=== PATIENT | male | born 1950 | race Caucasian/White ===

== ENCOUNTER → 2019-03-25 | Outpatient (CLI) | payer MEDICARE, BC ==
--- NOTE | 2019-03-25 16:30 | US ---
EXAMINATION TYPE: US venous doppler duplex LE LT DATE OF EXAM: 03/25/2019 4:17 PM COMPARISON: NONE CLINICAL HISTORY: M79.662,R22.41 PAIN AND SWELLING LOWER LIMB. SIDE PERFORMED: Left TECHNIQUE: The lower extremity deep venous system is examined utilizing real time linear array sonog kanchan with graded compression, doppler sonography and color-flow sonography. VESSELS IMAGED: External Iliac Vein (EIV) Common Femoral Vein Deep Femoral Vein Greater Saphenous Vein * Femoral Vein Popliteal Vein Small Saphenous Vein * Proximal Calf Veins (* superficial vessels) There is normal flow, compressibility, vascular waveforms. Left Leg: Negative for DVT IMPRESSION: No evident deep venous thrombosis at or above the left knee, follow-up as indicated
== END | disposition home or self-care (01) ==
LOC: RADUSWWP 15:52
PROVIDERS: ATTEND Family Medicine
DX: M79.662 Pain in left lower leg (principal); R22.41 Localized swelling, mass and lump, right lower limb

== ENCOUNTER → 2021-03-15 | Outpatient (CLI) | payer MEDICARE ==
--- NOTE | 2021-03-15 13:39 | US ---
EXAMINATION TYPE: US venous doppler duplex LE LT DATE OF EXAM: 03/15/2021 1:19 PM COMPARISON: US 2019 CLINICAL HISTORY: R22.42 SWELLING LT UPPER LIMB. Left ankle swelling SIDE PERFORMED: Left TECHNIQUE: The lower extremity deep venous system is examined utilizing real time linear array sonog kanchan with graded compression, doppler sonography and color-flow sonography. VESSELS IMAGED: Common Femoral Vein Deep Femoral Vein Greater Saphenous Vein * Femoral Vein Popliteal Vein Small Saphenous Vein * Proximal Calf Veins (* superficial vessels) Left Leg: Positive for DVT popliteal vein and proximal calf veins IMPRESSION: 1. Deep venous thrombosis left lower extremity popliteal and proximal trifurcation vessels.
== END | disposition home or self-care (01) ==
LOC: RADUSWWP 12:52
PROVIDERS: ATTEND Family Medicine
DX: I82.432 Acute embolism and thrombosis of left popliteal vein (principal); I82.4Y2 Acute embolism and thrombosis of unspecified deep veins of left proximal lower extremity

== ENCOUNTER 2023-02-04 09:12 | Emergency (ER) | payer MEDICARE ==
[2023-02-04] MEDS ORDERED: ORPHENADRINE 30 MG/ML 2 ML VIAL IVP STA (09:40)
[2023-02-04] MEDS ORDERED: KETOROLAC 15 MG/ML 1 ML VIAL IVP STA ×2 (09:40→14:03)
--- NOTE | 2023-02-04 09:49 | ED ---
Chest Pain HPI - General Chief Complaint: Chest Pain Stated Complaint: R Arm Pain Time Seen by Provider: 02/04/23 09:19 Source: patient, RN notes reviewed Mode of arrival: wheelchair Limitations: no limitations - History of Present Illness Initial Comments: This is a 72-year-old male who presents to the emergency department for chest pain and right-sided shoulder pain. States that 10 days ago he was having upper respiratory symptoms with coughing and congestion. He has been taking Sudafed and states that this has largely resolved. However, when this started 10 days ago, he had noticed some right-sided chest discomfort. This has since increased and is now going into the right shoulder. He saw his primary care provider 5 days ago who gave him a prescription for naproxen, which he is taking with no relief. He states "I feel like I was kicked by a large horse". Denies any shortness of breath. Also denies any history of similar symptoms in the past. Denies any fevers, chills, sore throat, cough, dyspnea, palpitations, abdominal pain, nausea, vomiting, diarrhea, back pain, or headaches. MD Complaint: chest pain, other (Right shoulder pain) - Related Data Home Medications Medication Instructions Recorded Confirmed Levothyroxine Sodium [Synthroid] 75 mcg PO QAM 04/21/15 04/26/15 Pseudoephedrine [Sudafed] 30 mg PO Q4H PRN 04/21/15 04/26/15 Ibuprofen [Motrin] 1 tab PO Q6HR PRN 04/26/15 04/26/15 Previous Rx's Medication Instructions Recorded Baclofen 5 mg PO Q8H PRN #20 tablet 02/04/23 Diclofenac Sodium [Voltaren] 75 mg PO BID PRN #20 tab 02/04/23 HYDROcodone/APAP 5-325MG [[place]alo 1 tab PO Q6HR PRN 3 Days #12 tab 02/04/23 5-325] Allergies Allergy/AdvReac Type Severity Reaction Status Date / Time Penicillins Allergy Rash/Hives Verified 02/04/23 09:29 Review of Systems ROS Statement: Those systems with pertinent positive or pertinent negative responses have been documented in the HPI. ROS Other: All systems not noted in ROS Statement are negative. Past Medical History Past Medical History: Sleep Apnea/CPAP/BIPAP, Thyroid Disorder Additional Past Medical History / Comment(s): MENIGITIS (BACTERIAL?). NO CPAP/BIPAP History of Any Multi-Drug Resistant Organisms: None Reported Past Surgical History: Back Surgery Past Anesthesia/Blood Transfusion Reactions: No Reported Reaction Past Psychological History: No Psychological Hx Reported Smoking Status: Current some day smoker Past Alcohol Use History: Rare Past Drug Use History: Marijuana - Past Family History Father Family Medical History: Myocardial Infarction ([place]) General Exam Limitations: no limitations General appearance: alert, in distress Head exam: Present: atraumatic, normocephalic, normal inspection Respiratory exam: Present: normal lung sounds bilaterally, chest wall tenderness. Absent: respiratory distress, wheezes, rales, rhonchi, stridor Cardiovascular Exam: Present: regular rate, normal rhythm, normal heart sounds. Absent: systolic murmur, diastolic murmur, rubs, gallop, clicks Extremities exam: Present: other (Tenderness to palpation over the right humeral head. 2+ radial pulses.) Neurological exam: Present: alert, oriented X3, CN II-XII intact Psychiatric exam: Present: normal affect, normal mood Skin exam: Present: warm, dry, intact, normal color. Absent: rash Course Vital Signs 02/04/23 02/04/23 02/04/23 09:24 12:12 13:20 Temperature 98.9 F Pulse Rate 82 80 84 Respiratory 18 18 19 Rate Blood Pressure 158/83 142/71 157/76 O2 Sat by Pulse 95 95 94 L Oximetry 02/04/23 02/04/23 14:41 16:43 Temperature 98.7 F Pulse Rate 82 93 Respiratory 19 191 H Rate Blood Pressure 120/82 151/77 O2 Sat by Pulse 96 98 Oximetry Chest Pain MDM - MDM This is a 72 year old male who presents to the emergency department for chest pain and right-sided shoulder pain. Was pt. sent in by a medical professional or institution? @ -No Did you speak to anyone other than the patient for history? @ -No Did you review nursing and triage notes? @ -Yes, and I agree, it is accurate with regards to the patient's symptoms. Were old charts reviewed? @ -No Differential Diagnosis? @ -Differential Chest Pain: Stable Angina, Unstable Angina, STEMI, NSTEMI Aortic Dissection, Pneumothorax, Musculoskeletal, Esophageal Spasm GERD, Cholecystitis, Pancreatitis, Zoster, this is not meant to be an all-inclusive list. EKG interpreted by me (3pts min.)? @ -Sinus rhythm. Right axis deviation. Right bundle branch block. Ventricular rate 82 bpm, KS interval 169 ms, QRS duration 149 ms, QTc 433ms. X-rays interpreted by me (1pt min.)? @ -Chest x-ray obtained, my interpretation identifies no localized consolidations or infiltrates. X-ray of the right shoulder obtained as well. My interpretation identifies no acute fractures or dislocations. CT interpreted by me (1pt min.)? @ -CT angiogram of the chest obtained. My interpretation identifies no evidence of a pulmonary embolus. What testing was considered but not performed? (CT, X-rays, U/S, labs)? Why? @ -None What meds were considered but not given? Why? @ -None Did you discuss the management of the patient with other professionals? @ -No Did you reconcile home meds? @ -No Was smoking cessation discussed for >3mins.? @ -No Was critical care preformed (if so, how long)? @ -No Were there social determinants of health that impacted care today? How? (Homelessness, low income, unemployed, alcoholism, drug addiction, transportation, low edu. Level, literacy, decrease access to med. care, [facility], rehab)? @ -No Was there de-escalation of care discussed even if they declined? (Discuss DNR or withdrawal of care, Hospice)? @ -No What co-morbidities impacted this encounter? (DM, HTN, Smoking, COPD, CAD, Cancer, CVA, Hep., AIDS, mental health diagnosis, sleep apnea, morbid obesity)? @ -None Was patient admitted / discharged? @ -Discharged. Lab work obtained revealing an elevated d-dimer and no other acute findings. Chest x-ray and x-ray of the right shoulder obtained revealing no acute process. The pain was significantly reproducible on examination. Given the elevated d-dimer, CTA of the chest was obtained. There was no evidence of a pulmonary embolus, however there was abnormal tissue starting in the lower anterior neck and extending into the mediastinum on the right side. Findings reviewed with the patient, in that this is likely what is causing his pain. He does still have adequate pulses and there is no evidence of vascular compromise in the right upper extremity. Pain was controlled in the emergency department. Prescription for Malo, baclofen, and diclofenac provided with dosing instructions reviewed. Advised that the Malo and baclofen are sedating and he should take them at night until he knows how they affect him, and avoid driving or operating machinery when taking them. He is also instructed to take the Diclofenac with Tylenol if needed and avoid any other qasf-wua-ekbllfd anti- inflammatories such as ibuprofen with the Diclofenac. Information for cardiothoracic surgery provided. He is instructed to contact them tomorrow morning for a follow-up appointment and further evaluation of these abnormal computed tomography scan findings. He does already have a follow-up appointment scheduled with his primary care provider for 3 days from now as well. Undiagnosed new problem with uncertain prognosis? @ -None Drug Therapy requiring intensive monitoring for toxicity (Heparin, Nitro, Insulin, Cardizem)? @ -None Were any procedures done? @ -None Diagnosis/symptom? @ -Abnormal CT scan of chest, mediastinal abnormality Acute, or Chronic, or Acute on Chronic? @ -Acute Uncomplicated (without systemic symptoms) or Complicated (systemic symptoms)? @ -Uncomplicated Side effects of treatment? @ -None Exacerbation, Progression, or Severe Exacerbation] @ -Not applicable Poses a threat to life or bodily function? @ -This will depend on the etiology of the abnormal mediastinal tissue. Return precautions reviewed in depth, the patient is instructed to return to the emergency department with any new, worsening, or concerning symptoms. Patient verbalized understanding. This case was discussed in detail with the attending ED physician, Dr. Santana. Presentation, findings, and treatment plan discussed in detail as well. Disposition Clinical Impression: Abnormal CT scan, chest, Mediastinal abnormality Disposition: HOME SELF-CARE Instructions (If sedation given, give patient instructions): Chest Pain (ED) Additional Instructions: Return to the emergency department with any new, worsening, or concerning symptoms. Take the diclofenac with Tylenol as needed for pain relief. If you take the diclofenac, do not take any other sapt-wgr-jrpowpw anti-inflammatories such as ibuprofen. Take the Malo sparingly when your pain is the most severe. Both the baclofen and Malo can be sedating and you should avoid driving or operating machinery when taking them. Contact cardiothoracic surgery as listed below for a follow-up appointment regarding your abnormal computed tomography scan findings demonstrating abnormal tissue in the mediastinum. Follow up with your primary care provider as scheduled. Prescriptions: Baclofen 5 mg PO Q8H PRN #20 tablet PRN Reason: Pain HYDROcodone/APAP 5-325MG [Malo 5-325] 1 tab PO Q6HR PRN 3 Days #12 tab PRN Reason: Pain Diclofenac Sodium [Voltaren] 75 mg PO BID PRN #20 tab PRN Reason: Pain Is patient prescribed a controlled substance at d/c from ED?: Yes When asked, does pt state using other controlled substances?: No If prescribed controlled substance>3 days was MAPS reviewed?: Prescribed <3 Days Referrals: Arabella Gruber MD [Primary Care Provider] - 1-2 days Nitin Brooks MD [STAFF PHYSICIAN] - 1-2 days
[2023-02-04 10:41] LABS: ALT 71 U/L (4-49); African American GFR (CKD) >90 (>60 ml/min/1.73 sqM); Albumin 3.6 g/dL (3.5-5.0); Anion Gap 11 mmol/L; Blood Urea Nitrogen 12 mg/dL (9-20); Calcium 9.3 mg/dL (8.4-10.2); Carbon Dioxide 23 mmol/L (22-30); Chloride 99 mmol/L (98-107); Glucose 129 mg/dL (74-99); Non-African American GFR(CKD) >90 (>60 ml/min/1.73 sqM); Sodium 133 mmol/L (137-145); Total Bilirubin 0.8 mg/dL (0.2-1.3); Total Protein 6.9 g/dL (6.3-8.2)
--- NOTE | 2023-02-04 10:42 | XR ---
EXAMINATION TYPE: XR chest 2V DATE OF EXAM: 02/04/2023 COMPARISON: 01/30/2023 HISTORY: Chest pain TECHNIQUE: Frontal and lateral views of the chest are obtained. FINDINGS: There is no focal air space opacity, pleural effusion, or pneumothorax seen. The cardiac silhouette size is within normal limits. The osseous structures are intact. IMPRESSION: No acute cardiopulmonary process. No interval change.
--- NOTE | 2023-02-04 10:43 | XR ---
Right shoulder. HISTORY: Pain. COMPARISON: None. TECHNIQUE: 3 views the right shoulder were obtained. FINDINGS: There is no fracture, dislocation, intraosseous or soft tissue abnormality. There is mild osteoarthri tic change of the glenohumeral joint. IMPRESSION: 1. No evidence of acute trauma. 2. 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
[2023-02-04 10:53] LABS: AST 36 U/L (17-59); Magnesium 2.1 mg/dL (1.6-2.3)
[2023-02-04 10:54] LABS: Alkaline Phosphatase 92 U/L (38-126)
[2023-02-04] MEDS ORDERED: MORPHINE SULFATE 2 MG/ML SYRINGE IVP STA ×2 (11:02→14:03)
[2023-02-04 11:42] LABS: Basophils % (A) 0 %; Eosinophils # (A) 0.2 k/uL (0-0.7); Eosinophils % (A) 1 %; HCT 44.3 % (39.0-53.0); HGB 14.8 gm/dL (13.0-17.5); Lymphocytes # (A) 0.8 k/uL (1.0-4.8); Lymphocytes % (A) 6 %; MCH 30.5 pg (25.0-35.0); MCHC 33.3 g/dL (31.0-37.0); MCV 91.4 fL (80.0-100.0); Mean Platelet Volume 6.9; Monocytes # (A) 0.8 k/uL (0-1.0); Monocytes % (A) 6 %; Neutrophils # (A) 11.7 k/uL (1.3-7.7); Neutrophils % (A) 87 %; Platelet Count 401 k/uL (150-450); RBC 4.85 m/uL (4.30-5.90); RDW 13.7 % (11.5-15.5); WBC 13.5 k/uL (3.8-10.6)
[2023-02-04 13:16] LABS: Prothrombin Time 10.4 sec (9.0-12.0)
--- NOTE | 2023-02-04 14:28 | CT ---
EXAMINATION TYPE: CT chest angio for PE CT DLP: 632.1 mGycm, Automated exposure control for dose reduction was used. DATE OF EXAM: 02/04/2023 1:48 PM COMPARISON: Chest radiograph from same day. CLINICAL INDICATION:Male, 72 years old with history of Chest pain, elevated d-dimer; Chest pains into right shoulder TECHNIQUE/CONTRAST: CTA scan of the thorax is performed with IV Contrast, patient injected with 100 mL of Isovue 300, pul monary embolism protocol. MIP images are created and reviewed these [facility] FINDINGS: Pulmonary Artery: Motion limited exam. There is no evidence for a central filling defect within the p ulmonary vasculature to suggest acute pulmonary embolism. Limited evaluation of the segmental and sub segmental branches secondary to bolus timing. The pulmonary artery is of normal size. Lungs/Pleura: No evidence of focal consolidation, pleural effusion or pneumothorax. Airway: Large airways are patent. Heart: Heart is within normal limits for size. Vasculature: No evidence of aortic aneurysm. Mediastinum: Abnormal soft tissue in the mediastinum superiorly just posterior to the right sternocla vicular and costochondral junction measuring 5.0 x 3.5 x 2.2 cm. Musculoskeletal: No acute osseous abnormalities Soft Tissues: Soft tissue mass in the lower neck extending into the mediastinum as described above. N o obvious osseous erosion changes. Lower neck: No significant findings. Upper Abdomen: No significant findings. IMPRESSION: 1. No evidence of central pulmonary embolism. Limited evaluation of the segmental and subsegmental br anches. 2. Abnormal soft tissue in low anterior neck extending into the anterior mediastinum posterior to the sternum on the right. Further evaluation recommended consider pet/CT.
[2023-02-04] MEDS ORDERED: HYDROcodone/APAP 5-325MG 1 EACH TAB PO STA (15:14)
[2023-02-04] MEDS ORDERED: ACET/COD 300 MG/30 MG STARTER PACK 6 TAB BTL PO STA (16:07)
[2023-02-04 16:45] VITALS: BP 151/77; PULSE 93; RESP 191; TEMP 98.7
== END 2023-02-04 16:45 | disposition home or self-care (01) ==
LOC: EC 09:12
DX: J98.51 Mediastinitis (principal); G47.30 Sleep apnea, unspecified; E07.9 Disorder of thyroid, unspecified; F17.200 Nicotine dependence, unspecified, uncomplicated; F12.90 Cannabis use, unspecified, uncomplicated; Z79.890 Hormone replacement therapy; Z88.0 Allergy status to penicillin; Z20.822 Contact with and (suspected) exposure to COVID-19
CPT/HCPCS: 99285; 96374; 96376; 96375 ×3; 36415; 93005; 85379; 80053; 83735; 84484; 85025; 85610; 85730; 87636; 73030; 71046; 71275; J2360; J2270; J1885; Q9967

== ENCOUNTER 2023-02-05 12:55 | Inpatient (IN) | payer MEDICARE ==
[2023-02-05] MEDS ORDERED: ACETAMINOPHEN TAB 500 MG TAB PO STA (13:29)
[2023-02-05] MEDS ORDERED: SODIUM CHLORIDE 0.9% 1,000 ML IV STA ×2 (13:29)
[2023-02-05] MEDS ORDERED: VANCOMYCIN IV PER PHARMACY 1 EACH MISC MISCELLANE PRN (13:30)
[2023-02-05] MEDS ORDERED: VANCOMYCIN 1,750 MG in SODIUM CHLORIDE 0.9% 500 ML 500 ML IVPB ONE (14:00)
--- NOTE | 2023-02-05 14:13 | ED ---
General Adult HPI - General Chief complaint: Skin/Abscess/Foreign Body Stated complaint: Abscess on Chest Time Seen by Provider: 02/05/23 13:23 Source: patient, RN notes reviewed, old records reviewed Mode of arrival: wheelchair Limitations: no limitations - History of Present Illness Initial comments: 72 yo male presenting for reevaluation of right upper chest pain. Patient was seen in the emergency department yesterday had a soft tissue mass in the mediastinum that was noted on imaging. He was afebrile at that time and had symptoms for approximately one week. He was discharged with referral to cardiothoracic surgery. He returns today with a rapid progression of swelling and erythema in the right anterior chest wall and neck region. Patient also reports fever. - Related Data Home Medications Medication Instructions Recorded Confirmed Pseudoephedrine [Sudafed] 30 mg PO Q4H PRN 04/21/15 02/05/23 Ibuprofen [Motrin] 800 mg PO Q6HR PRN 04/26/15 02/05/23 Acetaminophen Tab [Tylenol Tab] 1,000 mg PO Q6HR PRN 02/05/23 02/05/23 Baclofen 5 - 10 mg PO Q8H PRN 02/05/23 02/05/23 Levothyroxine Sodium [Synthroid] 88 mcg PO DAILY 02/05/23 02/05/23 Loratadine [Claritin] 10 mg PO DAILY 02/05/23 02/05/23 diphenhydrAMINE [Benadryl] 25 mg PO Q6H PRN 02/05/23 02/05/23 Previous Rx's Medication Instructions Recorded Diclofenac Sodium [Voltaren] 75 mg PO BID PRN #20 tab 02/04/23 HYDROcodone/APAP 5-325MG [[place] 1 tab PO Q6HR PRN 3 Days #12 tab 02/04/23 5-325] Allergies Allergy/AdvReac Type Severity Reaction Status Date / Time Penicillins Allergy Rash/Hives Verified 02/05/23 15:13 Review of Systems ROS Statement: Those systems with pertinent positive or pertinent negative responses have been documented in the HPI. ROS Other: All systems not noted in ROS Statement are negative. Past Medical History Past Medical History: Sleep Apnea/CPAP/BIPAP, Thyroid Disorder Additional Past Medical History / Comment(s): MENIGITIS (BACTERIAL?). NO CPAP/BIPAP History of Any Multi-Drug Resistant Organisms: None Reported Past Surgical History: Back Surgery Past Anesthesia/Blood Transfusion Reactions: No Reported Reaction Past Psychological History: No Psychological Hx Reported Smoking Status: Current some day smoker Past Alcohol Use History: Rare Past Drug Use History: Marijuana - Past Family History Father Family Medical History: Myocardial Infarction ([place]) General Exam General appearance: alert, in no apparent distress Head exam: Present: atraumatic, normocephalic Eye exam: Present: normal appearance, PERRL ENT exam: Present: normal exam Neck exam: Present: other (Right-sided neck and upper chest wall swelling with tenderness to palpation, erythema.) Respiratory exam: Present: normal lung sounds bilaterally Cardiovascular Exam: Present: regular rate, normal rhythm GI/Abdominal exam: Present: soft. Absent: distended, tenderness, guarding Extremities exam: Present: normal inspection, normal capillary refill. Absent: pedal edema Neurological exam: Present: alert, oriented X3, CN II-XII intact. Absent: motor sensory deficit Skin exam: Present: warm, dry Course Vital Signs 02/05/23 02/05/23 02/05/23 13:07 15:00 15:15 Temperature 102.2 F H 100.3 F H Pulse Rate 97 88 89 Respiratory 22 22 22 Rate Blood Pressure 147/75 130/70 118/70 O2 Sat by Pulse 92 L 92 L 95 Oximetry - Reevaluation(s) Reevaluation #1: 02/05/23 15:50 cardiothoracic has been paged, discussed the case with Reina lawson for cardiothoracic [facility], [facility], Jose R discussed the case with infectious disease. EKG Findings - EKG Comments: EKG Findings:: EKG: Sinus rhythm, right bundle-branch block, rate of 90, IN interval 144, QRS duration 142, QTC 4:[address] segment changes. Medical Decision Making - Medical Decision Making Was pt. sent in by a medical professional or institution (, PA, NURSE FIRST AID, urgent care, hospital, or fpc...) When possible be specific @ -No Did you speak to anyone other than the patient for history (EMS, parent, family, police, friend...)? What history was obtained from this source @ -Patient's Did you review nursing and triage notes (agree or disagree)? Why? @ -I reviewed and agree with nursing and triage notes Were old charts reviewed (outside hosp., previous admission, EMS record, old EKG, old radiological studies, urgent care reports/EKG's, fpc records)? Report findings @ -Previous CT performed yesterday Differential Diagnosis (chest pain, altered mental status, abdominal pain women, abdominal pain men, vaginal bleeding, weakness, fever, dyspnea, syncope, headache, dizziness, GI bleed, back pain, seizure, CVA, palpatations, mental health, musculoskeletal)? @ Cellulitis, mediastinal mass, mediastinal abscess, sepsis EKG interpreted by me (3pts min.). @ -As above X-rays interpreted by me (1pt min.). @ -None done CT interpreted by me (1pt min.). @ Repeat CT performed of the neck and chest with IV contrast. This shows that abnormal soft tissue findings with fat stranding. No definitive abscess found. U/S interpreted by me (1pt. min.). @ -None done What testing was considered but not performed or refused? (CT, X-rays, U/S, labs)? Why? @ -None What meds were considered but not given or refused? Why? @ -None Did you discuss the management of the patient with other professionals (professionals i.e. , PA, NURSE [employer] A[employer], lab, RT, psych nurse, social services aide, electric frying pan repairer, teacher, traffic division commanding officer, rn case manager hospice)? Give summary @ -[[facility], cardiothoracic has been paged Was smoking cessation discussed for >3mins.? @ -No Was critical care preformed (if so, how long)? @ -yes Were there social determinants of health that impacted care today? How? (Homelessness, low income, unemployed, alcoholism, drug addiction, transportation, low edu. Level, literacy, decrease access to med. care, detention, rehab)? @ -No Was there de-escalation of care discussed even if they declined (Discuss DNR or withdrawal of care, Hospice)? DNR status @ -No What co-morbidities impacted this encounter? (DM, HTN, Smoking, COPD, CAD, Cancer, CVA, ARF, Chemo, Hep., AIDS, mental health diagnosis, sleep apnea, morbid obesity)? @ -Diabetes Was patient admitted / discharged? Hospital course, mention meds given and route, prescriptions, significant lab abnormalities, going to OR and other pertinent info. @72-year-old male for reevaluation of upper chest pain. Patient found to be febrile. His white count has significantly elevated over the past 24 hours. He now has inferior neck and upper chest swelling and cellulitis which was not present yesterday. Patient has been started on broad-spectrum antibiotics including clindamycin, ceftriaxone, and vancomycin. His lactic acid is pending. He has hyponatremia at 124. Blood pressure remained stable while the emergency department. His fever responds to Tylenol. He will be admitted for continued IV antibiotics and consultation with both infectious disease and car diothoracic surgery. Undiagnosed new problem with uncertain prognosis? @ -No Drug Therapy requiring intensive monitoring for toxicity (Heparin, Nitro, Insulin, Cardizem)? @ -No Were any procedures done? @ -No Diagnosis/symptom? @Mediastinal and inferior neck soft tissue infection. Acute, or Chronic, or Acute on Chronic? @Acute Uncomplicated (without systemic symptoms) or Complicated (systemic symptoms)? @Complicated Side effects of treatment? @ -No Exacerbation, Progression, or Severe Exacerbation? @ -No Poses a threat to life or bodily function? How? (Chest pain, [place], [place], pneumonia, PE, COPD, DKA, ARF, appy, cholecystitis, CVA, Diverticulitis, Homicidal, Suicidal, threat to staff... and all critical care pts) @ -yes, worsening infection, sepsis - Lab Data Result diagrams: 02/05/23 13:51 02/05/23 13:51 Lab Results 02/05/23 02/05/23 02/05/23 Range/Units 13:51 13:51 13:51 WBC 21.0 H (3.8-10.6) k/uL RBC 4.32 (4.30-5.90) m/uL Hgb 13.0 (13.0-17.5) gm/dL Hct 38.6 L (39.0-53.0) % MCV 89.4 (80.0-100.0) fL MCH 30.1 (25.0-35.0) pg MCHC 33.7 (31.0-37.0) g/dL RDW 13.4 (11.5-15.5) % Plt Count 456 H (150-450) k/uL MPV 6.8 Neutrophils % 89 % Lymphocytes % 5 % Monocytes % 4 % Eosinophils % 1 % Basophils % 0 % Neutrophils # 18.5 H (1.3-7.7) k/uL Lymphocytes # 1.1 (1.0-4.8) k/uL Monocytes # 0.9 (0-1.0) k/uL Eosinophils # 0.2 (0-0.7) k/uL Basophils # 0.0 (0-0.2) k/uL PT 10.5 (9.0-12.0) sec INR 1.0 (<1.2) APTT 28.2 (22.0-30.0) sec Sodium 124 L (137-145) mmol/L Potassium 4.2 (3.5-5.1) mmol/L Chloride 89 L (98-107) mmol/L Carbon Dioxide 23 (22-30) mmol/L Anion Gap 12 mmol/L BUN 15 (9-20) mg/dL Creatinine 1.01 (0.66-1.25) mg/dL Est GFR (CKD-EPI)AfAm 87 (>60 ml/min/1.73 sqM) Est GFR (CKD-EPI)NonAf 75 (>60 ml/min/1.73 sqM) Glucose 124 H (74-99) mg/dL Calcium 8.5 (8.4-10.2) mg/dL Total Bilirubin 0.6 (0.2-1.3) mg/dL AST 41 (17-59) U/L ALT 49 (4-49) U/L Alkaline Phosphatase 110 (38-126) U/L Total Protein 6.4 (6.3-8.2) g/dL Albumin 3.4 L (3.5-5.0) g/dL Critical Care Time Critical Care Time: Yes Total Critical Care Time: 35 Disposition Clinical Impression: Mediastinal mass, Cellulitis, Sepsis Disposition: ADMITTED IP TO THIS HOSP Condition: Serious Is patient prescribed a controlled substance at d/c from ED?: No Referrals: Arabella Gruber MD [Primary Care Provider] - 1-2 days Time of Disposition: 16:05
[2023-02-05 14:14] LABS: Albumin 3.4 g/dL (3.5-5.0); Calcium 8.5 mg/dL (8.4-10.2); Potassium 4.2 mmol/L (3.5-5.1); Total Bilirubin 0.6 mg/dL (0.2-1.3); Total Protein 6.4 g/dL (6.3-8.2)
[2023-02-05 14:21] LABS: Partial Thromboplastin Time 28.2 sec (22.0-30.0); Prothrombin Time 10.5 sec (9.0-12.0)
--- NOTE | 2023-02-05 15:03 | CT ---
EXAMINATION TYPE: CT neck chest w con DATE OF EXAM: 02/05/2023 2:48 PM COMPARISON: CTA chest 01/08/2023 HISTORY: Right sided neck/upper chest swelling, redness and pain. CT DLP: 1113.9 mGycm Automated exposure control for dose reduction was used. CONTRAST: CT scan of the neck and chest is performed following with IV Contrast, patient injected with 100ml mL of Isovue 300. Axial images are obtained, coronal and sagittal reformatted images are reviewed. FINDINGS: Dental amalgam creates streak artifact which limits evaluation. Airway: No gross abnormality seen. Parotid/submandibular glands: No gross abnormality seen. Carotid/Vascular Structures: Unremarkable Osseous Structures: No acute osseous abnormality. Mild degenerative changes of the cervical spine. No osseous erosions. Lungs/Pleura: No evidence of focal consolidation, pleural effusion or pneumothorax. Minimal biapical pleural-parenchymal scarring. Airway: Large airways are patent. Heart: Heart is within normal limits for size. Vasculature: No evidence of aortic aneurysm. Mediastinum/soft tissues: Abnormal soft tissue in the mediastinum superiorly just posterior to the ri ght sternoclavicular and costochondral junction redemonstrated. This extends superiorly to the level of the hyoid on the right. There is adjacent subcutaneous fat stranding in the right anterior neck an d right superior chest. Single focus of gas identified just anterior to the right clavicular head (se gideon 201, image 72). No rim-enhancing fluid collection identified. There are a few prominent bilatera l cervical lymph nodes identified measuring 0.8 cm short axis. There is asymmetric enlargement of the right sternocleidomastoid mastoid muscle. Lower neck: No significant findings. Upper Abdomen: No significant findings. IMPRESSION: Redemonstration of abnormal soft tissue in the low anterior right neck extending from the hyoid bone to the superior mediastinum with surrounding fat stranding. No osseous erosions identified. A single focus of gas identified at the level of the right clavicle head. This could represent an infectious p rocess with phlegmonous change versus infiltrative mass with possible superimposed infection. Further workup is recommended with consideration for ultrasound.
[2023-02-05 15:09] LABS: Basophils % (A) 0 %; Eosinophils # (A) 0.2 k/uL (0-0.7); Eosinophils % (A) 1 %; HCT 38.6 % (39.0-53.0); Lymphocytes # (A) 1.1 k/uL (1.0-4.8); Lymphocytes % (A) 5 %; MCH 30.1 pg (25.0-35.0); MCHC 33.7 g/dL (31.0-37.0); MCV 89.4 fL (80.0-100.0); Mean Platelet Volume 6.8; Monocytes # (A) 0.9 k/uL (0-1.0); Monocytes % (A) 4 %; Neutrophils # (A) 18.5 k/uL (1.3-7.7); Neutrophils % (A) 89 %; Platelet Count 456 k/uL (150-450); RBC 4.32 m/uL (4.30-5.90); RDW 13.4 % (11.5-15.5)
[2023-02-05] MEDS ORDERED: CLINDAMYCIN 600 MG in DEXTROSE 5% IN WATER 50 ML IVPB STA ×2 (15:35)
[2023-02-05] MEDS ORDERED: NALOXONE 0.4 MG/ML 1 ML VIAL IV PRN (15:45)
--- NOTE | 2023-02-05 16:54 | P.HPIM ---
History of Present Illness H&P Date: 02/05/23 History of Presenting Illness: Patient is a very pleasant 72-year-old male with a past medical history of hypothyroidism and obstructive sleep apnea no longer using BiPAP. Patient presented to the emergency department secondary to right-sided chest pain, e rythema and swelling. Patient reports he initially began experiencing mild right-sided chest pain and discomfort approximately a week ago after he underwent a coughing fit. Patient states he had a recent upper respiratory infection with significant coughing and this is when he began having pain to his right side of his chest. Patient reports this respiratory infection has improved/resolved but states the chest pain has progressively worsened. Patient reports yesterday he was even seen and evaluated in the emergency department for the same complaint and upon review of ED documentation patient underwent full evaluation and was found to have a small soft tissue mass in the mediastinum on CT imaging. Patient was stable at that time and discharged with referral to cardiothoracic surgery for outpatient evaluation. Patient reports he returned to the emergency department today secondary to rapid progression of redness, swelling, and pain to his right anterior chest and neck accompanied by fevers. Patient denies having any headache, lightheadedness, dizziness, changes in vision or hearing, sore throat or dysphasia, difficulties with speech or clearing secretions, palpitations, shortness of breath, nausea, vomiting, abdominal pain, or experiencing any numbness/tingling/weakness/swelling in his extremities. Patient underwent full evaluation in the emergency department. Patient positive for severe sepsis with temp 102.2F, heart rate 97, WBC count 21.0, platelet count 456, and lactic acid was normal at 1.2. Patient received a 1 L bolus 0.9% normal saline in the ED and started on IV antibiotics. Labs completed and reviewed. CBC revealing leukocytosis with WBC count of 21.0 with left shift with neutrophils of 18.5. BMP revealing hyponatremia with sodium 124 and hypochloremia with chloride of 89. Lactic acid was 1.2. CT neck and chest with contrast was completed in radiology report reviewed showing redemonstration of abnormal soft tissue mass in the lower anterior right neck extending from the hyoid bone to the superior mediastinum with surrounding fat stranding, no osseous erosions identified, a single focus of gas identified in the level of the right clavicular head, possibly representing an infectious process with phlegmonous change versus infiltrative mass with possible superimposed infection. Discussed clinical findings, laboratory analysis, and imaging results with ED physician in detail. Patient being admitted under our services for severe sepsis and concerns of mediastinitis. Consults placed to cardiothoracic surgery and infectious disease. Review of systems: Pertinent positives and negatives as discussed in HPI, a complete review of systems was performed and all other systems are negative. Physical exam: Vital signs reviewed and stable. General: Nontoxic, no distress and appears stated age. Derm: Skin warm and dry, normal coloration for ethnicity. Moderate mediastinal soft tissue swelling extending into right supraclavicular region and right lateral side of neck accompanied by increased warmth. Head: Atraumatic, normocephalic and symmetric. Eyes: EOMs intact, no lid lag, and anicteric sclera Mouth: no lip lesions, mucus membranes moist Cardiovascular: regular rate and rhythm with normal S1S2, no murmur, positive posterior tibial pulses bilaterally, and cap refill < 2 seconds. Lungs: Respirations even, regular, and unlabored on room air. Lungs CTA bilaterally, no rhonchi, no rales, no wheezing, and no accessory muscle usage. Abdominal: soft, nontender to palpation, no guarding, no appreciable organomegaly Ext: ROM intact. No gross muscle atrophy, no edema, no contractures Neuro: Speech clear, face symmetrical and CN II-XII grossly intact with no noted focal neuro deficits Psych: Alert and oriented to person, place, time, and situation. Appropriate and pleasant affect. Assessment and Plan of Care: Mediastinal mass, infective versus infiltrative process with concerns of Mediastinitis Severe Sepsis secondary to above Leukocytosis Thrombocytosis Hypochloremic Hyponatremia -Patient positive for severe sepsis with temp 102.2F, heart rate 97, WBC count 21.0, platelet count 456, and lactic acid was normal at 1.2. -Patient received a 1 L bolus 0.9% normal saline in the ED and started on IV a ntibiotics. Labs completed and reviewed. CBC revealing leukocytosis with WBC count of 21.0 with left shift with neutrophils of 18.5. BMP revealing hyponatremia with sodium 124 and hypochloremia with chloride of 89. Lactic acid was 1.2. -CT neck and chest with contrast was completed in radiology report reviewed showing redemonstration of abnormal soft tissue mass in the lower anterior right neck extending from the hyoid bone to the superior mediastinum with surrounding fat stranding, no osseous erosions identified, a single focus of gas identified in the level of the right clavicular head, possibly representing an infectious process with phlegmonous change versus infiltrative mass with possible superimposed infection. -Discussed clinical findings, laboratory analysis, and imaging results with ED physician in detail. -Patient being admitted under our services for severe sepsis and concerns of mediastinitis. -Consults placed to cardiothoracic surgery and infectious disease. -Orders placed for ESR and CRP. -Follow up on blood cultures. -Patient started on IV antibiotics vancomycin 1750 mg every 12 hours, clindamycin 600 mg IVPB every 6 hours, and cefepime 2 g IVPB every 8 hours. -Symptomatic care and pain management. -Tylenol 650 mg every 6 hours as needed for mild pain/fever. Hypothyroidism -Home medications reviewed, patient to continue levothyroxine 88 g daily. The patient is admitted with an anticipated greater than 2 midnight stay for evaluation of severe sepsis CODE STATUS: Full code DVT prophylaxis: Lovenox Discussed with: Patient, patient significant other, patient's son, ED physician, and infectious disease physician Anticipated discharge date: Clinical course to determine Anticipated discharge place: Home Patient was seen independently by Nurse Practitioner. This document was prepared using [employer] dictation software. Please allow for errors in rrt while rare they do occur. Jose R Lloyd NP rendered care for this patient independently, reviewed the findings and plan as documented in the note above. I did not physically speak with or examine the patient on this date. Past Medical History Past Medical History: Sleep Apnea/CPAP/BIPAP, Thyroid Disorder Additional Past Medical History / Comment(s): MENIGITIS (BACTERIAL?). NO CPAP/BIPAP History of Any Multi-Drug Resistant Organisms: None Reported Past Surgical History: Back Surgery Past Anesthesia/Blood Transfusion Reactions: No Reported Reaction Past Psychological History: No Psychological Hx Reported Smoking Status: Current some day smoker Past Alcohol Use History: Rare Past Drug Use History: Marijuana - Past Family History Father Family Medical History: Myocardial Infarction ([place]) Medications and Allergies Home Medications Medication Instructions Recorded Confirmed Type Pseudoephedrine [Sudafed] 30 mg PO Q4H PRN 04/21/15 02/05/23 History Ibuprofen [Motrin] 800 mg PO Q6HR PRN 04/26/15 02/05/23 History Diclofenac Sodium [Voltaren] 75 mg PO BID PRN #20 tab 02/04/23 02/05/23 Rx HYDROcodone/APAP 5-325MG [[place] 1 tab PO Q6HR PRN 3 Days #12 tab 02/04/23 02/05/23 Rx 5-325] Acetaminophen Tab [Tylenol Tab] 1,000 mg PO Q6HR PRN 02/05/23 02/05/23 History Baclofen 5 - 10 mg PO Q8H PRN 02/05/23 02/05/23 History Levothyroxine Sodium [Synthroid] 88 mcg PO DAILY 02/05/23 02/05/23 History Loratadine [Claritin] 10 mg PO DAILY 02/05/23 02/05/23 History diphenhydrAMINE [Benadryl] 25 mg PO Q6H PRN 02/05/23 02/05/23 History Allergies Allergy/AdvReac Type Severity Reaction Status Date / Time Penicillins Allergy Rash/Hives Verified 02/05/23 15:13 Physical Exam Osteopathic Statement: *. No significant issues noted on an osteopathic structural exam other than those noted in the History and Physical/Consult. Vitals: Vital Signs Temp Pulse Resp BP Pulse Ox 02/05/23 15:15 89 22 118/70 95 02/05/23 15:00 100.3 F H 88 22 130/70 92 L 02/05/23 13:07 102.2 F H 97 22 147/75 92 L Intake and Output 02/05/23 02/05/23 02/05/23 06:59 14:59 22:59 Other: Weight 104.32 kg Results CBC & Chem 7: 02/05/23 13:51 02/05/23 13:51 Labs: Abnormal Lab Results - Last 24 Hours (Table) 02/05/23 02/05/23 Range/Units 13:51 13:51 WBC 21.0 H (3.8-10.6) k/uL Hct 38.6 L (39.0-53.0) % Plt Count 456 H (150-450) k/uL Neutrophils # 18.5 H (1.3-7.7) k/uL Sodium 124 L (137-145) mmol/L Chloride 89 L (98-107) mmol/L Glucose 124 H (74-99) mg/dL Albumin 3.4 L (3.5-5.0) g/dL
[2023-02-05] MEDS: HYDROmorphone 0.5 MG/0.5 ML SYRINGE IVP PRN ×2 (17:59→21:48)
[2023-02-05] MEDS: CEFEPIME 2 GM in SODIUM CHLORIDE 0.9% 100 ML IVPB SCH (18:01)
[2023-02-05] MEDS: ACETAMINOPHEN TAB 325 MG TAB PO PRN (21:17)
[2023-02-05] MEDS: PANTOPRAZOLE 40 MG/10 ML VIAL IVP SCH (21:17)
[2023-02-05] MEDS: CLINDAMYCIN 600 MG in DEXTROSE 5% IN WATER 50 ML IVPB SCH ×2 (22:49)
[2023-02-06] MEDS: CEFEPIME 2 GM in SODIUM CHLORIDE 0.9% 100 ML IVPB SCH ×3 (01:48→16:48)
[2023-02-06] MEDS: HYDROmorphone 0.5 MG/0.5 ML SYRINGE IVP PRN (02:37)
[2023-02-06] MEDS: ACETAMINOPHEN TAB 325 MG TAB PO PRN ×3 (03:43→22:06)
[2023-02-06] MEDS ORDERED: VANCOMYCIN 1,750 MG in SODIUM CHLORIDE 0.9% 500 ML 500 ML IVPB SCH (04:00)
[2023-02-06] MEDS: HYDROmorphone 1 MG/ML 1 ML SYRINGE IVP PRN ×5 (04:02→23:34)
[2023-02-06] MEDS: CLINDAMYCIN 600 MG in DEXTROSE 5% IN WATER 50 ML IVPB SCH ×4 (04:13→11:52)
[2023-02-06] MEDS: LEVOTHYROXINE 88 MCG TAB PO SCH (08:57)
[2023-02-06] MEDS: PANTOPRAZOLE 40 MG/10 ML VIAL IVP SCH ×2 (08:57→22:04)
[2023-02-06] MEDS: ENOXAPARIN 40 MG/0.4 ML SYRINGE SQ SCH (08:57)
[2023-02-06 10:14] LABS: African American GFR (CKD) >90 (>60 ml/min/1.73 sqM); Non-African American GFR(CKD) 90 (>60 ml/min/1.73 sqM)
--- NOTE | 2023-02-06 10:19 | US ---
EXAMINATION TYPE: US mass soft tissue chest/back DATE OF EXAM: 02/06/2023 COMPARISON: CT scan 02/05/2023 CLINICAL INDICATION: Male, 72 years old with history of neck mass, r/o abscess; Right upper chest red ness with lump and pain at clavicle region. TECHNIQUE: FINDINGS: Patients area of concern scanned. Edema seen. Focal prominent area seen posterior to mus carla = 4.2 x 3.4 x 1.5 cm. IMPRESSION: There is a 4.2 x 3.4 x 1.5 cm area of echogenicity. Differential diagnosis would include soft tissue mass, hematoma, phlegmon or developing abscess.
--- NOTE | 2023-02-06 10:26 | US ---
EXAMINATION TYPE: US venous doppler duplex UE DATE OF EXAM: 02/06/2023 COMPARISON: CLINICAL INDICATION: Male, 72 years old with history of r/o DVT in the neck, subclavian; Right chest redness SIDE PERFORMED: Bilateral Right Arm: Negative for DVT Left Arm: Negative for DVT IMPRESSION: Grayscale, color doppler, spectral doppler imaging performed of the deep veins of the upper extremiti es. There is normal flow, compressibility and vascular waveforms.
--- NOTE | 2023-02-06 12:24 | P.GSCN ---
History of Present Illness Consult date: 02/06/23 Reason for Consult: Mediastinal soft tissue mass and swelling with supraclavicular cellulitis Requesting physician: Alejandro Santana History of present illness: This is a 72-year-old gentleman with a past medical history significant for hypothyroid, chronic sinusitis, asthma, remote history of spinal meningitis, o bstructive sleep apnea with no home BiPAP use, occasional diarrhea, history of DVT to his left leg 2 years ago, remote history of nicotine dependence quit smoking 31 years ago and occasional marijuana use, smokes 3-4 joints per week. The patient presented to the emergency department here at [facility] yesterday evening with complaints of right-sided chest pain, erythema and swelling. The patient reports about a week ago he had an upper respiratory infection and frequent episodes of coughing. He also reports that around Sunday or Sunday evening while getting up to the bathroom during the evening he bumped into the door jam hitting his right upper chest. Subsequently, after this incident while coughing he felt a pop in the chest, with complaints of chest wall pain. He presented to the emergency department on 02/04/2023 with similar complaints mentioned above. At that time a computed tomography scan of his chest was completed which showed an abnormal soft tissue in the low anterior neck extending into the anterior mediastinum posterior to the sternum o n the right. He was recommended to follow-up with a cardiothoracic surgeon on an outpatient basis and was discharged home. The patient denies any nausea, vomiting, headache, changes in vision or hearing, constipation, dysphasia, shortness of breath, stridor, palpitations, lightheadedness, presyncope or syncope. Patient does report having a fever as high as 102F. Initial laboratory results showed a WBC count of 21.0, and globe at 13.0, hematocrit 38.6, platelets 456, PT 10.5, INR 1.0, PTT 28.2, sodium 124, potassium 4.2, chloride 89, BUN 15, creatinine 1.01, glucose 124, C-reactive protein 24.7, TSH 2.710 and free T3 2.2. Due to the patient's history of right-sided neck, upper chest wall swelling a computed tomography scan of his chest and neck were completed with contrast which redemonstrated an abnormal soft tissue in the low anterior right neck extending from the hyoid bone to the superior mediastinum with surrounding fat stranding. It also showed no osseous erosions, and a si ngle focus of gas identified at the level of the right clavicle head. This morning and ultrasound venous Doppler duplex of his bilateral upper extremities was completed which was negative for DVT to his bilateral upper extremities. For further evaluation and ultrasound of the mass soft tissue chest/neck was completed which demonstrated a 4.2 x 3.4 x 1.5 cm area of echogenicity. Due to the patient's presenting symptoms, findings on the computed tomography scan of the chest/neck and ultrasound report a consult was placed to cardiothoracic surgery for further evaluation and treatment recommendations. Review of Systems A 14 point review of systems was completed except as mentioned in the HPI. Past Medical History Past Medical History: Asthma, Deep Vein Thrombosis (DVT) (Remote history of DVT to his left leg), Sleep Apnea/CPAP/BIPAP, Thyroid Disorder Additional Past Medical History / Comment(s): Remote history of spinal MENIGITIS (BACTERIAL?). NO CPAP/BIPAP History of Any Multi-Drug Resistant Organisms: None Reported Past Surgical History: Back Surgery Additional Past Surgical History / Comment(s): Lipoma removal Past Anesthesia/Blood Transfusion Reactions: No Reported Reaction Past Psychological History: No Psychological Hx Reported Smoking Status: Former smoker (Quit smoking 31 years ago) Past Alcohol Use History: Rare Past Drug Use History: Marijuana (Smokes 3-4 joints per week) - Past Family History Father Family Medical History: Myocardial Infarction ([place]) ([place] at age 76) Mother Family Medical History: AICD/Pacemaker, Osteoarthritis ([place]) Medications and Allergies Home Medications Medication Instructions Recorded Confirmed Type Pseudoephedrine [Sudafed] 30 mg PO Q4H PRN 04/21/15 02/05/23 History Ibuprofen [Motrin] 800 mg PO Q6HR PRN 04/26/15 02/05/23 History Diclofenac Sodium [Voltaren] 75 mg PO BID PRN #20 tab 02/04/23 02/05/23 Rx HYDROcodone/APAP 5-325MG [[place] 1 tab PO Q6HR PRN 3 Days #12 tab 02/04/23 02/05/23 Rx 5-325] Acetaminophen Tab [Tylenol Tab] 1,000 mg PO Q6HR PRN 02/05/23 02/05/23 History Baclofen 5 - 10 mg PO Q8H PRN 02/05/23 02/05/23 History Levothyroxine Sodium [Synthroid] 88 mcg PO DAILY 02/05/23 02/05/23 History Loratadine [Claritin] 10 mg PO DAILY 02/05/23 02/05/23 History diphenhydrAMINE [Benadryl] 25 mg PO Q6H PRN 02/05/23 02/05/23 History Allergies Allergy/AdvReac Type Severity Reaction Status Date / Time Penicillins Allergy Rash/Hives Verified 02/05/23 15:13 Surgical - Exam Vital Signs Temp Pulse Resp BP Pulse Ox 102.2 F H 97 22 147/75 92 L 02/05/23 13:07 02/05/23 13:07 02/05/23 13:07 02/05/23 13:07 02/05/23 13:07 - General Right upper chest wall pain with palpation well developed, well nourished, no distress, obese - Eyes PERRL, normal ocular movement, no pale, no icteric - ENT normal pinna, normal nares, normal mucosa, no hearing loss, no congestion - Neck Neck is supple. no masses, no bruits, trachea midline, no venous distension - Respiratory Lungs sounds essentially clear throughout. Respirations are symmetrical and nonlabored. No wheezes, rhonchi or crackles. - Cardiovascular Regular rhythm and rate. S1 and S2 present, negative for S3, gallop or murmur. Peripheral pulses palpable. Bedside telemetry showing normal sinus rhythm heart rate 93 BPM. - Abdomen Abdomen is soft, nontender and nondistended. Active bowel sounds present in all 4 quadrants. No guarding or rigidity. No organomegaly appreciated. - Genitourinary Deferred - Rectum Deferred - Integumentary Skin is warm and dry. No clubbing or cyanosis is present. Right upper chest, supraclavicular region with erythema and swelling, tender and warm to touch. no rash, no growths - Neurologic No focal deficits. Cranial nerves II through XII intact. - Musculoskeletal Equal strength bilateral. Limited range of motion to his right arm due to pain with movement. - Psychiatric oriented to time, oriented to person, oriented to place, speech is normal, memory intact Results - Labs 02/05/23 13:51 02/06/23 09:30 Abnormal Lab Results - Last 24 Hours (Table) 02/05/23 02/05/23 02/05/23 Range/Units 13:51 13:51 13:51 WBC 21.0 H (3.8-10.6) k/uL Hct 38.6 L (39.0-53.0) % Plt Count 456 H (150-450) k/uL Neutrophils # 18.5 H (1.3-7.7) k/uL ESR 87 H (0-15) mm/hr Sodium 124 L (137-145) mmol/L Chloride 89 L (98-107) mmol/L Glucose 124 H (74-99) mg/dL C-Reactive Protein (<1.0) mg/dL Albumin 3.4 L (3.5-5.0) g/dL Free T3 pg/mL (2.8-5.3) pg/ml 02/05/23 02/06/23 Range/Units 16:52 09:30 WBC (3.8-10.6) k/uL Hct (39.0-53.0) % Plt Count (150-450) k/uL Neutrophils # (1.3-7.7) k/uL ESR (0-15) mm/hr Sodium (137-145) mmol/L Chloride (98-107) mmol/L Glucose (74-99) mg/dL C-Reactive Protein 24.7 H (<1.0) mg/dL Albumin (3.5-5.0) g/dL Free T3 pg/mL 2.2 L (2.8-5.3) pg/ml Microbiology - Last 24 Hours (Table) 02/05/23 13:35 Blood Culture Gram Stain - Preliminary Blood Blood Culture - Preliminary Staphylococcus aureus 02/05/23 13:50 Blood Culture Gram Stain - Preliminary Blood Diabetes panel 02/05/23 02/06/23 Range/Units 13:51 09:30 Sodium 124 L (137-145) mmol/L Potassium 4.2 (3.5-5.1) mmol/L Chloride 89 L (98-107) mmol/L Carbon Dioxide 23 (22-30) mmol/L BUN 15 (9-20) mg/dL Creatinine 1.01 0.82 (0.66-1.25) mg/dL Glucose 124 H (74-99) mg/dL Calcium 8.5 (8.4-10.2) mg/dL AST 41 (17-59) U/L ALT 49 (4-49) U/L Alkaline Phosphatase 110 (38-126) U/L Total Protein 6.4 (6.3-8.2) g/dL Albumin 3.4 L (3.5-5.0) g/dL Thyroid panel 02/06/23 Range/Units 09:30 TSH 2.710 (0.465-4.680) mIU/L Calcium panel 02/05/23 Range/Units 13:51 Calcium 8.5 (8.4-10.2) mg/dL Albumin 3.4 L (3.5-5.0) g/dL Pituitary panel 02/05/23 02/06/23 02/06/23 Range/Units 13:51 09:30 09:30 Sodium 124 L (137-145) mmol/L Potassium 4.2 (3.5-5.1) mmol/L Chloride 89 L (98-107) mmol/L Carbon Dioxide 23 (22-30) mmol/L BUN 15 (9-20) mg/dL Creatinine 1.01 0.82 (0.66-1.25) mg/dL Glucose 124 H (74-99) mg/dL Calcium 8.5 (8.4-10.2) mg/dL TSH 2.710 (0.465-4.680) mIU/L Adrenal panel 02/05/23 02/06/23 Range/Units 13:51 09:30 Sodium 124 L (137-145) mmol/L Potassium 4.2 (3.5-5.1) mmol/L Chloride 89 L (98-107) mmol/L Carbon Dioxide 23 (22-30) mmol/L BUN 15 (9-20) mg/dL Creatinine 1.01 0.82 (0.66-1.25) mg/dL Glucose 124 H (74-99) mg/dL Calcium 8.5 (8.4-10.2) mg/dL Total Bilirubin 0.6 (0.2-1.3) mg/dL AST 41 (17-59) U/L ALT 49 (4-49) U/L Alkaline Phosphatase 110 (38-126) U/L Total Protein 6.4 (6.3-8.2) g/dL Albumin 3.4 L (3.5-5.0) g/dL - Imaging CT scan - chest: report reviewed, image reviewed Assessment and Plan Assessment: Mediastinal/right supraclavicular soft tissue swelling and abnormal soft tissue in the mediastinum superiorly just posterior to the right sternoclavicular and costochondral junction on computed tomography scan Sepsis with leukocytosis WBC count 21.0, likely secondary to above Hyponatremia Chronic sinusitis Thyroid disorder Remote history of spinal meningitis Occasional marijuana use, smokes 3-4 joint per week History of DVT to his left leg 2 years ago Sleep apnea without all BiPAP use Plan: The patient was seen and examined in the emergency department, with family present at bedside. His chart and diagnostics were reviewed. His case was discussed in detail with Dr. John Busch from cardiothoracic surgery. No surgical intervention is warned that this time. Infectious disease has been consulted. Continue antibiotics per infectious disease recommendations. Medic al management and other comorbidities per primary care service. More recommendations to follow based on patient's clinical course. Thank you for this consult and we look forward to working with you in the care of this patient. I have personally seen and examined the patient, performed the documentation and the assessment and plan as written. 30 minutes spent on the visit . Raj DUTTA Time with Patient: Greater than 30
--- NOTE | 2023-02-06 14:13 | P.PN ---
Subjective Progress Note Date: 02/06/23 Patient reports that his neck/chest pain has worsened, redness has spread down. Pain is decently controlled with Dilaudid. Blood cultures do show staph aureus. Gen: awake, alert HEENT: normocephalic, atraumatic, good hearing acuity, moist mucous membranes Resp: good air exchange, breathing comfortably with no accessory muscle use CVS: good distal perfusion x 4, GI: soft, NTTP, ND : no SPT, no CVAT, kilgore catheter not present MSK: no pitting edema, no clubbing, chest wall erythema with fluctuant mass above right supraclavicular area Neuro: non-focal, moving all extremities Psych: cooperative, euthymic mood Hospital course: Patient is a very pleasant 72-year-old male with a past medical history of hypothyroidism and obstructive sleep apnea no longer using BiPAP. Patient presented to the emergency department secondary to right-sided chest pain, erythema and swelling. Patient underwent full evaluation in the emergency department. Patient positive for severe sepsis with temp 102.2F, heart rate 97, WBC count 21.0, platelet count 456, and lactic acid was normal at 1.2. Patient received a 1 L bolus 0.9% normal saline in the ED and started on IV antibiotics. Labs completed and reviewed. CBC revealing leukocytosis with WBC count of 21.0 with left shift with neutrophils of 18.5. BMP revealing hyponatremia with sodium 124 and hypochloremia with chloride of 89. Lactic acid was 1.2. CT neck and chest with contrast was completed in radiology report reviewed showing redemonstration of abnormal soft tissue mass in the lower anterior right neck extending from the hyoid bone to the superior mediastinum with surrounding fat stranding, no osseous erosions identified, a single focus of gas identified in the level of the right clavicular head, possibly representing an infectious process with phlegmonous change versus infiltrative mass with possible supe rimposed infection. Discussed clinical findings, laboratory analysis, and imaging results with ED physician in detail. Patient was admitted under our services for severe sepsis and concerns of mediastinitis. Consults placed to cardiothoracic surgery, general surgery, and infectious disease. Assessment: Mediastinal mass, infective Gram-positive bacteremia with staph aureus Severe Sepsis secondary to above Leukocytosis Thrombocytosis Hypochloremic Hyponatremia Hypothyroidism Plan: Today, patient was afebrile, 123/65, heart rate 92, 94% on 2 L nasal cannula. TSH was 2.7, free T3 was 2.2 Cardiothoracic surgery consult note reviewed, patient is not a surgical candidate at this time Upper extremity duplex was negative for DVT CT of the neck/chest showed abnormal soft tissue with low anterior right neck extension from the higher bone to the superior mediastinum with surrounding fat stranding, single foci of gas identified the level of the right clavicle Soft tissue ultrasound demonstrated 4.1 cm echogenic mass Discussed case with general surgery regarding debridement of infected tissue, they will see the patient today and decide on operative course Discontinue clindamycin Continue vancomycin, dosed per vancomycin trough Continue cefepime 2 g every 8 hours Follow-up infectious disease consultation Pain control: Dilaudid 1 mg every 3 hours when necessary Patient is full code Objective - Vital Signs Vital signs: Vital Signs Temp 98.7 F 02/06/23 11:43 Pulse 93 02/06/23 11:43 Resp 20 02/06/23 11:43 BP 118/77 02/06/23 11:43 Pulse Ox 94 L 02/06/23 11:43 FiO2 Intake & Output 02/05/23 02/06/23 02/06/23 18:59 06:59 18:59 Intake Total 236 Output Total 400 425 Balance -400 -189 Weight 104.32 kg Intake: Oral 236 Output: Urine 400 425 Other: Voiding Method Urinal # Voids 2 - Labs CBC & Chem 7: 02/05/23 13:51 02/06/23 09:30 Labs: Abnormal Lab Results - Last 24 Hours (Table) 02/05/23 02/05/23 02/05/23 Range/Units 13:51 13:51 13:51 WBC 21.0 H (3.8-10.6) k/uL Hct 38.6 L (39.0-53.0) % Plt Count 456 H (150-450) k/uL Neutrophils # 18.5 H (1.3-7.7) k/uL ESR 87 H (0-15) mm/hr Sodium 124 L (137-145) mmol/L Chloride 89 L (98-107) mmol/L Glucose 124 H (74-99) mg/dL C-Reactive Protein (<1.0) mg/dL Albumin 3.4 L (3.5-5.0) g/dL Free T3 pg/mL (2.8-5.3) pg/ml 02/05/23 02/06/23 Range/Units 16:52 09:30 WBC (3.8-10.6) k/uL Hct (39.0-53.0) % Plt Count (150-450) k/uL Neutrophils # (1.3-7.7) k/uL ESR (0-15) mm/hr Sodium (137-145) mmol/L Chloride (98-107) mmol/L Glucose (74-99) mg/dL C-Reactive Protein 24.7 H (<1.0) mg/dL Albumin (3.5-5.0) g/dL Free T3 pg/mL 2.2 L (2.8-5.3) pg/ml Microbiology - Last 24 Hours (Table) 02/05/23 13:35 Blood Culture Gram Stain - Preliminary Blood Blood Culture - Preliminary Staphylococcus aureus 02/05/23 13:50 Blood Culture Gram Stain - Preliminary Blood
--- NOTE | 2023-02-06 15:21 | P.GSCN ---
History of Present Illness Consult date: 02/06/23 History of present illness: CHIEF COMPLAINT: Right-sided chest swelling with pain and redness HISTORY OF PRESENT ILLNESS: This is a 72-year-old male who presented to the hospital with complaints swelling in the right pectoral area up into the neck. Area is very painful and tender. Significant erythema and evidence of cellulitis. Patient reports symptoms started 3 days ago. He reports the week prior he has been coughing heavily with upper respiratory symptoms. Also he walked into the door jam hitting the right side of his chest wall. Patient denies any history of diabetes. Denies any prior history of skin infections. He had a computed tomography scan of the chest and neck that shows redemonstration of abnormal soft tissue in the lower anterior right neck extending from the hyoid bone to the superior mediastinum with surrounding fat stranding. No osseous erosions identified. A single focus of gas identified at the level of the right clavicle head. This could represent an infectious process with phlegmonous change versus infiltrative mass with possible superimposed infection. Ultrasound of the neck had shown a 4.2 x 3.4 x 1.5 cm area of echogenicity. Differential diagnosis would include soft tissue mass, hematoma, phlegmon or developing abscess. Patient denies being on any blood thinners. Patient has been febrile. He had fevers as high as 102 on admission with evidence of leukocytosis. PAST MEDICAL HISTORY: Sleep apnea. Hypothyroidism. History of DVT left leg PAST SURGICAL HISTORY: Back surgery MEDICATIONS: See below ALLERGIES: See below SOCIAL HISTORY: No illicit drug use. Marijuana smoker REVIEW OF SYSTEMS: CONSTITUTIONAL: Denies fever or chills. HEENT: Denies blurred vision, vision changes, or eye pain. Denies hemoptysis CARDIOVASCULAR: Denies chest pain or pressure. RESPIRATORY: No shortness of breath. GASTROINTESTINAL: See HPI for pertinent findings HEMATOLOGIC: Denies bleeding disorders. GENITOURINARY: Denies any blood in urine or increased urinary frequency. SKIN: Denies pruitis. Denies rash. PHYSICAL EXAM: VITAL SIGNS: Reviewed GENERAL: Well-developed in no acute distress. CHEST: Area of induration in the right pectoral region. Tender with palpation. Patient with significant cellulitis changes along the right right pectoral and chest area. Patient has swelling up into the right side of his neck with tenderness to palpation. No evidence of any cut or laceration. No drainage. ABDOMEN: Soft. Nondistended. Nontender NEUROLOGIC: Alert and oriented. Cranial nerves II through XII grossly intact. LABORATORY DATA: WBC is 21 hgb 13 platelets 456 Sodium 124 potassium is 4.2 creatinine 1.01 CRP 24 points IMAGING: Computed tomography scan and ultrasound as stated above ASSESSMENT: 1. Cellulitis of the right pectoral and chest wall. CT with abnormal soft tissue in the low anterior neck extending from the hyoid bone to the superior mediastinum with surrounding fat stranding. Could represent infectious process with phlegmonous change versus infiltrative mass with possible superimposed infection PLAN: -Continue IV antibiotics -Have nursing staff anthony the area of cellulitis -Continue to observe -Continue regular diet Thank you for this consultation Physician Psychiatric Nursing Aide note has been reviewed by physician. Signing provider agrees with the documented findings, assessment, and plan of care. Past Medical History Past Medical History: Asthma, Deep Vein Thrombosis (DVT), Sleep Apnea/CPAP/BIPAP, Thyroid Disorder Additional Past Medical History / Comment(s): Remote history of spinal MENIGITIS (BACTERIAL?). NO CPAP/BIPAP History of Any Multi-Drug Resistant Organisms: None Reported Past Surgical History: Back Surgery Additional Past Surgical History / Comment(s): Lipoma removal Past Anesthesia/Blood Transfusion Reactions: No Reported Reaction Past Psychological History: No Psychological Hx Reported Smoking Status: Former smoker Past Alcohol Use History: Rare Past Drug Use History: Marijuana - Past Family History Mother Family Medical History: AICD/Pacemaker, Osteoarthritis (OA) Father Family Medical History: Myocardial Infarction ([place]) Medications and Allergies Home Medications Medication Instructions Recorded Confirmed Type Pseudoephedrine [Sudafed] 30 mg PO Q4H PRN 04/21/15 02/05/23 History Ibuprofen [Motrin] 800 mg PO Q6HR PRN 04/26/15 02/05/23 History Diclofenac Sodium [Voltaren] 75 mg PO BID PRN #20 tab 02/04/23 02/05/23 Rx HYDROcodone/APAP 5-325MG [[place] 1 tab PO Q6HR PRN 3 Days #12 tab 02/04/23 02/05/23 Rx 5-325] Acetaminophen Tab [Tylenol Tab] 1,000 mg PO Q6HR PRN 02/05/23 02/05/23 History Baclofen 5 - 10 mg PO Q8H PRN 02/05/23 02/05/23 History Levothyroxine Sodium [Synthroid] 88 mcg PO DAILY 02/05/23 02/05/23 History Loratadine [Claritin] 10 mg PO DAILY 02/05/23 02/05/23 History diphenhydrAMINE [Benadryl] 25 mg PO Q6H PRN 02/05/23 02/05/23 History Allergies Allergy/AdvReac Type Severity Reaction Status Date / Time Penicillins Allergy Rash/Hives Verified 02/05/23 15:13 Surgical - Exam Vital Signs Temp Pulse Resp BP Pulse Ox 102.2 F H 97 22 147/75 92 L 02/05/23 13:07 02/05/23 13:07 02/05/23 13:07 02/05/23 13:07 02/05/23 13:07 Results - Labs 02/05/23 13:51 02/06/23 09:30 Abnormal Lab Results - Last 24 Hours (Table) 02/05/23 02/05/23 02/05/23 Range/Units 13:51 13:51 16:52 WBC 21.0 H (3.8-10.6) k/uL Hct 38.6 L (39.0-53.0) % Plt Count 456 H (150-450) k/uL Neutrophils # 18.5 H (1.3-7.7) k/uL ESR 87 H (0-15) mm/hr C-Reactive Protein 24.7 H (<1.0) mg/dL Free T3 pg/mL (2.8-5.3) pg/ml 02/06/23 Range/Units 09:30 WBC (3.8-10.6) k/uL Hct (39.0-53.0) % Plt Count (150-450) k/uL Neutrophils # (1.3-7.7) k/uL ESR (0-15) mm/hr C-Reactive Protein (<1.0) mg/dL Free T3 pg/mL 2.2 L (2.8-5.3) pg/ml Microbiology - Last 24 Hours (Table) 02/05/23 13:35 Blood Culture Gram Stain - Preliminary Blood Blood Culture - Preliminary Staphylococcus aureus 02/05/23 13:50 Blood Culture Gram Stain - Preliminary Blood Diabetes panel 02/06/23 Range/Units 09:30 Creatinine 0.82 (0.66-1.25) mg/dL Thyroid panel 02/06/23 Range/Units 09:30 TSH 2.710 (0.465-4.680) mIU/L Pituitary panel 02/06/23 02/06/23 Range/Units 09:30 09:30 Creatinine 0.82 (0.66-1.25) mg/dL TSH 2.710 (0.465-4.680) mIU/L Adrenal panel 02/06/23 Range/Units 09:30 Creatinine 0.82 (0.66-1.25) mg/dL
[2023-02-06] MEDS: VANCOMYCIN 1,750 MG in SODIUM CHLORIDE 0.9% 500 ML 500 ML IVPB SCH (18:25)
--- NOTE | 2023-02-06 19:42 | P.CONS ---
History of Present Illness - Reason for Consult Consult date: 02/06/23 Cellulitis rule out necrotizing infection Requesting physician: Jose R Lloyd - Chief Complaint Right chest wall pain and swelling x 2 days - History of Present Illness Patient is a 72-year-old male with a past medical history significant for hypothyroidism and obstructive sleep apnea patient initially presented to the hospital with right-sided chest pain that started after coughing fit and did have a recent URI infection patient was evaluated in the ER and noted to have small soft tissue mass in the mediastinum on CT imaging and the patient was subsequent discharged home. Presented back to the hospital with worsening symptoms specially with fever of 102 degrees Fahrenheit also complaining of increasing swelling and redness to the right side of the chest along with the pain which has been described as sharp in nature intense was almost out of 10 without any radiation and the patient has developed significant erythema to the right side of the chest patient did have a cough but no significant sputum production some nausea and vomiting no abdominal pain or any diarrhea on presentation to the hospital he did have a fever of 102.2 degrees for night mil dly tachycardic patient did have a white count of 21,000 with a left shift kidney function was normal within the normal blood culture drawn coming positive with Staph aureus patient did have a CT of the neck and the chest abdominal soft tissue lower anterior right neck extending from the hyoid bone to the spinal spine with surrounding fat stranding single focus of gas in 5 to the level of the right clavicle had "represent infectious process with phlegmon changes patient also have a soft tissue ultrasound which did shows a an area of possible developing abscess 4.2 X3.4X 1.5 cm patient has been evaluated by CT surgery not recommending any surgical intervention General surgery also has been consulted pending recommendation patient is currently on combination of cefepime and vancomycin clindamycin has been discontinued Review of Systems Positive point and negatives has been mentioned in the HPI, complete review of systems was performed and all other systems are negative Past Medical History Past Medical History: Asthma, Deep Vein Thrombosis (DVT) (Remote history of DVT to his left leg), Sleep Apnea/CPAP/BIPAP, Thyroid Disorder Additional Past Medical History / Comment(s): Remote history of spinal MENIGITIS (BACTERIAL?). NO CPAP/BIPAP History of Any Multi-Drug Resistant Organisms: None Reported Past Surgical History: Back Surgery Additional Past Surgical History / Comment(s): Lipoma removal Past Anesthesia/Blood Transfusion Reactions: No Reported Reaction Past Psychological History: No Psychological Hx Reported Smoking Status: Former smoker (Quit smoking 31 years ago) Past Alcohol Use History: Rare Past Drug Use History: Marijuana (Smokes 3-4 joints per week) - Past Family History Mother Family Medical History: AICD/Pacemaker, Osteoarthritis (OA) Father Family Medical History: Myocardial Infarction ([place]) (AR at age 76) Medications and Allergies Home Medications Medication Instructions Recorded Confirmed Type Pseudoephedrine [Sudafed] 30 mg PO Q4H PRN 04/21/15 02/05/23 History Ibuprofen [Motrin] 800 mg PO Q6HR PRN 04/26/15 02/05/23 History Diclofenac Sodium [Voltaren] 75 mg PO BID PRN #20 tab 02/04/23 02/05/23 Rx HYDROcodone/APAP 5-325MG [[place] 1 tab PO Q6HR PRN 3 Days #12 tab 02/04/23 02/05/23 Rx 5-325] Acetaminophen Tab [Tylenol Tab] 1,000 mg PO Q6HR PRN 02/05/23 02/05/23 History Baclofen 5 - 10 mg PO Q8H PRN 02/05/23 02/05/23 History Levothyroxine Sodium [Synthroid] 88 mcg PO DAILY 02/05/23 02/05/23 History Loratadine [Claritin] 10 mg PO DAILY 02/05/23 02/05/23 History diphenhydrAMINE [Benadryl] 25 mg PO Q6H PRN 02/05/23 02/05/23 History Allergies Allergy/AdvReac Type Severity Reaction Status Date / Time Penicillins Allergy Rash/Hives Verified 02/05/23 15:13 Physical Exam Vitals: Vital Signs Temp Pulse Pulse Resp BP BP Pulse Ox 02/06/23 11:43 98.7 F 93 20 118/77 94 L 02/06/23 08:44 98.5 F 96 20 135/69 93 L 02/06/23 04:00 98.8 F 89 20 129/66 96 02/06/23 02:30 98.8 F 02/06/23 02:00 20 02/05/23 23:00 99.0 F 80 22 128/66 97 02/05/23 21:00 101.3 F H 05/01/23 20:00 80 22 138/66 97 02/05/23 18:30 84 118/62 96 02/05/23 18:02 80 22 118/62 97 02/05/23 18:00 81 97 02/05/23 17:30 81 96 02/05/23 17:00 74 126/54 96 02/05/23 16:30 78 126/54 97 02/05/23 16:00 78 123/63 96 02/05/23 15:30 80 118/70 95 02/05/23 15:15 89 22 118/70 95 02/05/23 15:00 100.3 F H 88 22 130/70 92 L 02/05/23 13:07 102.2 F H 97 22 147/75 92 L Intake and Output 02/05/23 02/06/23 02/06/23 22:59 06:59 14:59 Intake Total 118 Output Total 400 425 Balance -400 -307 Intake: Oral 118 Output: Urine 400 425 Other: Voiding Method Urinal Urinal # Voids 1 2 GENERAL DESCRIPTION: Elderly male lying in bed, no distress. No tachypnea or accessory muscle of respiration use. HEENT: Shows Pallor , no scleral icterus. Oral mucous membrane is dry. NECK: Trachea central, no thyromegaly. LUNGS: Unlabored breathing. Clear to auscultation anteriorly. No wheeze or crackle. HEART: S1, S2, regular rate and rhythm. No loud murmur ABDOMEN: Soft, no tenderness , guarding or rigidity, no organomegaly EXTREMITIES: No edema of feet. SKIN: Right chest wall with erythema induration and tenderness no open wound or drainage NEUROLOGICAL: The patient is awake, alert, oriented x3, mood and affect normal. Results CBC & Chem 7: 02/12/23 05:47 02/12/23 05:47 Labs: Abnormal Lab Results - Last 24 Hours (Table) 02/05/23 02/05/23 02/05/23 Range/Units 13:51 13:51 13:51 WBC 21.0 H (3.8-10.6) k/uL Hct 38.6 L (39.0-53.0) % Plt Count 456 H (150-450) k/uL Neutrophils # 18.5 H (1.3-7.7) k/uL ESR 87 H (0-15) mm/hr Sodium 124 L (137-145) mmol/L Chloride 89 L (98-107) mmol/L Glucose 124 H (74-99) mg/dL C-Reactive Protein (<1.0) mg/dL Albumin 3.4 L (3.5-5.0) g/dL Free T3 pg/mL (2.8-5.3) pg/ml 02/05/23 02/06/23 Range/Units 16:52 09:30 WBC (3.8-10.6) k/uL Hct (39.0-53.0) % Plt Count (150-450) k/uL Neutrophils # (1.3-7.7) k/uL ESR (0-15) mm/hr Sodium (137-145) mmol/L Chloride (98-107) mmol/L Glucose (74-99) mg/dL C-Reactive Protein 24.7 H (<1.0) mg/dL Albumin (3.5-5.0) g/dL Free T3 pg/mL 2.2 L (2.8-5.3) pg/ml Microbiology - Last 24 Hours (Table) 02/05/23 13:35 Blood Culture Gram Stain - Preliminary Blood Blood Culture - Preliminary Staphylococcus aureus 02/05/23 13:50 Blood Culture Gram Stain - Preliminary Blood Assessment and Plan (1) Cellulitis of chest wall Current Visit: Yes Status: Acute Code(s): L03.313 - CELLULITIS OF CHEST WALL SNOMED Code(s): 96986679 (2) MRSA bacteremia Current Visit: Yes Status: Acute Code(s): R78.81 - BACTEREMIA; B95.62 - METHICILLIN RESIS STAPH INFCT [facility]ING [facility]ES [facility] Code(s): 12092268370977683 (3) Sepsis Current Visit: Yes Status: Acute Code(s): A41.9 - SEPSIS, UNSPECIFIED ORGANISM SNOMED Code(s): 20035406 Plan: 1patient to the hospital with sepsis in this patient with fever tachycardia elevated white count did have a right upper chest wall swelling and redness concerning for cellulitis and possible abscess with a blood culture positive for mrsa likely the source of this bacteremia 2-patient would benefit from surgical I&D and deep cultures 3-blood cultures will be documented MRSA bacteremia 4-continue vancomycin however discontinue cefepime as no gram-negative has been grown We will follow on clinical condition and cultures to further adjust medication if needed Thank you for this consultation we will follow the patient along with you Time with Patient: Greater than 30
[2023-02-06] MEDS: SODIUM CHLORIDE 0.9% 1,000 ML IV SCH (20:45)
[2023-02-07] MEDS: HYDROmorphone 1 MG/ML 1 ML SYRINGE IVP PRN ×6 (04:26→22:27)
[2023-02-07] MEDS: LEVOTHYROXINE 88 MCG TAB PO SCH (04:27)
[2023-02-07] MEDS: VANCOMYCIN 1,750 MG in SODIUM CHLORIDE 0.9% 500 ML 500 ML IVPB SCH ×2 (07:31→15:55)
[2023-02-07] MEDS: ENOXAPARIN 40 MG/0.4 ML SYRINGE SQ SCH (08:40)
[2023-02-07] MEDS: PANTOPRAZOLE 40 MG/10 ML VIAL IVP SCH ×2 (08:40→21:39)
[2023-02-07] MEDS: SODIUM CHLORIDE 0.9% 1,000 ML IV SCH ×2 (08:42→21:39)
--- NOTE | 2023-02-07 10:25 | P.PN ---
Subjective Progress Note Date: 02/07/23 Patient reports that his neck/chest pain has improved. Redness has improved and appears to have mildly receded from surgical demarcation. Gen: awake, alert HEENT: normocephalic, atraumatic, good hearing acuity, moist mucous membranes Resp: good air exchange, breathing comfortably with no accessory muscle use CVS: good distal perfusion x 4, GI: soft, NTTP, ND : no SPT, no CVAT, kilgore catheter not present MSK: no pitting edema, no clubbing, chest wall erythema with fluctuant mass above right supraclavicular area Neuro: non-focal, moving all extremities Psych: cooperative, euthymic mood Hospital course: Patient is a very pleasant 72-year-old male with a past medical history of hypothyroidism and obstructive sleep apnea no longer using BiPAP. Patient presented to the emergency department secondary to right-sided chest pain, erythema and swelling. Patient underwent full evaluation in the emergency department. Patient positive for severe sepsis with temp 102.2F, heart rate 97, WBC count 21.0, platelet count 456, and lactic acid was normal at 1.2. Patient received a 1 L bolus 0.9% normal saline in the ED and started on IV antibiotics. Labs completed and reviewed. CBC revealing leukocytosis with WBC count of 21.0 with left shift with neutrophils of 18.5. BMP revealing hyponatremia with sodium 124 and hypochloremia with chloride of 89. Lactic acid was 1.2. CT neck and chest with contrast was completed in radiology report reviewed showing redemonstration of abnormal soft tissue mass in the lower anterior right neck extending from the hyoid bone to the superior mediastinum with surrounding fat stranding, no osseous erosions identified, a single focus of gas identified in the level of the right clavicular head, possibly representing an infectious process with phlegmonous change versus infiltrative mass with possible superimposed infection. Discussed clinical findings, laboratory analysis, and imaging results with ED physician in detail. Patient was admitted under our services for severe sepsis and concerns of mediastinitis. Consults placed to cardiothoracic surgery, general surgery, and infectious disease. Assessment: Mediastinal mass, infective Gram-positive bacteremia with staph aureus Severe Sepsis secondary to above Leukocytosis Thrombocytosis Hypochloremic Hyponatremia Hypothyroidism Plan: Today, patient was afebrile, 145/83, heart rate 88, 94% on 2 L of nasal cannula Labs this morning are pending Infectious disease note is reviewed, cefepime was discontinued, continue vancomycin Gen. surgery note reviewed, continue antibiotics, no debridement at this time, but will continue to follow and evaluate Blood cultures reviewed, growing presumptive MRSA Ordered CBC, basic metabolic panel, magnesium, blood cultures for tomorrow Continue vancomycin, dosed per vancomycin trough Pain control: Dilaudid 1 mg every 3 hours when necessary Patient is full code Objective - Vital Signs Vital signs: Vital Signs Temp 98.6 F 02/07/23 08:19 Pulse 88 02/07/23 08:19 Resp 22 02/07/23 08:19 BP 145/83 02/07/23 08:19 Pulse Ox 94 L 02/07/23 08:19 FiO2 Intake & Output 02/06/23 02/07/23 02/07/23 18:59 06:59 18:59 Intake Total 1026 1240 Output Total 975 600 Balance 51 -600 1240 Weight 104.32 kg Intake: Intake, IV Titration 100 Amount Cefepime 2 gm In Sodium 100 Chloride 0.9% 100 ml @ 25 mls/hr IVPB Q8H [facility] Rx#: [id number] Oral 926 1240 Output: Urine 975 600 Other: Voiding Method Urinal Urinal - Labs CBC & Chem 7: 02/05/23 13:51 02/06/23 09:30 Labs: Abnormal Lab Results - Last 24 Hours (Table) 02/06/23 Range/Units 09:30 Free T3 pg/mL 2.2 L (2.8-5.3) pg/ml Microbiology - Last 24 Hours (Table) 02/05/23 13:50 Blood Culture Gram Stain - Preliminary Blood Blood Culture - Preliminary Presumptive MRSA 02/05/23 13:35 Blood Culture Gram Stain - Preliminary Blood Blood Culture - Preliminary Staphylococcus aureus
--- NOTE | 2023-02-07 10:42 | P.PN ---
Subjective Progress Note Date: 02/07/23 Principal diagnosis: Mediastinal/right supraclavicular soft tissue swelling/infection, sepsis present on admission, gram positive bacteremia, hyponatremia. History of chronic sinu sitis, hypothyroid, remote history of spinal meningitis, occasional marijuana use, DVT to the left leg 2 years ago not currently on anticoagulation, obstructive sleep apnea without BiPAP use The patient was seen and examined this morning sitting up in bed in no acute distress. He does complain of chest wall pain, denies shortness of breath. Tmax in last 24 hours 99.8F, remains on IV vancomycin. Was seen by Dr. Brooks yesterday as well as Dr. Seay, no surgical intervention recommended. C ontinue antibiotics. Chest redness outlined yesterday, has not gotten any worse. Objective - Vital Signs Vital signs: Vital Signs Temp 98.6 F 02/07/23 08:19 Pulse 88 02/07/23 08:19 Resp 22 02/07/23 08:19 BP 145/83 02/07/23 08:19 Pulse Ox 94 L 02/07/23 08:19 FiO2 Intake & Output 02/06/23 02/07/23 02/07/23 18:59 06:59 18:59 Intake Total 1026 1240 Output Total 975 600 Balance 51 -600 1240 Weight 104.32 kg Intake: Intake, IV Titration 100 Amount Cefepime 2 gm In Sodium 100 Chloride 0.9% 100 ml @ 25 mls/hr IVPB Q8H [facility] Rx#: [id number] Oral 926 1240 Output: Urine 975 600 Other: Voiding Method Urinal Urinal - Exam CONSTITUTIONAL: Appears somewhat comfortable, cooperative, no acute distress although does complain of chest wall pain especially with palpation RESPIRATORY: Lungs sounds diminished bilaterally. Respirations even, nonlabored. Currently on room air with oxygen saturation 94% CARDIOVASCULAR: S1, S2 present. Regular rate and rhythm, sinus rhythm on telemetry. Palpable peripheral pulses bilaterally. No edema present. No calf pain or tenderness noted. Heart hugger in place with patient demonstrating appropriate use. Antiembolism stockings, SCDs present. GASTROINTESTINAL: Abdomen soft, nontender, nondistended. Active bowel sounds present 4 quadrants. Tolerating diet GENITOURINARY: Continues to void. Output 1575 mL in the last 24 hours INTEGUMENTARY: Skin is warm and dry. Right upper chest/suprclavicular area with redness and swelling, outlined, no extention beyond the outline NEUROLOGIC: Cranial nerves II through XII intact MUSKULOSKELETAL: Able to move all extremities, strength equal bilaterally, gait normal PSYCHIATRIC: Alert and oriented to person place and time, appropriate affect, intact judgment and insight - Allied health notes Allied health notes reviewed: nursing - Labs CBC & Chem 7: 02/07/23 10:07 02/07/23 10:07 Labs: Microbiology - Last 24 Hours (Table) 02/05/23 13:50 Blood Culture Gram Stain - Preliminary Blood Blood Culture - Preliminary Presumptive MRSA 02/05/23 13:35 Blood Culture Gram Stain - Preliminary Blood Blood Culture - Preliminary Staphylococcus aureus - Imaging and Cardiology CT scan - chest: report reviewed, image reviewed Assessment and Plan Assessment: Mediastinal/right supraclavicular soft tissue swelling/infection Sepsis present on admission Gram positive bacteremia Hyponatremia History of chronic sinusitis Hypothyroid Remote history of spinal meningitis Occasional marijuana use DVT to the left leg 2 years ago not currently on anticoagulation Obstructive sleep apnea without BiPAP use Plan: No surgical intervention at this time Continue antibiotics per infectious disease recommendations Increase activity as tolerated Medical management of other comorbidities per internal medicine, infectious disease Will continue to follow and make further recommendations
[2023-02-07 10:50] LABS: Basophils % (A) 0 %; Eosinophils # (A) 0.1 k/uL (0-0.7); Eosinophils % (A) 1 %; HCT 35.7 % (39.0-53.0); HGB 11.6 gm/dL (13.0-17.5); Lymphocytes # (A) 0.9 k/uL (1.0-4.8); Lymphocytes % (A) 6 %; MCHC 32.5 g/dL (31.0-37.0); MCV 92.3 fL (80.0-100.0); Mean Platelet Volume 7.2; Monocytes # (A) 0.5 k/uL (0-1.0); Monocytes % (A) 3 %; Neutrophils % (A) 89 %; Platelet Count 414 k/uL (150-450); RBC 3.87 m/uL (4.30-5.90); RDW 14.3 % (11.5-15.5); WBC 15.8 k/uL (3.8-10.6)
[2023-02-07 11:03] LABS: ALT 40 U/L (4-49); AST 39 U/L (17-59); African American GFR (CKD) >90 (>60 ml/min/1.73 sqM); Albumin 2.8 g/dL (3.5-5.0); Alkaline Phosphatase 124 U/L (38-126); Anion Gap 10 mmol/L; Blood Urea Nitrogen 12 mg/dL (9-20); Calcium 7.7 mg/dL (8.4-10.2); Carbon Dioxide 23 mmol/L (22-30); Chloride 93 mmol/L (98-107); Glucose 173 mg/dL (74-99); Non-African American GFR(CKD) >90 (>60 ml/min/1.73 sqM); Potassium 3.6 mmol/L (3.5-5.1); Sodium 126 mmol/L (137-145); Total Bilirubin 0.4 mg/dL (0.2-1.3); Total Protein 5.6 g/dL (6.3-8.2)
[2023-02-07] MEDS: ACETAMINOPHEN TAB 325 MG TAB PO PRN ×2 (12:16→21:18)
[2023-02-07 13:18] LABS: C Reactive Protein 18.8 mg/dL (<1.0)
--- NOTE | 2023-02-07 14:08 | P.PN ---
Subjective Progress Note Date: 02/07/23 CHIEF COMPLAINT: Cellulitis chest wall HISTORY OF PRESENT ILLNESS: Patient reports improvement in the pain of his chest wall cellulitis. The marked area of erythema has not worsened. Afebrile. Followed by infectious disease. Maintain on antibiotics. Also evaluating by cardiothoracic. No plans for surgical intervention. Afebrile. WBC 21 down to 15.1 hgb 11.6 platelets 414 sodium is 126 potassium 3.6 creatinine 0.79 PHYSICAL EXAM: VITAL SIGNS: Reviewed. GENERAL: Well-developed in no acute distress. Chest: Right-sided chest wall cellulitis with erythema. The area that is marked has not worsened. Less tender with palpation. area of induration is below the right clavicle and near the mediastinum. ABDOMEN: Soft. Nondistended. Nontender. NEUROLOGIC: Alert and oriented. Cranial nerves II through XII grossly intact. ASSESSMENT: 1. Right-sided chest wall cellulitis PLAN: -Continue antibiotics -Add warm compresses as needed -Patient can shower -No surgical intervention planned Physician Associate Financial Representative note has been reviewed by physician. Signing provider agrees with the documented findings, assessment, and plan of care. Objective - Vital Signs Vital signs: Vital Signs Temp 99.0 F 02/07/23 11:50 Pulse 90 02/07/23 11:50 Resp 20 02/07/23 11:50 BP 139/69 02/07/23 11:50 Pulse Ox 90 L 02/07/23 11:50 FiO2 Intake & Output 02/06/23 02/07/23 02/07/23 18:59 06:59 18:59 Intake Total 1026 1465 Output Total 975 600 300 Balance 51 -600 1165 Weight 104.32 kg Intake: Intake, IV Titration 100 225 Amount Cefepime 2 gm In Sodium 100 Chloride 0.9% 100 ml @ 25 mls/hr IVPB Q8H [facility] Rx#: [id number] Sodium Chloride 0.9% 1, 225 000 ml @ 75 mls/hr IV . [id number] [facility] Rx#:[id number] Oral 926 1240 Output: Urine 975 600 300 Other: Voiding Method Urinal Urinal Urinal - Labs CBC & Chem 7: 02/07/23 10:07 02/07/23 10:07 Labs: Abnormal Lab Results - Last 24 Hours (Table) 02/07/23 02/07/23 Range/Units 10:07 10:07 WBC 15.8 H (3.8-10.6) k/uL RBC 3.87 L (4.30-5.90) m/uL Hgb 11.6 L (13.0-17.5) gm/dL Hct 35.7 L (39.0-53.0) % Neutrophils # 14.0 H (1.3-7.7) k/uL Lymphocytes # 0.9 L (1.0-4.8) k/uL Sodium 126 L (137-145) mmol/L Chloride 93 L (98-107) mmol/L Glucose 173 H (74-99) mg/dL Calcium 7.7 L (8.4-10.2) mg/dL Total Protein 5.6 L (6.3-8.2) g/dL Albumin 2.8 L (3.5-5.0) g/dL Microbiology - Last 24 Hours (Table) 02/05/23 13:50 Blood Culture Gram Stain - Preliminary Blood Blood Culture - Preliminary Presumptive MRSA 02/05/23 13:35 Blood Culture Gram Stain - Preliminary Blood Blood Culture - Preliminary Staphylococcus aureus
--- NOTE | 2023-02-07 14:48 | P.PN ---
Subjective Progress Note Date: 02/07/23 Principal diagnosis: MRSA bacteremia and right chest wall cellulitis Patient is a 72-year-old male presenting to the hospital with fever and chills and right-sided chest pain and erythema and the patient did have evidence of MRSA bacteremia concerning for cellulitis has been evaluated by CT surgery and Gen. surgery did not recommend any surgical drainage On today's evaluation that is 02/07/2023, patient denies having any fever or chills, the patient is currently breathing comfortably on room air, the patient right-sided chest pain has decreased in intensity overall swelling redness has decreased as well no nausea no vomiting no abdominal pain or diarrhea Objective - Vital Signs Vital signs: Vital Signs Temp 99.0 F 02/07/23 11:50 Pulse 90 02/07/23 11:50 Resp 20 02/07/23 11:50 BP 139/69 02/07/23 11:50 Pulse Ox 90 L 02/07/23 11:50 FiO2 Intake & Output 02/06/23 02/07/23 02/07/23 18:59 06:59 18:59 Intake Total 1026 1583 Output Total 975 600 300 Balance 51 -600 1283 Weight 104.32 kg Intake: Intake, IV Titration 100 225 Amount Cefepime 2 gm In Sodium 100 Chloride 0.9% 100 ml @ 25 mls/hr IVPB Q8H [facility] Rx#: [id number] Sodium Chloride 0.9% 1, 225 000 ml @ 75 mls/hr IV . [id number] [facility] Rx#:[id number] Oral 926 1358 Output: Urine 975 600 300 Other: Voiding Method Urinal Urinal Urinal - Exam GENERAL DESCRIPTION: An elderly male lying in bed in no distress RESPIRATORY SYSTEM: Unlabored breathing , decreased breath sounds at bases HEART: S1 S2 regular rate and rhythm , Right-sided chest wall redness has decreased ABDOMEN: Soft , no tenderness EXTREMITIES: No edema feet - Labs CBC & Chem 7: 02/07/23 10:07 02/07/23 10:07 Labs: Abnormal Lab Results - Last 24 Hours (Table) 02/07/23 02/07/23 Range/Units 10:07 10:07 WBC 15.8 H (3.8-10.6) k/uL RBC 3.87 L (4.30-5.90) m/uL Hgb 11.6 L (13.0-17.5) gm/dL Hct 35.7 L (39.0-53.0) % Neutrophils # 14.0 H (1.3-7.7) k/uL Lymphocytes # 0.9 L (1.0-4.8) k/uL Sodium 126 L (137-145) mmol/L Chloride 93 L (98-107) mmol/L Glucose 173 H (74-99) mg/dL Calcium 7.7 L (8.4-10.2) mg/dL C-Reactive Protein 18.8 H (<1.0) mg/dL Total Protein 5.6 L (6.3-8.2) g/dL Albumin 2.8 L (3.5-5.0) g/dL Microbiology - Last 24 Hours (Table) 02/05/23 13:50 Blood Culture Gram Stain - Preliminary Blood Blood Culture - Preliminary Presumptive MRSA 02/05/23 13:35 Blood Culture Gram Stain - Preliminary Blood Blood Culture - Preliminary Staphylococcus aureus Assessment and Plan (1) Cellulitis of chest wall Current Visit: Yes Status: Acute Code(s): L03.313 - CELLULITIS OF CHEST WALL SNOMED Code(s): 69619326 (2) MRSA bacteremia Current Visit: Yes Status: Acute Code(s): R78.81 - BACTEREMIA; B95.62 - METHICILLIN RESIS STAPH INFCT CAUSING DISEASES [facility] SN[facility] Code(s): 86103412338205021 Plan: 1patient to the hospital with sepsis in this patient with fever tachycardia elevated white count did have a right upper chest wall swelling and redness concerning for cellulitis and possible abscess with a blood culture positive for mrsa likely the source of this bacteremia 2-patient blood cultures has been repeated to documented clearance of his bacteremia 3patient to vancomycin while watching his kidney function closely Time with Patient: Less than 30
[2023-02-08] MEDS: HYDROmorphone 1 MG/ML 1 ML SYRINGE IVP PRN ×6 (02:17→20:54)
[2023-02-08] MEDS ORDERED: VANCOMYCIN TROUGH DUE 1 EACH MISC MISCELLANE ONE (05:00)
[2023-02-08] MEDS: LEVOTHYROXINE 88 MCG TAB PO SCH (05:51)
[2023-02-08] MEDS: VANCOMYCIN 1,750 MG in SODIUM CHLORIDE 0.9% 500 ML 500 ML IVPB SCH ×3 (06:27→22:41)
[2023-02-08 06:43] LABS: African American GFR (CKD) >90 (>60 ml/min/1.73 sqM); Anion Gap 8 mmol/L; Blood Urea Nitrogen 11 mg/dL (9-20); Calcium 7.6 mg/dL (8.4-10.2); Carbon Dioxide 24 mmol/L (22-30); Chloride 96 mmol/L (98-107); Glucose 110 mg/dL (74-99); Magnesium 2.2 mg/dL (1.6-2.3); Non-African American GFR(CKD) >90 (>60 ml/min/1.73 sqM); Potassium 3.9 mmol/L (3.5-5.1); Sodium 128 mmol/L (137-145)
[2023-02-08 07:16] LABS: Basophils % (A) 0 %; Eosinophils # (A) 0.2 k/uL (0-0.7); Eosinophils % (A) 2 %; HCT 35.7 % (39.0-53.0); HGB 11.5 gm/dL (13.0-17.5); Lymphocytes # (A) 1.2 k/uL (1.0-4.8); Lymphocytes % (A) 9 %; MCH 29.6 pg (25.0-35.0); MCHC 32.3 g/dL (31.0-37.0); MCV 91.7 fL (80.0-100.0); Mean Platelet Volume 7.2; Monocytes % (A) 7 %; Neutrophils % (A) 80 %; Platelet Count 481 k/uL (150-450); RDW 14.5 % (11.5-15.5); WBC 13.7 k/uL (3.8-10.6)
[2023-02-08] MEDS: PANTOPRAZOLE 40 MG/10 ML VIAL IVP SCH ×2 (08:29→19:53)
[2023-02-08] MEDS: ENOXAPARIN 40 MG/0.4 ML SYRINGE SQ SCH (08:29)
--- NOTE | 2023-02-08 09:53 | P.PN ---
Subjective Progress Note Date: 02/08/23 Principal diagnosis: Mediastinal/right supraclavicular soft tissue swelling/infection, sepsis present on admission, presumptive MRSA bacteremia with positive blood cultures, hypona tremia. History of chronic sinusitis, hypothyroid, remote history of spinal meningitis, occasional marijuana use, DVT to the left leg 2 years ago not currently on anticoagulation, obstructive sleep apnea without BiPAP use. The patient was seen and examined in follow-up today 02/08/2023 at his bedside on the fourth floor medical surgical unit. Currently the patient is sitting up in bed, is awake, alert, oriented 3 and is in no acute distress. Denies any complaints of shortness of breath and reports his pain is much better controlled and is currently rating his pain 2 out of 10 on the pain scale. His T-max temperature in the last 24 hours is 99.2F. He remains on vancomycin for antibiotic coverage. His blood cultures is showing presumptive MRSA. His right chest swelling and redness has decreased as well as his right chest discomfort with palpation. Remote telemetry showing normal sinus rhythm heart rate 79 BPM. He reports he has been up ambulating within his room. Objective - Vital Signs Vital signs: Vital Signs Temp 98.8 F 02/08/23 07:22 Pulse 80 02/08/23 07:22 Resp 20 02/08/23 07:22 BP 152/72 02/08/23 07:22 Pulse Ox 93 L 02/08/23 07:22 FiO2 Intake & Output 02/07/23 02/08/23 02/08/23 18:59 06:59 18:59 Intake Total 2458 Output Total 2049 500 600 Balance 408 -500 -600 Intake: Intake, IV Titration 600 Amount Sodium Chloride 0.9% 1, 600 000 ml @ 75 mls/hr IV . [id number] [facility] Rx#:[id number] Oral 1858 Output: Urine 2049 500 600 Other: Voiding Method Urinal Urinal - Exam CONSTITUTIONAL: Appears somewhat comfortable, cooperative, no acute distress. RESPIRATORY: Lungs sounds essentially clear throughout, diminished to his bilateral bases. Respirations are symmetrical, nonlabored. Currently on room air with oxygen saturation 94%. CARDIOVASCULAR: S1, S2 present. Regular rate and rhythm, sinus rhythm on telemetry. Palpable peripheral pulses bilaterally. No edema present. No calf pain or tenderness noted. GASTROINTESTINAL: Abdomen soft, nontender, nondistended. Active bowel sounds present 4 quadrants. Tolerating diet. Passing flatus. GENITOURINARY: Continues to void. Urine output 500 mL in the last 8 hours. INTEGUMENTARY: Skin is warm and dry. Right upper chest/suprclavicular area with redness and swelling, outlined, improving. NEUROLOGIC: Cranial nerves II through XII intact. No focal deficits. MUSKULOSKELETAL: Able to move all extremities, strength equal bilaterally, gait normal. PSYCHIATRIC: Alert and oriented to person place and time, appropriate affect, intact judgment and insight. - Allied health notes Allied health notes reviewed: nursing - Labs CBC & Chem 7: 02/08/23 06:12 02/08/23 06:12 Labs: Abnormal Lab Results - Last 24 Hours (Table) 02/07/23 02/07/23 02/08/23 Range/Units 10:07 10:07 06:12 WBC 15.8 H (3.8-10.6) k/uL RBC 3.87 L (4.30-5.90) m/uL Hgb 11.6 L (13.0-17.5) gm/dL Hct 35.7 L (39.0-53.0) % Plt Count (150-450) k/uL Neutrophils # 14.0 H (1.3-7.7) k/uL Lymphocytes # 0.9 L (1.0-4.8) k/uL Sodium 126 L 128 L (137-145) mmol/L Chloride 93 L 96 L (98-107) mmol/L Creatinine 0.63 L (0.66-1.25) mg/dL Glucose 173 H 110 H (74-99) mg/dL Calcium 7.7 L 7.6 L (8.4-10.2) mg/dL C-Reactive Protein 18.8 H (<1.0) mg/dL Total Protein 5.6 L (6.3-8.2) g/dL Albumin 2.8 L (3.5-5.0) g/dL 02/08/23 Range/Units 06:12 WBC 13.7 H (3.8-10.6) k/uL RBC 3.90 L (4.30-5.90) m/uL Hgb 11.5 L (13.0-17.5) gm/dL Hct 35.7 L (39.0-53.0) % Plt Count 481 H (150-450) k/uL Neutrophils # 11.0 H (1.3-7.7) k/uL Lymphocytes # (1.0-4.8) k/uL Sodium (137-145) mmol/L Chloride (98-107) mmol/L Creatinine (0.66-1.25) mg/dL Glucose (74-99) mg/dL Calcium (8.4-10.2) mg/dL C-Reactive Protein (<1.0) mg/dL Total Protein (6.3-8.2) g/dL Albumin (3.5-5.0) g/dL Microbiology - Last 24 Hours (Table) 02/07/23 10:07 Blood Culture Gram Stain - Preliminary Blood 02/05/23 13:50 Blood Culture Gram Stain - Preliminary Blood Blood Culture - Preliminary Presumptive MRSA Assessment and Plan Assessment: Mediastinal/right supraclavicular soft tissue swelling Sepsis with leukocytosis WBC count improving and is 13.7 today, positive bacteremia with blood cultures showing presumptive MRSA Hyponatremia, improving sodium 128 today Chronic sinusitis Thyroid disorder Remote history of spinal meningitis Occasional marijuana use, smokes 3-4 joint per week History of DVT to his left leg 2 years ago Sleep apnea without all BiPAP use Plan: No surgical intervention at this time. Continue antibiotics per infectious disease recommendations, follow blood culture results. Increase activity as tolerated. Medical management of other comorbidities per internal medicine, infectious disease. More recommendations to follow based on patient's clinical course. Time with Patient: Greater than 30
--- NOTE | 2023-02-08 11:13 | P.PN ---
Subjective Progress Note Date: 02/08/23 Patient reports that his pain continues to improve. Gen: awake, alert HEENT: normocephalic, atraumatic, good hearing acuity, moist mucous membranes Resp: good air exchange, breathing comfortably with no accessory muscle use CVS: good distal perfusion x 4, GI: soft, NTTP, ND : no SPT, no CVAT, kilgore catheter not present MSK: no pitting edema, no clubbing, chest wall erythema with fluctuant mass above right supraclavicular area Neuro: non-focal, moving all extremities Psych: cooperative, euthymic mood Hospital course: Patient is a very pleasant 72-year-old male with a past medical history of hypothyroidism and obstructive sleep apnea no longer using BiPAP. Patient pre sented to the emergency department secondary to right-sided chest pain, erythema and swelling. Patient underwent full evaluation in the emergency department. Patient positive for severe sepsis with temp 102.2F, heart rate 97, WBC count 21.0, platelet count 456, and lactic acid was normal at 1.2. Patient received a 1 L bolus 0.9% normal saline in the ED and started on IV antibiotics. Labs com pleted and reviewed. CBC revealing leukocytosis with WBC count of 21.0 with left shift with neutrophils of 18.5. BMP revealing hyponatremia with sodium 124 and hypochloremia with chloride of 89. Lactic acid was 1.2. CT neck and chest with contrast was completed in radiology report reviewed showing redemonstration of abnormal soft tissue mass in the lower anterior right neck extending from the hyoid bone to the superior mediastinum with surrounding fat stranding, no osseous erosions identified, a single focus of gas identified in the level of the right clavicular head, possibly representing an infectious process with phlegmonous change versus infiltrative mass with possible superimposed i nfection. Discussed clinical findings, laboratory analysis, and imaging results with ED physician in detail. Patient was admitted under our services for severe sepsis and concerns of mediastinitis. Consults placed to cardiothoracic surgery, general surgery, and infectious disease. Assessment: Mediastinal mass, infective Gram-positive bacteremia with staph aureus Severe Sepsis secondary to above Leukocytosis Thrombocytosis Hypochloremic Hyponatremia Hypothyroidism Plan: Today, patient was afebrile, 152/72, heart rate 80, 93% on 2 L nasal cannula CBC shows leukocytosis to 13.7, improving Basic metabolic panel shows hyponatremia to 128, improving ESR was 87, CRP was 24 Cardiac surgery note reviewed, continue antibiotics, no surgical indication at this time Blood cultures reviewed, growing presumptive MRSA Ordered CBC, basic metabolic panel, magnesium, blood cultures for tomorrow Continue vancomycin, dosed per vancomycin trough Pain control: Dilaudid 1 mg every 3 hours when necessary Patient is full code Objective - Vital Signs Vital signs: Vital Signs Temp 98.8 F 02/08/23 07:22 Pulse 80 02/08/23 07:22 Resp 20 02/08/23 07:22 BP 152/72 02/08/23 07:22 Pulse Ox 93 L 02/08/23 07:22 FiO2 Intake & Output 02/07/23 02/08/23 02/08/23 18:59 06:59 18:59 Intake Total 2458 Output Total 2050 500 600 Balance 408 -500 -600 Intake: Intake, IV Titration 600 Amount Sodium Chloride 0.9% 1, 600 000 ml @ 75 mls/hr IV . [id number] [facility] Rx#:[id number] Oral 1858 Output: Urine 2049 500 600 Other: Voiding Method Urinal Urinal - Labs CBC & Chem 7: 02/08/23 06:12 02/08/23 06:12 Labs: Abnormal Lab Results - Last 24 Hours (Table) 02/07/23 02/08/23 02/08/23 Range/Units 10:07 06:12 06:12 WBC 13.7 H (3.8-10.6) k/uL RBC 3.90 L (4.30-5.90) m/uL Hgb 11.5 L (13.0-17.5) gm/dL Hct 35.7 L (39.0-53.0) % Plt Count 481 H (150-450) k/uL Neutrophils # 11.0 H (1.3-7.7) k/uL Sodium 128 L (137-145) mmol/L Chloride 96 L (98-107) mmol/L Creatinine 0.63 L (0.66-1.25) mg/dL Glucose 110 H (74-99) mg/dL Calcium 7.6 L (8.4-10.2) mg/dL C-Reactive Protein 18.8 H (<1.0) mg/dL Microbiology - Last 24 Hours (Table) 02/07/23 10:07 Blood Culture Gram Stain - Preliminary Blood 02/05/23 13:50 Blood Culture Gram Stain - Preliminary Blood Blood Culture - Preliminary Presumptive MRSA
[2023-02-08] MEDS: SODIUM CHLORIDE 0.9% 1,000 ML IV SCH ×2 (11:28→22:41)
--- NOTE | 2023-02-08 13:31 | P.PN ---
Subjective Progress Note Date: 02/08/23 CHIEF COMPLAINT: Cellulitis chest wall HISTORY OF PRESENT ILLNESS: Patient's chest wall cellulitis is improving. Decreased erythema. Decrease pain. White count trending down from 15-13.7. Afebrile. Also evidence of bacteremia with MRSA. Patient followed by infectious disease. Patient seen and examined with Dr. Seay PHYSICAL EXAM: VITAL SIGNS: Reviewed. GENERAL: Well-developed in no acute distress. Chest: Right-sided chest wall cellulitis with erythema. Area of erythema and induration decreasing less tender with palpation ABDOMEN: Soft. Nondistended. Nontender. NEUROLOGIC: Alert and oriented. Cranial nerves II through XII grossly intact. ASSESSMENT: 1. Right-sided chest wall cellulitis 2. Bacteremia with MRSA PLAN: -Continue antibiotics per ID service -Add warm compresses as needed -Patient can shower -No surgical intervention planned Physician Ion Exchange Operator note has been reviewed by physician. Signing provider agrees with the documented findings, assessment, and plan of care. Objective - Vital Signs Vital signs: Vital Signs Temp 98.8 F 02/08/23 07:22 Pulse 80 02/08/23 07:22 Resp 20 02/08/23 07:22 BP 152/72 02/08/23 07:22 Pulse Ox 93 L 02/08/23 07:22 FiO2 Intake & Output 02/07/23 02/08/23 02/08/23 18:59 06:59 18:59 Intake Total 2458 Output Total 2050 500 600 Balance 408 -500 -600 Intake: Intake, IV Titration 600 Amount Sodium Chloride 0.9% 1, 600 000 ml @ 75 mls/hr IV . [id number] [facility] Rx#:[id number] Oral 1858 Output: Urine 0 500 600 Other: Voiding Method Urinal Urinal - Labs CBC & Chem 7: 02/08/23 06:12 02/08/23 06:12 Labs: Abnormal Lab Results - Last 24 Hours (Table) 02/08/23 02/08/23 Range/Units 06:12 06:12 WBC 13.7 H (3.8-10.6) k/uL RBC 3.90 L (4.30-5.90) m/uL Hgb 11.5 L (13.0-17.5) gm/dL Hct 35.7 L (39.0-53.0) % Plt Count 481 H (150-450) k/uL Neutrophils # 11.0 H (1.3-7.7) k/uL Sodium 128 L (137-145) mmol/L Chloride 96 L (98-107) mmol/L Creatinine 0.63 L (0.66-1.25) mg/dL Glucose 110 H (74-99) mg/dL Calcium 7.6 L (8.4-10.2) mg/dL Microbiology - Last 24 Hours (Table) 02/05/23 13:50 Blood Culture Gram Stain - Final Blood Blood Culture - Final Methicillin resist S. aureus 02/05/23 13:35 Blood Culture Gram Stain - Preliminary Blood Blood Culture - Final Methicillin resist S. aureus 02/07/23 10:07 Blood Culture Gram Stain - Preliminary Blood
[2023-02-09] MEDS: HYDROmorphone 1 MG/ML 1 ML SYRINGE IVP PRN ×7 (00:41→23:34)
[2023-02-09] MEDS ORDERED: VANCOMYCIN TROUGH DUE 1 EACH MISC MISCELLANE ONE (06:00)
[2023-02-09] MEDS: LEVOTHYROXINE 88 MCG TAB PO SCH (06:03)
[2023-02-09] MEDS: VANCOMYCIN 1,750 MG in SODIUM CHLORIDE 0.9% 500 ML 500 ML IVPB SCH ×3 (06:33→21:49)
[2023-02-09] MEDS ORDERED: MAGNESIUM HYDROXIDE 2,400 MG/10 ML CUP PO PRN (07:10)
[2023-02-09] MEDS ORDERED: bisacodyL 10 MG SUPP RECTAL PRN (07:10)
[2023-02-09 07:12] LABS: African American GFR (CKD) >90 (>60 ml/min/1.73 sqM); Anion Gap 9 mmol/L; Blood Urea Nitrogen 9 mg/dL (9-20); Calcium 7.9 mg/dL (8.4-10.2); Carbon Dioxide 23 mmol/L (22-30); Chloride 98 mmol/L (98-107); Glucose 100 mg/dL (74-99); Magnesium 2.2 mg/dL (1.6-2.3); Non-African American GFR(CKD) >90 (>60 ml/min/1.73 sqM); Sodium 130 mmol/L (137-145)
[2023-02-09] MEDS: PANTOPRAZOLE 40 MG/10 ML VIAL IVP SCH ×2 (07:39→19:34)
[2023-02-09] MEDS: ENOXAPARIN 40 MG/0.4 ML SYRINGE SQ SCH (07:39)
--- NOTE | 2023-02-09 08:08 | P.PN ---
Subjective Progress Note Date: 02/08/23 Principal diagnosis: MRSA bacteremia and right chest wall cellulitis Patient is a 72-year-old male presenting to the hospital with fever and chills and right-sided chest pain and erythema and the patient did have evidence of MRSA bacteremia concerning for cellulitis has been evaluated by CT surgery and Gen. surgery did not recommend any surgical drainage On today's evaluation that is 02/08/2023, patient is afebrile , the patient is breathing comfortably on room air, the patient right-sided chest pain has decreased in intensity and swelling redness has decreased as well , pt denies nausea no vomiting no abdominal pain or diarrhea Objective - Vital Signs Vital signs: Vital Signs Temp 98.8 F 02/08/23 07:22 Pulse 80 02/08/23 07:22 Resp 20 02/08/23 07:22 BP 152/72 02/08/23 07:22 Pulse Ox 93 L 02/08/23 07:22 FiO2 Intake & Output 02/07/23 02/08/23 02/08/23 18:59 06:59 18:59 Intake Total 2458 Output Total 2049 500 600 Balance 408 -500 -600 Intake: Intake, IV Titration 600 Amount Sodium Chloride 0.9% 1, 600 000 ml @ 75 mls/hr IV . [id number] [facility] Rx#:[id number] Oral 1858 Output: Urine 2049 500 600 Other: Voiding Method Urinal Urinal - Exam GENERAL DESCRIPTION: An elderly male lying in bed in no distress RESPIRATORY SYSTEM: Unlabored breathing , decreased breath sounds at bases HEART: S1 S2 regular rate and rhythm , Right-sided chest wall redness has decreased ABDOMEN: Soft , no tenderness EXTREMITIES: No edema feet - Labs CBC & Chem 7: 02/08/23 06:12 02/09/23 06:25 Labs: Abnormal Lab Results - Last 24 Hours (Table) 02/07/23 02/08/23 02/08/23 Range/Units 10:07 06:12 06:12 WBC 13.7 H (3.8-10.6) k/uL RBC 3.90 L (4.30-5.90) m/uL Hgb 11.5 L (13.0-17.5) gm/dL Hct 35.7 L (39.0-53.0) % Plt Count 481 H (150-450) k/uL Neutrophils # 11.0 H (1.3-7.7) k/uL Sodium 128 L (137-145) mmol/L Chloride 96 L (98-107) mmol/L Creatinine 0.63 L (0.66-1.25) mg/dL Glucose 110 H (74-99) mg/dL Calcium 7.6 L (8.4-10.2) mg/dL C-Reactive Protein 18.8 H (<1.0) mg/dL Microbiology - Last 24 Hours (Table) 02/07/23 10:07 Blood Culture Gram Stain - Preliminary Blood 02/05/23 13:50 Blood Culture Gram Stain - Preliminary Blood Blood Culture - Preliminary Presumptive MRSA Assessment and Plan (1) Cellulitis of chest wall Current Visit: Yes Status: Acute Code(s): L03.313 - CELLULITIS OF CHEST WALL SNOMED Code(s): 24596145 (2) MRSA bacteremia Current Visit: Yes Status: Acute Code(s): R78.81 - BACTEREMIA; B95.62 - METHICILLIN RESIS STAPH INFCT CAUSING DISEASES CLASSD [facility] SNOMED Code(s): 77600018244434811 Plan: 1patient to the hospital with sepsis in this patient with fever tachycardia elevated white count did have a right upper chest wall swelling and redness concerning for cellulitis and possible abscess with a blood culture positive for mrsa likely the source of this bacteremia 2-patient blood cultures has been repeated 02/07/2023 to documented clearance of his bacteremia 3patient has shown clinical improvement and will continue with vancomycin while watching his kidney function closely Time with Patient: Less than 30
[2023-02-09] MEDS ORDERED: SENNOSIDES-DOCUSATE SODIUM 1 EACH TAB PO PRN (08:17)
--- NOTE | 2023-02-09 08:49 | P.PN ---
Subjective Progress Note Date: 02/09/23 Principal diagnosis: Mediastinal/right supraclavicular soft tissue swelling/infection, sepsis present on admission, gram positive bacteremia, hyponatremia. History of chronic sinu sitis, hypothyroid, remote history of spinal meningitis, occasional marijuana use, DVT to the left leg 2 years ago not currently on anticoagulation, obstructive sleep apnea without BiPAP use The patient was seen and examined this morning sitting up in bed in no acute distress on the medical surgical unit. He does complain of chest wall pain but states that it is much better with current pain meds, denies shortness of breath. Tmax in last 24 hours 99.7F, remains on IV vancomycin. Chest redness appears to have retreated from outline and patient doesn't appear to be in as much pain with palpation. Blood cultures positive for MRSA, WBC trending downward. Remains on room air. States he has been ambulatory in the room without difficulty. Objective - Vital Signs Vital signs: Vital Signs Temp 98.0 F 02/09/23 06:51 Pulse 78 02/09/23 06:51 Resp 18 02/09/23 06:51 BP 153/73 02/09/23 06:51 Pulse Ox 90 L 02/09/23 06:51 FiO2 Intake & Output 02/08/23 02/09/23 02/09/23 18:59 06:59 18:59 Intake Total 236 Output Total 1200 1730 Balance -964 -1730 Weight 110 kg Intake: Oral 236 Output: Urine 1200 1730 Other: # Voids 2 - Exam CONSTITUTIONAL: Appears comfortable, cooperative, no acute distress RESPIRATORY: Lungs sounds diminished bilaterally. Respirations even, nonlabored. Currently on room air with oxygen saturation 90% CARDIOVASCULAR: S1, S2 present. Regular rate and rhythm. Palpable peripheral pulses bilaterally. No edema present. No calf pain or tenderness noted. GASTROINTESTINAL: Abdomen soft, nontender, nondistended. Active bowel sounds present 4 quadrants. Tolerating diet. Positive bowel movement 02/08/23 per patient GENITOURINARY: Continues to void. Output 2930 mL in the last 24 hours INTEGUMENTARY: Skin is warm and dry. Right upper chest/suprclavicular area with redness and swelling, outlined, redness appears to be retreating from outline NEUROLOGIC: Cranial nerves II through XII intact MUSKULOSKELETAL: Able to move all extremities, strength equal bilaterally, gait normal PSYCHIATRIC: Alert and oriented to person place and time, appropriate affect, intact judgment and insight - Allied health notes Allied health notes reviewed: nursing - Labs CBC & Chem 7: 02/08/23 06:12 02/09/23 06:25 Labs: Abnormal Lab Results - Last 24 Hours (Table) 02/09/23 Range/Units 06:25 Sodium 130 L (137-145) mmol/L Creatinine 0.65 L (0.66-1.25) mg/dL Glucose 100 H (74-99) mg/dL Calcium 7.9 L (8.4-10.2) mg/dL Microbiology - Last 24 Hours (Table) 02/05/23 13:50 Blood Culture Gram Stain - Final Blood Blood Culture - Final Methicillin resist S. aureus 02/05/23 13:35 Blood Culture Gram Stain - Preliminary Blood Blood Culture - Final Methicillin resist S. aureus 02/07/23 10:07 Blood Culture Gram Stain - Preliminary Blood Assessment and Plan Assessment: Mediastinal/right supraclavicular soft tissue swelling/infection Sepsis present on admission, improving MRSA bacteremia Hyponatremia, improving History of chronic sinusitis Hypothyroid Remote history of spinal meningitis Occasional marijuana use DVT to the left leg 2 years ago not currently on anticoagulation Obstructive sleep apnea without BiPAP use Plan: No surgical intervention at this time Continue antibiotics per infectious disease recommendations Increase activity as tolerated Medical management of other comorbidities per internal medicine, infectious disease Will continue to follow daily although will not write daily notes Further recommendations as needed per patient's progress
[2023-02-09 11:02] LABS: HCT 35.2 % (39.6-50.0); HGB 11.4 g/dL (13.0-17.0); MCH 30.4 pg (27.0-32.0); MCHC 32.4 g/dL (32.0-37.0); MCV 93.9 fL (80.0-97.0); Mean Platelet Volume 9.1 fL (9.5-12.2); NRBC Per 100 WBC 0 /100 WBCS (0.0-0.0); Platelet Count 509 X 10*3/uL (140-440); RBC 3.75 X 10*6/uL (4.40-5.60); RDW 14.7 % (11.5-14.5); WBC 13.36 X 10*3/uL (4.50-10.00)
[2023-02-09 11:38] LABS: Basophils # (A) 0.15 X 10*3/uL (0.00-0.10); Basophils % (A) 1.1 %; Eosinophils # (A) 0.41 X 10*3/uL (0.04-0.35); Eosinophils % (A) 3.1 %; Immature Grans, Automated 3.2 %; Lymphocytes # (A) 1.79 X 10*3/uL (0.90-5.00); Lymphocytes % (A) 13.4 %; Monocytes # (A) 1.69 X 10*3/uL (0.20-1.00); Monocytes % (A) 12.6 %; Neutrophils # (A) 8.89 X 10*3/uL (1.80-7.70); Neutrophils % (A) 66.6 %
[2023-02-09 11:39] LABS: RBC Morphology NORMAL
--- NOTE | 2023-02-09 12:00 | P.PN ---
Subjective Progress Note Date: 02/09/23 Principal diagnosis: MRSA bacteremia and right chest wall cellulitis Patient is a 72-year-old male presenting to the hospital with fever and chills and right-sided chest pain and erythema and the patient did have evidence of MRSA bacteremia concerning for cellulitis has been evaluated by CT surgery and Gen. surgery did not recommend any surgical drainage On today's evaluation that is 02/09/2023, patient did have low-grade fever of 99F , the patient is breathing comfortably on room air, the patient right-sided chest pain has decreased in intensity still have any of her localized swelling which is getting more prominence, the patient denies nausea no vomiting no abdominal pain or diarrhea Objective - Vital Signs Vital signs: Vital Signs Temp 98.0 F 02/09/23 06:51 Pulse 78 02/09/23 06:51 Resp 18 02/09/23 09:42 BP 153/73 02/09/23 06:51 Pulse Ox 90 L 02/09/23 06:51 FiO2 Intake & Output 02/08/23 02/09/23 02/09/23 18:59 06:59 18:59 Intake Total 236 Output Total 1200 1730 Balance -964 -1730 Weight 110 kg Intake: Oral 236 Output: Urine 1200 1730 Other: Voiding Method Urinal # Voids 2 - Exam GENERAL DESCRIPTION: An elderly male lying in bed in no distress RESPIRATORY SYSTEM: Unlabored breathing , decreased breath sounds at bases HEART: S1 S2 regular rate and rhythm , Right-sided chest wall redness has decreased, did have an area of induration and some fluctuance ABDOMEN: Soft , no tenderness EXTREMITIES: No edema feet - Labs CBC & Chem 7: 02/09/23 06:25 02/09/23 06:25 Labs: Abnormal Lab Results - Last 24 Hours (Table) 02/09/23 Range/Units 06:25 Sodium 130 L (137-145) mmol/L Creatinine 0.65 L (0.66-1.25) mg/dL Glucose 100 H (74-99) mg/dL Calcium 7.9 L (8.4-10.2) mg/dL Microbiology - Last 24 Hours (Table) 02/07/23 10:07 Blood Culture Gram Stain - Preliminary Blood Blood Culture - Preliminary Presumptive MRSA 02/05/23 13:50 Blood Culture Gram Stain - Final Blood Blood Culture - Final Methicillin resist S. aureus 02/05/23 13:35 Blood Culture Gram Stain - Preliminary Blood Blood Culture - Final Methicillin resist S. aureus Assessment and Plan (1) Cellulitis of chest wall Current Visit: Yes Status: Acute Code(s): L03.313 - CELLULITIS OF CHEST WALL SNOMED Code(s): 91987414 (2) MRSA bacteremia Current Visit: Yes Status: Acute Code(s): R78.81 - BACTEREMIA; B95.62 - METHICILLIN RESIS STAPH INFCT CAUSING DISEASES CLASSD [facility] SNOMED Code(s): 51591470781951188 Plan: 1patient to the hospital with sepsis in this patient with fever tachycardia elevated white count did have a right upper chest wall swelling and redness concerning for cellulitis and possible abscess with a blood culture positive for mrsa likely the source of this bacteremia 2-patient blood cultures repeated 02/07/2023 positive blood culture had been repeated yesterday and will repeat today to documented clearance of his bacteremia 3patient has shown clinical improvement and will continue with vancomycin however there is an area of concern which may be developing an abscess and monitor closely Time with Patient: Less than 30
--- NOTE | 2023-02-09 12:52 | P.PN ---
Subjective Progress Note Date: 02/09/23 CHIEF COMPLAINT: Cellulitis chest wall HISTORY OF PRESENT ILLNESS: Patient's chest wall cellulitis is improving. Decreased erythema. Decrease pain. Low-grade temp 99.7 last night. WBC is about the same at 13.36 Patient seen and examined with Dr. Seay PHYSICAL EXAM: VITAL SIGNS: Reviewed. GENERAL: Well-developed in no acute distress. Chest: Right-sided chest wall cellulitis with erythema. Area of erythema and induration decreasing, less tender with palpation ABDOMEN: Soft. Nondistended. Nontender. NEUROLOGIC: Alert and oriented. Cranial nerves II through XII grossly intact. ASSESSMENT: 1. Right-sided chest wall cellulitis 2. Bacteremia with MRSA PLAN: -Continue antibiotics per ID service -Add warm compresses as needed -Patient can shower -No surgical intervention planned Physician Lockstitch Topstitcher note has been reviewed by physician. Signing provider agrees with the documented findings, assessment, and plan of care. Objective - Vital Signs Vital signs: Vital Signs Temp 98.0 F 02/09/23 06:51 Pulse 78 02/09/23 06:51 Resp 18 02/09/23 09:42 BP 153/73 02/09/23 06:51 Pulse Ox 90 L 02/09/23 06:51 FiO2 Intake & Output 02/08/23 02/09/23 02/09/23 18:59 06:59 18:59 Intake Total 236 Output Total 1200 1730 Balance -964 -1730 Weight 110 kg Intake: Oral 236 Output: Urine 1200 1730 Other: Voiding Method Urinal # Voids 2 - Labs CBC & Chem 7: 02/09/23 06:25 02/09/23 06:25 Labs: Abnormal Lab Results - Last 24 Hours (Table) 02/09/23 02/09/23 Range/Units 06:25 06:25 WBC 13.36 H (4.50-10.00) X 10*3/uL RBC 3.75 L (4.40-5.60) X 10*6/uL Hgb 11.4 L (13.0-17.0) g/dL Hct 35.2 L (39.6-50.0) % RDW 14.7 H (11.5-14.5) % Plt Count 509 H (140-440) X 10*3/uL Plt Count Comment INCREASED A MPV 9.1 L (9.5-12.2) fL Immature Gran # 0.43 H (0.00-0.04) X 10*3/uL Neutrophils # 8.89 H (1.80-7.70) X 10*3/uL Monocytes # 1.69 H (0.20-1.00) X 10*3/uL Eosinophils # 0.41 H (0.04-0.35) X 10*3/uL Basophils # 0.15 H (0.00-0.10) X 10*3/uL Sodium 130 L (137-145) mmol/L Creatinine 0.65 L (0.66-1.25) mg/dL Glucose 100 H (74-99) mg/dL Calcium 7.9 L (8.4-10.2) mg/dL Microbiology - Last 24 Hours (Table) 02/07/23 10:07 Blood Culture Gram Stain - Preliminary Blood Blood Culture - Preliminary Presumptive MRSA 02/05/23 13:50 Blood Culture Gram Stain - Final Blood Blood Culture - Final Methicillin resist S. aureus 02/05/23 13:35 Blood Culture Gram Stain - Preliminary Blood Blood Culture - Final Methicillin resist S. aureus
--- NOTE | 2023-02-09 14:00 | P.PN ---
Subjective Progress Note Date: 02/09/23 Patient reports that his pain continues to improve, however, he remains persistenly bacteremic. Gen: awake, alert HEENT: normocephalic, atraumatic, good hearing acuity, moist mucous membranes Resp: good air exchange, breathing comfortably with no accessory muscle use CVS: good distal perfusion x 4, GI: soft, NTTP, ND : no SPT, no CVAT, kilgore catheter not present MSK: no pitting edema, no clubbing, chest wall erythema with fluctuant mass above right supraclavicular area Neuro: non-focal, moving all extremities Psych: cooperative, euthymic mood Hospital course: Patient is a very pleasant 72-year-old male with a past medical history of hypothyroidism and obstructive sleep apnea no longer using BiPAP. Patient presented to the emergency department secondary to right-sided chest pain, erythema and swelling. Patient underwent full evaluation in the emergency department. Patient positive for severe sepsis with temp 102.2F, heart rate 97, WBC count 21.0, platelet count 456, and lactic acid was normal at 1.2. Patient received a 1 L bolus 0.9% normal saline in the ED and started on IV antibiotics. Labs completed and reviewed. CBC revealing leukocytosis with WBC count of 21.0 with left shift with neutrophils of 18.5. BMP revealing hyponatremia with sodium 124 and hypochloremia with chloride of 89. Lactic acid was 1.2. CT neck and chest with contrast was completed in radiology report reviewed showing redemonstration of abnormal soft tissue mass in the lower anterior right neck extending from the hyoid bone to the superior mediastinum with surrounding fat stranding, no osseous erosions identified, a single focus of gas identified in the level of the right clavicular head, possibly representing an infectious process with phlegmonous change versus infiltrative mass with possible superimposed infection. Discussed clinical findings, laboratory analysis, and imaging results with ED physician in detail. Patient was admitted under our services for severe sepsis and concerns of mediastinitis. Consults placed to cardiothoracic surgery, general surgery, and infectious disease. Assessment: Mediastinal mass, infective Gram-positive bacteremia with MRSA Severe Sepsis secondary to above Thrombocytosis Hypochloremic Hyponatremia Hypothyroidism Plan: Today, patient was afebrile, 153/73, heart rate 78, 90% on room air CBC shows leukocytosis to 13.4 Basic metabolic panel shows hyponatremia to 130, improving Cardiac surgery note reviewed, continue antibiotics, no surgical indication at this time Gen. surgery note reviewed, continue aromatics, no surgical intervention planned Blood cultures reviewed, growing presumptive MRSA from cultures on 02/05, 02/07, 02/08 Ordered CBC, basic metabolic panel, magnesium, blood cultures for tomorrow Continue vancomycin, dosed per vancomycin trough Ordered echocardiogram to rule out endocarditis Pain control: Dilaudid 1 mg every 3 hours when necessary, [place] 5/325 every 4 hours when necessary, Tylenol 650 mg by mouth every 6 when necessary Patient is full code Objective - Vital Signs Vital signs: Vital Signs Temp 98.0 F 02/09/23 06:51 Pulse 78 02/09/23 06:51 Resp 18 02/09/23 09:42 BP 153/73 02/09/23 06:51 Pulse Ox 90 L 02/09/23 06:51 FiO2 Intake & Output 02/08/23 02/09/23 02/09/23 18:59 06:59 18:59 Intake Total 236 200 Output Total 1200 1730 Balance -964 -1730 200 Weight 110 kg Intake: Oral 236 200 Output: Urine 1200 1730 Other: Voiding Method Urinal # Voids 2 - Labs CBC & Chem 7: 02/09/23 06:25 02/09/23 06:25 Labs: Abnormal Lab Results - Last 24 Hours (Table) 02/09/23 02/09/23 Range/Units 06:25 06:25 WBC 13.36 H (4.50-10.00) X 10*3/uL RBC 3.75 L (4.40-5.60) X 10*6/uL Hgb 11.4 L (13.0-17.0) g/dL Hct 35.2 L (39.6-50.0) % RDW 14.7 H (11.5-14.5) % Plt Count 509 H (140-440) X 10*3/uL Plt Count Comment INCREASED A MPV 9.1 L (9.5-12.2) fL Immature Gran # 0.43 H (0.00-0.04) X 10*3/uL Neutrophils # 8.89 H (1.80-7.70) X 10*3/uL Monocytes # 1.69 H (0.20-1.00) X 10*3/uL Eosinophils # 0.41 H (0.04-0.35) X 10*3/uL Basophils # 0.15 H (0.00-0.10) X 10*3/uL Sodium 130 L (137-145) mmol/L Creatinine 0.65 L (0.66-1.25) mg/dL Glucose 100 H (74-99) mg/dL Calcium 7.9 L (8.4-10.2) mg/dL Microbiology - Last 24 Hours (Table) 02/08/23 06:12 Blood Culture Gram Stain - Preliminary Blood 02/07/23 10:07 Blood Culture Gram Stain - Preliminary Blood Blood Culture - Preliminary Presumptive MRSA 02/05/23 13:50 Blood Culture Gram Stain - Final Blood Blood Culture - Final Methicillin resist S. aureus 02/05/23 13:35 Blood Culture Gram Stain - Preliminary Blood Blood Culture - Final Methicillin resist S. aureus
[2023-02-09] MEDS ORDERED: PSEUDOEPHEDRINE 30 MG TAB PO PRN (14:04)
[2023-02-09] MEDS ORDERED: ACETAMINOPHEN TAB 500 MG TAB PO PRN (14:04)
[2023-02-09] MEDS: HYDROcodone/APAP 5-325MG 1 EACH TAB PO PRN ×2 (14:18→21:52)
[2023-02-09] MEDS: LORATADINE 10 MG TAB PO SCH (14:27)
[2023-02-09] MEDS: SODIUM CHLORIDE 0.9% 1,000 ML IV SCH (14:29)
[2023-02-09] MEDS ORDERED: SENNOSIDES-DOCUSATE SODIUM 1 EACH TAB PO SCH (21:00)
[2023-02-09] MEDS: diphenhydrAMINE 25 MG CAP PO PRN (21:49)
[2023-02-10] MEDS: SODIUM CHLORIDE 0.9% 1,000 ML IV SCH ×2 (04:43→15:27)
[2023-02-10] MEDS: LEVOTHYROXINE 88 MCG TAB PO SCH (06:11)
[2023-02-10] MEDS: VANCOMYCIN 1,750 MG in SODIUM CHLORIDE 0.9% 500 ML 500 ML IVPB SCH ×3 (06:11→22:36)
[2023-02-10] MEDS: HYDROmorphone 1 MG/ML 1 ML SYRINGE IVP PRN ×2 (06:13→11:52)
[2023-02-10] MEDS ORDERED: FUROSEMIDE 10 MG/ML 4 ML VIAL IV STA (08:50)
--- NOTE | 2023-02-10 08:51 | P.PN ---
Subjective Progress Note Date: 02/10/23 Patient reports that his pain continues to improve, however, he remains persistenly bacteremic. Gen: awake, alert HEENT: normocephalic, atraumatic, good hearing acuity, moist mucous membranes Resp: good air exchange, breathing comfortably with no accessory muscle use CVS: good distal perfusion x 4, GI: soft, NTTP, ND : no SPT, no CVAT, kilgore catheter not present MSK: no pitting edema, no clubbing, chest wall erythema with fluctuant mass above right supraclavicular area Neuro: non-focal, moving all extremities Psych: cooperative, euthymic mood Hospital course: Patient is a very pleasant 72-year-old male with a past medical history of hypothyroidism and obstructive sleep apnea no longer using BiPAP. Patient presented to the emergency department secondary to right-sided chest pain, erythema and swelling. Patient underwent full evaluation in the emergency department. Patient positive for severe sepsis with temp 102.2F, heart rate 97, WBC count 21.0, platelet count 456, and lactic acid was normal at 1.2. Patient received a 1 L bolus 0.9% normal saline in the ED and started on IV antibiotics. Labs completed and reviewed. CBC revealing leukocytosis with WBC count of 21.0 with left shift with neutrophils of 18.5. BMP revealing hyponatremia with sodium 124 and hypochloremia with chloride of 89. Lactic acid was 1.2. CT neck and chest with contrast was completed in radiology report reviewed showing redemonstration of abnormal soft tissue mass in the lower anterior right neck extending from the hyoid bone to the superior mediastinum with surrounding fat stranding, no osseous erosions identified, a single focus of gas identified in the level of the right clavicular head, possibly representing an infectious process with phlegmonous change versus infiltrative mass with possible superimposed infection. Discussed clinical findings, laboratory analysis, and imaging results with ED physician in detail. Patient was admitted under our services for severe sepsis and concerns of mediastinitis. Consults placed to cardiothoracic surgery, general surgery, and infectious disease. Assessment: Mediastinal mass, infective Gram-positive bacteremia with MRSA Severe Sepsis secondary to above Thrombocytosis Hypochloremic Hyponatremia Hypothyroidism Plan: Today, patient was afebrile, 144/59, 85, 90% on room air Blood cultures reviewed, growing presumptive MRSA from cultures on 02/05, 02/07, 02/08 Ordered CBC, basic metabolic panel, magnesium, blood cultures for tomorrow Continue vancomycin, dosed per vancomycin trough Ordered lasix 40mg today Ordered echocardiogram to rule out endocarditis Pain control: Dilaudid 1 mg every 3 hours when necessary, [place] 5/325 every 4 hours when necessary, Tylenol 650 mg by mouth every 6 when necessary Patient is full code Objective - Vital Signs Vital signs: Vital Signs Temp 98.6 F 02/10/23 07:25 Pulse 85 02/10/23 07:25 Resp 21 02/10/23 07:25 BP 144/59 02/10/23 07:25 Pulse Ox 90 L 02/10/23 07:25 FiO2 Intake & Output 02/09/23 02/10/23 02/10/23 18:59 06:59 18:59 Intake Total 200 236 Output Total 900 Balance -700 236 Weight 110.3 kg Intake: Oral 200 236 Output: Urine 900 Other: Voiding Method Urinal # Voids 2 # Bowel Movements 2 - Labs CBC & Chem 7: 02/09/23 06:25 02/09/23 06:25 Labs: Abnormal Lab Results - Last 24 Hours (Table) 02/09/23 Range/Units 06:25 WBC 13.36 H (4.50-10.00) X 10*3/uL RBC 3.75 L (4.40-5.60) X 10*6/uL Hgb 11.4 L (13.0-17.0) g/dL Hct 35.2 L (39.6-50.0) % RDW 14.7 H (11.5-14.5) % Plt Count 509 H (140-440) X 10*3/uL Plt Count Comment INCREASED A MPV 9.1 L (9.5-12.2) fL Immature Gran # 0.43 H (0.00-0.04) X 10*3/uL Neutrophils # 8.89 H (1.80-7.70) X 10*3/uL Monocytes # 1.69 H (0.20-1.00) X 10*3/uL Eosinophils # 0.41 H (0.04-0.35) X 10*3/uL Basophils # 0.15 H (0.00-0.10) X 10*3/uL Microbiology - Last 24 Hours (Table) 02/08/23 06:12 Blood Culture Gram Stain - Preliminary Blood 02/07/23 10:07 Blood Culture Gram Stain - Preliminary Blood Blood Culture - Preliminary Presumptive MRSA
[2023-02-10] MEDS ORDERED: LORATADINE 10 MG TAB PO SCH (09:00)
[2023-02-10 09:15] LABS: HCT 33.9 % (39.6-50.0); MCH 30.1 pg (27.0-32.0); MCHC 32.4 g/dL (32.0-37.0); MCV 92.9 fL (80.0-97.0); Mean Platelet Volume 9.2 fL (9.5-12.2); NRBC Per 100 WBC 0 /100 WBCS (0.0-0.0); Platelet Count 575 X 10*3/uL (140-440); RBC 3.65 X 10*6/uL (4.40-5.60); RDW 14.8 % (11.5-14.5); WBC 14.19 X 10*3/uL (4.50-10.00)
[2023-02-10 09:48] LABS: African American GFR (CKD) 109.1 (60.0-200.0); Anion Gap 8.8 mmol/L (10.00-18.00); BUN/Creat Ratio 11.35 Ratio (12.00-20.00); Blood Urea Nitrogen 8.3 mg/dL (9.0-27.0); Carbon Dioxide 25.5 mmol/L (20.0-27.5); Non-African American GFR(CKD) 94.1 (60.0-200.0); Potassium 4.4 mmol/L (3.5-5.5)
[2023-02-10] MEDS: LORATADINE 10 MG TAB PO SCH (09:49)
[2023-02-10] MEDS: ENOXAPARIN 40 MG/0.4 ML SYRINGE SQ SCH (09:50)
[2023-02-10] MEDS: PANTOPRAZOLE 40 MG/10 ML VIAL IVP SCH ×2 (09:50→21:04)
[2023-02-10 09:54] LABS: Basophils # (M) 0 X 10*3/uL (0.00-0.10); Eosinophils # (M) 1.28 X 10*3/uL (0.04-0.35); Lymphocytes # (M) 1.14 X 10*3/uL (0.90-5.00); Myelocytes % 1 % (0-0); Neutrophils # (M) 9.93 X 10*3/uL (2.00-8.90); Neutrophils % (M) 70 %
--- NOTE | 2023-02-10 10:51 | P.PN ---
Subjective Progress Note Date: 02/10/23 Principal diagnosis: MRSA bacteremia and right chest wall cellulitis Patient is a 72-year-old male presenting to the hospital with fever and chills and right-sided chest pain and erythema and the patient did have evidence of MRSA bacteremia concerning for cellulitis has been evaluated by CT surgery and Gen. surgery did not recommend any surgical drainage On today's evaluation that is 02/10/2023, patient is afebrile this morning , the patient is breathing comfortably on room air, the patient right-sided chest pain has decreased in intensity , the patient denies nausea no vomiting no abdominal pain or diarrhea Objective - Vital Signs Vital signs: Vital Signs Temp 98.6 F 02/10/23 07:25 Pulse 85 02/10/23 07:25 Resp 16 02/10/23 10:45 BP 144/59 02/10/23 07:25 Pulse Ox 90 L 02/10/23 07:25 FiO2 Intake & Output 02/09/23 02/10/23 02/10/23 18:59 06:59 18:59 Intake Total 200 236 Output Total 900 Balance -700 236 Weight 110.3 kg Intake: Oral 200 236 Output: Urine 900 Other: Voiding Method Urinal Urinal # Voids 2 # Bowel Movements 2 - Exam GENERAL DESCRIPTION: An elderly male lying in bed in no distress RESPIRATORY SYSTEM: Unlabored breathing , decreased breath sounds at bases HEART: S1 S2 regular rate and rhythm , Right-sided chest wall redness has decreased, did have an area of induration and some fluctuance ABDOMEN: Soft , no tenderness EXTREMITIES: No edema feet - Labs CBC & Chem 7: 02/10/23 04:16 02/10/23 04:16 Labs: Abnormal Lab Results - Last 24 Hours (Table) 02/09/23 02/10/23 02/10/23 Range/Units 06:25 04:16 04:16 WBC 13.36 H 14.19 H (4.50-10.00) X 10*3/uL RBC 3.75 L 3.65 L (4.40-5.60) X 10*6/uL Hgb 11.4 L 11.0 L (13.0-17.0) g/dL Hct 35.2 L 33.9 L (39.6-50.0) % RDW 14.7 H 14.8 H (11.5-14.5) % Plt Count 509 H 575 H (140-440) X 10*3/uL Plt Count Comment INCREASED A INCREASED A MPV 9.1 L 9.2 L (9.5-12.2) fL Myelocytes % 1 H (0-0) % Immature Gran # 0.43 H (0.00-0.04) X 10*3/uL Neutrophils # 8.89 H (1.80-7.70) X 10*3/uL Neutrophils # (Manual) 9.93 H (2.00-8.90) X 10*3/uL Monocytes # 1.69 H (0.20-1.00) X 10*3/uL Monocytes # (Manual) 1.70 H (0.20-1.00) X 10*3/uL Eosinophils # 0.41 H (0.04-0.35) X 10*3/uL Eosinophils # (Manual) 1.28 H (0.04-0.35) X 10*3/uL Basophils # 0.15 H (0.00-0.10) X 10*3/uL Sodium 130 L (135-145) mmol/L Anion Gap 8.80 L (10.00-18.00) mmol/L BUN 8.3 L (9.0-27.0) mg/dL BUN/Creatinine Ratio 11.35 L (12.00-20.00) Ratio Calcium 8.0 L (8.7-10.3) mg/dL Microbiology - Last 24 Hours (Table) 02/08/23 06:12 Blood Culture Gram Stain - Preliminary Blood Blood Culture - Preliminary Presumptive MRSA 02/07/23 10:07 Blood Culture Gram Stain - Preliminary Blood Blood Culture - Preliminary Presumptive MRSA Assessment and Plan (1) Cellulitis of chest wall Current Visit: Yes Status: Acute Code(s): L03.313 - CELLULITIS OF CHEST WALL SNOMED Code(s): 16781051 (2) MRSA bacteremia Current Visit: Yes Status: Acute Code(s): R78.81 - BACTEREMIA; B95.62 - METHICILLIN RESIS STAPH INFCT CAUSING DISEASES CL[facility]SD [facility] SNOMED Code(s): 86970448456197122 Plan: 1patient to the hospital with sepsis in this patient with fever tachycardia elevated white count did have a right upper chest wall swelling and redness concerning for cellulitis and possible abscess with a blood culture positive for mrsa likely the source of this bacteremia 2-patient blood cultures repeated 02/07/2023 as well as 02/08/2023 are positive blood culture had been repeated 02/10/2020 as well as 02/10/2023 to document clearance of his bacteremia 3patient has shown clinical improvement , however with persistent elevated white count and persistent bacteremia, there is concern for possible small area of abscess that may benefit from surgical drainage continue with the vancomycin at the bedside questions were answered Time with Patient: Less than 30
[2023-02-10 12:36] VITALS: BMI 33.9
--- NOTE | 2023-02-10 13:14 | CA ---
Transthoracic Echo Report Name: Eduard Corbin Age: 72 Gender: M : 1950 Exam Date: 02/10/2023 07:29 Exam Location: [place] [facility] Ht (in): 71 Wt (lb): 243 Ordering Physician: Matt Wood MD Attending/Referring Phys: Insurance Sales Manager Gricelda Schmid RDCS Procedure CPT: Indications: persisent bacteremia, r/o vegetation Cardiac Hx: Technical Quality: Good Contrast 1: Total Dose (mL): Contrast 2: Total Dose (mL): MEASUREMENTS (Male / Female) Normal Values 2D ECHO LV Diastolic Diameter PLAX 4.4 cm 4.2 - 5.9 / 3.9 - 5.3 cm LV Systolic Diameter PLAX 3.0 cm IVS Diastolic Thickness 1.3 cm 0.6 - 1.0 / 0.6 - 0.9 cm LVPW Diastolic Thickness 1.3 cm 0.6 - 1.0 / 0.6 - 0.9 cm LV Relative Wall Thickness 0.6 RV Internal Dim ED PLAX 3.6 cm LA Systolic Diameter LX 3.6 cm 3.0 - 4.0 / 2.7 - 3.8 cm LA Volume 60.0 cm??? 18 - 58 / 22 - 52 cm??? M-MODE Aortic Root Diameter MM 3.4 cm MV E Point Septal Separation 0.5 cm AV Cusp Separation MM 2.4 cm DOPPLER AV Peak Velocity 237.1 cm/s AV Peak Gradient 22.5 mmHg AV Mean Velocity 138.6 cm/s AV Mean Gradient 9.6 mmHg AV Velocity Time Integral 36.4 cm MV Area PHT 2.8 cm??? Mitral E Point Velocity 94.3 cm/s Mitral A Point Velocity 113.7 cm/s Mitral E to A Ratio 0.8 MV Deceleration Time 274.4 ms MV E' Velocity 12.2 cm/s Mitral E to MV E' Ratio 7.8 TR Peak Velocity 418.2 cm/s TR Peak Gradient 69.9 mmHg Right Ventricular Systolic Press 71.1 mmHg FINDINGS Left Ventricle Left ventricular ejection fraction is estimated at 55-60 %. Left ventricular cavity size normal. Mild concentric left ventricular hypertrophy. Normal left ventricular wall motion. Right Ventricle Mild right ventricular dilatation. Severe pulmonary hypertension. Right ventricular systolic pressure estimated at 71 mm hg. Right Atrium Normal right atrial size. Left Atrium Mildly increased left atrial volume. Mitral Valve Structurally normal mitral valve. Mild mitral regurgitation. Aortic Valve Trileaflet aortic valve. Thickened aortic valve without stenosis. Tricuspid Valve Mild tricuspid regurgitation.structurally normal tricuspid valve. Pulmonic Valve Structurally normal pulmonic valve. No pulmonic regurgitation. Pericardium Normal pericardium. No pericardial effusion. Aorta Normal size aortic root and proximal ascending aorta. CONCLUSIONS 1. Normal left ventricle size and systolic function 2. Mild mitral and tricuspid regurgitation 3. No evidence of vegetations 4. Severe pulmonary hypertension Previewed by: Dr. Ced Chappell MD (Electronically Signed) Final Date: 10 Feb 2023 13:14
[2023-02-10] MEDS: HYDROcodone/APAP 5-325MG 1 EACH TAB PO PRN ×2 (14:21→22:41)
--- NOTE | 2023-02-10 22:17 | P.PN ---
Subjective Progress Note Date: 02/10/23 CHIEF COMPLAINT: Cellulitis of the chest HISTORY OF PRESENT ILLNESS: The patient is a 72-year-old male who presents with redness along the chest. Reports decreased redness. He reports decreased pain on the chest wall. No fevers or chills. ROS: No reports of nausea and vomiting. No bowel movements. No fevers or chills. No new chest pain. PHYSICAL EXAM: VITAL SIGNS: Reviewed CONSTITUTIONAL: Well developed and in no acute distress. EYES: Conjuctivae without sclera icterus. Extraocular movements grossly intact. HEAD, EARS, NOSE, THROAT: Moist buccal mucosa. Head is atraumatic, normoceph alic. Hears conversational speech. No nasal drainage. RESPIRATORY: Non-labored respirations and equal bilateral excursions. CARDIOVASCULAR: Palpable 2+ radial pulses. ABDOMEN: Nontender MUSCULOSKELETAL: No gross deformity of the lower extremities noted. No clubbing. No cyanosis. SKIN: Chest wall with receding erythema along skin marking. Focal edema 5 cm along the right chest wall without drainage. NEUROLOGIC: Cranial nerves II through XII grossly intact. No focal or lateralizing signs. PSYCH: Appropriate affect. Alert and oriented to person, place and time. CLINICAL LABS: Reviewed. WBC elevated over 13-14,000 ASSESSMENT: 1. Chest wall cellulitis 2. Leukocytosis PLAN: 1. Continue IV antibiotics 2. Warm compresses along chest wall 3. Continue conservative management Objective - Vital Signs Vital signs: Vital Signs Temp 98.2 F 02/10/23 20:52 Pulse 81 02/10/23 20:52 Resp 18 02/10/23 20:52 BP 153/69 02/10/23 20:52 Pulse Ox 94 L 02/10/23 20:52 FiO2 Intake & Output 02/10/23 02/10/23 02/11/23 06:59 18:59 06:59 Intake Total 536 Output Total 900 Balance -364 Weight 110.3 kg 110.3 kg Intake: Oral 536 Output: Urine 900 Other: Voiding Method Urinal Toilet Urinal # Voids 2 - Labs CBC & Chem 7: 02/10/23 04:16 02/10/23 04:16 Labs: Abnormal Lab Results - Last 24 Hours (Table) 02/10/23 02/10/23 Range/Units 04:16 04:16 WBC 14.19 H (4.50-10.00) X 10*3/uL RBC 3.65 L (4.40-5.60) X 10*6/uL Hgb 11.0 L (13.0-17.0) g/dL Hct 33.9 L (39.6-50.0) % RDW 14.8 H (11.5-14.5) % Plt Count 575 H (140-440) X 10*3/uL Plt Count Comment INCREASED A MPV 9.2 L (9.5-12.2) fL Myelocytes % 1 H (0-0) % Neutrophils # (Manual) 9.93 H (2.00-8.90) X 10*3/uL Monocytes # (Manual) 1.70 H (0.20-1.00) X 10*3/uL Eosinophils # (Manual) 1.28 H (0.04-0.35) X 10*3/uL Sodium 130 L (135-145) mmol/L Anion Gap 8.80 L (10.00-18.00) mmol/L BUN 8.3 L (9.0-27.0) mg/dL BUN/Creatinine Ratio 11.35 L (12.00-20.00) Ratio Calcium 8.0 L (8.7-10.3) mg/dL Microbiology - Last 24 Hours (Table) 02/07/23 10:07 Blood Culture Gram Stain - Final Blood Blood Culture - Final Methicillin resist S. aureus 02/08/23 06:12 Blood Culture Gram Stain - Preliminary Blood Blood Culture - Preliminary Presumptive MRSA
[2023-02-11] MEDS: SODIUM CHLORIDE 0.9% 1,000 ML IV SCH ×2 (05:28→18:04)
[2023-02-11] MEDS ORDERED: VANCOMYCIN TROUGH DUE 1 EACH MISC MISCELLANE ONE (06:00)
[2023-02-11] MEDS: VANCOMYCIN 1,750 MG in SODIUM CHLORIDE 0.9% 500 ML 500 ML IVPB SCH ×3 (06:41→23:09)
[2023-02-11] MEDS: LEVOTHYROXINE 88 MCG TAB PO SCH (06:42)
[2023-02-11] MEDS: HYDROcodone/APAP 5-325MG 1 EACH TAB PO PRN ×3 (06:53→21:09)
[2023-02-11] MEDS: LORATADINE 10 MG TAB PO SCH (09:00)
[2023-02-11] MEDS: PANTOPRAZOLE 40 MG/10 ML VIAL IVP SCH ×2 (09:00→21:09)
[2023-02-11] MEDS: ENOXAPARIN 40 MG/0.4 ML SYRINGE SQ SCH (09:00)
[2023-02-11 10:44] LABS: Basophils # (A) 0.14 X 10*3/uL (0.00-0.10); Eosinophils # (A) 0.99 X 10*3/uL (0.04-0.35); Eosinophils % (A) 7.3 %; HCT 35.3 % (39.6-50.0); HGB 11.6 g/dL (13.0-17.0); Immature Grans, Automated 4.3 %; Lymphocytes # (A) 1.87 X 10*3/uL (0.90-5.00); Lymphocytes % (A) 13.8 %; MCH 30.5 pg (27.0-32.0); MCHC 32.9 g/dL (32.0-37.0); MCV 92.9 fL (80.0-97.0); Mean Platelet Volume 8.8 fL (9.5-12.2); Monocytes # (A) 1.61 X 10*3/uL (0.20-1.00); Monocytes % (A) 11.9 %; NRBC Per 100 WBC 0 /100 WBCS (0.0-0.0); Neutrophils # (A) 8.35 X 10*3/uL (1.80-7.70); Neutrophils % (A) 61.7 %; Platelet Count 636 X 10*3/uL (140-440); RDW 14.6 % (11.5-14.5); WBC 13.54 X 10*3/uL (4.50-10.00)
[2023-02-11 10:50] LABS: African American GFR (CKD) 110.8 (60.0-200.0); Anion Gap 10.9 mmol/L (10.00-18.00); BUN/Creat Ratio 9.86 Ratio (12.00-20.00); Blood Urea Nitrogen 6.9 mg/dL (9.0-27.0); Calcium 8.4 mg/dL (8.7-10.3); Carbon Dioxide 24.1 mmol/L (20.0-27.5); Magnesium 2.2 mg/dL (1.5-2.4); Non-African American GFR(CKD) 95.6 (60.0-200.0); Potassium 4.2 mmol/L (3.5-5.5)
--- NOTE | 2023-02-11 11:41 | P.PN ---
Subjective Progress Note Date: 02/11/23 Principal diagnosis: Mediastinal/right supraclavicular soft tissue swelling/infection, sepsis present on admission, MRSA bacteremia, hyponatremia. History of chronic sinusitis, hy pothyroid, remote history of spinal meningitis, occasional marijuana use, DVT to the left leg 2 years ago not currently on anticoagulation, obstructive sleep apnea without BiPAP use The patient was seen and examined this morning with Dr. Busch sitting up in a recliner no acute distress on the medical surgical unit. He does complain of chest wall pain but states that it is much better with current pain meds, denies shortness of breath. Tmax in last 24 hours 98.6F, remains on IV vancomycin. Ch est redness appears to have retreated from outline however a small ball of redness and firmness remains. Blood cultures positive for MRSA, WBC trending downward. Remains on room air. States he has been ambulatory in the room without difficulty. Really wants to go home as he doesn't like our food. Dr. Busch discussed incising and draining chest wall on Sunday with the patient, patient does consent at this time but is not happy about having to stay in the hospital. TTE completed yesterday reveals no evidence of endocarditis. Blood cultures from 02/09/23 preliminarily negative. Objective - Vital Signs Vital signs: Vital Signs Temp 98.5 F 02/11/23 07:22 Pulse 78 02/11/23 07:22 Resp 18 02/11/23 07:22 BP 159/78 02/11/23 07:22 Pulse Ox 94 L 02/11/23 07:22 FiO2 Intake & Output 02/10/23 02/11/23 02/11/23 18:59 06:59 18:59 Intake Total 536 Output Total 900 Balance -364 Weight 110.3 kg 106 kg Intake: Oral 536 Output: Urine 900 Other: Voiding Method Urinal Toilet Urinal # Voids 2 - Exam CONSTITUTIONAL: Appears comfortable, cooperative, no acute distress RESPIRATORY: Lungs sounds diminished bilaterally. Respirations even, nonlabored. Currently on room air with oxygen saturation 94% CARDIOVASCULAR: S1, S2 present. Regular rate and rhythm. Palpable peripheral pulses bilaterally. No edema present. No calf pain or tenderness noted. GASTROINTESTINAL: Abdomen soft, nontender, nondistended. Active bowel sounds present 4 quadrants. Tolerating diet. Positive bowel movement 02/09/23 GENITOURINARY: Continues to void INTEGUMENTARY: Skin is warm and dry. Right upper chest/suprclavicular area with redness and swelling, outlined, redness appears to be retreating from outline although still has mass that is reddened and firm NEUROLOGIC: Cranial nerves II through XII intact MUSKULOSKELETAL: Able to move all extremities, strength equal bilaterally, gait normal PSYCHIATRIC: Alert and oriented to person place and time, appropriate affect, intact judgment and insight - Allied health notes Allied health notes reviewed: nursing - Labs CBC & Chem 7: 02/11/23 05:52 02/11/23 05:52 Labs: Abnormal Lab Results - Last 24 Hours (Table) 02/11/23 02/11/23 Range/Units 05:52 05:52 WBC 13.54 H (4.50-10.00) X 10*3/uL RBC 3.80 L (4.40-5.60) X 10*6/uL Hgb 11.6 L (13.0-17.0) g/dL Hct 35.3 L (39.6-50.0) % RDW 14.6 H (11.5-14.5) % Plt Count 636 H (140-440) X 10*3/uL MPV 8.8 L (9.5-12.2) fL Immature Gran # 0.58 H (0.00-0.04) X 10*3/uL Neutrophils # 8.35 H (1.80-7.70) X 10*3/uL Monocytes # 1.61 H (0.20-1.00) X 10*3/uL Eosinophils # 0.99 H (0.04-0.35) X 10*3/uL Basophils # 0.14 H (0.00-0.10) X 10*3/uL Sodium 133 L (135-145) mmol/L BUN 6.9 L (9.0-27.0) mg/dL BUN/Creatinine Ratio 9.86 L (12.00-20.00) Ratio Calcium 8.4 L (8.7-10.3) mg/dL Microbiology - Last 24 Hours (Table) 02/08/23 06:12 Blood Culture Gram Stain - Final Blood Blood Culture - Final Methicillin resist S. aureus 02/09/23 06:00 Blood Culture - Preliminary Blood 02/07/23 10:07 Blood Culture Gram Stain - Final Blood Blood Culture - Final Methicillin resist S. aureus Assessment and Plan Assessment: Mediastinal/right supraclavicular soft tissue swelling/infection Sepsis present on admission, improving MRSA bacteremia Hyponatremia, improving History of chronic sinusitis Hypothyroid Remote history of spinal meningitis Occasional marijuana use DVT to the left leg 2 years ago not currently on anticoagulation Obstructive sleep apnea without BiPAP use Plan: Will plan for surgical incision and drainage of right chest wall on Sunday by Dr. Busch Continue antibiotics per infectious disease recommendations Increase activity as tolerated Medical management of other comorbidities per internal medicine, infectious disease Will continue to follow daily Further recommendations as needed per patient's progress
[2023-02-11] MEDS ORDERED: FUROSEMIDE 10 MG/ML 4 ML VIAL IV STA (13:20)
--- NOTE | 2023-02-11 13:21 | P.PN ---
Subjective Progress Note Date: 02/11/23 Patient reports that his pain continues to improve, however, he remains persistenly bacteremic. Gen: awake, alert HEENT: normocephalic, atraumatic, good hearing acuity, moist mucous membranes Resp: good air exchange, breathing comfortably with no accessory muscle use CVS: good distal perfusion x 4, GI: soft, NTTP, ND : no SPT, no CVAT, kilgore catheter not present MSK: no pitting edema, no clubbing, chest wall erythema with fluctuant mass above right supraclavicular area Neuro: non-focal, moving all extremities Psych: cooperative, euthymic mood Hospital course: Patient is a very pleasant 72-year-old male with a past medical history of hypothyroidism and obstructive sleep apnea no longer using BiPAP. Patient presented to the emergency department secondary to right-sided chest pain, erythema and swelling. Patient underwent full evaluation in the emergency department. Patient positive for severe sepsis with temp 102.2F, heart rate 97, WBC count 21.0, platelet count 456, and lactic acid was normal at 1.2. Patient received a 1 L bolus 0.9% normal saline in the ED and started on IV antibiotics. Labs completed and reviewed. CBC revealing leukocytosis with WBC count of 21.0 with left shift with neutrophils of 18.5. BMP revealing hyponatremia with sodium 124 and hypochloremia with chloride of 89. Lactic acid was 1.2. CT neck and chest with contrast was completed in radiology report reviewed showing redemonstration of abnormal soft tissue mass in the lower anterior right neck extending from the hyoid bone to the superior mediastinum with surrounding fat stranding, no osseous erosions identified, a single focus of gas identified in the level of the right clavicular head, possibly representing an infectious process with phlegmonous change versus infiltrative mass with possible superimposed infection. Discussed clinical findings, laboratory analysis, and imaging results with ED physician in detail. Patient was admitted under our services for severe sepsis and concerns of mediastinitis. Consults placed to cardiothoracic surgery, general surgery, and infectious disease. Assessment: Mediastinal mass, infective Gram-positive bacteremia with MRSA Severe Sepsis secondary to above Thrombocytosis Hypochloremic Hyponatremia Hypothyroidism Plan: Today, patient was afebrile, 159/78, heart rate 78, 94% on room air Blood cultures reviewed, growing presumptive MRSA from cultures on 02/05, 02/07, 02/08 Blood cultures from 02/09 showed no growth to date at 24 hours Ordered CBC, basic metabolic panel, magnesium for tomorrow Continue vancomycin, dosed per vancomycin trough Repeat Lasix 40mg IV today Ordered echocardiogram to rule out endocarditis Pain control: Dilaudid 1 mg every 3 hours when necessary, Parthenon 5/325 every 4 hours when necessary, Tylenol 650 mg by mouth every 6 when necessary Patient is full code Objective - Vital Signs Vital signs: Vital Signs Temp 98.5 F 02/11/23 07:22 Pulse 78 02/11/23 07:22 Resp 18 02/11/23 07:22 BP 159/78 02/11/23 07:22 Pulse Ox 94 L 02/11/23 07:22 FiO2 Intake & Output 02/10/23 02/11/23 02/11/23 18:59 06:59 18:59 Intake Total 536 Output Total 900 Balance -364 Weight 110.3 kg 106 kg Intake: Oral 536 Output: Urine 900 Other: Voiding Method Urinal Toilet Urinal # Voids 2 - Labs CBC & Chem 7: 02/11/23 05:52 02/11/23 05:52 Labs: Abnormal Lab Results - Last 24 Hours (Table) 02/11/23 02/11/23 Range/Units 05:52 05:52 WBC 13.54 H (4.50-10.00) X 10*3/uL RBC 3.80 L (4.40-5.60) X 10*6/uL Hgb 11.6 L (13.0-17.0) g/dL Hct 35.3 L (39.6-50.0) % RDW 14.6 H (11.5-14.5) % Plt Count 636 H (140-440) X 10*3/uL MPV 8.8 L (9.5-12.2) fL Immature Gran # 0.58 H (0.00-0.04) X 10*3/uL Neutrophils # 8.35 H (1.80-7.70) X 10*3/uL Monocytes # 1.61 H (0.20-1.00) X 10*3/uL Eosinophils # 0.99 H (0.04-0.35) X 10*3/uL Basophils # 0.14 H (0.00-0.10) X 10*3/uL Sodium 133 L (135-145) mmol/L BUN 6.9 L (9.0-27.0) mg/dL BUN/Creatinine Ratio 9.86 L (12.00-20.00) Ratio Calcium 8.4 L (8.7-10.3) mg/dL Microbiology - Last 24 Hours (Table) 02/08/23 06:12 Blood Culture Gram Stain - Final Blood Blood Culture - Final Methicillin resist S. aureus 02/09/23 06:00 Blood Culture - Preliminary Blood 02/07/23 10:07 Blood Culture Gram Stain - Final Blood Blood Culture - Final Methicillin resist S. aureus
--- NOTE | 2023-02-11 16:15 | P.PN ---
Subjective Progress Note Date: 02/11/23 Principal diagnosis: MRSA bacteremia and right chest wall cellulitis Patient is a 72-year-old male presenting to the hospital with fever and chills and right-sided chest pain and erythema and the patient did have evidence of MRSA bacteremia concerning for cellulitis has been evaluated by CT surgery and Gen. surgery did not recommend any surgical drainage On today's evaluation that is 02/11/2023, patient remains to be afebrile, the patient is breathing comfortably on room air, the patient right-sided chest pain has decreased in intensity , the patient denies nausea no vomiting no abdominal pain or diarrhea, feeling better Objective - Vital Signs Vital signs: Vital Signs Temp 98.1 F 02/11/23 14:00 Pulse 79 02/11/23 14:00 Resp 18 02/11/23 14:00 BP 145/75 02/11/23 14:00 Pulse Ox 95 02/11/23 14:00 FiO2 Intake & Output 02/10/23 02/11/23 02/11/23 18:59 06:59 18:59 Intake Total 536 Output Total 900 Balance -364 Weight 110.3 kg 106 kg Intake: Oral 536 Output: Urine 900 Other: Voiding Method Urinal Toilet Urinal # Voids 2 - Exam GENERAL DESCRIPTION: An elderly male lying in bed in no distress RESPIRATORY SYSTEM: Unlabored breathing , decreased breath sounds at bases HEART: S1 S2 regular rate and rhythm , Right-sided chest wall redness has decreased, did have an area of induration and some fluctuance ABDOMEN: Soft , no tenderness EXTREMITIES: No edema feet - Labs CBC & Chem 7: 02/11/23 05:52 02/11/23 05:52 Labs: Abnormal Lab Results - Last 24 Hours (Table) 02/11/23 02/11/23 Range/Units 05:52 05:52 WBC 13.54 H (4.50-10.00) X 10*3/uL RBC 3.80 L (4.40-5.60) X 10*6/uL Hgb 11.6 L (13.0-17.0) g/dL Hct 35.3 L (39.6-50.0) % RDW 14.6 H (11.5-14.5) % Plt Count 636 H (140-440) X 10*3/uL MPV 8.8 L (9.5-12.2) fL Immature Gran # 0.58 H (0.00-0.04) X 10*3/uL Neutrophils # 8.35 H (1.80-7.70) X 10*3/uL Monocytes # 1.61 H (0.20-1.00) X 10*3/uL Eosinophils # 0.99 H (0.04-0.35) X 10*3/uL Basophils # 0.14 H (0.00-0.10) X 10*3/uL Sodium 133 L (135-145) mmol/L BUN 6.9 L (9.0-27.0) mg/dL BUN/Creatinine Ratio 9.86 L (12.00-20.00) Ratio Calcium 8.4 L (8.7-10.3) mg/dL Microbiology - Last 24 Hours (Table) 02/08/23 06:12 Blood Culture Gram Stain - Final Blood Blood Culture - Final Methicillin resist S. aureus 02/09/23 06:00 Blood Culture - Preliminary Blood 02/07/23 10:07 Blood Culture Gram Stain - Final Blood Blood Culture - Final Methicillin resist S. aureus Assessment and Plan (1) Cellulitis of chest wall Current Visit: Yes Status: Acute Code(s): L03.313 - CELLULITIS OF CHEST WALL SNOMED Code(s): 57093982 (2) MRSA bacteremia Current Visit: Yes Status: Acute Code(s): R78.81 - BACTEREMIA; B95.62 - METHICILLIN RESIS STAPH INFCT CAUSING DISEASES CLASSD [facility] SNOMED Code(s): 87587621657661376 Plan: 1patient to the hospital with sepsis in this patient with fever tachycardia elevated white count did have a right upper chest wall swelling and redness concerning for cellulitis and possible abscess with a blood culture positive for mrsa likely the source of this bacteremia 2-patient blood cultures repeated 02/07/2023 as well as 02/08/2023 are positive blood culture had been repeated 02/09/2023 so far negative and blood culture had been obtained 02/11/2023 3patient has shown clinical improvement , however with persistent elevated white count and persistent bacteremia, there is concern for possible small area of abscess that may benefit from surgical drainage , patient has been eval of by CT surgery and planning for possible drainage on [place], patient to continue with the vancomycin Time with Patient: Less than 30
--- NOTE | 2023-02-12 00:49 | P.PN ---
Subjective Progress Note Date: 02/11/23 CHIEF COMPLAINT: Cellulitis of the chest HISTORY OF PRESENT ILLNESS: The patient is a 72-year-old male who presents with redness along the chest from cellulitis. He reports continued improvement. No further moderate chest discomfort of the chest wall. He reported troubles with his IV line. ROS: No reports of nausea and vomiting. No bowel movements. No fevers or chills. No new chest pain. PHYSICAL EXAM: VITAL SIGNS: Reviewed CONSTITUTIONAL: Well developed and in no acute distress. EYES: Conjuctivae without sclera icterus. Extraocular movements grossly intact. HEAD, EARS, NOSE, THROAT: Moist buccal mucosa. Head is atraumatic, normocephalic. Hears conversational speech. No nasal drainage. RESPIRATORY: Non-labored respirations and equal bilateral excursions. CARDIOVASCULAR: Palpable 2+ radial pulses. ABDOMEN: Nontender MUSCULOSKELETAL: No gross deformity of the lower extremities noted. No clubbing. No cyanosis. SKIN: Chest wall with rapid receding erythema. Focal edema 5 cm along the right chest wall without drainage. NEUROLOGIC: Cranial nerves II through XII grossly intact. No focal or lateralizing signs. PSYCH: Appropriate affect. Alert and oriented to person, place and time. CLINICAL LABS: Reviewed. WBC with leukocytosis trending down over 13,000 ASSESSMENT: 1. Chest wall cellulitis 2. Leukocytosis PLAN: 1. Continue IV antibiotics 2. Warm compresses along chest wall 3. Continue conservative management 4. Clear from surgical standpoint for discharge when medically stable Objective - Vital Signs Vital signs: Vital Signs Temp 99.6 F 02/11/23 19:25 Pulse 79 02/11/23 19:25 Resp 17 02/11/23 19:25 BP 161/78 02/11/23 19:25 Pulse Ox 93 L 02/11/23 19:25 FiO2 Intake & Output 02/11/23 02/11/23 02/12/23 06:59 18:59 06:59 Weight 106 kg Other: Voiding Method Toilet Toilet Urinal Urinal # Voids 2 3 - Labs CBC & Chem 7: 02/11/23 05:52 02/11/23 05:52 Labs: Abnormal Lab Results - Last 24 Hours (Table) 02/11/23 02/11/23 Range/Units 05:52 05:52 WBC 13.54 H (4.50-10.00) X 10*3/uL RBC 3.80 L (4.40-5.60) X 10*6/uL Hgb 11.6 L (13.0-17.0) g/dL Hct 35.3 L (39.6-50.0) % RDW 14.6 H (11.5-14.5) % Plt Count 636 H (140-440) X 10*3/uL MPV 8.8 L (9.5-12.2) fL Immature Gran # 0.58 H (0.00-0.04) X 10*3/uL Neutrophils # 8.35 H (1.80-7.70) X 10*3/uL Monocytes # 1.61 H (0.20-1.00) X 10*3/uL Eosinophils # 0.99 H (0.04-0.35) X 10*3/uL Basophils # 0.14 H (0.00-0.10) X 10*3/uL Sodium 133 L (135-145) mmol/L BUN 6.9 L (9.0-27.0) mg/dL BUN/Creatinine Ratio 9.86 L (12.00-20.00) Ratio Calcium 8.4 L (8.7-10.3) mg/dL Microbiology - Last 24 Hours (Table) 02/08/23 06:12 Blood Culture Gram Stain - Final Blood Blood Culture - Final Methicillin resist S. aureus 02/09/23 06:00 Blood Culture - Preliminary Blood
[2023-02-12] MEDS: HYDROcodone/APAP 5-325MG 1 EACH TAB PO PRN ×4 (04:38→23:40)
[2023-02-12] MEDS: VANCOMYCIN 1,750 MG in SODIUM CHLORIDE 0.9% 500 ML 500 ML IVPB SCH ×3 (06:18→23:31)
[2023-02-12] MEDS: LEVOTHYROXINE 88 MCG TAB PO SCH (06:18)
--- NOTE | 2023-02-12 07:59 | P.PN ---
Subjective Progress Note Date: 02/12/23 Principal diagnosis: Mediastinal/right supraclavicular soft tissue swelling/infection, sepsis present on admission, MRSA bacteremia, hyponatremia. History of chronic sinusitis, hy pothyroid, remote history of spinal meningitis, occasional marijuana use, DVT to the left leg 2 years ago not currently on anticoagulation, obstructive sleep apnea without BiPAP use The patient was seen and examined this morning sitting up in a recliner no acute distress on the medical surgical unit. Denies pain currently, denies shortness of breath. Tmax in last 24 hours 99.6F, remains on IV vancomycin. Chest redness appears to have retreated from outline however a small ball of redness and firmness remains. Blood cultures positive for MRSA, WBC trending downward, blood cultures from 02/09/23 preliminarily negative. Remains on room air. States he has been ambulatory in the room without difficulty. Anticipate surgical I&D tomorrow. Objective - Vital Signs Vital signs: Vital Signs Temp 98.1 F 02/12/23 01:08 Pulse 78 02/12/23 01:08 Resp 17 02/12/23 01:08 BP 145/71 02/12/23 01:08 Pulse Ox 92 L 02/12/23 01:08 FiO2 Intake & Output 02/11/23 02/12/23 02/12/23 18:59 06:59 18:59 Weight 103.6 kg Other: Voiding Method Toilet Urinal # Voids 3 7 - Exam CONSTITUTIONAL: Appears comfortable, cooperative, no acute distress RESPIRATORY: Lungs sounds diminished bilaterally. Respirations even, nonlabored. Currently on room air with oxygen saturation 92% CARDIOVASCULAR: S1, S2 present. Regular rate and rhythm. Palpable peripheral pulses bilaterally. No edema present. No calf pain or tenderness noted. GASTROINTESTINAL: Abdomen soft, nontender, nondistended. Active bowel sounds present 4 quadrants. Tolerating diet GENITOURINARY: Continues to void INTEGUMENTARY: Skin is warm and dry. Right upper chest/suprclavicular area with redness and swelling, outlined, redness appears to be retreating from outline although still has mass that is reddened and firm NEUROLOGIC: Cranial nerves II through XII intact MUSKULOSKELETAL: Able to move all extremities, strength equal bilaterally, gait normal PSYCHIATRIC: Alert and oriented to person place and time, appropriate affect, intact judgment and insight - Allied health notes Allied health notes reviewed: nursing - Labs CBC & Chem 7: 02/11/23 05:52 02/11/23 05:52 Labs: Abnormal Lab Results - Last 24 Hours (Table) 02/11/23 02/11/23 Range/Units 05:52 05:52 WBC 13.54 H (4.50-10.00) X 10*3/uL RBC 3.80 L (4.40-5.60) X 10*6/uL Hgb 11.6 L (13.0-17.0) g/dL Hct 35.3 L (39.6-50.0) % RDW 14.6 H (11.5-14.5) % Plt Count 636 H (140-440) X 10*3/uL MPV 8.8 L (9.5-12.2) fL Immature Gran # 0.58 H (0.00-0.04) X 10*3/uL Neutrophils # 8.35 H (1.80-7.70) X 10*3/uL Monocytes # 1.61 H (0.20-1.00) X 10*3/uL Eosinophils # 0.99 H (0.04-0.35) X 10*3/uL Basophils # 0.14 H (0.00-0.10) X 10*3/uL Sodium 133 L (135-145) mmol/L BUN 6.9 L (9.0-27.0) mg/dL BUN/Creatinine Ratio 9.86 L (12.00-20.00) Ratio Calcium 8.4 L (8.7-10.3) mg/dL Microbiology - Last 24 Hours (Table) 02/08/23 06:12 Blood Culture Gram Stain - Final Blood Blood Culture - Final Methicillin resist S. aureus 02/09/23 06:00 Blood Culture - Preliminary Blood - Imaging and Cardiology Chest x-ray: pending Assessment and Plan Assessment: Mediastinal/right supraclavicular soft tissue swelling/infection Sepsis present on admission, improving MRSA bacteremia Hyponatremia, improving History of chronic sinusitis Hypothyroid Remote history of spinal meningitis Occasional marijuana use DVT to the left leg 2 years ago not currently on anticoagulation Obstructive sleep apnea without BiPAP use Plan: Will plan for surgical incision and drainage of right chest wall on Sunday by Dr. Busch Continue antibiotics per infectious disease recommendations Increase activity as tolerated Medical management of other comorbidities per internal medicine, infectious disease Further recommendations as needed per patient's progress
[2023-02-12] MEDS: LORATADINE 10 MG TAB PO SCH (08:44)
[2023-02-12] MEDS: PANTOPRAZOLE 40 MG/10 ML VIAL IVP SCH ×2 (08:44→20:01)
[2023-02-12] MEDS: ENOXAPARIN 40 MG/0.4 ML SYRINGE SQ SCH (08:44)
--- NOTE | 2023-02-12 09:25 | XR ---
EXAMINATION TYPE: XR chest 1V portable DATE OF EXAM: 02/12/2023 COMPARISON: 02/04/2023 HISTORY: Presurgical TECHNIQUE: Single frontal view of the chest is obtained. FINDINGS: There is no focal air space opacity, pleural effusion, or pneumothorax seen. The cardiac silhouette size is within normal limits. The osseous structures are intact. Linear changes at both lung bases most typical of atelectasis. Hypertrophic degenerative changes of the spine IMPRESSION: Basilar atelectasis favored over infiltrate.
[2023-02-12] MEDS: SODIUM CHLORIDE 0.9% 1,000 ML IV SCH ×2 (10:00→21:25)
[2023-02-12] MEDS ORDERED: bisacodyL 5 MG TABLET.DR PO PRN (10:55)
[2023-02-12 11:00] LABS: Basophils # (A) 0.11 X 10*3/uL (0.00-0.10); Basophils % (A) 0.9 %; Eosinophils # (A) 0.96 X 10*3/uL (0.04-0.35); Eosinophils % (A) 7.5 %; HCT 36.8 % (39.6-50.0); HGB 11.8 g/dL (13.0-17.0); Immature Grans, Automated 3.7 %; Lymphocytes # (A) 1.76 X 10*3/uL (0.90-5.00); Lymphocytes % (A) 13.8 %; MCH 30.1 pg (27.0-32.0); MCHC 32.1 g/dL (32.0-37.0); MCV 93.9 fL (80.0-97.0); Mean Platelet Volume 8.5 fL (9.5-12.2); Monocytes # (A) 1.29 X 10*3/uL (0.20-1.00); Monocytes % (A) 10.1 %; NRBC Per 100 WBC 0 /100 WBCS (0.0-0.0); Platelet Count 721 X 10*3/uL (140-440); RBC 3.92 X 10*6/uL (4.40-5.60); RDW 14.8 % (11.5-14.5); WBC 12.79 X 10*3/uL (4.50-10.00)
--- NOTE | 2023-02-12 11:04 | P.PN ---
Subjective Progress Note Date: 02/12/23 CHIEF COMPLAINT: Cellulitis chest wall HISTORY OF PRESENT ILLNESS: Patient's chest wall cellulitis is improving. Decreased erythema. Decrease pain. Afebrile. WBC is down from 13-12.79 Hgb 11.8 platelets 721 Patient seen and examined with Dr. Seay PHYSICAL EXAM: VITAL SIGNS: Reviewed. GENERAL: Well-developed in no acute distress. Chest: Right-sided chest wall cellulitis with erythema. Area of erythema and induration decreasing, less tender with palpation ABDOMEN: Soft. Nondistended. Nontender. NEUROLOGIC: Alert and oriented. Cranial nerves II through XII grossly intact. ASSESSMENT: 1. Right-sided chest wall cellulitis 2. Bacteremia with MRSA PLAN: -Continue antibiotics per ID service -Continue warm compresses as needed -Patient scheduled for I&D tomorrow with cardiothoracic service -No surgical intervention planned from general surgery standpoint Physician Mri Special Procedures Technologist note has been reviewed by physician. Signing provider agrees with the documented findings, assessment, and plan of care. Objective - Vital Signs Vital signs: Vital Signs Temp 98.6 F 02/12/23 07:32 Pulse 87 02/12/23 07:32 Resp 17 02/12/23 07:32 BP 128/72 02/12/23 07:32 Pulse Ox 94 L 02/12/23 07:32 FiO2 Intake & Output 02/11/23 02/12/23 02/12/23 18:59 06:59 18:59 Weight 103.6 kg Other: Voiding Method Toilet Urinal # Voids 3 7 - Labs CBC & Chem 7: 02/12/23 05:47 02/11/23 05:52 Labs: Abnormal Lab Results - Last 24 Hours (Table) 02/12/23 Range/Units 05:47 WBC 12.79 H (4.50-10.00) X 10*3/uL RBC 3.92 L (4.40-5.60) X 10*6/uL Hgb 11.8 L (13.0-17.0) g/dL Hct 36.8 L (39.6-50.0) % RDW 14.8 H (11.5-14.5) % Plt Count 721 H (140-440) X 10*3/uL MPV 8.5 L (9.5-12.2) fL Immature Gran # 0.47 H (0.00-0.04) X 10*3/uL Neutrophils # 8.20 H (1.80-7.70) X 10*3/uL Monocytes # 1.29 H (0.20-1.00) X 10*3/uL Eosinophils # 0.96 H (0.04-0.35) X 10*3/uL Basophils # 0.11 H (0.00-0.10) X 10*3/uL Microbiology - Last 24 Hours (Table) 02/10/23 04:30 Blood Culture - Preliminary Blood 02/09/23 06:00 Blood Culture - Preliminary Blood 02/08/23 06:12 Blood Culture Gram Stain - Final Blood Blood Culture - Final Methicillin resist S. aureus
[2023-02-12 11:10] LABS: African American GFR (CKD) 99.9 (60.0-200.0); Anion Gap 10.7 mmol/L (10.00-18.00); BUN/Creat Ratio 8.89 Ratio (12.00-20.00); Calcium 8.6 mg/dL (8.7-10.3); Carbon Dioxide 26.3 mmol/L (20.0-27.5); Magnesium 2.2 mg/dL (1.5-2.4); Non-African American GFR(CKD) 86.2 (60.0-200.0); Potassium 4.5 mmol/L (3.5-5.5)
--- NOTE | 2023-02-12 11:28 | P.PN ---
Subjective Progress Note Date: 02/12/23 Principal diagnosis: MRSA bacteremia and right chest wall cellulitis Patient is a 72-year-old male presenting to the hospital with fever and chills and right-sided chest pain and erythema and the patient did have evidence of MRSA bacteremia concerning for cellulitis has been evaluated by CT surgery and Gen. surgery did not recommend any surgical drainage On today's evaluation that is 02/12/2023, patient continues to be afebrile, the patient is breathing comfortably on room air, the patient right-sided chest pain has decreased in intensity , the patient denies nausea no vomiting no abdominal pain or diarrhea, no new symptoms Objective - Vital Signs Vital signs: Vital Signs Temp 98.6 F 02/12/23 07:32 Pulse 87 02/12/23 07:32 Resp 17 02/12/23 07:32 BP 128/72 02/12/23 07:32 Pulse Ox 94 L 02/12/23 07:32 FiO2 Intake & Output 02/11/23 02/12/23 02/12/23 18:59 06:59 18:59 Weight 103.6 kg Other: Voiding Method Toilet Urinal # Voids 3 7 - Exam GENERAL DESCRIPTION: An elderly male lying in bed in no distress RESPIRATORY SYSTEM: Unlabored breathing , decreased breath sounds at bases HEART: S1 S2 regular rate and rhythm , Right-sided chest wall redness has decreased, did have an area of induration and some fluctuance, which is slightly decreased ABDOMEN: Soft , no tenderness EXTREMITIES: No edema feet - Labs CBC & Chem 7: 02/12/23 05:47 02/12/23 05:47 Labs: Abnormal Lab Results - Last 24 Hours (Table) 02/12/23 02/12/23 Range/Units 05:47 05:47 WBC 12.79 H (4.50-10.00) X 10*3/uL RBC 3.92 L (4.40-5.60) X 10*6/uL Hgb 11.8 L (13.0-17.0) g/dL Hct 36.8 L (39.6-50.0) % RDW 14.8 H (11.5-14.5) % Plt Count 721 H (140-440) X 10*3/uL MPV 8.5 L (9.5-12.2) fL Immature Gran # 0.47 H (0.00-0.04) X 10*3/uL Neutrophils # 8.20 H (1.80-7.70) X 10*3/uL Monocytes # 1.29 H (0.20-1.00) X 10*3/uL Eosinophils # 0.96 H (0.04-0.35) X 10*3/uL Basophils # 0.11 H (0.00-0.10) X 10*3/uL Sodium 133 L (135-145) mmol/L BUN 8.0 L (9.0-27.0) mg/dL BUN/Creatinine Ratio 8.89 L (12.00-20.00) Ratio Calcium 8.6 L (8.7-10.3) mg/dL Microbiology - Last 24 Hours (Table) 02/10/23 04:30 Blood Culture - Preliminary Blood 02/09/23 06:00 Blood Culture - Preliminary Blood 02/08/23 06:12 Blood Culture Gram Stain - Final Blood Blood Culture - Final Methicillin resist S. aureus Assessment and Plan (1) Cellulitis of chest wall Current Visit: Yes Status: Acute Code(s): L03.313 - CELLULITIS OF CHEST WALL SNOMED Code(s): 98921075 (2) MRSA bacteremia Current Visit: Yes Status: Acute Code(s): R78.81 - BACTEREMIA; B95.62 - METHICILLIN RESIS STAPH INFCT CAUSING [facility] Code(s): 11626481324960192 Plan: 1patient to the hospital with sepsis in this patient with fever tachycardia elevated white count did have a right upper chest wall swelling and redness concerning for cellulitis and possible abscess with a blood culture positive for mrsa likely the source of this bacteremia 2-patient blood cultures repeated 02/07/2023 as well as 02/08/2023 are positive blood culture had been repeated 02/09/2023 as well as 02/10/2023 and so far negative 3patient has shown clinical improvement , however with persistent elevated white count and persistent bacteremia, there is concern for possible small area of abscess that may benefit from surgical drainage , CT surgery is planning for possible drainage on Sunday, patient to continue with the vancomycin, while watching his kidney function closely Time with Patient: Less than 30
--- NOTE | 2023-02-12 16:17 | P.PN ---
Subjective Progress Note Date: 02/12/23 Hospital course: Patient is a very pleasant 72-year-old male with a past medical history of hypothyroidism and obstructive sleep apnea no longer using BiPAP. Patient presented to the emergency department on 02/05/23 secondary to right-sided chest pain, erythema and swelling. Patient underwent full evaluation in the emergency department. Patient positive for severe sepsis with temp 102.2F, heart rate 97, WBC count 21.0, platelet count 456, and lactic acid was normal at 1.2. Patient received a 1 L bolus 0.9% normal saline in the ED and started on IV antibiotics. Labs completed and reviewed. CBC revealing leukocytosis with WBC count of 21.0 with left shift with neutrophils of 18.5. BMP revealing hyponatremia with sodium 124 and hypochloremia with chloride of 89. Lactic acid was 1.2. CT neck and chest with contrast was completed in radiology report reviewed showing redemonstration of abnormal soft tissue mass in the lower anterior right neck extending from the hyoid bone to the superior mediastinum with surrounding fat stranding, no osseous erosions identified, a single focus of gas identified in the level of the right clavicular head, possibly representing an infectious process with phlegmonous change versus infiltrative mass with possible superimposed infection. Patient was started on IV antibiotics with clindamycin, vancomycin, and cefepime. He was then admitted under our services for severe sepsis and concerns of mediastinitis. Consults were placed to cardiothoracic surgery and infectious disease. Blood cultures positive for gram positive cocci showing MRSA. Echocardiogram was completed showing preserved EF of 55-60% with severe pulmonary hypertension, mild mitral and tricuspid regurgitation and no evidence of vegetation. Physical exam: Patient seen and fully evaluated at the bedside. Patient reports overall feeling much better since admission. Patient remains on IV antibiotics with vancomycin. Patient is scheduled to undergo incision and drainage of mediastinal mass tomorrow with cardiothoracic surgery. Patient currently reports pain is controlled and denies having any other complaints at this time. Patient has remained afebrile with last recorded elevated temp being on 02/05/23. Vital signs reviewed and stable. General: Nontoxic, no distress and appears stated age. Derm: Skin warm and dry, normal coloration for ethnicity. Moderate mediastinal soft tissue swelling with mass extending into right chest wall extending into supraclavicular region. Improvement of previous noted erythema to right lateral side of neck. Head: Atraumatic, normocephalic and symmetric. Eyes: EOMs intact, no lid lag, and anicteric sclera Mouth: no lip lesions, mucus membranes moist Cardiovascular: regular rate and rhythm with normal S1S2, no murmur, positive posterior tibial pulses bilaterally, and cap refill < 2 seconds. Lungs: Respirations even, regular, and unlabored on room air. Lungs CTA bilaterally, no rhonchi, no rales, no wheezing, and no accessory muscle usage. Abdominal: soft, nontender to palpation, no guarding, no appreciable organomegaly Ext: ROM intact. No gross muscle atrophy, no edema, no contractures Neuro: Speech clear, face symmetrical and CN II-XII grossly intact with no noted focal neuro deficits Psych: Alert and oriented to person, place, time, and situation. Appropriate and pleasant affect. Assessment and Plan of Care: Mediastinal mass with cellulitis of chest wall MRSA bacteremia Severe sepsis secondary to above Thrombocytosis Leukocytosis Normocytic anemia, stable Hypochloremic hyponatremia, improved -Morning labs reviewed. CBC showing leukocytosis with WBC count of 12.79 with left shift showing immature granulocytes of 0.47, neutrophils 8.20, monocytes 1.29, eosinophils 0.96, and basophils 0.11; Normocytic anemia with hemoglobin of 11.8; and worsening Thrombocytosis with platelet count of 721. -Vital signs reviewed and stable with blood pressure 128/72, heart rate 87, respiratory rate 17, SpO2 94% on room air, and temp of 98.6F. -Blood cultures obtained 02/05/23, 02/07/23, and 02/08/23 all positive for MRSA. Repeat blood cultures drawn 02/09/23 and 02/10/23 reviewed and currently showing no growth to date at this time. -Patient to continue IV antibiotics with vancomycin 1750 mg every 8 hours. -Vancomycin trough therapeutic at 19.4 and renal function stable with BUN of 8.0, creatinine 0.9, and GFR of 86.2 showing no signs of vancomycin-induced renal toxicity. -Thrombocytosis is worsening with platelet count of 721. Likely secondary to bacteremia infection, however we will continue with IV fluid hydration with 0.9% normal saline at 75 mL's per hour and DVT prophylaxis with Lovenox 40 mg daily. -Symptomatic care and pain management. -Tylenol 650 mg every 6 hours as needed for mild pain/fever and Stanton 5/325 mg tablets every 4 hours as needed for moderate to severe pain. -Cardiothoracic surgery following, taking patient for I&D tomorrow. -Orders place for repeat morning BMP, will continue to follow vancomycin trough and renal function closely for any signs of vancomycin-induced renal toxicity. -Order placed for repeat CBC to follow up with leukocytosis and thrombocytosis and monitor for improvement. Hypothyroidism -Patient to continue levothyroxine 88 g daily. CODE STATUS: Full code DVT prophylaxis: Lovenox Discussed with: Patient, RN, and infectious disease Anticipated discharge date: Clinical course to determine Anticipated discharge place: Home with home care Patient was seen independently by Nurse Pracitioner. This document was prepared using [employer] dictation software. Please allow for errors in student financial aid manager, while rare they do occur. Objective - Vital Signs Vital signs: Vital Signs Temp 98.1 F 02/12/23 01:08 Pulse 78 02/12/23 01:08 Resp 17 02/12/23 01:08 BP 145/71 02/12/23 01:08 Pulse Ox 92 L 02/12/23 01:08 FiO2 Intake & Output 02/11/23 02/12/23 02/12/23 18:59 06:59 18:59 Weight 103.6 kg Other: Voiding Method Toilet Urinal # Voids 3 7 - Labs CBC & Chem 7: 02/12/23 05:47 02/12/23 05:47 Labs: Abnormal Lab Results - Last 24 Hours (Table) 02/11/23 02/11/23 Range/Units 05:52 05:52 WBC 13.54 H (4.50-10.00) X 10*3/uL RBC 3.80 L (4.40-5.60) X 10*6/uL Hgb 11.6 L (13.0-17.0) g/dL Hct 35.3 L (39.6-50.0) % RDW 14.6 H (11.5-14.5) % Plt Count 636 H (140-440) X 10*3/uL MPV 8.8 L (9.5-12.2) fL Immature Gran # 0.58 H (0.00-0.04) X 10*3/uL Neutrophils # 8.35 H (1.80-7.70) X 10*3/uL Monocytes # 1.61 H (0.20-1.00) X 10*3/uL Eosinophils # 0.99 H (0.04-0.35) X 10*3/uL Basophils # 0.14 H (0.00-0.10) X 10*3/uL Sodium 133 L (135-145) mmol/L BUN 6.9 L (9.0-27.0) mg/dL BUN/Creatinine Ratio 9.86 L (12.00-20.00) Ratio Calcium 8.4 L (8.7-10.3) mg/dL Microbiology - Last 24 Hours (Table) 02/08/23 06:12 Blood Culture Gram Stain - Final Blood Blood Culture - Final Methicillin resist S. aureus 02/09/23 06:00 Blood Culture - Preliminary Blood Assessment and Plan Assessment: Jose R Lloyd NP rendered care for this patient independently, reviewed the findings and plan as documented in the note above. I did not physically speak with our examined the patient on this date.
[2023-02-12] MEDS: LIDOCAINE 5% PATCH TOPICAL SCH (17:44)
[2023-02-13] MEDS: HYDROcodone/APAP 5-325MG 1 EACH TAB PO PRN ×4 (04:45→20:28)
[2023-02-13] MEDS ORDERED: VANCOMYCIN TROUGH DUE 1 EACH MISC MISCELLANE ONE (06:00)
[2023-02-13] MEDS: LEVOTHYROXINE 88 MCG TAB PO SCH (06:55)
[2023-02-13] MEDS: VANCOMYCIN 1,750 MG in SODIUM CHLORIDE 0.9% 500 ML 500 ML IVPB SCH (07:23)
[2023-02-13] MEDS: ENOXAPARIN 40 MG/0.4 ML SYRINGE SQ SCH (07:26)
[2023-02-13 07:30] LABS: African American GFR (CKD) >90 (>60 ml/min/1.73 sqM); Anion Gap 7 mmol/L; Blood Urea Nitrogen 8 mg/dL (9-20); Calcium 8.5 mg/dL (8.4-10.2); Carbon Dioxide 27 mmol/L (22-30); Chloride 99 mmol/L (98-107); Glucose 101 mg/dL (74-99); Non-African American GFR(CKD) >90 (>60 ml/min/1.73 sqM); Potassium 4.7 mmol/L (3.5-5.1); Sodium 133 mmol/L (137-145)
[2023-02-13] MEDS: LORATADINE 10 MG TAB PO SCH (07:34)
[2023-02-13] MEDS: LIDOCAINE 5% PATCH TOPICAL SCH (07:34)
--- NOTE | 2023-02-13 08:44 | P.PN ---
Subjective Progress Note Date: 02/13/23 Principal diagnosis: Mediastinal/right supraclavicular soft tissue swelling/infection, sepsis present on admission, MRSA bacteremia, hyponatremia. History of chronic sinusitis, hy pothyroid, remote history of spinal meningitis, occasional marijuana use, DVT to the left leg 2 years ago not currently on anticoagulation, obstructive sleep apnea without BiPAP use The patient was seen and examined this morning sitting up in a recliner no acute distress on the medical surgical unit. Denies pain currently, denies shortness of breath. Tmax in last 24 hours 99.1F, remains on IV vancomycin. Chest redness appears to have retreated from outline however a small ball of redness and firmness remains. Blood cultures positive for MRSA, WBC trending downward, blood cultures from 02/09/23 and 02/10/23 remain preliminarily negative. Remains on room air. States he has been ambulatory in the room without difficulty. Anticipate surgical I&D this afternoon. Objective - Vital Signs Vital signs: Vital Signs Temp 98.0 F 02/13/23 07:10 Pulse 76 02/13/23 07:10 Resp 18 02/13/23 07:10 BP 146/77 02/13/23 07:10 Pulse Ox 92 L 02/13/23 07:10 FiO2 Intake & Output 02/12/23 02/13/23 02/13/23 18:59 06:59 18:59 Weight 101.9 kg Other: Voiding Method Toilet Urinal # Voids 12 3 # Bowel Movements 1 - Exam CONSTITUTIONAL: Appears comfortable, cooperative, no acute distress RESPIRATORY: Lungs sounds diminished bilaterally. Respirations even, nonlabored. Currently on room air with oxygen saturation 94%. Able to achieve 2500 mL on incentive spirometry CARDIOVASCULAR: S1, S2 present. Regular rate and rhythm. Palpable peripheral pulses bilaterally. No edema present. No calf pain or tenderness noted. GASTROINTESTINAL: Abdomen soft, nontender, nondistended. Active bowel sounds present 4 quadrants. Tolerating diet GENITOURINARY: Continues to void INTEGUMENTARY: Skin is warm and dry. Right upper chest/suprclavicular area with redness and swelling, outlined, redness appears to be retreating from outline although still has mass that is reddened and firm NEUROLOGIC: Cranial nerves II through XII intact MUSKULOSKELETAL: Able to move all extremities, strength equal bilaterally, gait normal PSYCHIATRIC: Alert and oriented to person place and time, appropriate affect, intact judgment and insight - Allied health notes Allied health notes reviewed: nursing - Labs CBC & Chem 7: 02/12/23 05:47 02/13/23 06:46 Labs: Abnormal Lab Results - Last 24 Hours (Table) 02/12/23 02/12/23 02/13/23 Range/Units 05:47 05:47 06:46 WBC 12.79 H (4.50-10.00) X 10*3/uL RBC 3.92 L (4.40-5.60) X 10*6/uL Hgb 11.8 L (13.0-17.0) g/dL Hct 36.8 L (39.6-50.0) % RDW 14.8 H (11.5-14.5) % Plt Count 721 H (140-440) X 10*3/uL MPV 8.5 L (9.5-12.2) fL Immature Gran # 0.47 H (0.00-0.04) X 10*3/uL Neutrophils # 8.20 H (1.80-7.70) X 10*3/uL Monocytes # 1.29 H (0.20-1.00) X 10*3/uL Eosinophils # 0.96 H (0.04-0.35) X 10*3/uL Basophils # 0.11 H (0.00-0.10) X 10*3/uL Sodium 133 L 133 L (135-145) mmol/L BUN 8.0 L 8 L (9.0-27.0) mg/dL BUN/Creatinine Ratio 8.89 L (12.00-20.00) Ratio Glucose 101 H (74-99) mg/dL Calcium 8.6 L (8.7-10.3) mg/dL Microbiology - Last 24 Hours (Table) 02/10/23 04:30 Blood Culture - Preliminary Blood 02/09/23 06:00 Blood Culture - Preliminary Blood Assessment and Plan Assessment: Mediastinal/right supraclavicular soft tissue swelling/infection Sepsis present on admission, improving MRSA bacteremia Hyponatremia, improving History of chronic sinusitis Hypothyroid Remote history of spinal meningitis Occasional marijuana use DVT to the left leg 2 years ago not currently on anticoagulation Obstructive sleep apnea without BiPAP use Plan: Will plan for surgical incision and drainage of right chest wall this afternoon by Dr. Busch Continue antibiotics per infectious disease recommendations Increase activity as tolerated Medical management of other comorbidities per internal medicine, infectious disease Further recommendations as needed per patient's progress
--- NOTE | 2023-02-13 12:20 | P.PN ---
Subjective Progress Note Date: 02/13/23 Principal diagnosis: MRSA bacteremia and right chest wall cellulitis Patient is a 72-year-old male presenting to the hospital with fever and chills and right-sided chest pain and erythema and the patient did have evidence of MRSA bacteremia concerning for cellulitis has been evaluated by CT surgery and Gen. surgery did not recommend any surgical drainage On today's evaluation that is 02/13/2023, patient remains to be afebrile, the patient is breathing comfortably on room air, the patient right-sided chest pain has decreased in intensity and area of swelling and induration has decreased as well per patient, the patient denies nausea no vomiting no abdominal pain or diarrhea, Objective - Vital Signs Vital signs: Vital Signs Temp 98.0 F 02/13/23 07:10 Pulse 76 02/13/23 07:10 Resp 18 02/13/23 07:10 BP 146/77 02/13/23 07:10 Pulse Ox 92 L 02/13/23 07:10 FiO2 Intake & Output 02/12/23 02/13/23 02/13/23 18:59 06:59 18:59 Weight 101.9 kg Other: Voiding Method Toilet Urinal # Voids 12 3 1 # Bowel Movements 1 - Exam GENERAL DESCRIPTION: An elderly male lying in bed in no distress RESPIRATORY SYSTEM: Unlabored breathing , decreased breath sounds at bases HEART: S1 S2 regular rate and rhythm , Right-sided chest wall redness has decreased, did have an area of induration and some fluctuance, which is slightly decreased ABDOMEN: Soft , no tenderness EXTREMITIES: No edema feet - Labs CBC & Chem 7: 02/12/23 05:47 02/13/23 06:46 Labs: Abnormal Lab Results - Last 24 Hours (Table) 02/13/23 Range/Units 06:46 Sodium 133 L (137-145) mmol/L BUN 8 L (9-20) mg/dL Glucose 101 H (74-99) mg/dL Microbiology - Last 24 Hours (Table) 02/11/23 06:00 Blood Culture - Preliminary Blood 02/10/23 04:30 Blood Culture - Preliminary Blood 02/09/23 06:00 Blood Culture - Preliminary Blood Assessment and Plan (1) Cellulitis of chest wall Current Visit: Yes Status: Acute Code(s): L03.313 - CELLULITIS OF CHEST WALL SNOMED Code(s): 67645811 (2) MRSA bacteremia Current Visit: Yes Status: Acute Code(s): R78.81 - BACTEREMIA; B95.62 - METH ICILLIN RESIS STAPH INFCT CAUSING DISEASES CLASSD [id number] SNOMED Code(s): 51672897745375477 (3) Sepsis Current Visit: Yes Status: Acute Code(s): A41.9 - SEPSIS, UNSPECIFIED [facility] SNOMED Code(s): 78590865 Plan: 1patient to the hospital with sepsis in this patient with fever tachycardia elevated white count did have a right upper chest wall swelling and redness concerning for cellulitis and possible abscess with a blood culture positive for mrsa likely the source of this bacteremia 2-patient blood cultures repeated 02/07/2023 as well as 02/08/2023 are positive blood culture had been repeated 02/09/2023 as well as 02/10/2023 and so far negative, patient is okay to get a PICC line and he has lost his IV 3-patient awaiting for surgical drainage this morning 4-patient to continue vancomycin pharmacy to dose while watching his kidney function closely Time with Patient: Less than 30
[2023-02-13] MEDS: PANTOPRAZOLE 40 MG/10 ML VIAL IVP SCH ×2 (13:26→20:28)
--- NOTE | 2023-02-13 13:42 | P.PN ---
Subjective Progress Note Date: 02/13/23 CHIEF COMPLAINT: Cellulitis chest wall HISTORY OF PRESENT ILLNESS: Patient's chest wall cellulitis is improving. Decreased erythema. Decrease pain. Afebrile. no new CBC Patient seen and examined with Dr. Seay PHYSICAL EXAM: VITAL SIGNS: Reviewed. GENERAL: Well-developed in no acute distress. Chest: Right-sided chest wall cellulitis with erythema. Area of erythema and induration decreasing, less tender with palpation ABDOMEN: Soft. Nondistended. Nontender. NEUROLOGIC: Alert and oriented. Cranial nerves II through XII grossly intact. ASSESSMENT: 1. Right-sided chest wall cellulitis 2. Bacteremia with MRSA PLAN: -Continue antibiotics per ID service -Continue warm compresses as needed -Patient scheduled for I&D today with cardiothoracic service -No surgical intervention planned from general surgery standpoint Physician Financial Services Officer note has been reviewed by physician. Signing provider agrees with the documented findings, assessment, and plan of care. Objective - Vital Signs Vital signs: Vital Signs Temp 98.0 F 02/13/23 07:10 Pulse 76 02/13/23 07:10 Resp 18 02/13/23 07:10 BP 146/77 02/13/23 07:10 Pulse Ox 92 L 02/13/23 07:10 FiO2 Intake & Output 02/12/23 02/13/23 02/13/23 18:59 06:59 18:59 Weight 101.9 kg Other: Voiding Method Toilet Urinal # Voids 12 3 1 # Bowel Movements 1 - Labs CBC & Chem 7: 02/12/23 05:47 02/13/23 06:46 Labs: Abnormal Lab Results - Last 24 Hours (Table) 02/13/23 Range/Units 06:46 Sodium 133 L (137-145) mmol/L BUN 8 L (9-20) mg/dL Glucose 101 H (74-99) mg/dL Microbiology - Last 24 Hours (Table) 02/11/23 06:00 Blood Culture - Preliminary Blood 02/10/23 04:30 Blood Culture - Preliminary Blood 02/09/23 06:00 Blood Culture - Preliminary Blood
[2023-02-13] MEDS ORDERED: IV FLUID CONTINUATION 500 ML IV ONE (14:27)
[2023-02-13] MEDS ORDERED: SUCCINYLCHOLINE CHLORIDE 200 MG/10 ML VIAL IV ONE (14:44)
[2023-02-13] MEDS ORDERED: HYDROmorphone (PF) 1 MG/ML ONE (14:44)
[2023-02-13] MEDS ORDERED: fentaNYL (PF) 50 MCG/ML 2 ML AMP ONE (14:44)
[2023-02-13] MEDS ORDERED: KETOROLAC 15 MG/ML 1 ML VIAL ONE (14:44)
[2023-02-13] MEDS ORDERED: MIDAZOLAM 2 MG/2 ML VIAL ONE (14:44)
[2023-02-13] MEDS ORDERED: PROPOFOL 10 MG/ML 20 ML VIAL IV ONE (14:44)
[2023-02-13] MEDS ORDERED: VANCOMYCIN 1,000 MG in SODIUM CHLORIDE 0.9% IRRIGATIO 1,000 ML IRRIGATION ONE (15:23)
--- NOTE | 2023-02-13 15:47 | P.PN ---
Subjective Progress Note Date: 02/13/23 Hospital course: Patient is a very pleasant 72-year-old male with a past medical history of hypothyroidism and obstructive sleep apnea no longer using BiPAP. Patient presented to the emergency department on 02/05/23 secondary to right-sided chest pain, erythema and swelling. Patient underwent full evaluation in the emergency department. Patient positive for severe sepsis with temp 102.2F, heart rate 97, WBC count 21.0, platelet count 456, and lactic acid was normal at 1.2. Patient received a 1 L bolus 0.9% normal saline in the ED and started on IV antibiotics. Labs completed and reviewed. CBC revealing leukocytosis with WBC count of 21.0 with left shift with neutrophils of 18.5. BMP revealing hyponatremia with sodium 124 and hypochloremia with chloride of 89. Lactic acid was 1.2. CT neck and chest with contrast was completed in radiology report reviewed showing redemonstration of abnormal soft tissue mass in the lower anterior right neck extending from the hyoid bone to the superior mediastinum with surrounding fat stranding, no osseous erosions identified, a single focus of gas identified in the level of the right clavicular head, possibly representing an infectious process with phlegmonous change versus infiltrative mass with possible superimposed infection. Patient was started on IV antibiotics with clindamycin, vancomycin, and cefepime. He was then admitted under our services for severe sepsis and concerns of mediastinitis. Consults were placed to cardiothoracic surgery and infectious disease. Blood cultures positive for gram positive cocci showing MRSA. Echocardiogram was completed showing preserved EF of 55-60% with severe pulmonary hypertension, mild mitral and tricuspid regurgitation and no evidence of vegetation. Physical exam: Patient seen and fully evaluated at the bedside. Patient does report chest discomfort to area surrounding mass this morning. Patient encouraged to take pain medications available but declining at this time. Patient scheduled to undergo incision and drainage of mediastinal mass later today with cardiothoracic surgery. Vital signs reviewed and stable. General: Nontoxic, no distress and appears stated age. Derm: Skin warm and dry, normal coloration for ethnicity. Moderate mediastinal soft tissue swelling with mass extending into right chest wall extending into supraclavicular region. Improvement of previous noted erythema to right lateral side of neck and supraclavicular region . Head: Atraumatic, normocephalic and symmetric. Eyes: EOMs intact, no lid lag, and anicteric sclera Mouth: no lip lesions, mucus membranes moist Cardiovascular: regular rate and rhythm with normal S1S2, no murmur, positive posterior tibial pulses bilaterally, and cap refill < 2 seconds. Lungs: Respirations even, regular, and unlabored on room air. Lungs CTA bilaterally, no rhonchi, no rales, no wheezing, and no accessory muscle usage. Abdominal: soft, nontender to palpation, no guarding, no appreciable organomegaly Ext: ROM intact. No gross muscle atrophy, no edema, no contractures Neuro: Speech clear, face symmetrical and CN II-XII grossly intact with no noted focal neuro deficits Psych: Alert and oriented to person, place, time, and situation. Appropriate and pleasant affect. Assessment and Plan of Care: Mediastinal mass with cellulitis of chest wall MRSA bacteremia Severe sepsis secondary to above Thrombocytosis Leukocytosis Normocytic anemia, stable Hypochloremic hyponatremia, improved -Vital signs reviewed and stable with blood pressure 146/77 heart rate 76, respiratory rate 18, SpO2 92% on room air, and temp of 98.0F. -Blood cultures obtained 02/05/23, 02/07/23, and 02/08/23 all positive for MRSA. Repeat blood cultures drawn 02/09/23, 02/10/23, and 02/11/23 reviewed and currently showing no growth to date at this time. -Patient to continue IV antibiotics with vancomycin and dose reduced to 1500 mg every 8 hours secondary to slightly supratherapeutic vancomycin trough. -Morning labs reviewed. Vancomycin trough slightly supratherapeutic at 20.6 and renal function stable with BUN of 8.0, creatinine 0.79, and GFR >90 showing no signs of vancomycin-induced renal toxicity. -Thrombocytosis is worsening with platelet count of 721. Likely reactive secondary to bacteremia infection, however we will continue with IV fluid hydration with 0.9% normal saline at 75 mL's per hour and DVT prophylaxis with Lovenox 40 mg daily. -Symptomatic care and pain management with Tylenol 650 mg every 6 hours as needed for mild pain/fever and Hayes 5/325 mg tablets every 4 hours as needed for moderate to severe pain and Dilaudid 1 mg every 3 hours for severe pain. -Cardiothoracic surgery following, taking patient for I&D later today. -Infectious disease following and discussed plan of care with infectious disease physician. -Orders place for repeat morning BMP, will continue to follow vancomycin trough and renal function closely for any signs of vancomycin-induced renal toxicity. -Order placed for repeat CBC to follow up with leukocytosis and thrombocytosis and monitor for improvement. Hypothyroidism -Patient to continue levothyroxine 88 g daily. CODE STATUS: Full code DVT prophylaxis: Lovenox Discussed with: Patient, RN, and infectious disease Anticipated discharge date: Clinical course to determine Anticipated discharge place: Home with home care Patient was seen independently by Nurse Pracitioner. This document was prepared using [employer] dictation software. Please allow for errors in grand scribe, while rare they do occur. Jos eR Lloyd NP rendered care for this patient independently, reviewed the findi ngs and plan as documented in the note above. I did not physically speak with or examine the patient on this date. Objective - Vital Signs Vital signs: Vital Signs Temp 98.0 F 02/13/23 07:10 Pulse 76 02/13/23 07:10 Resp 18 02/13/23 07:10 BP 146/77 02/13/23 07:10 Pulse Ox 92 L 02/13/23 07:10 FiO2 Intake & Output 02/12/23 02/13/23 02/13/23 18:59 06:59 18:59 Weight 101.9 kg Other: Voiding Method Toilet Urinal # Voids 12 3 # Bowel Movements 1 - Labs CBC & Chem 7: 02/15/23 04:05 02/15/23 04:05 Labs: Abnormal Lab Results - Last 24 Hours (Table) 02/12/23 02/12/23 02/13/23 Range/Units 05:47 05:47 06:46 WBC 12.79 H (4.50-10.00) X 10*3/uL RBC 3.92 L (4.40-5.60) X 10*6/uL Hgb 11.8 L (13.0-17.0) g/dL Hct 36.8 L (39.6-50.0) % RDW 14.8 H (11.5-14.5) % Plt Count 721 H (140-440) X 10*3/uL MPV 8.5 L (9.5-12.2) fL Immature Gran # 0.47 H (0.00-0.04) X 10*3/uL Neutrophils # 8.20 H (1.80-7.70) X 10*3/uL Monocytes # 1.29 H (0.20-1.00) X 10*3/uL Eosinophils # 0.96 H (0.04-0.35) X 10*3/uL Basophils # 0.11 H (0.00-0.10) X 10*3/uL Sodium 133 L 133 L (135-145) mmol/L BUN 8.0 L 8 L (9.0-27.0) mg/dL BUN/Creatinine Ratio 8.89 L (12.00-20.00) Ratio Glucose 101 H (74-99) mg/dL Calcium 8.6 L (8.7-10.3) mg/dL Microbiology - Last 24 Hours (Table) 02/10/23 04:30 Blood Culture - Preliminary Blood 02/09/23 06:00 Blood Culture - Preliminary Blood
--- NOTE | 2023-02-13 15:50 | P.OP ---
Date of Procedure: 02/13/23 Preoperative Diagnosis: Right chest wall abscess MRSA bacteremia Postoperative Diagnosis: Same Procedure(s) Performed: Incision and drainage of right chest wall abscess Implants: None Anesthesia: JOEA Surgeon: John Busch Estimated Blood Loss (ml): 25 Pathology: other (Culture swab x 2, Wound tissue for culture) Condition: stable Disposition: PACU Indications for Procedure: This patient is a 72 year-old male who presented to the hospital with right s ided chest wall and neck swelling. CT scan revealed phlegmonous changes without discrete abscess. The patient states that he is not an uncontrolled diabetic and denied IV drug use. As a matter of fact, the patient endorsed some trauma to the area recently. Despite conservative therapy with antibiotics the patient was bacteremic with MRSA and his plegmon progressed to a chest wall abscess. He now requires surgical drainage and washout. Operative Findings: Large cavity with purulent drainage. Description of Procedure: The patient was brought to the operating room and placed in the supine position. General anesthesia was induced and the patient was intubated. His right neck and chest were prepped and draped in the usual sterile fashion. He was already therapeutic on vancomycin. I made a 3cm transverse incision over the indurated area and carried it through the inflammatory tissue until I entered the pus cavity. Cultures were taken x 2. Some material was derided which was also sent for culture. Finger sweep revealed a large subcutaneous cavity above the pectoralis major muscle. This was copiously pulse lavaged with 1L of vancomycin containing saline. A wet to dry dressing was applied after hemostasis was achieved. Surgicel powder was placed in the wound bed prior to packing.
[2023-02-13] MEDS: VANCOMYCIN 1,500 MG in SODIUM CHLORIDE 0.9% 500 ML 500 ML IVPB SCH (17:12)
[2023-02-13] MEDS: diphenhydrAMINE 25 MG CAP PO PRN (20:28)
[2023-02-13] MEDS: SODIUM CHLORIDE 0.9% 1,000 ML IV SCH (22:54)
[2023-02-14] MEDS: VANCOMYCIN 1,500 MG in SODIUM CHLORIDE 0.9% 500 ML 500 ML IVPB SCH ×4 (00:21→20:28)
[2023-02-14] MEDS: HYDROcodone/APAP 5-325MG 1 EACH TAB PO PRN ×3 (00:21→11:07)
[2023-02-14] MEDS: SODIUM CHLORIDE 0.9% 1,000 ML IV SCH (01:38)
[2023-02-14] MEDS: LEVOTHYROXINE 88 MCG TAB PO SCH (05:56)
[2023-02-14] MEDS: LORATADINE 10 MG TAB PO SCH (07:39)
[2023-02-14] MEDS: ENOXAPARIN 40 MG/0.4 ML SYRINGE SQ SCH (07:39)
[2023-02-14] MEDS: LIDOCAINE 5% PATCH TOPICAL SCH (07:42)
--- NOTE | 2023-02-14 08:23 | XR ---
EXAMINATION TYPE: XR chest 1V portable DATE OF EXAM: 02/14/2023 COMPARISON: 02/12/2023 HISTORY: Cough TECHNIQUE: Single frontal view of the chest is obtained. FINDINGS: Bibasilar subsegmental consolidation and no sizable pneumothorax pleural effusion. Heart s ize normal. No overt failure. Hyperinflation suggests the IMPRESSION: Favor basilar atelectasis over pneumonia correlate clinically
[2023-02-14] MEDS: PANTOPRAZOLE 40 MG/10 ML VIAL IVP SCH ×2 (08:28→20:28)
[2023-02-14 09:26] LABS: African American GFR (CKD) 98.9 (60.0-200.0); Albumin 3.1 g/dL (3.8-4.9); Albumin/Globulin Ratio 1.02 (1.60-3.17); Anion Gap 11.2 mmol/L (10.00-18.00); BUN/Creat Ratio 11.12 Ratio (12.00-20.00); Blood Urea Nitrogen 10.1 mg/dL (9.0-27.0); Calcium 8.5 mg/dL (8.7-10.3); Carbon Dioxide 23.1 mmol/L (20.0-27.5); Magnesium 2.2 mg/dL (1.5-2.4); Non-African American GFR(CKD) 85.3 (60.0-200.0); Potassium 4.3 mmol/L (3.5-5.5); Total Bilirubin 0.4 mg/dL (0.30-1.20); Total Protein 6.1 g/dL (6.2-8.2)
[2023-02-14] MEDS ORDERED: LIDOCAINE 1% INJ 10MG/ML (5 ML VIAL-PF) SQ ONE (09:26)
--- NOTE | 2023-02-14 09:38 | P.PN ---
Subjective Progress Note Date: 02/14/23 Principal diagnosis: Mediastinal/right supraclavicular soft tissue swelling/infection, sepsis present on admission, MRSA bacteremia, hyponatremia. History of chronic sinusitis, hy pothyroid, remote history of spinal meningitis, occasional marijuana use, DVT to the left leg 2 years ago not currently on anticoagulation, obstructive sleep apnea without BiPAP use POD #1 incision and drainage of right chest wall abscess The patient was seen and examined this morning sitting up in a recliner no acute distress on the medical surgical unit. States pain is mostly controlled on cu rrent medication regimen although feels tape from dressing is pulling on his skin to much, denies shortness of breath. Tmax in last 24 hours 98.3F, remains on IV vancomycin. Post surgical dressing present to right chest wall, to remain in place until tomorrow. Blood cultures positive for MRSA, WBC trending downward, blood cultures from 02/09/23, 02/10/23, and 02/11/23 remain preliminarily negative. Remains on room air. States he has been ambulatory in the room without difficulty. Objective - Vital Signs Vital signs: Vital Signs Temp 98.3 F 02/14/23 07:10 Pulse 83 02/14/23 07:10 Resp 16 02/14/23 07:10 BP 137/77 02/14/23 07:10 Pulse Ox 93 L 02/14/23 07:10 FiO2 Intake & Output 02/13/23 02/14/23 02/14/23 18:59 06:59 18:59 Intake Total 601 Output Total 50 900 Balance 551 -900 Weight 101.3 kg Intake: IV 601 Output: Urine 900 Estimated Blood Loss 50 Other: Voiding Method Toilet # Voids 3 - Exam CONSTITUTIONAL: Appears comfortable, cooperative, no acute distress RESPIRATORY: Lungs sounds diminished bilaterally. Respirations even, nonlabored. Currently on room air with oxygen saturation 93%. Able to achieve 3000 mL on incentive spirometry CARDIOVASCULAR: S1, S2 present. Regular rate and rhythm. Palpable peripheral pulses bilaterally. No edema present. No calf pain or tenderness noted. GASTROINTESTINAL: Abdomen soft, nontender, nondistended. Active bowel sounds present 4 quadrants. Tolerating diet GENITOURINARY: Continues to void INTEGUMENTARY: Skin is warm and dry. Right upper chest/suprclavicular area decreased redness, dressing present to incision site NEUROLOGIC: Cranial nerves II through XII intact MUSKULOSKELETAL: Able to move all extremities, strength equal bilaterally, gait normal PSYCHIATRIC: Alert and oriented to person place and time, appropriate affect, intact judgment and insight - Allied health notes Allied health notes reviewed: nursing - Labs CBC & Chem 7: 02/12/23 05:47 02/14/23 05:30 Labs: Abnormal Lab Results - Last 24 Hours (Table) 02/14/23 Range/Units 05:30 Sodium 133 L (135-145) mmol/L BUN/Creatinine Ratio 11.12 L (12.00-20.00) Ratio Calcium 8.5 L (8.7-10.3) mg/dL AST 41 H (14-35) U/L ALT 94 H (10-49) U/L Total Protein 6.1 L (6.2-8.2) g/dL Albumin 3.1 L (3.8-4.9) g/dL Albumin/Globulin Ratio 1.02 L (1.60-3.17) g/dL Microbiology - Last 24 Hours (Table) 02/13/23 15:25 Gram Stain - Preliminary Chest Wound Culture - Preliminary 02/13/23 15:26 Gram Stain - Preliminary Chest Tissue Culture - Preliminary 02/13/23 15:24 Gram Stain - Preliminary Chest Wound Culture - Preliminary 02/13/23 15:26 Acid Fast Bacilli Culture - Preliminary Chest 02/13/23 15:26 Fungal Culture - Preliminary Chest 02/13/23 15:25 Fungal Culture - Preliminary Chest 02/13/23 15:24 Anaerobic Culture - Preliminary Chest 02/13/23 15:26 Anaerobic Culture - Preliminary Chest 02/13/23 15:24 Fungal Culture - Preliminary Chest 02/13/23 15:25 Anaerobic Culture - Preliminary Chest 02/11/23 06:00 Blood Culture - Preliminary Blood 02/10/23 04:30 Blood Culture - Preliminary Blood 02/09/23 06:00 Blood Culture - Preliminary Blood - Imaging and Cardiology Chest x-ray: report reviewed, image reviewed Assessment and Plan Assessment: Mediastinal/right supraclavicular soft tissue swelling/infection, status post I&D of chest wall abscess Sepsis present on admission, improving MRSA bacteremia Hyponatremia, improving History of chronic sinusitis Hypothyroid Remote history of spinal meningitis Occasional marijuana use DVT to the left leg 2 years ago not currently on anticoagulation Obstructive sleep apnea without BiPAP use Plan: Dressing to remain in place until tomorrow, to be changed by cardiothoracic surgery only Continue antibiotics per infectious disease recommendations Increase activity as tolerated Medical management of other comorbidities per internal medicine, infectious disease Further recommendations as needed per patient's progress
--- NOTE | 2023-02-14 10:32 | IR ---
PICC LINE PLACEMENT: HISTORY: Infection requiring long-term antibiotic therapy PROCEDURE: Ultrasound and fluoroscopic guidance of PICC line placement. COMPLICATIONS: None ANESTHESIA: 1. 1% Lidocaine locally. FINDINGS/TECHNIQUE: The procedure was explained to the patient. The risks, complications, benefits and alternatives were discussed and any questions were answered. Informed consent was obtained. The patient was placed supine on the fluoroscopic table and prepped and draped in the usual sterile fash ion. Utilizing a 21 gauge needle and sonographic and fluoroscopic guidance, access in the left basi lic vein was achieved and there is placement of a 0.018 guidewire. The vein is patent. A 4-F sheath was placed over the guidewire. The guidewire and dilator were removed and a 4-F. PICC line was plac ed through the sheath with the tip at the level of the SVC. The sheath was removed, the catheter was flushed and sutured into position. The patient was stable throughout the procedure and remained sta ble upon discharge from the Department of Radiology. The vein puncture was patent under ultrasound. A travis scale image was obtained to document patency of the vein punctured. All elements of the maximal barrier technique were utilized. FLUOROSCOPY TIME: DAP 0.022Gy cm2 IMPRESSION: Successful PICC line placement under ultrasound and fluoroscopic guidance.
[2023-02-14 12:05] LABS: HGB 11.4 g/dL (13.0-17.0); MCHC 31.7 g/dL (32.0-37.0); MCV 94.7 fL (80.0-97.0); Mean Platelet Volume 8.4 fL (9.5-12.2); NRBC Per 100 WBC 0 /100 WBCS (0.0-0.0); Platelet Count 706 X 10*3/uL (140-440); RDW 14.7 % (11.5-14.5); WBC 13.64 X 10*3/uL (4.50-10.00)
--- NOTE | 2023-02-14 13:50 | P.PN ---
Subjective Progress Note Date: 02/14/23 CHIEF COMPLAINT: Cellulitis chest wall HISTORY OF PRESENT ILLNESS: Patient is status post I&D of right chest wall abscess by cardiothoracic surgery. He is scheduled for PICC line placement for IV antibiotics. Afebrile. WBC is 13.64 Patient seen and examined with Dr. Seay PHYSICAL EXAM: VITAL SIGNS: Reviewed. GENERAL: Well-developed in no acute distress. Chest: Right-sided chest wall cellulitis with erythema. Area of erythema and induration decreasing, less tender with palpation ABDOMEN: Soft. Nondistended. Nontender. NEUROLOGIC: Alert and oriented. Cranial nerves II through XII grossly intact. ASSESSMENT: 1. Right-sided chest wall cellulitis with abscess status post I&D by cardi othoracic surgery 2. Bacteremia with MRSA PLAN: -Continue antibiotics per ID service -Continue supportive care -No surgical intervention planned from general surgery standpoint Physician Database Technician note has been reviewed by physician. Signing provider agrees with the documented findings, assessment, and plan of care. Objective - Vital Signs Vital signs: Vital Signs Temp 98.3 F 02/14/23 07:10 Pulse 83 02/14/23 07:10 Resp 16 02/14/23 07:10 BP 137/77 02/14/23 07:10 Pulse Ox 93 L 02/14/23 07:10 FiO2 Intake & Output 02/13/23 02/14/23 02/14/23 18:59 06:59 18:59 Intake Total 601 Output Total 50 900 Balance 551 -900 Weight 101.3 kg Intake: IV 601 Output: Urine 900 Estimated Blood Loss 50 Other: Voiding Method Toilet # Voids 3 - Labs CBC & Chem 7: 02/14/23 05:30 02/14/23 05:30 Labs: Abnormal Lab Results - Last 24 Hours (Table) 02/14/23 02/14/23 Range/Units 05:30 05:30 WBC 13.64 H (4.50-10.00) X 10*3/uL RBC 3.80 L (4.40-5.60) X 10*6/uL Hgb 11.4 L (13.0-17.0) g/dL Hct 36.0 L (39.6-50.0) % MCHC 31.7 L (32.0-37.0) g/dL RDW 14.7 H (11.5-14.5) % Plt Count 706 H (140-440) X 10*3/uL MPV 8.4 L (9.5-12.2) fL Sodium 133 L (135-145) mmol/L BUN/Creatinine Ratio 11.12 L (12.00-20.00) Ratio Calcium 8.5 L (8.7-10.3) mg/dL AST 41 H (14-35) U/L ALT 94 H (10-49) U/L Total Protein 6.1 L (6.2-8.2) g/dL Albumin 3.1 L (3.8-4.9) g/dL Albumin/Globulin Ratio 1.02 L (1.60-3.17) g/dL Microbiology - Last 24 Hours (Table) 02/11/23 06:00 Blood Culture - Preliminary Blood 02/10/23 04:30 Blood Culture - Preliminary Blood 02/09/23 06:00 Blood Culture - Preliminary Blood 02/13/23 15:25 Gram Stain - Preliminary Chest Wound Culture - Preliminary 02/13/23 15:26 Gram Stain - Preliminary Chest Tissue Culture - Preliminary 02/13/23 15:24 Gram Stain - Preliminary Chest Wound Culture - Preliminary 02/13/23 15:26 Acid Fast Bacilli Culture - Preliminary Chest 02/13/23 15:26 Fungal Culture - Preliminary Chest 02/13/23 15:25 Fungal Culture - Preliminary Chest 02/13/23 15:24 Anaerobic Culture - Preliminary Chest 02/13/23 15:26 Anaerobic Culture - Preliminary Chest 02/13/23 15:24 Fungal Culture - Preliminary Chest 02/13/23 15:25 Anaerobic Culture - Preliminary Chest
--- NOTE | 2023-02-14 15:06 | P.PN ---
Subjective Progress Note Date: 02/14/23 Principal diagnosis: MRSA bacteremia and right chest wall cellulitis Patient is a 72-year-old male presenting to the hospital with fever and chills and right-sided chest pain and erythema and the patient did have evidence of MRSA bacteremia concerning for cellulitis has been evaluated by CT surgery and Gen. surgery initially recommend no surgical drainage, the patient however is status post surgical drainage of the abscess to the right chest wall by CT surgery on 02/13/2023 On today's evaluation that is 02/14/2023, patient continues to be afebrile, the patient is breathing comfortably on room air, the patient right-sided chest pain has decreased in intensity , the patient denies nausea no vomiting no abdominal pain or diarrhea, Objective - Vital Signs Vital signs: Vital Signs Temp 98.3 F 02/14/23 13:15 Pulse 83 02/14/23 07:10 Resp 16 02/14/23 13:15 BP 128/69 02/14/23 13:15 Pulse Ox 95 02/14/23 13:15 FiO2 Intake & Output 02/13/23 02/14/23 02/14/23 18:59 06:59 18:59 Intake Total 601 Output Total 50 900 Balance 551 -900 Weight 101.3 kg Intake: IV 601 Output: Urine 900 Estimated Blood Loss 50 Other: Voiding Method Toilet # Voids 3 - Exam GENERAL DESCRIPTION: An elderly male lying in bed in no distress RESPIRATORY SYSTEM: Unlabored breathing , decreased breath sounds at bases HEART: S1 S2 regular rate and rhythm , Right-sided chest currently dressed in OR dressing no drainage on the dressing ABDOMEN: Soft , no tenderness EXTREMITIES: No edema feet - Labs CBC & Chem 7: 02/14/23 05:30 02/14/23 05:30 Labs: Abnormal Lab Results - Last 24 Hours (Table) 02/14/23 02/14/23 Range/Units 05:30 05:30 WBC 13.64 H (4.50-10.00) X 10*3/uL RBC 3.80 L (4.40-5.60) X 10*6/uL Hgb 11.4 L (13.0-17.0) g/dL Hct 36.0 L (39.6-50.0) % MCHC 31.7 L (32.0-37.0) g/dL RDW 14.7 H (11.5-14.5) % Plt Count 706 H (140-440) X 10*3/uL MPV 8.4 L (9.5-12.2) fL Sodium 133 L (135-145) mmol/L BUN/Creatinine Ratio 11.12 L (12.00-20.00) Ratio Calcium 8.5 L (8.7-10.3) mg/dL AST 41 H (14-35) U/L ALT 94 H (10-49) U/L Total Protein 6.1 L (6.2-8.2) g/dL Albumin 3.1 L (3.8-4.9) g/dL Albumin/Globulin Ratio 1.02 L (1.60-3.17) g/dL Microbiology - Last 24 Hours (Table) 02/11/23 06:00 Blood Culture - Preliminary Blood 02/10/23 04:30 Blood Culture - Preliminary Blood 02/09/23 06:00 Blood Culture - Preliminary Blood 02/13/23 15:25 Gram Stain - Preliminary Chest Wound Culture - Preliminary 02/13/23 15:26 Gram Stain - Preliminary Chest Tissue Culture - Preliminary 02/13/23 15:24 Gram Stain - Preliminary Chest Wound Culture - Preliminary 02/13/23 15:26 Acid Fast Bacilli Culture - Preliminary Chest 02/13/23 15:26 Fungal Culture - Preliminary Chest 02/13/23 15:25 Fungal Culture - Preliminary Chest 02/13/23 15:24 Anaerobic Culture - Preliminary Chest 02/13/23 15:26 Anaerobic Culture - Preliminary Chest 02/13/23 15:24 Fungal Culture - Preliminary Chest 02/13/23 15:25 Anaerobic Culture - Preliminary Chest Assessment and Plan (1) Cellulitis of chest wall Current Visit: Yes Status: Acute Code(s): L03.313 - CELLULITIS OF CHEST WALL SNOMED Code(s): 91485250 (2) MRSA bacteremia Current Visit: Yes Status: Acute Code(s): R78.81 - BACTEREMIA; B95.62 - METHICILLIN RESIS STAPH INFCT CAUSING DISEASES [facility] SNOMED Code(s): 83811939926025560 (3) Sepsis Current Visit: Yes Status: Acute Code(s): A41.9 - SEPSIS, UNSPECIFIED ORGANISM SNOMED Code(s): 46654397 Plan: 1patient to the hospital with sepsis in this patient with fever tachycardia elevated white count did have a right upper chest wall swelling and redness concerning for cellulitis and possible abscess with a blood culture positive for mrsa likely the source of this bacteremia 2-patient blood cultures repeated 02/07/2023 as well as 02/08/2023 are positive blood culture had been repeated 02/09/2023 as well as 02/10/2023 and so far negative, patient did get a PICC line on 02/14/2023 3-patient is status post surgical drainage of the right chest wall abscess on 02/14/2023 with a deep cultures currently pending 4-patient to continue vancomycin pharmacy to dose and monitor clinical course closely Time with Patient: Less than 30
--- NOTE | 2023-02-14 17:14 | P.PN ---
Subjective Progress Note Date: 02/14/23 Hospital course: Patient is a very pleasant 72-year-old male with a past medical history of hypothyroidism and obstructive sleep apnea no longer using BiPAP. Patient presented to the emergency department on 02/05/23 secondary to right-sided chest pain, erythema and swelling. Patient underwent full evaluation in the emergency department. Patient positive for severe sepsis with temp 102.2F, heart rate 97, WBC count 21.0, platelet count 456, and lactic acid was normal at 1.2. Patient received a 1 L bolus 0.9% normal saline in the ED and started on IV antibiotics. Labs completed and reviewed. CBC revealing leukocytosis with WBC count of 21.0 with left shift with neutrophils of 18.5. BMP revealing hyponatremia with sodium 124 and hypochloremia with chloride of 89. Lactic acid was 1.2. CT neck and chest with contrast was completed in radiology report reviewed showing redemonstration of abnormal soft tissue mass in the lower anterior right neck extending from the hyoid bone to the superior mediastinum with surrounding fat stranding, no osseous erosions identified, a single focus of gas identified in the level of the right clavicular head, possibly representing an infectious process with phlegmonous change versus infiltrative mass with possible superimposed infection. Patient was started on IV antibiotics with clindamycin, vancomycin, and cefepime. He was then admitted under our services for severe sepsis and concerns of mediastinitis. Consults were placed to cardiothoracic surgery and infectious disease. Blood cultures positive for gram positive cocci showing MRSA. Echocardiogram was completed showing preserved EF of 55-60% with severe pulmonary hypertension, mild mitral and tricuspid regurgitation and no evidence of vegetation. Physical exam: Patient seen and fully evaluated at the bedside. Patient was sitting up in chair at bedside. Currently reports controlled postoperative pain. Vital signs reviewed and stable. General: Nontoxic, no distress and appears stated age. Derm: Skin warm and dry, normal coloration for ethnicity. Postsurgical dressing right anterior chest is clean, dry, and intact. Head: Atraumatic, normocephalic and symmetric. Eyes: EOMs intact, no lid lag, and anicteric sclera Mouth: no lip lesions, mucus membranes moist Cardiovascular: regular rate and rhythm with normal S1S2, no murmur, positive posterior tibial pulses bilaterally, and cap refill < 2 seconds. Lungs: Respirations even, regular, and unlabored on room air. Lungs CTA bilaterally, no rhonchi, no rales, no wheezing, and no accessory muscle usage. Abdominal: soft, nontender to palpation, no guarding, no appreciable organomegaly Ext: ROM intact. No gross muscle atrophy, no edema, no contractures Neuro: Speech clear, face symmetrical and CN II-XII grossly intact with no noted focal neuro deficits Psych: Alert and oriented to person, place, time, and situation. Appropriate and pleasant affect. Assessment and Plan of Care: Mediastinal mass with cellulitis of chest wall MRSA bacteremia Severe sepsis secondary to above Thrombocytosis Leukocytosis Normocytic anemia, stable Hypochloremic hyponatremia, improved -Vital signs reviewed and stable with blood pressure 146/77 heart rate 76, res piratory rate 18, SpO2 92% on room air, and temp of 98.0F. -Blood cultures obtained 02/05/23, 02/07/23, and 02/08/23 all positive for MRSA. Repeat blood cultures drawn 02/09/23, 02/10/23, and 02/11/23 reviewed and currently showing no growth to date at this time. -Wound cultures obtained during I&D and currently pending results. -Patient to continue IV antibiotics with vancomycin 1500 mg every 8 hours seco ndary to slightly supratherapeutic vancomycin trough. Repeat vancomycin trough to be completed tomorrow morning. -Morning labs reviewed. Vancomycin trough slightly supratherapeutic at 20.6 and renal function stable with BUN of 10.1, creatinine 0.9, and GFR 85.3 showing no signs of vancomycin-induced renal toxicity. -Morning labs reviewed. CBC showing leukocytosis with WBC count of 13.64, stable hemoglobin of 11.4, and continued thrombocytosis but slightly improving down to 706 from previous 721. BMP revealing hyponatremia with sodium 133. Liver enzyme showing elevated AST of 41 and elevated ALT of 94. -Symptomatic care and pain management with Tylenol 650 mg every 6 hours as needed for mild pain/fever and Glasgow 5/325 mg tablets every 4 hours as needed for moderate to severe pain and Dilaudid 1 mg every 3 hours for severe pain. -Cardiothoracic surgery following, and took patient for incision and drainage of mediastinal mass on 02/13/23. Reviewed documentation in chart. -Infectious disease following, reviewed documentation in chart. -Orders place for repeat morning BMP, will continue to follow vancomycin trough and renal function closely for any signs of vancomycin-induced renal toxicity. -Order placed for repeat CBC to follow up with leukocytosis and thrombocytosis and monitor for improvement. -Patient going down for PICC line placement this morning. Hypothyroidism -Patient to continue levothyroxine 88 g daily. CODE STATUS: Full code DVT prophylaxis: Lovenox Discussed with: Patient and RN Anticipated discharge date: Clinical course to determine Anticipated discharge place: Home with home care Patient was seen independently by Nurse Pracitioner. This document was prepared using [employer] dictation software. Please allow for errors in binder chainstitch, while rare they do occur. Objective - Vital Signs Vital signs: Vital Signs Temp 98.3 F 02/14/23 07:10 Pulse 83 02/14/23 07:10 Resp 16 02/14/23 07:10 BP 137/77 02/14/23 07:10 Pulse Ox 93 L 02/14/23 07:10 FiO2 Intake & Output 02/13/23 02/14/23 02/14/23 18:59 06:59 18:59 Intake Total 601 Output Total 50 900 Balance 551 -900 Weight 101.3 kg Intake: IV 601 Output: Urine 900 Estimated Blood Loss 50 Other: Voiding Method Toilet # Voids 3 - Labs CBC & Chem 7: 02/14/23 05:30 02/14/23 05:30 Labs: Microbiology - Last 24 Hours (Table) 02/13/23 15:25 Gram Stain - Preliminary Chest Wound Culture - Preliminary 02/13/23 15:26 Gram Stain - Preliminary Chest Tissue Culture - Preliminary 02/13/23 15:24 Gram Stain - Preliminary Chest Wound Culture - Preliminary 02/13/23 15:26 Acid Fast Bacilli Culture - Preliminary Chest 02/13/23 15:26 Fungal Culture - Preliminary Chest 02/13/23 15:25 Fungal Culture - Preliminary Chest 02/13/23 15:24 Anaerobic Culture - Preliminary Chest 02/13/23 15:26 Anaerobic Culture - Preliminary Chest 02/13/23 15:24 Fungal Culture - Preliminary Chest 02/13/23 15:25 Anaerobic Culture - Preliminary Chest 02/11/23 06:00 Blood Culture - Preliminary Blood 02/10/23 04:30 Blood Culture - Preliminary Blood 02/09/23 06:00 Blood Culture - Preliminary Blood
[2023-02-15] MEDS: SODIUM CHLORIDE 0.9% 1,000 ML IV SCH (05:12)
[2023-02-15] MEDS: VANCOMYCIN 1,500 MG in SODIUM CHLORIDE 0.9% 500 ML 500 ML IVPB SCH ×2 (05:27→11:52)
[2023-02-15] MEDS: LEVOTHYROXINE 88 MCG TAB PO SCH (06:55)
[2023-02-15 07:43] VITALS: BP 142/76; PULSE 77; RESP 16; TEMP 98.2
[2023-02-15] MEDS: LORATADINE 10 MG TAB PO SCH (08:31)
[2023-02-15] MEDS: PANTOPRAZOLE 40 MG/10 ML VIAL IVP SCH (08:31)
[2023-02-15] MEDS: LIDOCAINE 5% PATCH TOPICAL SCH (08:32)
[2023-02-15] MEDS: ENOXAPARIN 40 MG/0.4 ML SYRINGE SQ SCH (08:33)
--- NOTE | 2023-02-15 08:52 | XR ---
EXAMINATION TYPE: XR chest 2V DATE OF EXAM: 02/15/2023 COMPARISON: 02/14/2023 TECHNIQUE: PA and lateral views submitted. HISTORY: POST I&D FINDINGS: The lungs are clear and there is no pneumothorax, pleural effusion, or focal pneumonia. Heart size normal and no overt failure. Osseous structures demonstrate hypertrophic and degenerative changes of the spine. Right-sided PICC line noted. Hyperinflation suggests COPD. Biapical pleural thickening IMPRESSION: 1. No acute process. 2. COPD.
[2023-02-15 10:34] LABS: African American GFR (CKD) 99.9 (60.0-200.0); Anion Gap 11.2 mmol/L (10.00-18.00); BUN/Creat Ratio 10.78 Ratio (12.00-20.00); Blood Urea Nitrogen 9.7 mg/dL (9.0-27.0); Calcium 8.8 mg/dL (8.7-10.3); Carbon Dioxide 23.8 mmol/L (20.0-27.5); HCT 36.6 % (39.6-50.0); HGB 11.7 g/dL (13.0-17.0); MCH 30.5 pg (27.0-32.0); MCV 95.3 fL (80.0-97.0); Mean Platelet Volume 8.9 fL (9.5-12.2); NRBC Per 100 WBC 0 /100 WBCS (0.0-0.0); Non-African American GFR(CKD) 86.2 (60.0-200.0); Platelet Count 615 X 10*3/uL (140-440); Potassium 4.8 mmol/L (3.5-5.5); RBC 3.84 X 10*6/uL (4.40-5.60); RDW 14.6 % (11.5-14.5)
[2023-02-15] MEDS ORDERED: VANCOMYCIN TROUGH DUE 1 EACH MISC MISCELLANE ONE (11:00)
--- NOTE | 2023-02-15 14:05 | P.PN ---
Subjective Progress Note Date: 02/15/23 Principal diagnosis: Mediastinal/right supraclavicular soft tissue swelling/infection, sepsis present on admission, presumptive MRSA bacteremia with positive blood cultures, hypona tremia. History of chronic sinusitis, hypothyroid, remote history of spinal meningitis, occasional marijuana use, DVT to the left leg 2 years ago not currently on anticoagulation, obstructive sleep apnea without BiPAP use. POD #1 incision and drainage of right chest wall abscess. The patient was seen and examined today 02/15/2023 at bedside on the fourth floor medical surgical unit. The patient is currently up ambulating in his room, denies any complaints of pain or shortness of breath at this time. T max temperature in the last 24 hrours 98.3F. Blood cultures from 02/05/23, 02/07/23 and 02/08/23 were positive for MRSA, his wound cultures preliminary show presumptive MRSA from 02/13/23. He remains on Vacomycin for antibiotic coverage, managed by infectious disease. The patient also has had a PICC line placed for home antibiotics. He remains on room air with oxygen saturations 96%. Chest X-Ray report reviewed. He is anxious to be discharged home. Objective - Vital Signs Vital signs: Vital Signs Temp 98.2 F 02/15/23 07:20 Pulse 77 02/15/23 07:20 Resp 16 02/15/23 07:20 BP 142/76 02/15/23 07:20 Pulse Ox 94 L 02/15/23 07:20 FiO2 Intake & Output 02/14/23 02/15/23 02/15/23 18:59 06:59 18:59 Weight 101.1 kg Other: Voiding Method Toilet # Voids 2 # Bowel Movements 1 - Exam CONSTITUTIONAL: Appears somewhat comfortable, cooperative, no acute distress. RESPIRATORY: Lungs sounds essentially clear throughout, diminished to his bilateral bases. Respirations are symmetrical, nonlabored. Currently on room air with oxygen saturation 96%. CARDIOVASCULAR: S1, S2 present. Regular rate and rhythm, sinus rhythm on t elemetry. Palpable peripheral pulses bilaterally. No edema present. No calf pain or tenderness noted. GASTROINTESTINAL: Abdomen soft, nontender, nondistended. Active bowel sounds present 4 quadrants. Tolerating diet. Passing flatus. GENITOURINARY: Continues to void. INTEGUMENTARY: Skin is warm and dry. Dressing to his right upper chest/suprclavicular clean and dry and intact. NEUROLOGIC: Cranial nerves II through XII intact. No focal deficits. MUSKULOSKELETAL: Able to move all extremities, strength equal bilaterally, gait normal. PSYCHIATRIC: Alert and oriented to person place and time, appropriate affect, intact judgment and insight. - Allied health notes Allied health notes reviewed: nursing - Labs CBC & Chem 7: 02/15/23 04:05 02/15/23 04:05 Labs: Abnormal Lab Results - Last 24 Hours (Table) 02/15/23 02/15/23 Range/Units 04:05 04:05 WBC 11.00 H (4.50-10.00) X 10*3/uL RBC 3.84 L (4.40-5.60) X 10*6/uL Hgb 11.7 L (13.0-17.0) g/dL Hct 36.6 L (39.6-50.0) % RDW 14.6 H (11.5-14.5) % Plt Count 615 H (140-440) X 10*3/uL MPV 8.9 L (9.5-12.2) fL BUN/Creatinine Ratio 10.78 L (12.00-20.00) Ratio Microbiology - Last 24 Hours (Table) 02/09/23 06:00 Blood Culture - Final Blood 02/10/23 04:30 Blood Culture - Preliminary Blood 02/11/23 06:00 Blood Culture - Preliminary Blood 02/13/23 15:26 Acid Fast Bacilli Smear - Final Chest Acid Fast Bacilli Culture - Preliminary 02/13/23 15:24 Gram Stain - Preliminary Chest Wound Culture - Preliminary Presumptive MRSA 02/13/23 15:26 Gram Stain - Preliminary Chest Tissue Culture - Preliminary Presumptive MRSA 02/13/23 15:25 Gram Stain - Preliminary Chest Wound Culture - Preliminary Presumptive MRSA Assessment and Plan Assessment: Mediastinal/right supraclavicular soft tissue swelling, status post I&D of chest wall abscess Sepsis on admission, positive bacteremia with blood cultures showing MRSA Hyponatremia, resolved Chronic sinusitis Thyroid disorder Remote history of spinal meningitis Occasional marijuana use, smokes 3-4 joint per week History of DVT to his left leg 2 years ago Sleep apnea without BiPAP use Plan: Dressing change today by Dr. Nitin Brooks. The cardiothoracic surgery standp oint he can be discharged home with home health care and follow-up in the wound healing center for his wound care. Current recommendations for wound care is to change dressing daily, irrigate wound with 0.9% normal saline, packed wound with wet-to-dry Kerlix, covere with 4 x 4 gauze and secure with tape. Continue antibiotics per infectious disease recommendations, status post PICC line insertion. Increase activity as tolerated. Medical management of other comorbidities per internal medicine, infectious disease . Further recommendations to follow based on patient's clinical course. Time with Patient: Greater than 30
[2023-02-15] MEDS: HYDROcodone/APAP 5-325MG 1 EACH TAB PO PRN (14:19)
--- NOTE | 2023-02-15 14:40 | P.PN ---
Subjective Progress Note Date: 02/15/23 CHIEF COMPLAINT: Cellulitis chest wall HISTORY OF PRESENT ILLNESS: Patient is status post I&D of right chest wall abscess by cardiothoracic surgery. Patient is status post PICC line placement. Afebrile. WBC is down to 11. They're planning discharge later today Patient seen and examined with Dr. Seay PHYSICAL EXAM: VITAL SIGNS: Reviewed. GENERAL: Well-developed in no acute distress. Chest: Right chest wall dressing clean dry and intact ABDOMEN: Soft. Nondistended. Nontender. NEUROLOGIC: Alert and oriented. Cranial nerves II through XII grossly intact. ASSESSMENT: 1. Right-sided chest wall cellulitis with abscess status post I&D by cardiothoracic surgery 2. Bacteremia with MRSA PLAN: -Continue antibiotics per ID service -Continue supportive care -No surgical intervention planned from general surgery standpoint -Patient is stable for discharge when medically cleared Physician Tool Grinding Technician note has been reviewed by physician. Signing provider agrees with the documented findings, assessment, and plan of care. Objective - Vital Signs Vital signs: Vital Signs Temp 98.2 F 02/15/23 07:20 Pulse 77 02/15/23 07:20 Resp 16 02/15/23 07:20 BP 142/76 02/15/23 07:20 Pulse Ox 94 L 02/15/23 07:20 FiO2 Intake & Output 02/14/23 02/15/23 02/15/23 18:59 06:59 18:59 Weight 101.1 kg Other: Voiding Method Toilet # Voids 2 # Bowel Movements 1 - Labs CBC & Chem 7: 02/15/23 04:05 02/15/23 04:05 Labs: Abnormal Lab Results - Last 24 Hours (Table) 02/15/23 02/15/23 Range/Units 04:05 04:05 WBC 11.00 H (4.50-10.00) X 10*3/uL RBC 3.84 L (4.40-5.60) X 10*6/uL Hgb 11.7 L (13.0-17.0) g/dL Hct 36.6 L (39.6-50.0) % RDW 14.6 H (11.5-14.5) % Plt Count 615 H (140-440) X 10*3/uL MPV 8.9 L (9.5-12.2) fL BUN/Creatinine Ratio 10.78 L (12.00-20.00) Ratio Microbiology - Last 24 Hours (Table) 02/09/23 06:00 Blood Culture - Final Blood 02/10/23 04:30 Blood Culture - Preliminary Blood 02/11/23 06:00 Blood Culture - Preliminary Blood 02/13/23 15:26 Acid Fast Bacilli Smear - Final Chest Acid Fast Bacilli Culture - Preliminary 02/13/23 15:24 Gram Stain - Preliminary Chest Wound Culture - Preliminary Presumptive MRSA 02/13/23 15:26 Gram Stain - Preliminary Chest Tissue Culture - Preliminary Presumptive MRSA 02/13/23 15:25 Gram Stain - Preliminary Chest Wound Culture - Preliminary Presumptive MRSA
--- NOTE | 2023-02-15 15:26 | P.PN ---
Subjective Progress Note Date: 02/15/23 Principal diagnosis: MRSA bacteremia and right chest wall cellulitis Patient is a 72-year-old male presenting to the hospital with fever and chills and right-sided chest pain and erythema and the patient did have evidence of MRSA bacteremia concerning for cellulitis has been evaluated by CT surgery and Gen. surgery initially recommend no surgical drainage, the patient however is status post surgical drainage of the abscess to the right chest wall by CT surgery on 02/13/2023 On today's evaluation that is 02/15/2023, patient remains to be afebrile, the patient is breathing comfortably on room air, the patient right-sided chest pain has decreased in intensity , the patient denies shortness of breath or cough, the patient denies nausea no vomiting no abdominal pain or diarrhea, Objective - Vital Signs Vital signs: Vital Signs Temp 98.2 F 02/15/23 07:20 Pulse 77 02/15/23 07:20 Resp 16 02/15/23 07:20 BP 142/76 02/15/23 07:20 Pulse Ox 94 L 02/15/23 07:20 FiO2 Intake & Output 02/14/23 02/15/23 02/15/23 18:59 06:59 18:59 Weight 101.1 kg Other: Voiding Method Toilet # Voids 2 # Bowel Movements 1 - Exam GENERAL DESCRIPTION: An elderly male lying in bed in no distress RESPIRATORY SYSTEM: Unlabored breathing , decreased breath sounds at bases HEART: S1 S2 regular rate and rhythm , Right-sided chest currently dressed in OR dressing no drainage on the dressing ABDOMEN: Soft , no tenderness EXTREMITIES: No edema feet - Labs CBC & Chem 7: 02/15/23 04:05 02/15/23 04:05 Labs: Abnormal Lab Results - Last 24 Hours (Table) 02/14/23 02/15/23 02/15/23 Range/Units 05:30 04:05 04:05 WBC 13.64 H 11.00 H (4.50-10.00) X 10*3/uL RBC 3.80 L 3.84 L (4.40-5.60) X 10*6/uL Hgb 11.4 L 11.7 L (13.0-17.0) g/dL Hct 36.0 L 36.6 L (39.6-50.0) % MCHC 31.7 L (32.0-37.0) g/dL RDW 14.7 H 14.6 H (11.5-14.5) % Plt Count 706 H 615 H (140-440) X 10*3/uL MPV 8.4 L 8.9 L (9.5-12.2) fL BUN/Creatinine Ratio 10.78 L (12.00-20.00) Ratio Microbiology - Last 24 Hours (Table) 02/09/23 06:00 Blood Culture - Final Blood 02/10/23 04:30 Blood Culture - Preliminary Blood 02/11/23 06:00 Blood Culture - Preliminary Blood 02/13/23 15:26 Acid Fast Bacilli Smear - Final Chest Acid Fast Bacilli Culture - Preliminary 02/13/23 15:24 Gram Stain - Preliminary Chest Wound Culture - Preliminary Presumptive MRSA 02/13/23 15:26 Gram Stain - Preliminary Chest Tissue Culture - Preliminary Presumptive MRSA 02/13/23 15:25 Gram Stain - Preliminary Chest Wound Culture - Preliminary Presumptive MRSA Assessment and Plan (1) Cellulitis of chest wall Current Visit: Yes Status: Acute Code(s): L03.313 - CELLULITIS OF CHEST WALL SNOMED Code(s): 53358597 (2) MRSA bacteremia Current Visit: Yes Status: Acute Code(s): R78.81 - BACTEREMIA; B95.62 - METHICILLIN RESIS STAPH INFCT CAUSING DISEASES CLASSD [id number] SNOMED Code(s): 23255873815477085 (3) Sepsis Current Visit: Yes Status: Acute Code(s): A41.9 - SEPSIS, UNSPECIFIED ORGANISM SNOMED Code(s): 75000566 Plan: 1patient to the hospital with sepsis in this patient with fever tachycardia elevated white count did have a right upper chest wall swelling and redness concerning for cellulitis and possible abscess with a blood culture positive for mrsa likely the source of this bacteremia 2-patient blood cultures repeated 02/07/2023 as well as 02/08/2023 are positive blood culture had been repeated 02/09/2023 as well as 02/10/2023 and so far negative, patient did get a PICC line on 02/14/2023 3-patient is status post surgical drainage of the right chest wall abscess on 02/14/2023 with a deep cultures currently growing presumptive MRSA 4-patient to continue vancomycin pharmacy to dose 2 weeks or discharge and close outpatient follow-up patient and family has multiple questions were answered Time with Patient: Less than 30
--- NOTE | 2023-02-15 19:10 | P.DS ---
Providers Date of admission: 02/05/23 15:45 Expected date of discharge: 02/15/23 Attending physician: Roseline Cheung DO Consults: 02/05/23 15:39 Consult Physician Urgent Consulting Provider: Queta Crockett Consult Reason/Comments: cellulitis r/o necrotizing Do you want consulting provider notified?: Yes 02/05/23 15:45 Consult Physician Routine Consulting Provider: Wolfgang Reis Consult Reason/Comments: Mediastinal soft tissue swelling with supraclavicular cellulitis and chest Do you want consulting provider notified?: Yes 02/06/23 13:08 Consult Physician Routine Consulting Provider: Driss Seay Consult Reason/Comments: neck/chest wall abscess Do you want consulting provider notified?: Yes Primary care physician: [place] [facility] Course: Discharge Diagnosis: Mediastinal mass with cellulitis of chest wall. Patient underwent incision and drainage with cardiothoracic team on 02/13/23. Cultures obtained at this time and wound culture results positive for MRSA. Patient to follow up outpatient with his PCP, [facility], cardiothoracic surgery, and infectious disease. Patient being discharged home on IV antibiotics vancomycin being managed outpatient by infectious disease physician. MRSA bacteremia, secondary to above. Severe sepsis secondary to above Thrombocytosis, secondary to severe sepsis improving Leukocytosis, secondary to severe sepsis improving Normocytic anemia, stable Hypochloremic hyponatremia, improved Hypothyroidism Patient to continue levothyroxine 88 g daily. Hospital Course: Patient is a very pleasant 72-year-old male with a past medical history of hypothyroidism and obstructive sleep apnea no longer using BiPAP. Patient presented to the emergency department on 02/05/23 secondary to right-sided chest pain, erythema and swelling. Patient underwent full evaluation in the emergency department. Patient positive for severe sepsis with temp 102.2F, heart rate 97, WBC count 21.0, platelet count 456, and lactic acid was normal at 1.2. Patient received a 1 L bolus 0.9% normal saline in the ED and started on IV antibiotics. Labs completed and reviewed. CBC revealing leukocytosis with WBC count of 21.0 with left shift with neutrophils of 18.5. BMP revealing hyponatremia with sodium 124 and hypochloremia with chloride of 89. Lactic acid was 1.2. CT neck and chest with contrast was completed in radiology report reviewed showing redemonstration of abnormal soft tissue mass in the lower anterior right neck extending from the hyoid bone to the superior mediastinum with surrounding fat stranding, no osseous erosions identified, a single focus of gas identified in the level of the right clavicular head, possibly representing an infectious process with phlegmonous change versus infiltrative mass with possible superimposed infection. Patient was started on IV antibiotics with clindamycin, vancomycin, and cefepime. He was then admitted under our services for severe sepsis and concerns of mediastinitis. Consults were placed to cardiothoracic surgery and infectious disease. Blood cultures positive for gram positive cocci showing MRSA. Echocardiogram was completed showing preserved EF of 55-60% with severe pulmonary hypertension, mild mitral and tricuspid regurgitation and no evidence of vegetation. Blood cultures obtained 02/05/23, 02/07/23, and 02/08/23 all positive for MRSA. Repeat blood cultures drawn 02/09/23, 02/10/23, and 02/11/23 reviewed and currently showing no growth to date at this time. Patient underwent incision and drainage with cardiothoracic team on 02/13/23. Cultures obtained at this time and wound culture results positive for MRSA. PICC line was placed 02/14/23. Infectious disease managing MRSA bacteremia and mediastinal mass with cellulitis positive for MRSA. Patient has been cleared by general surgery, cardiothoracic surgery, and infectious disease for discharge at this time. Medically, patient is stable for discharge at this time. Patient to follow up outpatient with his PCP, [facility] Center, cardiothoracic surgery, and infectious disease. Patient being discharged home on IV antibiotics vancomycin being managed outpatient by infectious disease physician. . Physical exam: Patient seen and fully evaluated at the bedside. Patient was sitting up in chair at bedside. Currently reports controlled postoperative pain. States he is very eager to go home. Patient's at bedside ready to drive patient home at this time Vital signs reviewed and stable. General: Nontoxic, no distress and appears stated age. Derm: Skin warm and dry, normal coloration for ethnicity. Postsurgical dressing right anterior chest is clean, dry, and intact. Head: Atraumatic, normocephalic and symmetric. Eyes: EOMs intact, no lid lag, and anicteric sclera Mouth: no lip lesions, mucus membranes moist Cardiovascular: regular rate and rhythm with normal S1S2, no murmur, positive posterior tibial pulses bilaterally, and cap refill < 2 seconds. Lungs: Respirations even, regular, and unlabored on room air. Lungs CTA bilaterally, no rhonchi, no rales, no wheezing, and no accessory muscle usage. Abdominal: soft, nontender to palpation, no guarding, no appreciable organomegaly Ext: ROM intact. No gross muscle atrophy, no edema, no contractures Neuro: Speech clear, face symmetrical and CN II-XII grossly intact with no noted focal neuro deficits Psych: Alert and oriented to person, place, time, and situation. Appropriate and pleasant affect. A total of 34 minutes of time were spent preparing this complex discharge summary. Pt was discharged on 02/15/23 at 1:38 PM Patient was seen independently by Nurse Practitioner. This document was prepared using [employer] dictation software. Please allow for errors in answerer while rare they do occur. Patient Condition at Discharge: Stable Plan - Discharge Summary Discharge Rx Participant: Yes New Discharge Prescriptions: Continue Pseudoephedrine [Sudafed] 30 mg PO Q4H PRN PRN Reason: Congestion Ibuprofen [Motrin] 800 mg PO Q6HR PRN PRN Reason: Pain Acetaminophen Tab [Tylenol] 1,000 mg PO Q6HR PRN PRN Reason: Pain Or Fever > 100.5 Levothyroxine Sodium [Synthroid] 88 mcg PO DAILY HYDROcodone/APAP 5-325MG [[place] 5-325] 1 tab PO Q6HR PRN 3 Days #12 tab PRN Reason: Pain Diclofenac Sodium [Voltaren] 75 mg PO BID PRN #20 tab PRN Reason: Pain diphenhydrAMINE [Benadryl] 25 mg PO Q6H PRN PRN Reason: Allergy Symptoms Loratadine [Claritin] 10 mg PO DAILY Baclofen 5 - 10 mg PO Q8H PRN PRN Reason: Pain Discharge Medication List Pseudoephedrine [Sudafed] 30 mg PO Q4H PRN 04/21/15 [History] Ibuprofen [Motrin] 800 mg PO Q6HR PRN 04/26/15 [History] Diclofenac Sodium [Voltaren] 75 mg PO BID PRN #20 tab 02/04/23 [Rx] HYDROcodone/APAP 5-325MG [[place] 5-325] 1 tab PO Q6HR PRN 3 Days #12 tab 02/04/23 [Rx] Acetaminophen Tab [Tylenol] 1,000 mg PO Q6HR PRN 02/05/23 [History] Baclofen 5 - 10 mg PO Q8H PRN 02/05/23 [History] Levothyroxine Sodium [Synthroid] 88 mcg PO DAILY 02/05/23 [History] Loratadine [Claritin] 10 mg PO DAILY 02/05/23 [History] diphenhydrAMINE [Benadryl] 25 mg PO Q6H PRN 02/05/23 [History] Follow up Appointment(s)/Referral(s): Home Health,[facility] [NON-STAFF] - As Needed ([facility] will call you to schedule your in home nursing visits for wound care and outpatient IV antibiotic teaching. Your first visit will be tomorrow morning. ) Arabella Gruber MD [Primary Care Provider] - 02/21/23 11:45 am [facility], [REFERRING] - As Needed ([facility] will deliver IV antibiotics and supplies on the evening of 02/15/23. They will call you first. ) [facility] [NON-STAFF] - 1 Week (Office stated they will call for appointment time and date.) John Busch MD [STAFF PHYSICIAN] - 02/22/23 2:00 pm Queta Crockett MD [STAFF PHYSICIAN] - 02/27/23 2:45 pm Patient Instructions/Handouts: Incision and Drainage (DC) Activity/Diet/Wound Care/Special Instructions: Activity: As tolerated. Take breaks as needed. Diet: Heart healthy and carb consistent diet. Avoid salts, or foods with hidden salts such as canned or boxed foods and frozen dinners. Extra salt makes your heart work harder and traps the fluid in your body for longer. Special Instructions: Take all of your medications as directed and remember to keep all of your doctor's appointments and follow-up as needed. You are being discharged home on IV antibiotics with vancomycin. The prescription has been provided by infectious disease specialist, Dr. Crockett, and he will be following with you and monitoring your levels closely. Thank you for allowing us to participate in your care, it was truly a pleasure having you for our patient!!! Wound Care orders: Change dressing to his right upper anterior chest daily. Remove packing, irrigate with 0.9% normal saline, pack wound with wet-to-dry Kerlix gauze, cover with 4 x 4 gauze and secure with tape. The patient should be scheduled to be followed in the wound healing center once a week as well. Home care to do daily dressing changes. Discharge Disposition: HOME WITH HOME HEALTH SERVICES
[2023-02-16] MEDS ORDERED: VANCOMYCIN TROUGH DUE 1 EACH MISC MISCELLANE ONE (11:00)
== END 2023-02-15 15:29 | disposition home health service (06) | DRG 871 ==
LOC: EC 12:55 → 3SCARD 15:45 → 4SSUR 02-07 22:55
PROVIDERS: ADMIT Internal Medicine; ATTEND Internal Medicine
PROC: 0W980ZZ Drainage of Chest Wall, Open Approach (ICD-10-PCS; 2023-02-13)
PROC: 02HV33Z Insertion of Infusion Device into Superior Vena Cava, Percutaneous Approach (ICD-10-PCS; principal; 2023-02-14 07:30)
DX: A41.02 Sepsis due to Methicillin resistant Staphylococcus aureus (principal); J85.3 Abscess of mediastinum; J98.51 Mediastinitis; E87.1 Hypo-osmolality and hyponatremia; L03.313 Cellulitis of chest wall; L02.213 Cutaneous abscess of chest wall; I27.20 Pulmonary hypertension, unspecified; E87.8 Other disorders of electrolyte and fluid balance, not elsewhere classified; J45.909 Unspecified asthma, uncomplicated; D64.9 Anemia, unspecified; E03.9 Hypothyroidism, unspecified; I45.10 Unspecified right bundle-branch block; R22.2 Localized swelling, mass and lump, trunk; G47.33 Obstructive sleep apnea (adult) (pediatric); J32.9 Chronic sinusitis, unspecified; R65.20 Severe sepsis without septic shock; D75.839 Thrombocytosis, unspecified; R22.1 Localized swelling, mass and lump, neck; B96.89 Other specified bacterial agents as the cause of diseases classified elsewhere; I08.1 Rheumatic disorders of both mitral and tricuspid valves; Z88.0 Allergy status to penicillin; Z79.890 Hormone replacement therapy; Z86.61 Personal history of infections of the central nervous system; Z86.718 Personal history of other venous thrombosis and embolism; Z87.891 Personal history of nicotine dependence
CPT/HCPCS: 36415; 36573; 70491; 71045; 71046; 71260; 80048; 80053; 80202; 82565; 83605; 83735; 84443; 84481; 85025; 85027; 85610; 85652; 85730; 86140; 86850; 86900; 86901; 87070; 87075; 87077; 87102; 87116; 87186; 87205; 87206; 93005; 93306; 93970; 96365; 96366; 96367; 96368; 96375; 96376; 99291

== ENCOUNTER → 2023-02-27 | Outpatient (CLI) | payer MEDICARE ==
[2023-02-27 15:04] LABS: Basophils # (A) 0.12 X 10*3/uL (0.00-0.10); Basophils % (A) 1.5 %; Eosinophils # (A) 1.34 X 10*3/uL (0.04-0.35); Eosinophils % (A) 16.9 %; HCT 40.7 % (39.6-50.0); HGB 12.6 g/dL (13.0-17.0); Immature Grans, Automated 0.4 %; Lymphocytes # (A) 1.62 X 10*3/uL (0.90-5.00); Lymphocytes % (A) 20.5 %; MCV 93.8 fL (80.0-97.0); Mean Platelet Volume 9.1 fL (9.5-12.2); Monocytes % (A) 13.9 %; NRBC Per 100 WBC 0 /100 WBCS (0.0-0.0); Neutrophils % (A) 46.8 %; Platelet Count 263 X 10*3/uL (140-440); RBC 4.34 X 10*6/uL (4.40-5.60); RDW 13.2 % (11.5-14.5); WBC 7.91 X 10*3/uL (4.50-10.00)
[2023-02-27 15:31] LABS: African American GFR (CKD) 61.8 (60.0-200.0); Blood Urea Nitrogen 14.1 mg/dL (9.0-27.0); C Reactive Protein 5.3 mg/dL (0.00-0.80); Non-African American GFR(CKD) 53.3 (60.0-200.0)
[2023-02-27 15:55] LABS: Erythrocyte Sedimentation Rate >130 mm/Hr (0-20)
== END | disposition home or self-care (01) ==
LOC: LABWHC1 09:06
PROVIDERS: ATTEND Internal Medicine Infectious Disease
DX: A41.9 Sepsis, unspecified organism (principal); L03.313 Cellulitis of chest wall; B95.62 Methicillin resistant Staphylococcus aureus infection as the cause of diseases classified elsewhere
CPT/HCPCS: 36415; 80202; 82565; 84520; 85025; 85652; 86140

== ENCOUNTER → 2023-03-23 | Outpatient (CLI) | payer MEDICARE ==
--- NOTE | 2023-03-23 20:01 | MR ---
EXAMINATION TYPE: MR lumbar spine wo/w con DATE OF EXAM: 03/23/2023 6:52 PM COMPARISON: None. CLINICAL INDICATION: Male, 72 years old with history of R78.81, M54.9; Low back pain into buttocks, H x. MRSA TECHNIQUE: Multi planar, multi sequence imaging was performed utilizing: T1-weighted, T2-weighted, a nd turbo inversion recovery imaging of the lumbar spine. IV Contrast: 9 cc Gadavist. None. FINDINGS: Alignment: The lumbar vertebral bodies have preserved heights and alignment. Cord: The conus medullaris and the distal spinal cord appear unremarkable with regards to their signa l intensity and morphology. Bones/Discs: High inversion recovery signal within the L4 and L5 vertebrae with thickening of epidura l space measuring 0.8 x 0.6 x 3.5 cm there is diffuse enhancement at this level. There is diffuse enh ancement of this thickened epidural space with possible small area of nonenhancement suggesting early abscess formation. The prevertebral space also demonstrates fibrous change at this level. T12-L1: No evidence of significant spinal canal stenosis or neural foraminal stenosis. L1-L2: No evidence of significant spinal canal stenosis or neural foraminal stenosis. L2-L3: Disc bulge and facet joint arthropathy without significant spinal canal stenosis and mild bila teral neural foraminal stenosis. L3-L4: Disc bulge and facet joint arthropathy result in mild spinal canal and mild to moderate bilate ral neural foraminal stenosis. L4-L5: Epidural space thickening at this level which extends towards the neural foramen with at least moderate to severe left and moderate right neural foraminal stenosis. The spinal canal is narrowed c ompared to phlegmonous change L5-S1: Epidural thickening with and moderate to severe bilateral neural foraminal stenosis. The spinal canal is patent. Other findings: None. IMPRESSION: 1. Findings compatible with osteomyelitis discitis involving L4-L5 disc space and L4 and L5 vertebra l bodies with epidural phlegmon possibly early epidural abscess formation given small focus of nonenh ancement within the subdural space. 2. The thickening of the epidural space results in mild spinal canal stenosis at L4-L5 and moderate to severe neural foraminal stenosis at the left L4-L5 as well as moderate right L4-L5 and bilateral L 5-S1 neural foraminal stenosis. Phlegmonous change wraps around the L4-L5 and L5-S1 exiting nerves. A Yellow level critical message alert has been initiated for Queta Crockett MD via the [employer] Critical Results System on 03/23/2023 7:52 PM. This message alert has been sent to Marianela Black via the preferences provided by the clinician for the receipt of Radiology Critical Findings. Latest Medical ID [id number]. Findings communicated to Dr. Queta Crockett MD on 03/23/2023 7:[address] Alejandro Arce.
== END | disposition home or self-care (01) ==
LOC: RADMRIMAIN 17:22
PROVIDERS: ATTEND Internal Medicine Infectious Disease
DX: M48.061 Spinal stenosis, lumbar region without neurogenic claudication (principal); M46.26 Osteomyelitis of vertebra, lumbar region; M46.46 Discitis, unspecified, lumbar region; R78.81 Bacteremia; Z86.14 Personal history of Methicillin resistant Staphylococcus aureus infection
CPT/HCPCS: 72158; A9585

== ENCOUNTER 2023-03-24 09:32 | Inpatient (IN) | payer MEDICARE ==
[2023-03-24] MEDS ORDERED: SODIUM CHLORIDE 0.9% 500 ML 500 ML IV STA (10:01)
[2023-03-24] MEDS ORDERED: HYDROmorphone 0.5 MG/0.5 ML SYRINGE IVP STA (10:02)
--- NOTE | 2023-03-24 10:23 | ED ---
General Adult HPI - General Chief complaint: Recheck/Abnormal Lab/Rx Stated complaint: Pic line placement Time Seen by Provider: 03/24/23 09:49 Source: patient, family, RN notes reviewed, old records reviewed Mode of arrival: ambulatory Limitations: no limitations - History of Present Illness Initial comments: Nontoxic appearing 72-year-old male presents to the emergency room with complaints of low back pain since February 17. States his infectious disease Dr. Crockett called him last night after having an MRI of his back yesterday showing epidural abscess. Patient states that he was originally treated in the hospital February 13 for MRSA wound to his chest, on vancomycin for 2 weeks which he states made him feel ill loosing over 30 pounds. States has been on multiple antibiotics for this chest wound infection. Patient has medical history of asthma, DVT, MRSA. -: days(s) (18) Location: back (low back) Consistency: constant Treatments Prior to Arrival: other (MRI yesterday) - Related Data Home Medications Medication Instructions Recorded Confirmed Pseudoephedrine [Sudafed] 30 mg PO Q4H PRN 04/21/15 03/24/23 Acetaminophen Tab [Tylenol] 1,000 mg PO Q6HR PRN 02/05/23 03/24/23 Baclofen 5 - 10 mg PO Q8H PRN 02/05/23 03/24/23 Levothyroxine Sodium [Synthroid] 88 mcg PO AC-BRKFST 02/05/23 03/24/23 Loratadine [Claritin] 10 mg PO DAILY 02/05/23 03/24/23 diphenhydrAMINE [Benadryl] 25 mg PO Q6H PRN 02/05/23 03/24/23 Ibuprofen/Acetaminophen [Advil 2 tab PO Q8H PRN 03/24/23 03/24/23 Dual Action 250Mg-125Mg] Previous Rx's Medication Instructions Recorded Diclofenac Sodium [Voltaren] 75 mg PO BID PRN #20 tab 02/04/23 HYDROcodone/APAP 5-325MG [[place] 1 tab PO Q6HR PRN 3 Days #12 tab 02/04/23 5-325] Allergies Allergy/AdvReac Type Severity Reaction Status Date / Time Penicillins Allergy Rash/Hives Verified 03/24/23 12:13 vancomycin Allergy Unknown Verified 03/24/23 12:15 Review of Systems ROS Statement: Those systems with pertinent positive or pertinent negative responses have been documented in the HPI. ROS Other: All systems not noted in ROS Statement are negative. Past Medical History Past Medical History: Asthma, Deep Vein Thrombosis (DVT), Sleep Apnea/CPAP/BIPAP, Thyroid Disorder Additional Past Medical History / Comment(s): Remote history of spinal MENIGITIS (BACTERIAL?). NO CPAP/BIPAP History of Any Multi-Drug Resistant Organisms: MRSA Date of last positivie culture/infection: 02/13/23 MDRO Source:: Chest Past Surgical History: Back Surgery Additional Past Surgical History / Comment(s): Lipoma removal Past Anesthesia/Blood Transfusion Reactions: No Reported Reaction Past Psychological History: No Psychological Hx Reported Smoking Status: Former smoker Past Alcohol Use History: Rare Past Drug Use History: Marijuana - Past Family History Mother Family Medical History: AICD/Pacemaker, Osteoarthritis (OA) Father Family Medical History: Myocardial Infarction (DE) (DE at age 76) General Exam Limitations: no limitations General appearance: alert, in no apparent distress Head exam: Present: atraumatic Eye exam: Present: normal appearance. Absent: scleral icterus, conjunctival injection, periorbital swelling Neck exam: Present: full ROM. Absent: tenderness, meningismus Respiratory exam: Absent: respiratory distress, accessory muscle use Cardiovascular Exam: Present: regular rate GI/Abdominal exam: Present: soft Extremities exam: Present: normal capillary refill Back exam: Present: normal inspection. Absent: tenderness, CVA tenderness (R), CVA tenderness (L), paraspinal tenderness, vertebral tenderness, rash noted Expanded Back exam: Absent: saddle anesthesia Neurological exam: Present: alert, oriented X3, abnormal gait (shuffling) Psychiatric exam: Present: normal affect, normal mood Skin exam: Present: warm, dry, normal color. Absent: cyanosis, diaphoretic, petechiae, pallor Course Vital Signs 03/24/23 09:36 Temperature 98.2 F Pulse Rate 83 Respiratory 16 Rate Blood Pressure 147/84 O2 Sat by Pulse 96 Oximetry Medical Decision Making - Medical Decision Making Was pt. sent in by a medical professional or institution (, PA, HEEL COVER SOFTENER, urgent care, hospital, or shelter...) When possible be specific @ -Dr. Crockett infectious disease Did you speak to anyone other than the patient for history (EMS, parent, family, police, friend...)? What history was obtained from this source @ -[No] Did you review nursing and triage notes (agree or disagree)? Why? @ -I disagree with the triage note, patient is not here for PICC line placement he was sent for epidural abscess Were old charts reviewed (outside hosp., previous admission, EMS record, old EKG, old radiological studies, urgent care reports/EKG's, shelter records)? Report findings @ -Yes, MRI results from yesterday Differential Diagnosis (chest pain, altered mental status, abdominal pain women, abdominal pain men, vaginal bleeding, weakness, fever, dyspnea, syncope, headache, dizziness, GI bleed, back pain, seizure, CVA, palpatations, mental health, musculoskeletal)? @ -Epidural abscess, sepsis, discitis, vertebral osteomyelitis EKG interpreted by me (3pts min.). @ -n/a X-rays interpreted by me (1pt min.). @ -[None done] CT interpreted by me (1pt min.). @ -[None done] U/S interpreted by me (1pt. min.). @ -[None done] What testing was considered but not performed or refused? (CT, X-rays, U/S, labs)? Why? @ -[None] What meds were considered but not given or refused? Why? @ -[None] Did you discuss the management of the patient with other professionals (professionals i.e. , PA, HEEL COVER SOFTENER, lab, RT, psych nurse, social professionals, frame straightener, teacher, community service officer coordinator, machine adjuster leader case trim)? Give summary @ -Dr. Crockett with infectious disease, Dr. Cheung for plan of care Was smoking cessation discussed for >3mins.? @ -[No] Was critical care preformed (if so, how long)? @ -yes 32 minutes Were there social determinants of health that impacted care today? How? (Homelessness, low income, unemployed, alcoholism, drug addiction, transportation, low edu. Level, literacy, decrease access to med. care, senior living, rehab)? @ -[No] Was there de-escalation of care discussed even if they declined (Discuss DNR or withdrawal of care, Hospice)? DNR status @ -[No] What co-morbidities impacted this encounter? (DM, HTN, Smoking, COPD, CAD, Cancer, CVA, ARF, Chemo, Hep., AIDS, mental health diagnosis, sleep apnea, morbid obesity)? @ -Asthma, DVT, MRSA Was patient admitted / discharged? Hospital course, mention meds given and route, prescriptions, significant lab abnormalities, going to OR and other pertinent info. @ -Admitted Nontoxic appearing 72-year-old male presents to the emergency room ambulatory with complaints of low back pain since February 17. States his infectious disease Dr. Crockett called him last night after having an MRI of his back yesterday showing epidural abscess. Patient states that he was originally treated in the hospital February 13 for MRSA wound to his chest, on vancomycin for 2 weeks which he states made him feel ill loosing over 30 pounds. States has been on multiple antibiotics for this chest wound infection. Patient states Dr. Crockett called him last night advising him to come to the emergency room immediately. He was unable to come and last night therefore came this morning. He continues to have low back pain. Denies any other symptoms. States chest wound has improved nearly resolved. Patient ambulatory. Denies any fevers. No bowel or bladder incontinence. Vital signs are stable. Lumbar MRI performed on March 23 reviewed showing findings compatible with osteomyelitis discitis involving L4-L5 and L4-L5 vertebral bodies with epidural machinist supervisor outside possibly early epidural abscess formation given small focus of the non- enhancement within the subdural space. Thickening of the epidural space results in mild spinal canal stenosis at L4-L5 and moderate to severe neural foraminal stenosis at L5 left L4-L5 as well as moderate right L4-L5. Bilateral L5-S1 neural foraminal stenosis. Phlegmonous change wraps around L4-L5 and L5-S1 existing nerves. Labs show no evidence of leukocytosis. CRP 15.1. Otherwise electrolytes are unremarkable. I did contact Dr. Crockett with infectious disease who recommended daptomycin and blood cultures which were drawn and started. Patient will be admitted to the hospital and he is agreeable to this plan of care. I discussed the case with Dr. Cheung who contacted Dr. Santana regarding epidural abscess. Case discussed with Dr. Brown. Patient has medical history of asthma, DVT, MRSA. Undiagnosed new problem with uncertain prognosis? @ -[No] Drug Therapy requiring intensive monitoring for toxicity (Heparin, Nitro, Insulin, Cardizem)? @ -[No] Were any procedures done? @ -[No] Diagnosis/symptom? @ -Epidural abscess Acute, or Chronic, or Acute on Chronic? @ -Acute Uncomplicated (without systemic symptoms) or Complicated (systemic symptoms)? @ -Complicated Side effects of treatment? @ -[No] Exacerbation, Progression, or Severe Exacerbation? @ -[No] Poses a threat to life or bodily function? How? (Chest pain, [place], [place], pneumonia, PE, COPD, DKA, ARF, appy, cholecystitis, CVA, Diverticulitis, Homicidal, Suicidal, threat to staff... and all critical care pts) @ -Yes epidural abscess could progress to sepsis resulting in - Lab Data Result diagrams: 03/24/23 10:16 03/24/23 10:16 Lab Results 03/24/23 03/24/23 03/24/23 Range/Units 10:16 10:16 10:16 WBC 9.7 (3.8-10.6) k/uL RBC 3.76 L (4.30-5.90) m/uL Hgb 11.2 L (13.0-17.5) gm/dL Hct 35.1 L (39.0-53.0) % MCV 93.2 (80.0-100.0) fL MCH 29.7 (25.0-35.0) pg MCHC 31.9 (31.0-37.0) g/dL RDW 14.4 (11.5-15.5) % Plt Count 402 (150-450) k/uL MPV 6.8 Neutrophils % 64 % Lymphocytes % 21 % Monocytes % 9 % Eosinophils % 4 % Basophils % 0 % Neutrophils # 6.2 (1.3-7.7) k/uL Lymphocytes # 2.1 (1.0-4.8) k/uL Monocytes # 0.9 (0-1.0) k/uL Eosinophils # 0.4 (0-0.7) k/uL Basophils # 0.0 (0-0.2) k/uL ESR (0-15) mm/hr PT (9.0-12.0) sec INR (<1.2) APTT (22.0-30.0) sec Sodium 136 L (137-145) mmol/L Potassium 4.1 (3.5-5.1) mmol/L Chloride 102 (98-107) mmol/L Carbon Dioxide 22 (22-30) mmol/L Anion Gap 12 mmol/L BUN 18 (9-20) mg/dL Creatinine 1.10 (0.66-1.25) mg/dL Est GFR (CKD-EPI)AfAm 78 (>60 ml/min/1.73 sqM) Est GFR (CKD-EPI)NonAf 68 (>60 ml/min/1.73 sqM) Glucose 93 (74-99) mg/dL Plasma Lactic Acid Michel 1.0 (0.7-2.0) mmol/L Calcium 9.3 (8.4-10.2) mg/dL Total Bilirubin 0.5 (0.2-1.3) mg/dL AST 33 (17-59) U/L ALT 33 (4-49) U/L Alkaline Phosphatase 111 (38-126) U/L C-Reactive Protein 15.1 H (<1.0) mg/dL Total Protein 7.8 (6.3-8.2) g/dL Albumin 3.9 (3.5-5.0) g/dL 03/24/23 03/24/23 Range/Units 10:16 10:16 WBC (3.8-10.6) k/uL RBC (4.30-5.90) m/uL Hgb (13.0-17.5) gm/dL Hct (39.0-53.0) % MCV (80.0-100.0) fL MCH (25.0-35.0) pg MCHC (31.0-37.0) g/dL RDW (11.5-15.5) % Plt Count (150-450) k/uL MPV Neutrophils % % Lymphocytes % % Monocytes % % Eosinophils % % Basophils % % Neutrophils # (1.3-7.7) k/uL Lymphocytes # (1.0-4.8) k/uL Monocytes # (0-1.0) k/uL Eosinophils # (0-0.7) k/uL Basophils # (0-0.2) k/uL ESR 113 H (0-15) mm/hr PT 9.6 (9.0-12.0) sec INR 0.9 (<1.2) APTT 25.6 (22.0-30.0) sec Sodium (137-145) mmol/L Potassium (3.5-5.1) mmol/L Chloride (98-107) mmol/L Carbon Dioxide (22-30) mmol/L Anion Gap mmol/L BUN (9-20) mg/dL Creatinine (0.66-1.25) mg/dL Est GFR (CKD-EPI)AfAm (>60 ml/min/1.73 sqM) Est GFR (CKD-EPI)NonAf (>60 ml/min/1.73 sqM) Glucose (74-99) mg/dL Plasma Lactic Acid Michel (0.7-2.0) mmol/L Calcium (8.4-10.2) mg/dL Total Bilirubin (0.2-1.3) mg/dL AST (17-59) U/L ALT (4-49) U/L Alkaline Phosphatase (38-126) U/L C-Reactive Protein (<1.0) mg/dL Total Protein (6.3-8.2) g/dL Albumin (3.5-5.0) g/dL Critical Care Time Critical Care Time: Yes Total Critical Care Time: 32 (Epidural abscess) Disposition Clinical Impression: Epidural abscess Narrative: Epidural abscess with history of MRSA Disposition: ADMITTED IP TO THIS [facility] Condition: Good Decision Date: 03/24/23 Decision Time: 11:12
[2023-03-24 10:58] LABS: Basophils % (A) 0 %; Eosinophils # (A) 0.4 k/uL (0-0.7); Eosinophils % (A) 4 %; HCT 35.1 % (39.0-53.0); HGB 11.2 gm/dL (13.0-17.5); Lymphocytes # (A) 2.1 k/uL (1.0-4.8); Lymphocytes % (A) 21 %; MCH 29.7 pg (25.0-35.0); MCHC 31.9 g/dL (31.0-37.0); MCV 93.2 fL (80.0-100.0); Mean Platelet Volume 6.8; Monocytes # (A) 0.9 k/uL (0-1.0); Monocytes % (A) 9 %; Neutrophils # (A) 6.2 k/uL (1.3-7.7); Neutrophils % (A) 64 %; Platelet Count 402 k/uL (150-450); RBC 3.76 m/uL (4.30-5.90); RDW 14.4 % (11.5-15.5); WBC 9.7 k/uL (3.8-10.6)
[2023-03-24 11:07] LABS: INR 0.9 (<1.2); Partial Thromboplastin Time 25.6 sec (22.0-30.0); Prothrombin Time 9.6 sec (9.0-12.0)
[2023-03-24] MEDS ORDERED: NALOXONE 0.4 MG/ML 1 ML VIAL IV PRN (11:12)
[2023-03-24] MEDS ORDERED: HYDROmorphone 0.5 MG/0.5 ML SYRINGE IVP PRN (11:12)
[2023-03-24 11:26] LABS: ALT 33 U/L (4-49); AST 33 U/L (17-59); African American GFR (CKD) 78 (>60 ml/min/1.73 sqM); Albumin 3.9 g/dL (3.5-5.0); Alkaline Phosphatase 111 U/L (38-126); Anion Gap 12 mmol/L; Blood Urea Nitrogen 18 mg/dL (9-20); Calcium 9.3 mg/dL (8.4-10.2); Carbon Dioxide 22 mmol/L (22-30); Chloride 102 mmol/L (98-107); Glucose 93 mg/dL (74-99); Non-African American GFR(CKD) 68 (>60 ml/min/1.73 sqM); Potassium 4.1 mmol/L (3.5-5.1); Sodium 136 mmol/L (137-145); Total Bilirubin 0.5 mg/dL (0.2-1.3); Total Protein 7.8 g/dL (6.3-8.2)
[2023-03-24 11:37] LABS: C Reactive Protein 15.1 mg/dL (<1.0)
[2023-03-24] MEDS: SODIUM CHLORIDE 0.9% 1,000 ML IV SCH ×2 (11:40→22:37)
[2023-03-24] MEDS: PANTOPRAZOLE 40 MG/10 ML VIAL IV SCH (11:40)
--- NOTE | 2023-03-24 12:14 | P.PN ---
Progress Note - Text Progress Note Date: 03/24/23 Spoke with Medicine and reviewed MRI w/wo constrast. L4-5 osteomyelitis discitis with epidural absecess evident. Pt has failed INPT and OUTPT Abx IV and oral as well as bracing. Continues to have severe pain. Inflammatory markers are trending upwards and his is unable to perform ADLs due to significant pain. No cauda as of now, but per report has decreased sensation in LE as well as radicular like sx that continue to get worse on top of 10/10 back pain. We will plan for I&D with L4-5 stabilization, fusion and abx spacer placement tomorrow 9 am.
[2023-03-24] MEDS ORDERED: CYCLOBENZAPRINE 5 MG TAB PO STA (12:27)
--- NOTE | 2023-03-24 13:03 | P.HPIM ---
History of Present Illness H&P Date: 03/24/23 Chief Complaint: back pain Patient is a 72-year-old male with prior DVT, obstructive sleep apnea no longer requiring CPAP, and hypothyroidism who presented to the hospital direction of Dr. Crockett due to concerns for epidural abscess, discitis, and osteomyelitis. In the emergency department he underwent extensive evaluation. Initial vital signs within normal limits. Initial laboratory analysis was remarkable for hemoglobin 11.2, sodium 136, and CRP 15.1. Emergency sales department supervisor discussed with Dr. Crockett who recommended daptomycin. Arrangements were made for admission. Patient seen and examined at bedside in the emergency department with daughter. He reports that he started having back pain for days and his last hospital stay. He initially thought it was due to the beds. It had gotten so bad that he was up in a chair during his hospital stay. However after the initiation of IV vancomycin he did have some improvement in back pain was able to do his ADLs again. He finished a total of 2 weeks of outpatient IV vancomycin and then sw itched to oral antibiotics which completed on 03/15/23. Since completion of the IV vancomycin his back pain has been increasing. He saw Dr. Crockett was complaining of increasing back pain. It was noted on 523 that his ESR was greater than 130 (previously was 87). Dr. Crockett elected to get an outpatient MRI which was completed yesterday and therefore the patient presented to the ER today. Over the last 2 days he has developed some difficulty standing, pain going down his right leg that he describes as a throbbing. He states this pain is similar to sciatic pain that he had before his prior back surgery. He states initially the back pain was worse when he was lying flat and then would get better with movement however now it is occurring all the time. He has also been using a back brace at home to help with the pain with no improvement. Hx of back surgery, completed 25 years ago IDET in low back L1-L2. No fevers No night sweats No change in bowl or bladder habbits. Vital signs reviewed General: nontoxic, mild distress secondary to pain, appears at stated age Derm: warm, dry Eyes: EOMI, no lid lag, anicteric sclera, pupils equal round reactive to light ENT: Nose and ears atraumatic, no thrush, no pharyngeal erythema Cardiovascular: S1S2 reg, no murmur, positive posterior tibial pulse bilateral, no edema, capillary refill less than 2 seconds Lungs: clear to auscultation bilateral, no rhonchi, no rales, no wheeze, no accessory muscle use Abdominal: soft, nontender to palpation, no guarding, no appreciable organomegaly, normal bowel sounds Ext: no gross muscle atrophy, muscle strength 5 out of 5 in all 4 extremities, no contractures Neuro: CN II-XII grossly intact, diminished light touch on the right leg between the knee and thigh, light touch intact bilateral upper extremities and left lower extremity, intact sensation to the groin, finger to nose within nor mal limits, Psych: Alert, oriented, appropriate affect Assessment/Plan: L/5 discitis, osteomyelitis, with early epidural abscess -Case discussed with Dr. Santana. After much discussion plan is for L4 5 decompression with fusion and possible antibiotic pacer tomorrow at 9 AM. Patient is aware. Check CT lumbar spine wihtout contrast - ID consult - Daptomycin - IV fluids - NPO after midnight - Surgical risk stratification: George activity index: 5.62 mets NSQIP score: Serious complication 16.1%, average 20.9% Cardiac complication risk 1.1%, average 1.9% Risk of DVT risk 2.4%, average 2.8% 0.2%, Average risk 0.6% Patient is medically optimized for the proposed non cardiac surgery. No further testing indicated at this time Hypothyroidism -Resume Synthroid Chronic: Asthma Obstructive sleep apnea-no longer requires CPAP Imaging: as per HPI Data Review: As per HPI The patient is admitted with an anticipated greater than 2 midnight stay for evaluation of epidural abscess Surrogate decision-maker: Adalberto correa CODE STATUS:Full DVT prophylaxis: SCDs Anticipated discharge date: Pending Clinical Corurse Anticipated discharge place: Pending Clinical Corurse This dictation was prepared using [employer] voice recognition software. Though every attempt is made to correct errors during dictation some may still exist. Past Medical History Past Medical History: Asthma, Deep Vein Thrombosis (DVT), Sleep Apnea/CPAP/BIPAP, Thyroid Disorder Additional Past Medical History / Comment(s): Remote history of spinal MENIGITIS (BACTERIAL?). NO CPAP/BIPAP History of Any Multi-Drug Resistant Organisms: MRSA Date of last positivie culture/infection: 02/13/23 MDRO Source:: Chest Past Surgical History: Back Surgery Additional Past Surgical History / Comment(s): Lipoma removal Past Anesthesia/Blood Transfusion Reactions: No Reported Reaction Past Psychological History: No Psychological Hx Reported Smoking Status: Former smoker Past Alcohol Use History: Occasional, Rare Past Drug Use History: Marijuana - Past Family History Mother Family Medical History: AICD/Pacemaker, Osteoarthritis (OA) Father Family Medical History: Myocardial Infarction ([place]) (AK at age 76) Medications and Allergies Home Medications Medication Instructions Recorded Confirmed Type Pseudoephedrine [Sudafed] 30 mg PO Q4H PRN 04/21/15 03/24/23 History Diclofenac Sodium [Voltaren] 75 mg PO BID PRN #20 tab 02/04/23 03/24/23 Rx HYDROcodone/APAP 5-325MG [[place] 1 tab PO Q6HR PRN 3 Days #12 tab 02/04/23 03/24/23 Rx 5-325] Acetaminophen Tab [Tylenol] 1,000 mg PO Q6HR PRN 02/05/23 03/24/23 History Baclofen 5 - 10 mg PO Q8H PRN 02/05/23 03/24/23 History Levothyroxine Sodium [Synthroid] 88 mcg PO AC-BRKFST 02/05/23 03/24/23 History Loratadine [Claritin] 10 mg PO DAILY 02/05/23 03/24/23 History diphenhydrAMINE [Benadryl] 25 mg PO Q6H PRN 02/05/23 03/24/23 History Ibuprofen/Acetaminophen [Advil 2 tab PO Q8H PRN 03/24/23 03/24/23 History Dual Action 250Mg-125Mg] Allergies Allergy/AdvReac Type Severity Reaction Status Date / Time Penicillins Allergy Rash/Hives Verified 03/24/23 12:13 vancomycin Allergy Unknown Verified 03/24/23 12:15 Physical Exam Osteopathic Statement: *. No significant issues noted on an osteopathic structural exam other than those noted in the History and Physical/Consult. Vitals: Vital Signs Temp Pulse Resp BP Pulse Ox 03/24/23 09:36 98.2 F 83 16 147/84 96 Intake and Output 03/23/23 03/24/23 03/24/23 22:59 06:59 14:59 Other: Weight 95.254 kg Results CBC & Chem 7: 03/24/23 10:16 03/24/23 10:16 Labs: Abnormal Lab Results - Last 24 Hours (Table) 03/24/23 03/24/23 Range/Units 10:16 10:16 RBC 3.76 L (4.30-5.90) m/uL Hgb 11.2 L (13.0-17.5) gm/dL Hct 35.1 L (39.0-53.0) % Sodium 136 L (137-145) mmol/L C-Reactive Protein 15.1 H (<1.0) mg/dL
--- NOTE | 2023-03-24 14:28 | CT ---
EXAMINATION TYPE: CT lumbar spine wo con CT DLP: 1545.6 mGycm, Automated exposure control for dose reduction was used. DATE OF EXAM: 03/24/2023 1:51 PM COMPARISON: MRI spine 03/23/2023r. CLINICAL INDICATION:Male, 72 years old with history of epidural abscess, discitis; , epidural abscess , discitis TECHNIQUE: Multiple axial images were obtained from the midportion of T11 through the sacroiliac charles nts. Soft tissue and bone windows in coronal and sagittal planes were obtained and reviewed. Contrast used: none. Oral contrast used: none. FINDINGS: Vertebral body heights are maintained. There is multilevel mild osteophyte formation and disc space n arrowing. Facet joint arthropathy is present. There is erosion of the adjoining endplates of L4 and L 5 with lucent areas within these vertebral bodies. There is epidural soft tissue fullness which corre lates with prior MRI with early abscess formation No definitive fracture visualized. There is at least mild narrowing at this level similar prior MRI. Increased density changes around the L4-L5 disc space are present in the retroperitoneum. Scattered colonic diverticula present. Nonobstructing left renal calculi measuring up to 6 mm. IMPRESSION: No significant change given differences in technique from one day prior with MRI lumbar spine. Findin gs compatible with osteomyelitis discitis with early abscess formation in the epidural space posterio r to L4-L5. Better characterized on MRI.
[2023-03-24] MEDS ORDERED: ACETAMINOPHEN TAB 325 MG TAB PO PRN (15:18)
[2023-03-24] MEDS ORDERED: HYDROcodone/APAP 5-325MG 1 EACH TAB PO PRN (15:18)
[2023-03-24] MEDS ORDERED: ONDANSETRON 4 MG/2 ML VIAL IVP PRN (15:18)
[2023-03-24] MEDS ORDERED: CYCLOBENZAPRINE 5 MG TAB PO PRN (15:22)
[2023-03-24] MEDS: HYDROmorphone 1 MG/ML 1 ML SYRINGE IVP PRN ×2 (16:52→22:37)
[2023-03-24] MEDS ORDERED: MELATONIN 3 MG TABLET PO PRN (21:00)
[2023-03-25] MEDS: HYDROmorphone 1 MG/ML 1 ML SYRINGE IVP PRN ×6 (00:41→23:11)
[2023-03-25] MEDS: SODIUM CHLORIDE 0.9% 1,000 ML IV SCH ×3 (01:49→19:42)
[2023-03-25 05:26] LABS: African American GFR (CKD) 88 (>60 ml/min/1.73 sqM); Anion Gap 9 mmol/L; Blood Urea Nitrogen 13 mg/dL (9-20); Calcium 8.9 mg/dL (8.4-10.2); Carbon Dioxide 23 mmol/L (22-30); Chloride 103 mmol/L (98-107); Glucose 100 mg/dL (74-99); Non-African American GFR(CKD) 76 (>60 ml/min/1.73 sqM); Potassium 4.3 mmol/L (3.5-5.1); Sodium 135 mmol/L (137-145)
[2023-03-25 05:33] LABS: HCT 33.7 % (39.0-53.0); HGB 10.6 gm/dL (13.0-17.5); MCH 29.4 pg (25.0-35.0); MCHC 31.6 g/dL (31.0-37.0); MCV 93.2 fL (80.0-100.0); Mean Platelet Volume 7.2; Platelet Count 390 k/uL (150-450); RBC 3.61 m/uL (4.30-5.90); RDW 14.4 % (11.5-15.5); WBC 8.5 k/uL (3.8-10.6)
[2023-03-25 05:35] LABS: Prothrombin Time 10.5 sec (9.0-12.0)
[2023-03-25] MEDS: LEVOTHYROXINE 88 MCG TAB PO SCH (06:37)
--- NOTE | 2023-03-25 07:24 | P.PN ---
Subjective Progress Note Date: 03/25/23 Patient is a [] Patient seen and examined at bedside. [] Vital signs reviewed General: [nontoxic], [no distress], [appears at stated age] Cardiovascular: [S1S2 reg], [no murmur], [positive posterior tibial pulse bilateral], Lungs: [CTA bilateral], [no rhonchi, no rales] , [no accessory muscle use] Abdominal: [soft], [ nontender to palpation], [no guarding], [no appreciable organomegaly] Ext: [no gross muscle atrophy], [no edema b/l lower extremities], [no contractures] Neuro: [ CN II-XI grossly intact], [no focal neuro deficits] Psych: [Alert], [oriented], [appropriate affect] Assessment: [] Imaging: [] Data Review: Vital signs reviewed T-max last 24 hours was 100.1. From midnight pulse was 93, respirations 18, blood pressure 142/63 Laboratory analysis remarkable for hemoglobin 10.6, sodium 135, glucose 100 Plan: [] DVT prophylaxis: [] Discussed with: [] Anticipated discharge date: [] Anticipated discharge place: [] This dictation was prepared using [employer] voice recognition software. Though every attempt is made to correct errors during dictation some may still exist. Objective - Vital Signs Vital signs: Vital Signs Temp 98.6 F 03/25/23 00:15 Pulse 93 03/25/23 00:15 Resp 18 03/25/23 00:15 BP 142/63 03/25/23 00:15 Pulse Ox 96 03/25/23 00:15 FiO2 Intake & Output 03/24/23 03/25/23 03/25/23 18:59 06:59 18:59 Weight 95.254 kg Other: Voiding Method Toilet # Voids 1 # Bowel Movements 0 - Labs CBC & Chem 7: 03/25/23 04:39 03/25/23 04:39 Labs: Abnormal Lab Results - Last 24 Hours (Table) 03/24/23 03/24/23 03/24/23 Range/Units 10:16 10:16 10:16 RBC 3.76 L (4.30-5.90) m/uL Hgb 11.2 L (13.0-17.5) gm/dL Hct 35.1 L (39.0-53.0) % ESR 113 H (0-15) mm/hr Sodium 136 L (137-145) mmol/L Glucose (74-99) mg/dL C-Reactive Protein 15.1 H (<1.0) mg/dL 03/25/23 03/25/23 Range/Units 04:39 04:39 RBC 3.61 L (4.30-5.90) m/uL Hgb 10.6 L (13.0-17.5) gm/dL Hct 33.7 L (39.0-53.0) % ESR (0-15) mm/hr Sodium 135 L (137-145) mmol/L Glucose 100 H (74-99) mg/dL C-Reactive Protein (<1.0) mg/dL
[2023-03-25] MEDS ORDERED: LACTATED RINGERS 1,000 ML IV ONE ×2 (08:55→12:17)
[2023-03-25] MEDS ORDERED: LIDOCAINE 4% LTA KIT (4 ML) TOPICAL ONE (09:15)
[2023-03-25] MEDS ORDERED: HYDROmorphone (PF) 1 MG/ML ONE (09:15)
[2023-03-25] MEDS ORDERED: fentaNYL (PF) 50 MCG/ML 2 ML AMP ONE (09:15)
[2023-03-25] MEDS ORDERED: ONDANSETRON 4 MG/2 ML VIAL ONE (09:15)
[2023-03-25] MEDS ORDERED: ROCURONIUM 10 MG/ML (5 ML VIAL) IV ONE (09:15)
[2023-03-25] MEDS ORDERED: PROPOFOL 10 MG/ML 20 ML VIAL IV ONE (09:15)
[2023-03-25] MEDS ORDERED: SUCCINYLCHOLINE CHLORIDE 200 MG/10 ML VIAL IV ONE (09:15)
[2023-03-25] MEDS ORDERED: LIDOCAINE 2% INJ 20 MG/ML (2 ML VIAL) ONE (09:15)
[2023-03-25] MEDS ORDERED: NEOSTIGMINE 1 MG/ML 10 ML VIAL ONE (09:15)
[2023-03-25] MEDS ORDERED: DEXAMETHASONE SOD PHOSPHATE 4 MG/ML 1 ML VIAL ONE (09:15)
[2023-03-25] MEDS ORDERED: MIDAZOLAM 2 MG/2 ML VIAL ONE (09:15)
[2023-03-25] MEDS ORDERED: PHENYLEPHRINE-0.9% NACL SYG 1,000 MCG/10 ML SYRINGE ONE (09:15)
--- NOTE | 2023-03-25 09:27 | P.PN ---
Progress Note - Text Progress Note Date: 03/25/23 Spine Surgery H&P and Clinical and Risk Review Eduard Corbin is a 72 yo male presenting for evaluation of low back pain, LE pain and weakness. It was my pleasure to have seen and examined Eduard Corbin. In our visit today we have had a chance to go over subjective complaints, physical examination findings and treatments including the natural course history without intervention and various interventional options. The patients imaging demonstrates L4-L5 osteomyelitis discitis with endplate erosion epidural phlegmon causing moderate to severe central and bilateral foraminal stenosis. Likely instability due to the erosion of bone noted. Computed tomography scan also confirms this with erosion in this area at L4-L5.. On physical exam, Eduard Corbin demonstrates Pain in the low back with any motion. Unable to ambulate secondary to the pain. Weakness in the right lower extremity dorsiflexion plantar flexion as well as hip flexion. This causes pain. Tenderness to palpation of the low back. Negative tensioning signs. Negative clonus. Negative Edwin's bilaterally. Cranial nerves are grossly intact. In general he is awake and alert and appears well-nourished. I have explained to the patient that as their condition progresses it will cause further neurological deficits and eventual paralysis. Based on the patients imaging, physical exam, and the rapid progression and disabling nature of their symptoms, at this time I recommend surgery in the form or a: L4-L5 decompression with epidural phlegmon evacuation osteomyelitis discitis treatment stabilization and fusion. I discussed the risk and benefits of this procedure at length with Eduard Corbin. The patient and family at bedside agreed to considered pursuing the procedure abovementioned. Prior to surgery, she should follow up with her PCP (Cardio, ID, IM etc) for clearance. Questions were invited and answered, and the patient wishes to proceed as outlined below. Currently, I am recommendin. L4-L5 decompression with osteomyelitis discitis treatment stabilization a nd fusion epidural phlegmon evacuation 2. Follow up with PCP for surgical clearance 3. Review of surgical risks and benefits as well as an educational packet on the proposed surgical procedure. Risks: All surgical procedures come with inherent risks, including those related to positioning, anesthesia, intraoperative findings, and postoperative complications. It is important to understand that surgery does not come with any guarantee of a successful outcome as complications and adverse events are always possible. The patient was given a handout in office today discussing the surgical procedure and risks associated with the intervention, both of which were discussed with the patient. These risks include but are not limited to the following: * Experiencing same, different or even worse symptoms in back, neck, arms, or legs compared to before surgery. * Requiring further surgery or other forms of treatment presently or at some time in the future at same or other levels of the intended spine surgery. * On an extreme but fortunately relatively rare basis severe complication such as blindness, stroke, heart attack, temporary and/or permanent nerve injury, paralysis, coma, or may occur, sometimes without known explanation. * Surgical complications may include but are not limited to risk of infection, fluid accumulation in the surgical dissection site, including a seroma or hematoma, that requires additional surgery, wound drainage, bleeding, new numbness or weakness, vision changes/loss, spinal fluid leakage, non-healing and/or infected incision, headaches, difficulty or inability to swallow, hoarseness, hemopneumothorax, pneumothorax, impotence, retrograde ejaculation, vaginal dryness; injury to nerves, spinal cord, blood vessels, lymphatics or other vital organs (i.e., bowel injury, injury to the great vessels); heterotopic bone formation; complications related to the hardware such as screws, rods, cages including misplaced hardware, device failure, instrumentation at the wrong spine level, hardware fracture/breakage, or hardware loosening; vertebral failure of the spinal column above or below the newly placed hardware; retained surgical instrumentations or devices and the need for further surgery. * Medical risks of the planned spine surgery include but are not limited to generalized Infections to the whole body or local areas outside of the surgical site (sepsis), heart attack, bleeding, anaphylaxis, meningitis, seizure, epilepsy, hearing loss, burn noble, laceration of the head or other areas of the body, bruising, hypersensitivity of the skin, bladder over distension; allergic reaction; shoulder injury related to positioning; fat, blood and air clots to other areas of the body like heart, lungs, brain; failure of internal organs such as lungs, kidneys, liver and excessive bleeding. If blood transfusions are necessary, note that transfusions may cause intolerance reactions such as anaphylaxis or other complex reactions. * Despite best efforts, the results of spine surgery might not heal in terms of bone, soft tissues such as skin, fascia, ligaments, and joints. Additionally, in order to achieve best possible results, spine surgery may be carried out beyond the initially planned levels and involve decompression, fusion including insertion of hardware at levels other than the original intended area of surgical interest change some portions of the procedure in order to ensure the best possible outcomes. * With spine surgery and spinal fusion, there are different off label uses of instrumentation (devices, implants and hardware) as well as biological substances (bone morphogenic proteins, demineralized bone matrix) as well as using extra bone from allograft sources (i.e. cadaver bone) or autograft (iliac crest bone, ribs, or the spine itself). The patient has been given information about these practices and their inherent risks and benefits. The patient has had a chance to review all the listed information, has been given print outs detailing this information, and has had all his/her questions answered to their satisfaction. It was my pleasure to have seen and examined Eduard Corbin. In our visit today we have had a chance to go over my understanding of our patient's current condition, the natural course history without intervention and various interventional options. Questions were invited and answered, and the patient wishes to proceed as outlined above. I have seen and examined the patient for 25 minutes and we have spent more than 50% of the time in repeat and detailed counseling about the patient's condition, its natural course history with out and as much as can be predicted with surgery and re-review of various surgical treatment options. In conclusion, Eduard Corbin and his family at bedside requested we proceed with the above suggested surgery and are willing to accept risks and limitations of the suggested surgery as nature of the disease process and our best attempts at treatment for the condition. Thank you again for allowing us to be part of your patient's care. Please don't hesitate to contact me if you have any further questions. Signed and authenticated by: [facility] [address] [facility], [address] [address]
[2023-03-25] MEDS: PANTOPRAZOLE 40 MG/10 ML VIAL IV SCH (09:41)
[2023-03-25] MEDS: LORATADINE 10 MG TAB PO SCH (09:41)
[2023-03-25] MEDS ORDERED: GENTAMICIN 80 MG in SODIUM CHLORIDE 0.9% IRRIGATIO 3,000 ML IRRIGATION ONE (09:46)
[2023-03-25] MEDS ORDERED: ceFAZolin 3,000 MG in SODIUM CHLORIDE 0.9% IRRIGATIO 3,000 ML IRRIGATION ONE (09:46)
[2023-03-25] MEDS ORDERED: THROMBIN (BOVINE) 5,000 UNIT VIAL TOPICAL ONE (10:05)
[2023-03-25] MEDS ORDERED: GELATIN SPONGE,ABSORB (LARGE) 1 EACH SPONGE TOPICAL ONE (10:05)
--- NOTE | 2023-03-25 11:01 | P.CONS ---
History of Present Illness - Reason for Consult Consult date: 03/24/23 - History of Present Illness Patient is a 72-year-old male who was recently admitted to the hospital and did have a right chest wall abscess with MRSA bacteremia patient did clear his bacteremia as of 02/09/2023 patient did get the PICC line and was advised a 2-week course of IV vancomycin on discharge the patient did received about 11 days of IV antibiotic in the hospital and the patient was very apprehensive or reluctant to continue further IV antibiotic therapy after completion of IV patient was given a 2-week course of oral Bactrim DS on a follow-up visit patient was noticed to have elevated inflammation markers of ESR and CRP patient was complaining of slight worsening of his chronic back pain in this patient with a previous history of surgery to the lumbar spinal area many years ago we did order an MRI of the lumbar spine which was reported positive for discitis and concern for possible spinal epidural abscess patient was called and to go to the hospital last night however the patient showed up to the hospital this morning after evaluation by the ER physician and infectious disease was consulted for further management of antibody therapy patient on presentation to the hospital was afebrile he did have a normal white count sed rate of 113 CRP of 15.1 kidney function has been normal patient refused vancomycin as he was started on daptomycin infectious disease was consulted for further management of antibiotic therapy MRI from yesterday tissues osteomized discitis of L4-L5 disc thickening of the epidural space phlegmon changes patient has been complaining of pain to the lumbosacral spine area more of a dull aching 5-6 out of 10 usually worse by the evening no weakness to the lower extremity or bowel or bladder problems Past Medical History Past Medical History: Asthma, Deep Vein Thrombosis (DVT), Sleep Apnea/CPAP/BIPAP, Thyroid Disorder Additional Past Medical History / Comment(s): Remote history of spinal MENIGITIS (BACTERIAL?). NO CPAP/BIPAP History of Any Multi-Drug Resistant Organisms: MRSA Year Discovered:: 02/13/23 MDRO Source:: Chest Past Surgical History: Back Surgery Additional Past Surgical History / Comment(s): Lipoma removal Past Anesthesia/Blood Transfusion Reactions: No Reported Reaction Past Psychological History: No Psychological Hx Reported Smoking Status: Former smoker Past Alcohol Use History: Rare Past Drug Use History: Marijuana - Past Family History Mother Family Medical History: AICD/Pacemaker, Osteoarthritis (OA) Father Family Medical History: Myocardial Infarction (GA) (GA at age 76) Medications and Allergies Home Medications Medication Instructions Recorded Confirmed Type Pseudoephedrine [Sudafed] 30 mg PO Q4H PRN 04/21/15 03/24/23 History Diclofenac Sodium [Voltaren] 75 mg PO BID PRN #20 tab 02/04/23 03/24/23 Rx HYDROcodone/APAP 5-325MG [[place] 1 tab PO Q6HR PRN 3 Days #12 tab 02/04/23 03/24/23 Rx 5-325] Acetaminophen Tab [Tylenol] 1,000 mg PO Q6HR PRN 02/05/23 03/24/23 History Baclofen 5 - 10 mg PO Q8H PRN 02/05/23 03/24/23 History Levothyroxine Sodium [Synthroid] 88 mcg PO AC-BRKFST 02/05/23 03/24/23 History Loratadine [Claritin] 10 mg PO DAILY 02/05/23 03/24/23 History diphenhydrAMINE [Benadryl] 25 mg PO Q6H PRN 02/05/23 03/24/23 History Ibuprofen/Acetaminophen [Advil 2 tab PO Q8H PRN 03/24/23 03/24/23 History Dual Action 250Mg-125Mg] Allergies Allergy/AdvReac Type Severity Reaction Status Date / Time Penicillins Allergy Rash/Hives Verified 03/24/23 12:13 vancomycin Allergy Rash/Hives Verified 03/24/23 15:56 Physical Exam Vitals: Vital Signs Temp Pulse Resp BP Pulse Ox 03/24/23 09:36 98.2 F 83 16 147/84 96 Intake and Output 03/23/23 03/24/23 03/24/23 22:59 06:59 14:59 Other: Weight 95.254 kg Results CBC & Chem 7: 03/25/23 04:39 03/25/23 04:39 Labs: Abnormal Lab Results - Last 24 Hours (Table) 03/24/23 03/24/23 Range/Units 10:16 10:16 RBC 3.76 L (4.30-5.90) m/uL Hgb 11.2 L (13.0-17.5) gm/dL Hct 35.1 L (39.0-53.0) % Sodium 136 L (137-145) mmol/L C-Reactive Protein 15.1 H (<1.0) mg/dL Assessment and Plan Plan: 1patient present to hospital with lower back pain with elevated inflammatory markers and abnormal MRI suggestive of L3-L4 discitis and concern for possible phlegmon changes patient MRI has been reviewed by spine surgery and they are recommending I&D in the morning and deep cultures, hopefully not to place any hardware in the infected environment discussed with the admitting team 2-blood culture has been obtained and will be followed 3-daptomycin 6 mg/kg daily, he will likely need a PICC line and outpatient IV antibiotic therapy this was discussed in detail with the patient We will follow on clinical condition and cultures to further adjust medication if needed Thank you for this consultation we will follow the patient along with you Time with Patient: Greater than 30
[2023-03-25] MEDS ORDERED: VANCOMYCIN 1,000 MG VIAL MISCELLANE ONE (11:47)
--- NOTE | 2023-03-25 12:40 | FL ---
Intraoperative/procedural fluoroscopic services were provided. Total fluoroscopy time is 1 minute 51 seconds with a total of 5 submitted images to PACS. Please see the operative/procedural note for furt her details. DAP: 23.028 mGym2
--- NOTE | 2023-03-25 14:48 | CT ---
EXAMINATION TYPE: CT lumbar spine wo con CT DLP: 1302 mGycm, Automated exposure control for dose reduction was used. DATE OF EXAM: 03/25/2023 2:23 PM COMPARISON: 03/24/2023. CLINICAL INDICATION:Male, 72 years old with history of post op L4-5; TECHNIQUE: Multiple axial images were obtained from the midportion of T11 through the sacroiliac charles nts. Soft tissue and bone windows in coronal and sagittal planes were obtained and reviewed. 3-D ref ormats of the bones were created on a separate workstation and submitted for review. Contrast used: mL of , none. Oral contrast used: none. FINDINGS: Postsurgical changes to the lumbar spine with fixation hardware at L4, and L5. Discectomy a t L4-L5. Hardware limits evaluation at these levels. Hardware appears intact. There is a fracture thr ough the left side of the L5 vertebral body series 204 image 28. No significant disc placement. Postsurgical changes in the soft tissues with foci of gas present. Drainage catheter with tubing in t he surgical bed. Posterior back skin josh are present. IMPRESSION: Postsurgical changes with vertical fracture through the L5 vertebral body without displacement.
--- NOTE | 2023-03-25 16:33 | P.PN ---
Subjective Progress Note Date: 03/25/23 Patient is a 72-year-old male with prior DVT, obstructive sleep apnea no longer requiring CPAP, and hypothyroidism who presented to the hospital direction of Dr. Crockett due to concerns for epidural abscess, discitis, and osteomyelitis. In the emergency department he underwent extensive evaluation. Initial vital signs within normal limits. Initial laboratory analysis was remarkable for hemoglobin 11.2, sodium 136, and CRP 15.1. Emergency roving department supervisor discussed with Dr. Crockett who recommended daptomycin. Arrangements were made for admission. Dr. Santana was consulted and patient underwent L4-5 Decompression with evaluation of epidural phlegmon, osteomyelitis/discitis treatment, stabilization and fusion. Wash out was done with tobra, gent, and vanco. Patient seen and examined at bedside in [place]. He is currently very sleepy but awakes and denies any pain, shortness of breath, nausea, vomiting. Vital signs reviewed General: nontoxic, no distress, appears at stated age Cardiovascular: S1S2 reg, no murmur, positive posterior tibial pulse bilateral, Lungs: CTA bilateral, no rhonchi, no rales , no accessory muscle use Abdominal: soft, nontender to palpation, no guarding, no appreciable organomegaly Ext: no gross muscle atrophy, no edema b/l lower extremities, no contractures Neuro: CN II-XI grossly intact, no focal neuro deficits Psych: Alert, oriented, appropriate affect Assessment/Plan: L 4/5 discitis, osteomyelitis, with early epidural abscess - s/p L4-5 Decompression with evaluation of epidural phlegman, osteomyelitis/discitis treatment, stabilization and fusion. - ID recs: [email or web address] will need PICC and outpatient IV abx - Await blood cultures, previously MRSA - IV fluids - Pain control with Dilaudid 1 mg every 3 hours, [place] 5/325, and Flexeril 5 mg 3 times daily Anemia - follow CBC - Chronic Hypothyroidism -Synthroid Chronic: Asthma Obstructive sleep apnea-no longer requires CPAP Imaging: None new Data Review: Vital signs reviewed T-max last 24 hours was 100.1. From midnight pulse was 93, respirations 18, blood pressure 142/63 Laboratory analysis remarkable for hemoglobin 10.6, sodium 135, glucose 100 DVT prophylaxis: SCDs Discussed with: Patient, nursing, Dr. Santana Anticipated discharge date: Pending Clinical Course Anticipated discharge place: Pending Clinical Course This dictation was prepared using [employer] voice recognition software. Though every attempt is made to correct errors during dictation some may still exist. Objective - Vital Signs Vital signs: Vital Signs Temp 98.1 F 03/25/23 13:33 Pulse 69 03/25/23 13:33 Resp 16 03/25/23 13:33 BP 118/70 03/25/23 13:33 Pulse Ox 97 03/25/23 13:33 FiO2 Intake & Output 03/24/23 03/25/23 03/25/23 18:59 06:59 18:59 Intake Total 1052 Output Total 650 Balance 402 Weight 95.254 kg Intake: IV 1052 Output: Urine 300 Estimated Blood Loss 350 Other: Voiding Method Toilet Toilet # Voids 1 # Bowel Movements 0 - Labs CBC & Chem 7: 03/25/23 04:39 03/25/23 04:39 Labs: Abnormal Lab Results - Last 24 Hours (Table) 03/25/23 03/25/23 Range/Units 04:39 04:39 RBC 3.61 L (4.30-5.90) m/uL Hgb 10.6 L (13.0-17.5) gm/dL Hct 33.7 L (39.0-53.0) % Sodium 135 L (137-145) mmol/L Glucose 100 H (74-99) mg/dL
[2023-03-25] MEDS: 0.9% NACL WITH KCL 20 MEQ/L 1,000 ML IV SCH (19:41)
--- NOTE | 2023-03-25 20:11 | P.PN ---
Subjective Progress Note Date: 03/25/23 Principal diagnosis: Lumber Discitis Patient is a 72-year-old male with a recent history of right chest wall abscess and MRSA with MRSA bacteremia for the patient has completed his antibiotic therapy did have persistent elevated inflammatory markers and slight worsening of his chronic back pain that prompted MRI that was suspicious for discitis and concern for possible epidural abscess On today's evaluation that is 03/25/2023 patient did have a low-grade fever 100.1 last night however the patient is afebrile this morning patient is currently on low-dose supplemental oxygen after surgery denies any chest pain or shortness with occasional cough back pain is controlled no nausea vomiting or diarrhea Objective - Vital Signs Vital signs: Vital Signs Temp 97.3 F L 03/25/23 12:30 Pulse 69 03/25/23 13:00 Resp 20 03/25/23 13:00 BP 105/46 03/25/23 13:00 Pulse Ox 92 L 03/25/23 13:00 FiO2 Intake & Output 03/24/23 03/25/23 03/25/23 18:59 06:59 18:59 Intake Total 1052 Output Total 650 Balance 402 Weight 95.254 kg Intake: IV 1052 Output: Urine 300 Estimated Blood Loss 350 Other: Voiding Method Toilet Toilet # Voids 1 # Bowel Movements 0 - Exam GENERAL DESCRIPTION: Elderly male lying in bed in no distress RESPIRATORY SYSTEM: Unlabored breathing , decreased breath sounds at bases HEART: S1 S2 regular rate and rhythm ABDOMEN: Soft , no tenderness EXTREMITIES: No edema feet - Labs CBC & Chem 7: 03/25/23 04:39 03/25/23 04:39 Labs: Abnormal Lab Results - Last 24 Hours (Table) 03/24/23 03/25/23 03/25/23 Range/Units 10:16 04:39 04:39 RBC 3.61 L (4.30-5.90) m/uL Hgb 10.6 L (13.0-17.5) gm/dL Hct 33.7 L (39.0-53.0) % ESR 113 H (0-15) mm/hr Sodium 135 L (137-145) mmol/L Glucose 100 H (74-99) mg/dL Assessment and Plan (1) Lumbar discitis Current Visit: Yes Status: Acute Code(s): M46.46 - DISCITIS, UNSPECIFIED, LUMBAR REGION SNOMED Code(s): 110660798 (2) Epidural abscess Current Visit: Yes Status: Acute Code(s): G06.2 - EXTRADURAL AND SUBDURAL ABSCESS, UNSPECIFIED SNOMED Code(s): 99740516 Plan: 1patient present to hospital with lower back pain with elevated inflammatory markers and abnormal MRI suggestive of L3-L4 discitis and concern for possible phlegmon changes patient MRI has been reviewed by spine surgery and the patient is status post L4-5 decompression with evacuation of epidural phlegmon stabilization and fusion with the detailed operative report currently pending 2-culture has been obtained and those will be followed 3-patient to continue with the daptomycin he will get a PICC line once his blood cultures are negative at 72 hours Family the bedside question concern answered Time with Patient: Less than 30
[2023-03-26] MEDS: HYDROmorphone 1 MG/ML 1 ML SYRINGE IVP PRN ×5 (02:55→21:05)
[2023-03-26] MEDS: LEVOTHYROXINE 88 MCG TAB PO SCH (06:28)
[2023-03-26] MEDS: SODIUM CHLORIDE 0.9% 1,000 ML IV SCH ×3 (06:34→22:51)
[2023-03-26] MEDS: 0.9% NACL WITH KCL 20 MEQ/L 1,000 ML IV SCH ×2 (06:34→21:08)
[2023-03-26 07:28] LABS: Basophils % (A) 0 %; Eosinophils % (A) 0 %; HCT 32.1 % (39.0-53.0); HGB 9.8 gm/dL (13.0-17.5); Hypochromasia Slight; Lymphocytes # (A) 1.1 k/uL (1.0-4.8); Lymphocytes % (A) 9 %; MCH 28.6 pg (25.0-35.0); MCHC 30.4 g/dL (31.0-37.0); Mean Platelet Volume 7.4; Monocytes # (A) 0.8 k/uL (0-1.0); Monocytes % (A) 7 %; Neutrophils # (A) 9.5 k/uL (1.3-7.7); Neutrophils % (A) 82 %; Platelet Count 382 k/uL (150-450); RBC 3.42 m/uL (4.30-5.90); RDW 14.3 % (11.5-15.5); WBC 11.6 k/uL (3.8-10.6)
[2023-03-26 08:03] LABS: African American GFR (CKD) 88 (>60 ml/min/1.73 sqM); Anion Gap 7 mmol/L; Blood Urea Nitrogen 16 mg/dL (9-20); Calcium 8.6 mg/dL (8.4-10.2); Carbon Dioxide 23 mmol/L (22-30); Chloride 105 mmol/L (98-107); Glucose 155 mg/dL (74-99); Non-African American GFR(CKD) 76 (>60 ml/min/1.73 sqM); Potassium 5.1 mmol/L (3.5-5.1); Sodium 135 mmol/L (137-145)
[2023-03-26] MEDS: PANTOPRAZOLE 40 MG/10 ML VIAL IV SCH (08:04)
[2023-03-26] MEDS: LORATADINE 10 MG TAB PO SCH (08:05)
[2023-03-26] MEDS: CYCLOBENZAPRINE 5 MG TAB PO SCH ×3 (08:05→21:05)
[2023-03-26] MEDS: HYDROcodone/APAP 7.5-325MG 1 EACH TAB PO SCH ×5 (08:05→23:56)
--- NOTE | 2023-03-26 08:07 | P.PN ---
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 Patient is currently resting in bed. He does have complaint of low back pain with activity. Medications will be adjusted. Surgical dressing is clean dry and intact, Hemovac present with 160 mL output overnight. Patient currently states he is x2 assist for positioning. He currently denies any numbness or tingling to the bilateral lower extremities. Encouraged patient to work with physical therapy today. Olivia catheter was d iscontinued this morning, patient is due to void. Patient is to continue on IV antibiotics. PICC line placement is pending blood culture results. Patient has been afebrile, denies nausea/vomiting, or chest pain. Objective - Vital Signs Vital signs: Vital Signs Temp 98.2 F 03/26/23 00:43 Pulse 80 03/26/23 00:43 Resp 18 03/26/23 00:43 BP 105/64 03/26/23 00:43 Pulse Ox 96 03/26/23 00:43 FiO2 Intake & Output 03/25/23 03/26/23 03/26/23 18:59 06:59 18:59 Intake Total 1052 Output Total 1120 160 Balance -68 -160 Intake: IV 1052 Output: Drainage 120 160 Lower Posterior Back 120 160 Urine 650 Estimated Blood Loss 350 Other: Voiding Method Toilet - Exam Physical Examination General: The patient is awake and alert, in no acute distress Skin: Skin is warm and dry with no obvious rashes or lesions. Healing surgical site to the left chest area. Surgical incision to the lumbar region, dressing is clean dry and intact. Hemovac is present, 160 mL output overnight. Eye: Pupils are equal, round and reactive to light, extra-ocular movements are intact; there is normal conjunctiva bilaterally. Neck: The neck is supple, there is no tenderness and ROM intact. Cardiovascular: There is a regular rate and rhythm. No murmur, rub or gallop is appreciated. Respiratory: Lungs are clear to auscultation, respirations are non-labored, breath sounds are equal. Gastrointestinal: Soft, non-distended, non-tender abdomen. Back: There is no tenderness to palpation in the midline, paralumbar, parathoracic or buttocks region. There is no obvious deformity . Musculoskeletal: ROM limited secondary to pain and stiffness from surgical procedure. Muscle strength in all major muscle groups of bilateral upper extremities 5/5, bilateral lower extremities 5/5. Neurological: CN 2-12 intact. There are no obvious motor or sensory deficits. Movement and coordination equal and intact. Sensory exam to light touch intact C5-T1 and intact from L2-S1. Reflexes 2/4 in bilateral upper and lower extremities. Negative Hoffmans, babinski, and clonus signs. Psychiatric: Cooperative, appropriate mood & affect, normal judgment. - Labs CBC & Chem 7: 03/26/23 06:14 03/26/23 06:14 Labs: Abnormal Lab Results - Last 24 Hours (Table) 03/26/23 Range/Units 06:14 WBC 11.6 H (3.8-10.6) k/uL RBC 3.42 L (4.30-5.90) m/uL Hgb 9.8 L (13.0-17.5) gm/dL Hct 32.1 L (39.0-53.0) % MCHC 30.4 L (31.0-37.0) g/dL Neutrophils # 9.5 H (1.3-7.7) k/uL Microbiology - Last 24 Hours (Table) 03/24/23 10:16 Blood Culture - Preliminary Blood Assessment and Plan Assessment: Postop day 1: L4-L5 decompression with osteomyelitis discitis treatment stabilization and fusion epidural phlegmon evacuation L4-5 osteomyelitis discitis with epidural absecess Plan: -Appreciate interior design consultant and team management. -Activity: Ambulate QID, OOB all meals, up and about, limit lifting bending twisting to less than 5 lbs. Use walker or cane if needed for stability. -Daily PT/OT, increase ambulation strength and balance. -Pain control: Adequate at this time -Meds: reviewed -GI ppx: senna, Miralax -DVT PPX: OK to restart Heparin tonight -Hygiene: Shower today. Maintain dressing clean and dry. Meticulous cleaning after BMs away from the incision site -Drains: Maintain for now. Continue to monitor and record output -Encourage IS 10x/hr -Dispo: Anticipate discharge home in the next 48-72hrs with homecare *I reviewed and discussed this case with my attending Dr. Santana, whom has reviewed this chart and films and is in agreement with assessment and plan of care as outlined above. I have personally seen and examined the patient, performed the documentation and the assessment and plan as written. Number of minutes spent on the visit: 30m.
--- NOTE | 2023-03-26 08:20 | P.OP ---
Date of Procedure: 03/25/23 Preoperative Diagnosis: 1. L4-5 osteodiscitis with epidural abscess 2. Low back pain 3. s/p chest wall abscess evaucation 4. Complex medical patient Postoperative Diagnosis: 1. L4-5 osteodiscitis with epidural abscess 2. Low back pain 3. s/p chest wall abscess evaucation 4. Complex medical patient Procedure(s) Performed: 1. L4-5 posteriolateral and interbody fusion (33194) 2. L4-5 decompressve laminectomy, complete facetectomy and foraminotomy with removal of epidural abscess 3. Instrumentation L4-5 (92490) 4. Placement of interbody cage (35014) 5. Placement of interbody antibiotic cement spacer ( Use of IONM Implants: -[place] screw and magalys system -Life Spine Prolift Cage -Cement -MagnatOs Anesthesia: GETA Surgeon: Dudley Santana Remote Control Assembler #1: Jeanette Lees (Was present and assisted with all aspects of the case from positioning to dressing placement) Estimated Blood Loss (ml): 350 IV fluids (ml): 1,500 Urine output (ml): 250 Pathology: other (x2 L4-5 interbody space, x2 interbody tissue) Condition: stable Disposition: PACU Indications for Procedure: Eduard Corbin is a 72 yo male presenting for evaluation of low back pain, LE pain and weakness. It was my pleasure to have seen and examined Eduard Corbin. In our visit today we have had a chance to go over subjective complaints, physical examination findings and treatments including the natural course history without intervention and various interventional options. The patients imaging demonstrates L4-L5 osteomyelitis discitis with endplate erosion epidural phlegmon causing moderate to severe central and bilateral foraminal stenosis. Likely instability due to the erosion of bone noted. Computed tomography scan also confirms this with erosion in this area at L4-L5.. On physical exam, Eduard Corbin demonstrates Pain in the low back with any motion. Unable to ambulate secondary to the pain. Weakness in the right lower extremity dorsiflexion plantar flexion as well as hip flexion. This causes pain. Tenderness to palpation of the low back. Negative tensioning signs. Negative clonus. Negative Edwin's bilaterally. Cranial nerves are grossly intact. In general he is awake and alert and appears well-nourished. I have explained to the patient that as their condition progresses it will cause further neurological deficits and eventual paralysis. Based on the patients imaging, physical exam, and the rapid progression and disabling nature of their symptoms, at this time I recommend surgery in the form or a: L4-L5 decompression with epidural phlegmon evacuation osteomyelitis discitis treatment stabilization and fusion. I discussed the risk and benefits of this procedure at length with Eduard Corbin. The patient and family at bedside agreed to considered pursuing the procedure abovementioned. Prior to surgery, she should follow up with her PCP (Cardio, ID, IM etc) for clearance. Questions were invited and answered, and the patient wishes to proceed as outlined below. Currently, I am recommendin. L4-L5 decompression with osteomyelitis discitis treatment stabilization and fusion epidural phlegmon evacuation Description of Procedure: L4-5 open PLIF epdirual abscess evac The patient was seen and examined in the preoperative area.All preoperative protocols were followed.Informed consent was obtained, risks and benefits of the procedure were discussed at length.Risks including bleeding infection damage to the surrounding tissue and risk of re-operation were discussed with the patient.Risk of anesthesia up to and including was discussed with the patient.These are outlined in the risk review.They were willing to accept these risks and all the risks of surgery.The patient was given a weight-based dose of antibiotics in the form of 2 g Ancef.The patient was seen and evaluated by the anesthesia team who deemed them fit for surgery. The site was marked, the patient was willing to proceed with the procedure. The patient was transferred to the operative suite by the Department of anesthesia. They were then drifted off to sleep by the department anesthesia and GETA was performed. The patient tolerated this well. Olivia catheter was placed by nursing staff, a-traumatically. Once confirmation of lines and ventilation the patient was transferred to a prone Ascencion table very carefully. All bony prominences including wrists, elbows, axilla, chest, hips, and thighs, and feet were padded very well. Special attention was paid to the genitalia, and these were padded accordingly. SCDs were placed on bilateral lower extremities and were connected. Arms were well padded and placed on arm boards up and out in the 90/90 position. Once in position, again we confirmed good ventilation capabilities and that lines were running appropriately. The patients Lumbar spine was then exposed. 1010s were placed outlining the incision site. Standard alcohol was used to clean the incision site and allowed to dry. C-arm was used to needle localize the pedicles at L4-S1 and bio-anthony the patient and confirm level for incision which was marked with a skin marker. Operative briefing was performed with all teams and everyone in agreement to proceed. The patient was then prepped and draped in a normal sterile fashion. Timeout was then performed, and all parties agreed with the procedure to be performed. Midline skin incision was made over the previously bio-marked area and dissection taken down over the SP of L3-S1. L4-L5 was taken out over facet joints and TPs and a penfield 4 used to anthony the L4 pedicle. Lateral image used to confirm levels. Once confirmed, screws were proceeded to be placed b/l at pedicles from L4-L5 using a freehand technique. [place] was used to make starting point, pedicle finder used to create path. Screws were tapped and then placed all under lateral imaging. Once screws were placed they were confirmed to be in good position using AP and Lateral fluoroscopy. The wound was then irrigated. Screws were tested and all tested above 20 mA. We then proceeded to decompression and cage placement. Attention was then turned to decompression and interbody placement at L4-5. Bilateral laminectomy, complete facetectomy and foraminotomy performed at L4-5 using high speed bernard and Kerr[place] rongure. The ligamentum was removed and dural sac decompressed. Exiting and traversing roots visualized and decompressed. Neural elements were then protected, and disc space accessed with an osteotome. The dural sac was very scarred down due to the epidural phlegmon present. This was on the anterior surface from the dura and removed. Once entering the disc space there was alyssa puss and phlegmon which was cultured and tissue sent for eval. Bilateral Sequential shaving then done under lateral imaging and complete discectomy performed using susana, pituitary and curette. Copious irrigation of the disc space was then done using abx irrigation, irricept and NSS. After this the space was clear of any alyssa purulence. MagnatOs was placed anterior into the disc space for fusion purposes. A cage was then selected and impacted into place under lateral imaging on the [facility]. The cage was then expanded restoring height, lordosis and alignment. The cage was backfilled with MagnatOs The logistics account manager removed and area inspected. Good cage placement, stable cage and no injuries. Area was irrigated copiously, and meticulous hemostasis achieved. On the LHS then, neural elements were protected and an antibiotic impregnated cement space was placed. This was molded to fit the space and was then packed anterior making sure to keep it away from the dural sac. It was then covered with a gel foam. Imaging confirmed it was in good position on AP and Lateral. The wound and disc spaces irrigated and meticulous hemostasis achieved. Further decompression of the dural sac and evacuation of any phlegmon was done as well. Rods were then sized and selected and placed into screws b/l. Set screws were then all placed and final tightened. A cross link was selected and placed and final tightened. TPs were then decorticated with high speed bernard. The wound was the irrigated with 3L acne irrigation, 3L gentamicin irrigation and 3L NSS. Surgical was placed over the dura. MagnatOs then placed in the posteriolateral gutters and impacted into place. Deep drain placed and secured to the skin. Vancomycin powder placed in wound. Stimulan beads also placed deep for abx leeching. Final images confirmed good placement of hardware and good muslim of height and lordosis. Facia was then closed with #1 PDS. Deep subq closed with 0 Vicryl. Superficial subq closed with 2-0 Vicryl and skin with josh. Wound edges approximated very well. Wound was then cleaned with alcohol and dried. Wounds dressed with Optifoam dressings. The patient was then transferred off the table back to their hospital bed a-tr aumatically.They were extubated by the department of anesthesia.They were then transferred to PACU in stable condition having tolerated the procedure with no complications.
--- NOTE | 2023-03-26 14:41 | P.PN ---
Subjective Progress Note Date: 03/26/23 Patient is a 72-year-old male with prior DVT, obstructive sleep apnea no longer requiring CPAP, and hypothyroidism who presented to the hospital direction of Dr. Crockett due to concerns for epidural abscess, discitis, and osteomyelitis. In the emergency department he underwent extensive evaluation. Initial vital signs within normal limits. Initial laboratory analysis was remarkable for hemoglobin 11.2, sodium 136, and CRP 15.1. Emergency delicatessen department manager discussed with Dr. Crockett who recommended daptomycin. Arrangements were made for admission. Dr. Santana was consulted and patient underwent L4-5 Decompression with evaluation of epidural phlegmon, osteomyelitis/discitis treatment, stabilization and fusion. Wash out was done with tobra, gent, and vanco. Patient seen and examined. Patient reports well controlled pain. Has not voided since Olivia catheter was removed. Not passing gas, no bowel movement. He has no complaints. Vital signs reviewed General: nontoxic, no distress, appears at stated age Cardiovascular: S1S2 reg, no murmur Lungs: CTA bilateral, no rhonchi, no rales , no accessory muscle use Abdominal: soft, nontender to palpation, no guarding, no appreciable organome anjelica, sluggish bowel sounds Ext: no gross muscle atrophy, no edema b/l lower extremities, no contractures Neuro: no focal neuro deficits Psych: Alert, oriented, appropriate affect Assessment/Plan: L 4/5 discitis, osteomyelitis, with early epidural abscess Gram-positive bacteremia - s/p L4-5 Decompression with evaluation of epidural phlegman, osteomyelitis/discitis treatment, stabilization and fusion. - ID recs: dapto will need PICC and outpatient IV abx - Await blood and wound cultures, previously MRSA - IV fluids - Pain control with Dilaudid 1 mg every 3 hours, [place] 5/325, and Flexeril 5 mg 3 times daily Leukocytosis - Likely reactive - Continue to monitor fever profile - Repeat CBC tomorrow morning Anemia - Follow CBC - Chronic Hypothyroidism - Synthroid Chronic: Asthma Obstructive sleep apnea-no longer requires CPAP Imaging: None new Data Review: CBC shows WBC count of 11.6 and hemoglobin of 10.8. BMP shows sodium 135, glucose 155. Blood culture positive for gram-positive cocci in clusters. DVT prophylaxis: SCDs Discussed with: Patient, nursing, Dr. Santana Anticipated discharge date: Pending Clinical Course Anticipated discharge place: Pending Clinical Course Objective - Vital Signs Vital signs: Vital Signs Temp 98.2 F 03/26/23 13:54 Pulse 87 03/26/23 13:54 Resp 17 03/26/23 13:54 BP 124/74 03/26/23 13:54 Pulse Ox 97 03/26/23 13:54 FiO2 Intake & Output 03/25/23 03/26/23 03/26/23 18:59 06:59 18:59 Intake Total 1052 Output Total 1120 160 Balance -68 -160 Intake: IV 1052 Output: Drainage 120 160 Lower Posterior Back 120 160 Urine 650 Estimated Blood Loss 350 Other: Voiding Method Toilet - Labs CBC & Chem 7: 03/26/23 06:14 03/26/23 06:14 Labs: Abnormal Lab Results - Last 24 Hours (Table) 03/26/23 03/26/23 Range/Units 06:14 06:14 WBC 11.6 H (3.8-10.6) k/uL RBC 3.42 L (4.30-5.90) m/uL Hgb 9.8 L (13.0-17.5) gm/dL Hct 32.1 L (39.0-53.0) % MCHC 30.4 L (31.0-37.0) g/dL Neutrophils # 9.5 H (1.3-7.7) k/uL Sodium 135 L (137-145) mmol/L Glucose 155 H (74-99) mg/dL Microbiology - Last 24 Hours (Table) 03/24/23 10:16 Blood Culture Gram Stain - Preliminary Blood Blood Culture - Preliminary
--- NOTE | 2023-03-26 23:02 | P.PN ---
Subjective Progress Note Date: 03/26/23 Principal diagnosis: Lumber Discitis Patient is a 72-year-old male with a recent history of right chest wall abscess and MRSA with MRSA bacteremia for the patient has completed his antibiotic therapy did have persistent elevated inflammatory markers and slight worsening of his chronic back pain that prompted MRI that was suspicious for discitis and concern for possible epidural abscess On today's evaluation that is 03/26/2023 patient is afebrile this morning, nhung ent denies any chest pain or shortness with occasional cough , the pt back pain is controlled no nausea vomiting or diarrhea Objective - Vital Signs Vital signs: Vital Signs Temp 97.3 F L 03/26/23 07:47 Pulse 77 03/26/23 07:47 Resp 17 03/26/23 07:47 BP 122/75 03/26/23 07:47 Pulse Ox 95 03/26/23 07:47 FiO2 Intake & Output 03/25/23 03/26/23 03/26/23 18:59 06:59 18:59 Intake Total 1052 Output Total 1120 160 Balance -68 -160 Intake: IV 1052 Output: Drainage 120 160 Lower Posterior Back 120 160 Urine 650 Estimated Blood Loss 350 Other: Voiding Method Toilet - Exam GENERAL DESCRIPTION: Elderly male lying in bed in no distress RESPIRATORY SYSTEM: Unlabored breathing , decreased breath sounds at bases HEART: S1 S2 regular rate and rhythm ABDOMEN: Soft , no tenderness EXTREMITIES: No edema feet - Labs CBC & Chem 7: 03/26/23 06:14 03/26/23 06:14 Labs: Abnormal Lab Results - Last 24 Hours (Table) 03/26/23 03/26/23 Range/Units 06:14 06:14 WBC 11.6 H (3.8-10.6) k/uL RBC 3.42 L (4.30-5.90) m/uL Hgb 9.8 L (13.0-17.5) gm/dL Hct 32.1 L (39.0-53.0) % MCHC 30.4 L (31.0-37.0) g/dL Neutrophils # 9.5 H (1.3-7.7) k/uL Sodium 135 L (137-145) mmol/L Glucose 155 H (74-99) mg/dL Microbiology - Last 24 Hours (Table) 03/24/23 10:16 Blood Culture - Preliminary Blood Assessment and Plan (1) Lumbar discitis Current Visit: Yes Status: Acute Code(s): M46.46 - DISCITIS, UNSPECIFIED, LUMBAR REGION SNOMED Code(s): 329758227 (2) Epidural abscess Current Visit: Yes Status: Acute Code(s): G06.2 - EXTRADURAL AND SUBDURAL ABSCESS, UNSPECIFIED SNOMED Code(s): 90254210 Plan: 1patient present to hospital with lower back pain with elevated inflammatory markers and abnormal MRI suggestive of L3-L4 discitis and concern for possible phlegmon changes patient MRI has been reviewed by spine surgery and the patient is status post L4-5 decompression with evacuation of epidural phlegmon stabilization and fusion , plan will be 6 week course of iv antibiotics on discharge 2-culture has been obtained and those are pending 3-patient to continue with the daptomycin he will get a PICC line once his blood cultures are negative at 72 hours Family the bedside with multiple question concern answered Time with Patient: Less than 30
[2023-03-27] MEDS: HYDROmorphone 1 MG/ML 1 ML SYRINGE IVP PRN ×3 (00:59→06:43)
[2023-03-27] MEDS: HYDROcodone/APAP 7.5-325MG 1 EACH TAB PO SCH ×2 (04:02→08:18)
[2023-03-27] MEDS: 0.9% NACL WITH KCL 20 MEQ/L 1,000 ML IV SCH ×2 (05:14→12:11)
[2023-03-27] MEDS: LEVOTHYROXINE 88 MCG TAB PO SCH (06:43)
[2023-03-27 07:39] LABS: Basophils % (A) 0 %; Eosinophils # (A) 0.5 k/uL (0-0.7); Eosinophils % (A) 6 %; HCT 30.1 % (39.0-53.0); HGB 9.8 gm/dL (13.0-17.5); Hypochromasia Slight; Lymphocytes # (A) 1.9 k/uL (1.0-4.8); Lymphocytes % (A) 23 %; MCH 30.4 pg (25.0-35.0); MCHC 32.6 g/dL (31.0-37.0); MCV 93.4 fL (80.0-100.0); Mean Platelet Volume 6.7; Monocytes # (A) 0.8 k/uL (0-1.0); Monocytes % (A) 10 %; Neutrophils % (A) 61 %; Platelet Count 393 k/uL (150-450); RBC 3.22 m/uL (4.30-5.90); RDW 14.4 % (11.5-15.5); WBC 8.2 k/uL (3.8-10.6)
[2023-03-27 07:59] LABS: African American GFR (CKD) >90 (>60 ml/min/1.73 sqM); Anion Gap 8 mmol/L; Blood Urea Nitrogen 15 mg/dL (9-20); Calcium 8.5 mg/dL (8.4-10.2); Carbon Dioxide 26 mmol/L (22-30); Chloride 100 mmol/L (98-107); Glucose 99 mg/dL (74-99); Non-African American GFR(CKD) 79 (>60 ml/min/1.73 sqM); Potassium 4.1 mmol/L (3.5-5.1); Sodium 134 mmol/L (137-145)
[2023-03-27] MEDS: PANTOPRAZOLE 40 MG/10 ML VIAL IV SCH (08:18)
[2023-03-27] MEDS: LORATADINE 10 MG TAB PO SCH (08:18)
[2023-03-27] MEDS: CYCLOBENZAPRINE 5 MG TAB PO SCH ×3 (08:18→22:03)
[2023-03-27] MEDS ORDERED: HYDROmorphone 0.5 MG/0.5 ML SYRINGE IVP PRN (08:35)
--- NOTE | 2023-03-27 10:15 | P.CONS ---
History of Present Illness - Reason for Consult Consult date: 03/27/23 wound care - History of Present Illness This is a 72-year-old patient known to the wound care center with a nonhealing ulceration to the right sided chest distal to clavicle. Patient has a nonhealing ulceration to right sided chest measuring approximately 0.7 x 0.7 x 0.1 cm with granulation seen throughout the wound bed with minimal slough noted. The wound edges are attached to the wound base. There is noted rolled skin to the superior portion of the ulceration. No tunneling or undermining noted. Patient has been utilizing collagen to the site with no difficulties. Patient's past medical history significant for asthma, DVT, sleep apnea, hypothyroidism, and osteomyelitis to the spine. Review Of Systems: Constitutional: No fever, no chills, no night sweats. No weight change. No weakness, fatigue or lethargy. No daytime sleepiness. Integumentary:reports wounds, no lesions. No rash or pruritus. No unusual bruising. No change in hair or nails. Physical exam: General Appearance: Alert, cooperative, no distress, appears stated age. Skin: See HPI all other Skin color, texture, tugor normal, no rashes or lesions. Neurologic: Alert oriented x3 Assessment: 1. Nonhealing ulceration to the chest with muscle involvement without necrosis 2. Osteomyelitis spine 3. Cutaneous abscess of chest wall Plan: 1. Apply collagen moistened, border foam and change Sunday. Patient will return to the wound care center on April 03 at 8:00. Thank you for the consultation any questions please contact the wound care center DNP note has been reviewed and discussed with Dr. Castellano and the impression and plan of care has been directed as dictated. Past Medical History Past Medical History: Asthma, Deep Vein Thrombosis (DVT), Sleep Apnea/CPAP/BIP AP, Thyroid Disorder Additional Past Medical History / Comment(s): Remote history of spinal MENIGITIS (BACTERIAL?). NO CPAP/BIPAP History of Any Multi-Drug Resistant Organisms: MRSA Year Discovered:: 02/13/23 MDRO Source:: Chest Past Surgical History: Back Surgery Additional Past Surgical History / Comment(s): Lipoma removal Past Anesthesia/Blood Transfusion Reactions: No Reported Reaction Past Psychological History: No Psychological Hx Reported Smoking Status: Former smoker Past Alcohol Use History: Rare Past Drug Use History: Marijuana - Past Family History Mother Family Medical History: AICD/Pacemaker, Osteoarthritis (OA) Father Family Medical History: Myocardial Infarction (OR) (OR at age 76) Medications and Allergies Home Medications Medication Instructions Recorded Confirmed Type Pseudoephedrine [Sudafed] 30 mg PO Q4H PRN 04/21/15 03/24/23 History Diclofenac Sodium [Voltaren] 75 mg PO BID PRN #20 tab 02/04/23 03/24/23 Rx HYDROcodone/APAP 5-325MG [[place] 1 tab PO Q6HR PRN 3 Days #12 tab 02/04/23 03/24/23 Rx 5-325] Acetaminophen Tab [Tylenol] 1,000 mg PO Q6HR PRN 02/05/23 03/24/23 History Baclofen 5 - 10 mg PO Q8H PRN 02/05/23 03/24/23 History Levothyroxine Sodium [Synthroid] 88 mcg PO AC-BRKFST 02/05/23 03/24/23 History Loratadine [Claritin] 10 mg PO DAILY 02/05/23 03/24/23 History diphenhydrAMINE [Benadryl] 25 mg PO Q6H PRN 02/05/23 03/24/23 History Ibuprofen/Acetaminophen [Advil 2 tab PO Q8H PRN 03/24/23 03/24/23 History Dual Action 250Mg-125Mg] Allergies Allergy/AdvReac Type Severity Reaction Status Date / Time Penicillins Allergy Rash/Hives Verified 03/24/23 12:13 vancomycin Allergy Rash/Hives Verified 03/24/23 15:56 Physical Exam Vitals: Vital Signs Temp Pulse Resp BP Pulse Ox 03/27/23 02:00 97.9 F 84 17 137/76 97 03/26/23 20:00 98.1 F 87 17 138/80 96 03/26/23 13:54 98.2 F 87 17 124/74 97 Intake and Output 03/26/23 03/27/23 03/27/23 22:59 06:59 14:59 Output Total 920 500 Balance -920 -500 Output: Drainage 70 Lower Posterior Back 70 Urine 850 500 Other: # Voids 1 1 Results CBC & Chem 7: 03/27/23 07:22 03/27/23 07:22 Labs: Abnormal Lab Results - Last 24 Hours (Table) 03/27/23 03/27/23 Range/Units 07:22 07:22 RBC 3.22 L (4.30-5.90) m/uL Hgb 9.8 L (13.0-17.5) gm/dL Hct 30.1 L (39.0-53.0) % Sodium 134 L (137-145) mmol/L Microbiology - Last 24 Hours (Table) 03/25/23 11:17 Gram Stain - Preliminary Back 03/25/23 11:17 Gram Stain - Preliminary Back 03/24/23 10:16 Blood Culture Gram Stain - Preliminary Blood Blood Culture - Preliminary Assessment and Plan (1) Cutaneous abscess of chest wall Current Visit: Yes Status: Acute Code(s): L02.213 - CUTANEOUS ABSCESS OF CHEST WALL SNOMED Code(s): 33422193 (2) Non-pressure chronic ulcer of skin of other sites with muscle involvement without evidence of necrosis Current Visit: Yes Status: Acute Code(s): L98.495 - NON-PRS [facility] SKIN/ OTH SITE WITH MSL INVL W/O EVD OF NECR SNOMED Code(s): 95888472 (3) Other acute osteomyelitis, other site Current Visit: Yes Status: Acute Code(s): M86.18 - OTHER ACUTE OSTEOMYELITIS, OTHER SITE SNOMED Code(s): 801138712
--- NOTE | 2023-03-27 10:53 | P.PN ---
Subjective Progress Note Date: 03/27/23 Patient is a 72-year-old male with prior DVT, obstructive sleep apnea no longer requiring CPAP, and hypothyroidism who presented to the hospital direction of Dr. Crockett due to concerns for epidural abscess, discitis, and osteomyelitis. In the emergency department he underwent extensive evaluation. Initial vital signs within normal limits. Initial laboratory analysis was remarkable for hemoglobin 11.2, sodium 136, and CRP 15.1. Emergency test department helper discussed with Dr. Crockett who recommended daptomycin. Arrangements were made for admission. Dr. Santana was consulted and patient underwent L4-5 Decompression with evaluation of epidural phlegmon, osteomyelitis/discitis treatment, stabilization and fusion. Wash out was done with tobra, gent, and vanco. Blood culture came back with presumptive MRSA. Patient seen and examined at bedside. He adamantly does not want heparin but will continue walking and wearing SCDs. His pain is better than before surgery and his back. He has no more right leg pain. He has been able to get up and down on his own. He is excited to go home but understands he needs to wait until his blood cultures are negative. Has had 2 bowel movements since surgery. Vital signs reviewed General: nontoxic, no distress, appears at stated age Cardiovascular: S1S2 reg, no murmur, positive posterior tibial pulse bilateral, Lungs: CTA bilateral, no rhonchi, no rales , no accessory muscle use Abdominal: soft, nontender to palpation, no guarding, no appreciable organomegaly Ext: no gross muscle atrophy, no edema b/l lower extremities, no contractures Neuro: CN II-XI grossly intact, no focal neuro deficits Psych: Alert, oriented, appropriate affect Assessment/Plan: L 4/5 discitis, osteomyelitis, with early epidural abscess MRSA bacteremia - s/p L4-5 Decompression with evaluation of epidural phlegman, osteomyelitis/discitis treatment, stabilization and fusion. - Infectious disease note reviewed: Follow blood cultures until clear once negative 72 hours and can get PICC line. Plan is for outpatient daptomycin for 6 weeks - Orthopedic spine note reviewed: Drain has been discontinued. Encourge ambulation - Dapto 600 mg IVPB daily - Await repeat Blood cultures - IV fluids - Pain control with Dilaudid 1 mg every 3 hours, Kermit 5/325, and Flexeril 5 mg 3 times daily Nonhealing ulceration to the right chest wall with muscle involvement without necrosis -Wound care note reviewed: Collagen moistened border foam changed Sunday//Sunday and return to wound care clinic on discharge. Anemia - follow CBC - Chronic Hypothyroidism -Synthroid Chronic: Asthma Obstructive sleep apnea-no longer requires CPAP Imaging: None new Data Review: Vital signs reviewed temperature 97.9, pulse 84, respirations 17, blood pressure 137/76, O2 sat 97% on room air Laboratory analysis remarkable for hemoglobin 9.8, hematocrit 30.1, sodium 134 Urine cultures back with presumptive MRSA, blood culture with presumptive MRSA DVT prophylaxis: SCDs, patient refusing heparin Discussed with: Patient, nursing, Dr. Santana Anticipated discharge date: Pending Clinical Course Anticipated discharge place: Pending Clinical Course This dictation was prepared using [employer] voice recognition software. T leeroy every attempt is made to correct errors during dictation some may still exist. Objective - Vital Signs Vital signs: Vital Signs Temp 97.9 F 03/27/23 02:00 Pulse 84 03/27/23 02:00 Resp 17 03/27/23 02:00 BP 137/76 03/27/23 02:00 Pulse Ox 97 03/27/23 02:00 FiO2 Intake & Output 03/26/23 03/27/23 03/27/23 18:59 06:59 18:59 Output Total 420 1000 Balance -420 -1000 Output: Drainage 70 Lower Posterior Back 70 Urine 350 1000 Other: # Voids 1 - Labs CBC & Chem 7: 03/27/23 07:22 03/27/23 07:22 Labs: Abnormal Lab Results - Last 24 Hours (Table) 03/27/23 03/27/23 Range/Units 07:22 07:22 RBC 3.22 L (4.30-5.90) m/uL Hgb 9.8 L (13.0-17.5) gm/dL Hct 30.1 L (39.0-53.0) % Sodium 134 L (137-145) mmol/L Microbiology - Last 24 Hours (Table) 03/25/23 11:17 Gram Stain - Preliminary Back Wound Culture - Preliminary Presumptive MRSA 03/25/23 11:17 Gram Stain - Preliminary Back Wound Culture - Preliminary Presumptive MRSA 03/24/23 10:16 Blood Culture Gram Stain - Preliminary Blood Blood Culture - Preliminary
--- NOTE | 2023-03-27 11:00 | CDI ---
Documentation Clarification Form Date: 03/27/2023 10:43:57 AM From: Debbi Nieves RN CCDS Phone: [phone] Admit Date: 03/24/2023 12:58:00 PM Patient Name: Eduard Corbin Visit Number: [id number] Discharge Date: ATTENTION: The Clinical Documentation Specialists (CDI) and [facility] Coding Staff appreciate your assistance in clarifying documentation. Please respond to the clarification below the line at the bottom and electronically sign. The CDI & [facility] Coding staff will review the response and follow-up if needed. Please note: Queries are made part of the Legal Health Record. If you have any questions, please contact the author of this message via ITS. Dr. Roseline Cheung There is documentation of Gram-positive bacteremia, 03/26, Medicine progress note. Bacteremia is considered a lab finding. Additional clarification regarding bacteremia is requested. Patient history/risk factors: 72-year-old male presents at the direction of Dr. Crockett due to concerns of epidural abscess, discitis and osteomyelitis. recent history of right chest wall abscess and MRSA with MRSA bacteremia for the patient has completed his antibiotic therapy did have persistent elevated inflammatory markers and slight worsening of his chronic back pain that prompted MRI that was suspicious for discitis and concern for possible epidural abscess. 03/24, ID note. Clinical Indicators: WBC, 03/24: 9.7 Blood Culture, 03/24: Gram positive cocci in clusters. Wound Culture, 03/25: Presumptive MRSA Treatment: 03/24 0.9NS 500 IV Bolus x 1; Antibiotics: 03/24 Daptomycin IVPB x 1; 03/25 Daptomycin IVPB Q24HR; Please provide additional clarification regarding the etiology/cause and/or clinical significance of the bacteremia: [ ] Bacteremia is related to sepsis [ ] Bacteremia is due to infectious process, please specify: [ ] Bacteremia is not clinically significant [ ] Other, please specify [ ] Unable to determine (Template Last Revised: December 2020) Bacteremia is due to L4/5 Osteomyelitis. MTDD
[2023-03-27] MEDS ORDERED: diazePAM 5 MG TAB PO STA (11:25)
--- NOTE | 2023-03-27 11:32 | P.PN ---
Subjective Progress Note Date: 03/27/23 Principal diagnosis: L4-5 osteomyelitis discitis with epidural absecess Patient seen and examined this morning. Patient was resting comfortably in bed. Patient continues to report low back pain with increased activity, medications have been adjusted. Patient is able to reposition himself in bed, moved to the edge of bed for surgical dressing change and removal of Hemovac. Surgical incision was clean dry and intact, edges well approximated, no drainage noted. Hemovac 40mLs output overnight. Patient reports that he has been ambulatory w ith walker and to the restroom. He states no difficulty with urination, had bowel movement 03/26/2023. Patient continues to deny any numbness or tingling to bilateral lower extremities. Patient continues to be afebrile, denies nausea/vomiting, or chest pain. Objective - Vital Signs Vital signs: Vital Signs Temp 97.9 F 03/27/23 02:00 Pulse 84 03/27/23 02:00 Resp 17 03/27/23 02:00 BP 137/76 03/27/23 02:00 Pulse Ox 97 03/27/23 02:00 FiO2 Intake & Output 03/26/23 03/27/23 03/27/23 18:59 06:59 18:59 Output Total 420 1000 Balance -420 -1000 Output: Drainage 70 Lower Posterior Back 70 Urine 350 1000 Other: # Voids 1 - Exam Physical Examination General: The patient is awake and alert, in no acute distress Skin: Skin is warm and dry with no obvious rashes or lesions. Healing surgical site to the left chest area. Surgical incision to the lumbar region, edges are well approximated with no drainage noted, josh are intact. Hemovac has been discontinued, 40 mL output overnight. Eye: Pupils are equal, round and reactive to light, extra-ocular movements are intact; there is normal conjunctiva bilaterally. Neck: The neck is supple, there is no tenderness and ROM intact. Cardiovascular: There is a regular rate and rhythm. No murmur, rub or gallop is appreciated. Respiratory: Lungs are clear to auscultation, respirations are non-labored, breath sounds are equal. Gastrointestinal: Soft, non-distended, non-tender abdomen. Back: There is no tenderness to palpation in the midline, paralumbar, parathoracic or buttocks region. There is no obvious deformity . Musculoskeletal: ROM limited secondary to pain and stiffness from surgical procedure. Muscle strength in all major muscle groups of bilateral upper extremities 5/5, bilateral lower extremities 5/5. Neurological: CN 2-12 intact. There are no obvious motor or sensory deficits. Movement and coordination equal and intact. Sensory exam to light touch intact C5-T1 and intact from L2-S1. Reflexes 2/4 in bilateral upper and lower extremities. Negative Hoffmans, babinski, and clonus signs. Psychiatric: Cooperative, appropriate mood & affect, normal judgment. - Labs CBC & Chem 7: 03/27/23 07:22 03/27/23 07:22 Labs: Abnormal Lab Results - Last 24 Hours (Table) 03/27/23 03/27/23 Range/Units 07:22 07:22 RBC 3.22 L (4.30-5.90) m/uL Hgb 9.8 L (13.0-17.5) gm/dL Hct 30.1 L (39.0-53.0) % Sodium 134 L (137-145) mmol/L Microbiology - Last 24 Hours (Table) 03/25/23 11:17 Gram Stain - Preliminary Back 03/24/23 10:16 Blood Culture Gram Stain - Preliminary Blood Blood Culture - Preliminary Assessment and Plan Assessment: Postop day 2: L4-L5 decompression with osteomyelitis discitis treatment stabilization and fusion epidural phlegmon evacuation L4-5 osteomyelitis discitis with epidural absecess Plan: -Appreciate moving consultant and team management. - Ordered MRI of the cervical and thoracic spine to rule out any further infection. - Continue with IV antibiotics and recommendations from ID. -Activity: Ambulate QID, OOB all meals, up and about, limit lifting bending twisting to less than 5 lbs. Use walker or cane if needed for stability. -Daily PT/OT, increase ambulation strength and balance. -Pain control: Adequate at this time -Meds: reviewed -GI ppx: senna, Miralax -DVT PPX: -Hygiene: Shower today. Maintain dressing clean and dry. Meticulous cleaning after BMs away from the incision site -Encourage IS 10x/hr -Dispo: Anticipate discharge home in the next 48hrs with homecare *I reviewed and discussed this case with my attending Dr. Santana, whom has reviewed this chart and films and is in agreement with assessment and plan of care as outlined above. I have personally seen and examined the patient, performed the documentation and the assessment and plan as written. Number of minutes spent on the visit: 30m.
[2023-03-27] MEDS: oxyCODONE-APAP 5-325MG 1 EACH TAB PO SCH ×3 (12:11→20:21)
--- NOTE | 2023-03-27 16:49 | MR ---
EXAMINATION TYPE: MR thoracic spine wo/w con DATE OF EXAM: 03/27/2023 4:34 PM COMPARISON: No priors. INDICATION: Patient age:Male; 72 years old; Reason for study: r/o further infection; . R/O further infection TECHNIQUE: Multi planar, multi sequence imaging was performed utilizing: T1-weighted, short-tau inver bridgett recovery and T2-weighted of the thoracic spine. The patient was not given Gadolinium. IV Contrast: 9.5 cc Gadavist FINDINGS: Multilevel disc degeneration changes are seen throughout the spine. No evidence for significant spina l canal or neural foraminal stenosis given limitations of this motion limited exam. No abnormal bony edema on inversion recovery sequences. Suspected fatty marrow T10. Overall vertebral bodies height is relatively well maintained. Scattered disc space narrowing and disc desiccation is present. IMPRESSION: 1. Mild multilevel disc degeneration changes without evidence for significant spinal canal neural fo raminal stenosis. 2. No evidence of postcontrast enhancement suggests infection in the thoracic spine.
--- NOTE | 2023-03-27 22:14 | P.PN ---
Subjective Progress Note Date: 03/27/23 Principal diagnosis: Lumber Discitis Patient is a 72-year-old male with a recent history of right chest wall abscess and MRSA with MRSA bacteremia for the patient has completed his antibiotic therapy did have persistent elevated inflammatory markers and slight worsening of his chronic back pain that prompted MRI that was suspicious for discitis and concern for possible epidural abscess On today's evaluation that is 03/27/2023 patient remains to be afebrile, patient denies any chest pain or shortness breath and denies any cough , the patient back pain is controlled no nausea vomiting or diarrhea, rather complaining of some constipation , Objective - Vital Signs Vital signs: Vital Signs Temp 97.9 F 03/27/23 02:00 Pulse 84 03/27/23 02:00 Resp 17 03/27/23 02:00 BP 137/76 03/27/23 02:00 Pulse Ox 97 03/27/23 02:00 FiO2 Intake & Output 03/26/23 03/27/23 03/27/23 18:59 06:59 18:59 Output Total 420 1000 Balance -420 -1000 Output: Drainage 70 Lower Posterior Back 70 Urine 350 1000 Other: # Voids 1 - Exam GENERAL DESCRIPTION: Elderly male lying in bed in no distress RESPIRATORY SYSTEM: Unlabored breathing , decreased breath sounds at bases HEART: S1 S2 regular rate and rhythm ABDOMEN: Soft , no tenderness EXTREMITIES: No edema feet - Labs CBC & Chem 7: 03/27/23 07:22 03/27/23 07:22 Labs: Abnormal Lab Results - Last 24 Hours (Table) 03/27/23 03/27/23 Range/Units 07:22 07:22 RBC 3.22 L (4.30-5.90) m/uL Hgb 9.8 L (13.0-17.5) gm/dL Hct 30.1 L (39.0-53.0) % Sodium 134 L (137-145) mmol/L Microbiology - Last 24 Hours (Table) 03/25/23 11:17 Gram Stain - Preliminary Back Wound Culture - Preliminary Presumptive MRSA 03/25/23 11:17 Gram Stain - Preliminary Back Wound Culture - Preliminary Presumptive MRSA 03/24/23 10:16 Blood Culture Gram Stain - Preliminary Blood Blood Culture - Preliminary Assessment and Plan (1) Lumbar discitis Current Visit: Yes Status: Acute Code(s): M46.46 - DISCITIS, UNSPECIFIED, LUMBAR REGION SNOMED Code(s): 574922347 (2) Epidural abscess Current Visit: Yes Status: Acute Code(s): G06.2 - EXTRADURAL AND SUBDURAL ABSCESS, UNSPECIFIED SNOMED Code(s): 02907183 Plan: 1patient present to hospital with lower back pain with elevated inflammatory markers and abnormal MRI suggestive of L3-L4 discitis and concern for possible phlegmon changes patient MRI has been reviewed by spine surgery and the patient is status post L4-5 decompression with evacuation of epidural phlegmon stabilization and fusion , plan will be 6 week course of iv antibiotics on discharge 2-culture has been obtained and those are growing presented to MRSA, patient blood culture on 03/24/2023 came back positive, blood cultures have been repeated on 03/26/2023 as well as this morning and those will be followed 3-patient to continue with the daptomycin he will get a PICC line once his blood cultures are negative at 72 hours
[2023-03-28] MEDS: oxyCODONE-APAP 5-325MG 1 EACH TAB PO SCH ×6 (05:18→23:04)
[2023-03-28] MEDS: LORATADINE 10 MG TAB PO SCH (07:41)
[2023-03-28] MEDS: LEVOTHYROXINE 88 MCG TAB PO SCH (07:41)
[2023-03-28] MEDS: DOCUSATE 100 MG CAP PO SCH ×2 (07:41→20:14)
[2023-03-28] MEDS: CYCLOBENZAPRINE 5 MG TAB PO SCH ×3 (07:41→22:18)
--- NOTE | 2023-03-28 08:59 | P.PN ---
Subjective Progress Note Date: 03/28/23 Principal diagnosis: L4-5 osteomyelitis discitis with epidural absecess Patient seen and examined this morning. Patient was resting comfortably in chair. Patient states his pain is managed on current regimen. Surgical dressing is clean, dry, and intact. Patient is up independent in room with walker and ambulating to restroom without difficulty. Patient continues to deny any numbness or tingling to bilateral lower extremities. Awaiting MRI of the Cervical spine today. Patient continues to be afebrile, denies nausea/vomiting, or chest pain. Objective - Vital Signs Vital signs: Vital Signs Temp 97.4 F L 03/28/23 07:15 Pulse 81 03/28/23 07:15 Resp 16 03/28/23 07:15 BP 147/80 03/28/23 07:15 Pulse Ox 97 03/28/23 07:15 FiO2 Intake & Output 03/27/23 03/28/23 03/28/23 18:59 06:59 18:59 Other: Voiding Method Toilet # Voids 3 - Exam Physical Examination General: The patient is awake and alert, in no acute distress Skin: Skin is warm and dry with no obvious rashes or lesions. Healing surgical site to the left chest area. Surgical dressing to the lumbar spine is clean, dry, and intact. Eye: Pupils are equal, round and reactive to light, extra-ocular movements are intact; there is normal conjunctiva bilaterally. Neck: The neck is supple, there is no tenderness and ROM intact. Cardiovascular: There is a regular rate and rhythm. No murmur, rub or gallop is appreciated. Respiratory: Lungs are clear to auscultation, respirations are non-labored, breath sounds are equal. Gastrointestinal: Soft, non-distended, non-tender abdomen. Back: There is no tenderness to palpation in the midline, paralumbar, parathoracic or buttocks region. There is no obvious deformity . Musculoskeletal: ROM limited secondary to pain and stiffness from surgical procedure. Muscle strength in all major muscle groups of bilateral upper extre mities 5/5, bilateral lower extremities 5/5. Neurological: CN 2-12 intact. There are no obvious motor or sensory deficits. Movement and coordination equal and intact. Sensory exam to light touch intact C5-T1 and intact from L2-S1. Reflexes 2/4 in bilateral upper and lower extremities. Negative Hoffmans, babinski, and clonus signs. Psychiatric: Cooperative, appropriate mood & affect, normal judgment. - Labs CBC & Chem 7: 03/27/23 07:22 03/27/23 07:22 Labs: Microbiology - Last 24 Hours (Table) 03/26/23 12:32 Blood Culture - Preliminary Blood 03/25/23 11:17 Gram Stain - Preliminary Back Wound Culture - Preliminary Presumptive MRSA 03/25/23 11:17 Gram Stain - Preliminary Back Wound Culture - Preliminary Presumptive MRSA Assessment and Plan Assessment: Postop day 3: L4-L5 decompression with osteomyelitis discitis treatment stabilization and fusion epidural phlegmon evacuation L4-5 osteomyelitis discitis with epidural absecess Plan: Reviewed the MRI of the Thoracic spine and this demonstrates Mild multilevel disc degeneration changes without evidence for significant spinal canal neural foraminal stenosis. No evidence of postcontrast enhancement suggests infection in the thoracic spine. - Pending MRI cervical spine -Appreciate computer consultant and team management. - Continue with IV antibiotics and recommendations from ID. -Activity: Ambulate QID, OOB all meals, up and about, limit lifting bending twisting to less than 5 lbs. Use walker or cane if needed for stability. -Daily PT/OT, increase ambulation strength and balance. -Pain control: Adequate at this time -Meds: reviewed -GI ppx: senna, Miralax -DVT PPX: -Hygiene: Shower today. Maintain dressing clean and dry. Meticulous cleaning after BMs away from the incision site -Encourage IS 10x/hr -Dispo: Anticipate discharge home in the next 48hrs with homecare *I reviewed and discussed this case with my attending Dr. Santana, whom has reviewed this chart and films and is in agreement with assessment and plan of care as outlined above. I have personally seen and examined the patient, performed the documentation and the assessment and plan as written. Number of minutes spent on the visit: 30m.
[2023-03-28] MEDS ORDERED: polyethylene glycoL 3350 17 GM POWD.PACK PO PRN (09:13)
[2023-03-28] MEDS: 0.9% NACL WITH KCL 20 MEQ/L 1,000 ML IV SCH (09:26)
[2023-03-28] MEDS: PANTOPRAZOLE 40 MG/10 ML VIAL IV SCH (09:26)
[2023-03-28 12:19] LABS: African American GFR (CKD) >90 (>60 ml/min/1.73 sqM); Anion Gap 10 mmol/L; Blood Urea Nitrogen 12 mg/dL (9-20); Calcium 8.7 mg/dL (8.4-10.2); Carbon Dioxide 26 mmol/L (22-30); Chloride 96 mmol/L (98-107); Glucose 107 mg/dL (74-99); Non-African American GFR(CKD) 79 (>60 ml/min/1.73 sqM); Potassium 4.2 mmol/L (3.5-5.1); Sodium 132 mmol/L (137-145)
--- NOTE | 2023-03-28 12:36 | CA ---
Transthoracic Echo Report Name: Eduard Corbin Age: 72 Gender: M : 1950 Exam Date: 03/28/2023 09:44 Exam Location: [facility] Ht (in): 71 Wt (lb): 210 Ordering Physician: Roseline Cheung DO Attending/Referring Phys: Ty Ott MD Butcher Assistant Eliza De La Rosa RDCS Procedure CPT: Indications: Endocarditis Cardiac Hx: Technical Quality: Fair Contrast 1: Total Dose (mL): Contrast 2: Total Dose (mL): MEASUREMENTS (Male / Female) Normal Values 2D ECHO LV Diastolic Diameter PLAX 4.6 cm 4.2 - 5.9 / 3.9 - 5.3 cm LV Systolic Diameter PLAX 3.1 cm IVS Diastolic Thickness 1.1 cm 0.6 - 1.0 / 0.6 - 0.9 cm LVPW Diastolic Thickness 1.1 cm 0.6 - 1.0 / 0.6 - 0.9 cm LV Relative Wall Thickness 0.5 FINDINGS Left Ventricle Limited study. Normal left ventricular systolic function with no obvious regional wall motion abnormalities. Left ventricular ejection fraction is estimated at 55 %. Right Ventricle Right Atrium Left Atrium Mitral Valve Structurally normal mitral valve. No evidence of vegetation on the mitral valve. Aortic Valve No evidence of vegetation on the aortic valve. Tricuspid Valve No evidence of tricuspid valve vegetation. Pulmonic Valve No evidence of pulmonic valve vegetation. Pericardium No pericardial effusion. Aorta CONCLUSIONS Limited 2-D echo Left ventricular ejection fraction 55% No evidence of vegetation No significant mitral regurgitation Previewed by: Dr. Edmundo Ruffin DO (Electronically Signed) Final Date: 28 March 2023 12:36
[2023-03-28 14:36] LABS: Basophils % (A) 0 %; Eosinophils # (A) 0.8 k/uL (0-0.7); Eosinophils % (A) 9 %; HCT 31.3 % (39.0-53.0); HGB 10.1 gm/dL (13.0-17.5); Lymphocytes # (A) 1.9 k/uL (1.0-4.8); Lymphocytes % (A) 22 %; MCH 29.3 pg (25.0-35.0); MCHC 32.2 g/dL (31.0-37.0); MCV 90.9 fL (80.0-100.0); Mean Platelet Volume 7.2; Monocytes # (A) 0.7 k/uL (0-1.0); Monocytes % (A) 8 %; Neutrophils # (A) 5.1 k/uL (1.3-7.7); Neutrophils % (A) 58 %; Platelet Count 434 k/uL (150-450); RBC 3.44 m/uL (4.30-5.90); RDW 14.5 % (11.5-15.5); WBC 8.7 k/uL (3.8-10.6)
--- NOTE | 2023-03-28 15:57 | P.PN ---
Subjective Progress Note Date: 03/28/23 Principal diagnosis: Lumber Discitis Patient is a 72-year-old male with a recent history of right chest wall abscess and MRSA with MRSA bacteremia for the patient has completed his antibiotic therapy did have persistent elevated inflammatory markers and slight worsening of his chronic back pain that prompted MRI that was suspicious for discitis and concern for possible epidural abscess On today's evaluation that is 03/28/2023 patient continues to be afebrile, nhung ent denies any chest pain or shortness breath breath did have occasional dry cough , the patient back pain is controlled no nausea vomiting or diarrhea, rather complaining of some constipation , Objective - Vital Signs Vital signs: Vital Signs Temp 97.4 F L 03/28/23 07:15 Pulse 81 03/28/23 07:15 Resp 16 03/28/23 07:15 BP 147/80 03/28/23 07:15 Pulse Ox 97 03/28/23 07:15 FiO2 Intake & Output 03/27/23 03/28/23 03/28/23 18:59 06:59 18:59 Intake Total 650 Balance 650 Intake: Intake, IV Titration 650 Amount 0.9% NaCl with KCl 20 Meq 600 /l 1,000 ml @ 75 mls/hr IV .[id number] [facility] Rx#: [id number] DAPTOmycin 600 mg In 50 Sodium Chloride 0.9% 50 ml @ 100 mls/hr IVPB Q24HR@1200 [facility] Rx#: [id number] Other: Voiding Method Toilet # Voids 3 - Exam GENERAL DESCRIPTION: Elderly male lying in bed in no distress RESPIRATORY SYSTEM: Unlabored breathing , decreased breath sounds at bases HEART: S1 S2 regular rate and rhythm ABDOMEN: Soft , no tenderness EXTREMITIES: No edema feet - Labs CBC & Chem 7: 03/28/23 14:07 03/28/23 11:03 Labs: Microbiology - Last 24 Hours (Table) 03/25/23 11:17 Gram Stain - Final Back Wound Culture - Final Methicillin resist S. aureus 03/25/23 11:17 Gram Stain - Final Back Wound Culture - Final Methicillin resist S. aureus 03/24/23 10:16 Blood Culture Gram Stain - Final Blood Blood Culture - Final Methicillin resist S. aureus 03/26/23 12:32 Blood Culture - Preliminary Blood Assessment and Plan (1) Lumbar discitis Current Visit: Yes Status: Acute Code(s): M46.46 - DISCITIS, UNSPECIFIED, LUMBAR REGION SNOMED Code(s): 890450887 (2) Epidural abscess Current Visit: Yes Status: Acute Code(s): G06.2 - EXTRADURAL AND SUBDURAL ABSCESS, UNSPECIFIED SNOMED Code(s): 46930934 Plan: 1patient present to hospital with lower back pain with elevated inflammatory markers and abnormal MRI suggestive of L3-L4 discitis and concern for possible phlegmon changes patient MRI has been reviewed by spine surgery and the patient is status post L4-5 decompression with evacuation of epidural phlegmon stabilization and fusion , plan will be 6 week course of iv antibiotics on discharge 2-culture has been obtained and those are growing MRSA, patient blood culture on 03/24/2023 came back positive, blood cultures have been repeated on 0 03/26/2023 as well as 03/27/2023 and those are pending so far patient also had thoracic spine MRI that has been negative 3-patient to continue with the daptomycin he will get a PICC line once his blood cultures are negative at 72 hours Questions and concerns were answered Time with Patient: Less than 30
--- NOTE | 2023-03-28 17:01 | P.PN ---
Subjective Progress Note Date: 03/28/23 (delayed charting seen at 0830) Patient is a 72-year-old male with prior DVT, obstructive sleep apnea no longer requiring CPAP, and hypothyroidism who presented to the hospital direction of Dr. Crockett due to concerns for epidural abscess, discitis, and osteomyelitis. In the emergency department he underwent extensive evaluation. Initial vital signs within normal limits. Initial laboratory analysis was remarkable for hemoglobin 11.2, sodium 136, and CRP 15.1. Emergency supervisor finishing department discussed with Dr. Crockett who recommended daptomycin. Arrangements were made for admission. Dr. Santana was consulted and patient underwent L4-5 Decompression with evaluation of epidural phlegmon, osteomyelitis/discitis treatment, stabilization and fusion. Wash out was done with tobra, gent, and vanco. Blood culture came back with presumptive MRSA. Patient seen and examined at bedside. Pain is currently well controlled. Has not had a bowel movement in the last 2 days. No nausea or vomiting. Anxious to go home. 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 - Dapto 600 mg IVPB daily -Echocardiogram ordered and reviewed with ejection fraction 55%, no significant vegetations, no mitral regurgitation -Await MRI cervical spine -Orthopedic spine surgery note review: February shower -Infectious disease note reviewed: PICC line once blood cultures negative 72 hours -Blood cultures from 03/26/23-no growth after 24 hours - Blood cultures from 03/27/23-no growth 24 hours - IV fluids to KVO - Pain control with Dilaudid 1 mg every 3 hours, [place] 5/325, and Flexeril 5 mg 3 times daily Nonhealing ulceration to the right chest wall with muscle involvement without necrosis -Wound care note reviewed: Collagen moistened border foam changed Sunday//Sunday and return to wound care clinic on discharge. Anemia - follow CBC - Chronic Hypothyroidism -Synthroid Constipation -As needed MiraLAX -Start senna scheduled at night Chronic: Asthma Obstructive sleep apnea-no longer requires CPAP Imaging: Thorasic spine MRI- no infection, degenerative disc changes. Data Review: Vital signs reviewed temperature 97.4, pulse 81, respirations 16, blood pressure 147/80, O2 sat 97% on room air Labs reviewed and remarkable for hemoglobin of 10.1, sodium 132, glucose 107, and CRP 7.9 (down from 15.1) DVT prophylaxis: SCDs, patient refusing heparin Anticipated discharge date: Pending Clinical Course Anticipated discharge place: Pending Clinical Course This dictation was prepared using [employer] voice recognition software. Though every attempt is made to correct errors during dictation some may still exist. Objective - Vital Signs Vital signs: Vital Signs Temp 96.9 F L 03/28/23 13:53 Pulse 87 03/28/23 13:53 Resp 16 03/28/23 13:53 BP 111/66 03/28/23 13:53 Pulse Ox 97 03/28/23 13:53 FiO2 Intake & Output 03/27/23 03/28/23 03/28/23 18:59 06:59 18:59 Intake Total 650 Balance 650 Intake: Intake, IV Titration 650 Amount 0.9% NaCl with KCl 20 Meq 600 /l 1,000 ml @ 75 mls/hr IV .[id number] [facility] Rx#: [id number] DAPTOmycin 600 mg In 50 Sodium Chloride 0.9% 50 ml @ 100 mls/hr IVPB Q24HR@1200 [facility] Rx#: [id number] Other: Voiding Method Toilet # Voids 3 - Labs CBC & Chem 7: 03/28/23 14:07 03/28/23 11:03 Labs: Abnormal Lab Results - Last 24 Hours (Table) 03/28/23 03/28/23 03/28/23 Range/Units 11:03 11:03 14:07 RBC 3.44 L (4.30-5.90) m/uL Hgb 10.1 L (13.0-17.5) gm/dL Hct 31.3 L (39.0-53.0) % Eosinophils # 0.8 H (0-0.7) k/uL Sodium 132 L (137-145) mmol/L Chloride 96 L (98-107) mmol/L Glucose 107 H (74-99) mg/dL C-Reactive Protein 7.9 H (<1.0) mg/dL Microbiology - Last 24 Hours (Table) 03/25/23 11:17 Anaerobic Culture - Preliminary Back 03/25/23 11:17 Anaerobic Culture - Preliminary Back 03/27/23 07:22 Blood Culture - Preliminary Blood 03/25/23 11:17 Gram Stain - Final Back Wound Culture - Final Methicillin resist S. aureus 03/25/23 11:17 Gram Stain - Final Back Wound Culture - Final Methicillin resist S. aureus 03/24/23 10:16 Blood Culture Gram Stain - Final Blood Blood Culture - Final Methicillin resist S. aureus 03/26/23 12:32 Blood Culture - Preliminary Blood
--- NOTE | 2023-03-28 17:49 | MR ---
EXAMINATION TYPE: MR cervical spine wo con DATE OF EXAM: 03/28/2023 INDICATION: Patient age: Male; 72 years old; Reason for study: r/o further infection. R/O further infection COMPARISON: None. TECHNIQUE: Multi planar, multi sequence imaging was performed utilizing: T1-weighted, T2-weighted, an d turbo inversion recovery imaging of the cervical spine. IV Contrast: Contrast was refused FINDINGS: Alignment: The cervical vertebral bodies have preserved heights. Grade 1 anterolisthesis of C7 on T1. Bones: Multilevel disc degeneration changes of the spine with Modic endplate changes disc space narro wing osteophytes and facet and uncovertebral joint arthropathy. Cord: The spinal cord is unremarkable with regards to their signal intensity and morphology. Discs: Multilevel disc desiccation is present. C2-C3: No significant disc pathology. The spinal canal is patent. No neural foraminal stenosis. C3-C4: No significant disc pathology. The spinal canal is patent. Bilateral facet and uncovertebral joint arthropathy are present with moderate left and mild right neural foraminal stenosis. C4-C5: No significant disc pathology. The spinal canal is patent. Bilateral facet and uncovertebral joint arthropathy are present with moderate left and mild right neural foraminal stenosis. C5-C6: No significant disc pathology. The spinal canal is patent. Bilateral facet and uncovertebral joint arthropathy are present with mild bilateral neural foraminal stenosis. C6-C7: No significant disc pathology. The spinal canal is patent. Bilateral facet and uncovertebral joint arthropathy are present with mild bilateral neural foraminal stenosis. C7-T1: No significant disc pathology. The spinal canal is patent. No neural foraminal stenosis. Other: None. IMPRESSION: * Noncontrast exam which limits evaluation for infection. * No evidence for cervical infection. Multilevel disc degeneration changes present multiple level ne ural foraminal stenosis. * Grade 1 anterolisthesis of C7 on T1.
[2023-03-28] MEDS: SODIUM CHLORIDE 0.9% 1,000 ML IV SCH (18:10)
[2023-03-28] MEDS: SENNOSIDES 8.6 MG TAB PO SCH (20:14)
[2023-03-29] MEDS: oxyCODONE-APAP 5-325MG 1 EACH TAB PO SCH ×5 (03:59→20:50)
[2023-03-29] MEDS: CYCLOBENZAPRINE 5 MG TAB PO SCH ×3 (07:42→20:51)
[2023-03-29] MEDS: PANTOPRAZOLE 40 MG/10 ML VIAL IV SCH (07:42)
[2023-03-29] MEDS: DOCUSATE 100 MG CAP PO SCH ×2 (07:42→20:50)
[2023-03-29] MEDS: LEVOTHYROXINE 88 MCG TAB PO SCH (07:43)
[2023-03-29] MEDS: LORATADINE 10 MG TAB PO SCH (07:43)
--- NOTE | 2023-03-29 08:18 | P.PN ---
Subjective Progress Note Date: 03/29/23 Principal diagnosis: L4-5 osteomyelitis discitis with epidural absecess Patient seen and examined this morning. Patient was resting comfortably in chair. He states his pain is managed on current regimen. Surgical dressing is clean, dry, and intact. Patient is up independent in room with walker and ambulating to restroom without difficulty. Patient request to shower today, please place clean dry dressing after shower. Patient is cleared from an Orthopedic standpoint for discharge. Patient continues to be afebrile, denies nausea/vomiting, or chest pain. Objective - Vital Signs Vital signs: Vital Signs Temp 97.1 F L 03/29/23 07:14 Pulse 82 03/29/23 07:14 Resp 17 03/29/23 07:14 BP 112/64 03/29/23 07:14 Pulse Ox 94 L 03/29/23 07:14 FiO2 Intake & Output 03/28/23 03/29/23 03/29/23 18:59 06:59 18:59 Intake Total 650 750 Output Total 1050 Balance 650 -300 Intake: Intake, IV Titration 650 Amount 0.9% NaCl with KCl 20 Meq 600 /l 1,000 ml @ 75 mls/hr IV .[id number] [facility] Rx#: [id number] DAPTOmycin 600 mg In 50 Sodium Chloride 0.9% 50 ml @ 100 mls/hr IVPB Q24HR@1200 [facility] Rx#: [id number] Oral 750 Output: Urine 1050 Other: Voiding Method Toilet - Exam Physical Examination General: The patient is awake and alert, in no acute distress Skin: Skin is warm and dry with no obvious rashes or lesions. Healing surgical site to the left chest area. Surgical dressing to the lumbar spine is clean, dry, and intact. Eye: Pupils are equal, round and reactive to light, extra-ocular movements are intact; there is normal conjunctiva bilaterally. Neck: The neck is supple, there is no tenderness and ROM intact. Cardiovascular: There is a regular rate and rhythm. No murmur, rub or gallop is appreciated. Respiratory: Lungs are clear to auscultation, respirations are non-labored, breath sounds are equal. Gastrointestinal: Soft, non-distended, non-tender abdomen. Back: There is no tenderness to palpation in the midline, paralumbar, parathoracic or buttocks region. There is no obvious deformity . Musculoskeletal: ROM limited secondary to pain and stiffness from surgical procedure. Muscle strength in all major muscle groups of bilateral upper extremities 5/5, bilateral lower extremities 5/5. Neurological: CN 2-12 intact. There are no obvious motor or sensory deficits. Movement and coordination equal and intact. Sensory exam to light touch intact C5-T1 and intact from L2-S1. Reflexes 2/4 in bilateral upper and lower extremities. Negative Hoffmans, babinski, and clonus signs. Psychiatric: Cooperative, appropriate mood & affect, normal judgment. - Labs CBC & Chem 7: 03/28/23 14:07 03/28/23 11:03 Labs: Abnormal Lab Results - Last 24 Hours (Table) 03/28/23 03/28/23 03/28/23 Range/Units 11:03 11:03 14:07 RBC 3.44 L (4.30-5.90) m/uL Hgb 10.1 L (13.0-17.5) gm/dL Hct 31.3 L (39.0-53.0) % Eosinophils # 0.8 H (0-0.7) k/uL Sodium 132 L (137-145) mmol/L Chloride 96 L (98-107) mmol/L Glucose 107 H (74-99) mg/dL C-Reactive Protein 7.9 H (<1.0) mg/dL Microbiology - Last 24 Hours (Table) 03/26/23 12:32 Blood Culture - Preliminary Blood 03/25/23 11:17 Anaerobic Culture - Preliminary Back 03/25/23 11:17 Anaerobic Culture - Preliminary Back 03/27/23 07:22 Blood Culture - Preliminary Blood 03/25/23 11:17 Gram Stain - Final Back Wound Culture - Final Methicillin resist S. aureus 03/25/23 11:17 Gram Stain - Final Back Wound Culture - Final Methicillin resist S. aureus 03/24/23 10:16 Blood Culture Gram Stain - Final Blood Blood Culture - Final Methicillin resist S. aureus Assessment and Plan Assessment: Postop day 4: L4-L5 decompression with osteomyelitis discitis treatment stabilization and fusion epidural phlegmon evacuation L4-5 osteomyelitis discitis with epidural absecess Plan: Reviewed the MRI of the Cervical spine and this demonstrates no evidence of infection in the cervical spine. -Appreciate information resource consultant and team management. - Continue with IV antibiotics and recommendations from ID. -Activity: Ambulate QID, OOB all meals, up and about, limit lifting bending twisting to less than 5 lbs. Use walker or cane if needed for stability. -Daily PT/OT, increase ambulation strength and balance. -Pain control: Adequate at this time -Meds: reviewed -GI ppx: senna, Miralax -DVT PPX: -Hygiene: Shower today. Maintain dressing clean and dry. Meticulous cleaning after BMs away from the incision site -Encourage IS 10x/hr -Dispo: Patient is cleared from Orthopedic standpoint for discharge home with homecare when medically stable. No further recommendations. Discharge instructions have been placed in chart. *I reviewed and discussed this case with my attending Dr. Santana, whom has reviewed this chart and films and is in agreement with assessment and plan of care as outlined above. I have personally seen and examined the patient, performed the documentation and the assessment and plan as written. Number of minutes spent on the visit: 30m.
--- NOTE | 2023-03-29 13:30 | P.PN ---
Subjective Progress Note Date: 03/29/23 Principal diagnosis: Lumber Discitis Patient is a 72-year-old male with a recent history of right chest wall abscess and MRSA with MRSA bacteremia for the patient has completed his antibiotic therapy did have persistent elevated inflammatory markers and slight worsening of his chronic back pain that prompted MRI that was suspicious for discitis and concern for possible epidural abscess On today's evaluation that is 03/29/2023 patient remains to be afebrile, patient denies any chest pain or shortness breath, the patient did have occasional dry cough , the patient back pain is controlled no nausea vomiting or diarrhea, patient is a complaining of constipation , Objective - Vital Signs Vital signs: Vital Signs Temp 97.1 F L 03/29/23 07:14 Pulse 82 03/29/23 07:14 Resp 17 03/29/23 07:14 BP 112/64 03/29/23 07:14 Pulse Ox 94 L 03/29/23 07:14 FiO2 Intake & Output 03/28/23 03/29/23 03/29/23 18:59 06:59 18:59 Intake Total 650 750 210 Output Total 1050 Balance 650 -300 210 Intake: Intake, IV Titration 650 210 Amount 0.9% NaCl with KCl 20 Meq 600 /l 1,000 ml @ 75 mls/hr IV .[id number] [facility] Rx#: [id number] DAPTOmycin 600 mg In 50 50 Sodium Chloride 0.9% 50 ml @ 100 mls/hr IVPB Q24HR@1200 [facility] Rx#: [id number] Sodium Chloride 0.9% 1, 160 000 ml @ 20 mls/hr IV . Q24H [facility] Rx#:[id number] Oral 750 Output: Urine 1050 Other: Voiding Method Toilet - Exam GENERAL DESCRIPTION: Elderly male lying in bed in no distress RESPIRATORY SYSTEM: Unlabored breathing , decreased breath sounds at bases HEART: S1 S2 regular rate and rhythm ABDOMEN: Soft , no tenderness EXTREMITIES: No edema feet - Labs CBC & Chem 7: 03/28/23 14:07 03/28/23 11:03 Labs: Abnormal Lab Results - Last 24 Hours (Table) 03/28/23 03/28/23 03/28/23 Range/Units 11:03 11:03 14:07 RBC 3.44 L (4.30-5.90) m/uL Hgb 10.1 L (13.0-17.5) gm/dL Hct 31.3 L (39.0-53.0) % Eosinophils # 0.8 H (0-0.7) k/uL Sodium 132 L (137-145) mmol/L Chloride 96 L (98-107) mmol/L Glucose 107 H (74-99) mg/dL C-Reactive Protein 7.9 H (<1.0) mg/dL Microbiology - Last 24 Hours (Table) 03/26/23 12:32 Blood Culture - Preliminary Blood 03/25/23 11:17 Anaerobic Culture - Preliminary Back 03/25/23 11:17 Anaerobic Culture - Preliminary Back 03/27/23 07:22 Blood Culture - Preliminary Blood 03/25/23 11:17 Gram Stain - Final Back Wound Culture - Final Methicillin resist S. aureus 03/25/23 11:17 Gram Stain - Final Back Wound Culture - Final Methicillin resist S. aureus 03/24/23 10:16 Blood Culture Gram Stain - Final Blood Blood Culture - Final Methicillin resist S. aureus Assessment and Plan (1) Lumbar discitis Current Visit: Yes Status: Acute Code(s): M46.46 - DISCITIS, UNSPECIFIED, LUMBAR REGION SNOMED Code(s): 552285983 (2) Epidural abscess Current Visit: Yes Status: Acute Code(s): G06.2 - EXTRADURAL AND SUBDURAL ABSCESS, UNSPECIFIED SNOMED Code(s): 72551306 Plan: 1patient present to hospital with lower back pain with elevated inflammatory markers and abnormal MRI suggestive of L3-L4 discitis and concern for possible phlegmon changes patient MRI has been reviewed by spine surgery and the patient is status post L4-5 decompression with evacuation of epidural phlegmon stabilization and fusion , plan will be 6 week course of iv antibiotics on discharge 2-culture has been obtained and those are growing MRSA, patient blood culture on 03/24/2023 came back positive, blood cultures have been repeated on 03/26/2023 as well as 03/27/2023 and those are pending so far patient also had thoracic spine MRI that has been negative, patient will be able to get a PICC line placement on 03/30/2023 with a culture remains to be negative 3-patient to continue with the daptomycin , prescription was provided to the case management assistant and close outpatient follow-up multiple questions and concerns were answered Time with Patient: Less than 30
--- NOTE | 2023-03-29 13:51 | P.PN ---
Subjective Progress Note Date: 03/29/23 Patient is a 72-year-old male with prior DVT, obstructive sleep apnea no longer requiring CPAP, and hypothyroidism who presented to the hospital direction of Dr. Aiken due to concerns for epidural abscess, discitis, and osteomyelitis. In the emergency department he underwent extensive evaluation. Initial vital signs within normal limits. Initial laboratory analysis was remarkable for hemoglobin 11.2, sodium 136, and CRP 15.1. Emergency department store salesperson discussed with Dr. Aiken who recommended daptomycin. Arrangements were made for admission. Dr. Santana was consulted and patient underwent L4-5 Decompression with evaluation of epidural phlegmon, osteomyelitis/discitis treatment, stabilization and fusion. Wash out was done with tobra, gent, and vanco. Blood culture came back with presumptive MRSA. Patient seen and examined at bedside. Doing well, still feeling constipated. No chest pain, No nausea, no vomiting. 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 - D/w Dr. aiken and plan is for PICC line tomorrow if BC neg for 72 hours - [facility] note reviewed: staple in for 3 weeks, follow-up in 3 weeks - Dapto 600 mg IVPB daily for at least 6 week - Echocardiogram ordered and reviewed with ejection fraction 55%, no significant vegetations, no mitral regurgitation - Blood cultures from 03/26/23-no growth after 48 hours - Blood cultures from 03/27/23-no growth 24 hours - Pain control with Dilaudid 1 mg every 3 hours, [place] 5/325, and Flexeril 5 mg 3 times daily Nonhealing ulceration to the right chest wall with muscle involvement without necrosis -Wound care note reviewed: Collagen moistened border foam changed Sunday//Sunday and return to wound care clinic on discharge. Anemia - follow CBC - Chronic Hypothyroidism -Synthroid Constipation -As needed MiraLAX -senna scheduled at night Chronic: Asthma Obstructive sleep apnea-no longer requires CPAP Imaging: Cervical spine MRI- no infection, degenerative disc changes. Data Review: Vitals reviewed. Afebrile X 24 hours. pulse 82, RR 17, BP 112/64, 94% RA Labs reveiwed ESR 115. DVT prophylaxis: SCDs, patient refusing heparin Anticipated discharge date: Pending Clinical Course Anticipated discharge place: Pending Clinical Course This dictation was prepared using [employer] voice recognition software. Though every attempt is made to correct errors during dictation some may still exist. Objective - Vital Signs Vital signs: Vital Signs Temp 97.1 F L 03/29/23 07:14 Pulse 82 03/29/23 07:14 Resp 17 03/29/23 07:14 BP 112/64 03/29/23 07:14 Pulse Ox 94 L 03/29/23 07:14 FiO2 Intake & Output 03/28/23 03/29/23 03/29/23 18:59 06:59 18:59 Intake Total 650 750 210 Output Total 1050 Balance 650 -300 210 Intake: Intake, IV Titration 650 210 Amount 0.9% NaCl with KCl 20 Meq 600 /l 1,000 ml @ 75 mls/hr IV .[id number] [facility] Rx#: [id number] DAPTOmycin 600 mg In 50 50 Sodium Chloride 0.9% 50 ml @ 100 mls/hr IVPB Q24HR@1200 [facility] Rx#: [id number] Sodium Chloride 0.9% 1, 160 000 ml @ 20 mls/hr IV . Q24H [facility] Rx#:[id number] Oral 750 Output: Urine 1050 Other: Voiding Method Toilet - Labs CBC & Chem 7: 03/28/23 14:07 03/28/23 11:03 Labs: Abnormal Lab Results - Last 24 Hours (Table) 03/28/23 03/29/23 Range/Units 14:07 06:56 RBC 3.44 L (4.30-5.90) m/uL Hgb 10.1 L (13.0-17.5) gm/dL Hct 31.3 L (39.0-53.0) % Eosinophils # 0.8 H (0-0.7) k/uL ESR 115 H (0-15) mm/hr Microbiology - Last 24 Hours (Table) 03/27/23 07:22 Blood Culture - Preliminary Blood 03/26/23 12:32 Blood Culture - Preliminary Blood 03/25/23 11:17 Anaerobic Culture - Preliminary Back 03/25/23 11:17 Anaerobic Culture - Preliminary Back 03/25/23 11:17 Gram Stain - Final Back Wound Culture - Final Methicillin resist S. aureus 03/25/23 11:17 Gram Stain - Final Back Wound Culture - Final Methicillin resist S. aureus 03/24/23 10:16 Blood Culture Gram Stain - Final Blood Blood Culture - Final Methicillin resist S. aureus
[2023-03-29] MEDS ORDERED: LACTULOSE 20 GM/30 ML CUP PO ONE (17:56)
[2023-03-29] MEDS: SODIUM CHLORIDE 0.9% 1,000 ML IV SCH (18:18)
[2023-03-29] MEDS: SENNOSIDES 8.6 MG TAB PO SCH (20:51)
[2023-03-30] MEDS: oxyCODONE-APAP 5-325MG 1 EACH TAB PO SCH ×4 (01:11→12:30)
[2023-03-30] MEDS: LEVOTHYROXINE 88 MCG TAB PO SCH (06:16)
[2023-03-30 06:22] LABS: HCT 30.2 % (39.0-53.0); HGB 9.8 gm/dL (13.0-17.5); MCH 29.5 pg (25.0-35.0); MCHC 32.3 g/dL (31.0-37.0); MCV 91.5 fL (80.0-100.0); Mean Platelet Volume 6.8; Platelet Count 478 k/uL (150-450); RDW 14.3 % (11.5-15.5); WBC 8.3 k/uL (3.8-10.6)
[2023-03-30 06:32] LABS: African American GFR (CKD) 87 (>60 ml/min/1.73 sqM); Anion Gap 7 mmol/L; Blood Urea Nitrogen 14 mg/dL (9-20); Calcium 8.7 mg/dL (8.4-10.2); Carbon Dioxide 26 mmol/L (22-30); Chloride 98 mmol/L (98-107); Glucose 104 mg/dL (74-99); Non-African American GFR(CKD) 75 (>60 ml/min/1.73 sqM); Potassium 4.1 mmol/L (3.5-5.1); Sodium 131 mmol/L (137-145)
[2023-03-30] MEDS ORDERED: LIDOCAINE 1% INJ 10MG/ML (5 ML VIAL-PF) SQ ONE (09:04)
[2023-03-30] MEDS: CYCLOBENZAPRINE 5 MG TAB PO SCH (09:52)
[2023-03-30] MEDS: LORATADINE 10 MG TAB PO SCH ×2 (09:53→09:56)
[2023-03-30] MEDS: PANTOPRAZOLE 40 MG/10 ML VIAL IV SCH (09:53)
[2023-03-30] MEDS: DOCUSATE 100 MG CAP PO SCH ×2 (09:53→09:56)
--- NOTE | 2023-03-30 09:56 | IR ---
PICC LINE PLACEMENT: HISTORY: Infection requiring long-term antibiotic therapy PROCEDURE: Ultrasound and fluoroscopic guidance of PICC line placement. COMPLICATIONS: None ANESTHESIA: 1. 1% Lidocaine locally. FINDINGS/TECHNIQUE: The procedure was explained to the patient. The risks, complications, benefits and alternatives were discussed and any questions were answered. Informed consent was obtained. The patient was placed supine on the fluoroscopic table and prepped and draped in the usual sterile fash ion. Utilizing a 21 gauge needle and sonographic and fluoroscopic guidance, access in the left basi lic vein was achieved and there is placement of a 0.018 guidewire. The vein is patent. A 4-F sheath was placed over the guidewire. The guidewire and dilator were removed and a 4-F. PICC line was plac ed through the sheath with the tip at the level of the SVC. The sheath was removed, the catheter was flushed and sutured into position. The patient was stable throughout the procedure and remained sta ble upon discharge from the Department of Radiology. The vein puncture was patent under ultrasound. A travis scale image was obtained to document patency of the vein punctured. All elements of the maximal barrier technique were utilized. FLUOROSCOPY TIME: DAP 0.128Gy cm2 IMPRESSION: Successful PICC line placement under ultrasound and fluoroscopic guidance.
[2023-03-30 10:52] VITALS: BP 119/69; PULSE 80; RESP 17; TEMP 97.9
[2023-03-30 12:25] VITALS: BMI 29.2
--- NOTE | 2023-03-30 14:04 | P.DS ---
Providers Date of admission: 03/24/23 12:58 Expected date of discharge: 03/30/23 Attending physician: Roseline Cheung DO Consults: 03/24/23 11:12 Consult Physician Routine Consulting Provider: Dudley Santana Consult Reason/Comments: Epidural abscess history MRSA Do you want consulting provider notified?: Yes, Notify in am Consult Physician Routine Consulting Provider: Queta Crockett Consult Reason/Comments: Epidural abscess history MRSA Do you want consulting provider notified?: Already Contacted [facility] Course: Discharge Diagnosis: MRSA L 4 discitis, osteomyelitis, with early epidural abscess MRSA bacteremia Nonhealing ulceration to the right chest wall with muscle involvement without necrosis Anemia, acute blood loss, anticipated outcome of surgery Hypothyroidism Constipation Asthma Obstructive sleep apnea-no longer requires CPAP Hospital Course: Patient is a 72-year-old male with prior DVT, obstructive sleep apnea no longer requiring CPAP, and hypothyroidism who presented to the hospital direction of Dr. Crockett due to concerns for epidural abscess, discitis, and osteomyelitis. In the emergency department he underwent extensive evaluation. Initial vital signs within normal limits. Initial laboratory analysis was remarkable for hemoglobin 11.2, sodium 136, and CRP 15.1. Emergency dairy department manager discussed with Dr. Crockett who recommended daptomycin. Arrangements were made for admission. Dr. Santana was consulted and patient underwent L4-5 Decompression with evaluation of epidural phlegmon, osteomyelitis/discitis treatment, stabilization and fusion. Wash out was done with tobra, gent, and vanco. Blood culture came back with MRSA. He continued to do well after surgery. He had imaging completed in his thoracic and cervical spine with MRI which did not show any additional areas of infection. He underwent an echocardiogram which had no signs of vegetation. His blood cultures starting on 03/26 remained negative for 72 hours. He was determined stable for discharge home. He had a PICC line placed prior to discharge and plan is for a minimum of 6 weeks of IV antibiotics were Dr. Crockett wall monitor closely his ESR/CRP and determine if he will be able to and at 6 weeks and he did extend to 12 weeks. Follow-up: Dr. Santana in 2 weeks for removal of josh, patient will be doing daily daptomycin, he'll follow-up with Dr. Crockett in 1 week, he will follow up with the wound clear clinic on 6/27 for his chest wound, he'll follow up with Dr. Gruber in 1-2 days. He will have [facility] home infusion. Patient seen and examined at bedside. Pain is well controlled. He did have 2 bowel movements yesterday. No nausea, vomiting. PICC line is doing well. No complaints and excited to go home. All questions answered. He plans to take Colace at home for constipation. Vital signs reviewed and stable. General: nontoxic, no distress, appears at stated age Cardiovascular: S1S2 reg, no murmur, positive posterior tibial pulse bilateral, Lungs: CTA bilateral, no rhonchi, no rales , no accessory muscle use Abdominal: soft, nontender to palpation, no guarding, no appreciable organomegaly Ext: no gross muscle atrophy, no edema b/l lower extremities, no contractures Neuro: CN II-XI grossly intact, no focal neuro deficits Psych: Alert, oriented, appropriate affect A total of 45 minutes of time were spent preparing this complex discharge summary. Patient was discharged on 03/30/23. This dictation was prepared using [employer] voice recognition software. Though every attempt is made to correct errors during dictation some may still exist. Patient Condition at Discharge: Good Plan - Discharge Summary Discharge Rx Participant: Yes New Discharge Prescriptions: New Cyclobenzaprine [Flexeril] 5 mg PO TID #90 tablet Sennosides/Docusate Sodium [Senna Plus 8.6-50 mg Softgel] 1 each PO DAILY PRN #20 capsule PRN Reason: Constipation oxyCODONE HCL/ACETAMINOPHEN [Oxycodone-Acetaminophen 5-325] 1 each PO Q4-6H PRN #56 tab PRN Reason: Pain DAPTOmycin [Cubicin] 600 mg IV DAILY #42 each Continue Pseudoephedrine [Sudafed] 30 mg PO Q4H PRN PRN Reason: Congestion Acetaminophen Tab [Tylenol] 1,000 mg PO Q6HR PRN PRN Reason: Pain Or Fever > 100.5 Levothyroxine Sodium [Synthroid] 88 mcg PO AC-BRKFST diphenhydrAMINE [Benadryl] 25 mg PO Q6H PRN PRN Reason: Allergy Symptoms Loratadine [Claritin] 10 mg PO DAILY Discontinued Ibuprofen/Acetaminophen [Advil Dual Action 250Mg-125Mg] 2 tab PO Q8H PRN PRN Reason: Pain HYDROcodone/APAP 5-325MG [Kamrar 5-325] 1 tab PO Q6HR PRN 3 Days #12 tab PRN Reason: Pain Diclofenac Sodium [Voltaren] 75 mg PO BID PRN #20 tab PRN Reason: Pain Baclofen 5 - 10 mg PO Q8H PRN PRN Reason: Pain Discharge Medication List Pseudoephedrine [Sudafed] 30 mg PO Q4H PRN 04/21/15 [History] Acetaminophen Tab [Tylenol] 1,000 mg PO Q6HR PRN 02/05/23 [History] Levothyroxine Sodium [Synthroid] 88 mcg PO AC-BRKFST 02/05/23 [History] Loratadine [Claritin] 10 mg PO DAILY 02/05/23 [History] diphenhydrAMINE [Benadryl] 25 mg PO Q6H PRN 02/05/23 [History] Cyclobenzaprine [Flexeril] 5 mg PO TID #90 tablet 03/29/23 [Rx] DAPTOmycin [Cubicin] 600 mg IV DAILY #42 each 03/29/23 [Rx] Sennosides/Docusate Sodium [Senna Plus 8.6-50 mg Softgel] 1 each PO DAILY PRN #20 capsule 03/29/23 [Rx] oxyCODONE HCL/ACETAMINOPHEN [Oxycodone-Acetaminophen 5-325] 1 each PO Q4-6H PRN #56 tab 03/29/23 [Rx] Follow up Appointment(s)/Referral(s): Home Health,[facility] [NON-STAFF] - 1-2 Days ([facility] will call to schedule your in home nursing visits for IV antibiotics. First visit will be tomorrow morning (03/31/23).) Clarisse Yeager NPC [Nurse Practitioner] - 04/03/23 8:00 am Arabella Gruber MD [Primary Care Provider] - 1-2 days (Office will call you Sunday with your appointment date and time.) [facility], [REFERRING] - As Needed ([facility] will deliver IV antibiotics and supplies to your house this evening (03/30/23).) Dudley Santana DO [Doctor of Osteopathic Medicine] - 04/13/23 11:10 am Queta Crockett MD [STAFF PHYSICIAN] - 2 Weeks (Effective April 07 Dr. Crockett will have a new office located @ [address] [place] [address] in [place]. New Office number will be [phone]. Please call office after the first to schedule your appointment. Thank you.) Ambulatory/Diagnostic Orders: Basic Metabolic Panel [LAB.AMB] Location: None Selected C Reactive Protein [LAB.AMB] Location: None Selected Complete Blood Count w/diff [LAB.AMB] Location: None Selected Erythrocyte Sedimentation Rate [LAB.AMB] Location: None Selected Miscellaneous Lab Order [LAB.AMB] Location: None Selected Patient Instructions/Handouts: MRSA (Methicillin-Resistant Staphylococcus Aureus) (DC), How to Care for Your PICC (Peripherally Inserted Central Catheter) (ED), Incision and Drainage (DC) Activity/Diet/Wound Care/Special Instructions: Chest Wound Instructions Apply collagen moistened, border foam and change Sunday. Patient will return to the wound care center on April 03 at 8:00. Spine Discharge and Recovery Instructions Date of Surgery: 03/25/23 Diagnosis: L4 osteomyelitis discitis with epidural abscess Procedure: L4-L5 decompression with osteomyelitis discitis treatment stabilization and fusion epidural phlegmon evacuation Medications: See medication list All medication refills should be obtained through your primary care doctor or your clinic spine surgeon. Please discuss prescription refills at your follow up appointment. Do not call the hospital for medication refills. Dressing: Leave your dressing in place for a total of 5 days post operatively. Then you may remove your dressing and leave open to air. Keep the area clean and if not able to keep area clean, then cover with sterile gauze and tape. Showering: You may shower 3 days after your procedure allowing soap and water to run over incision. Do not scrub. Do not soak. Blot dry. Follow up: Please confirm a follow up appointment with your surgeon 3 weeks post operatively. Please make an appointment to follow up with your PCP in 1-2 weeks after surgery for evaluation. 3 phase, 3-week plan POST OP WEEKS 1-3 1. Lifting/carrying/pushing/pulling limited to less than 5 pounds. 2. Do not sit for longer than 15 minutes at one time. Get up and walk around. Prolonged sitting is NOT advised. If you lay down, see if you can tolerate laying down on you front (belly side) 3. Walk for periods of 15 minutes = 1 mile but no longer; do it multiple times times each day. 4. Ice your low back after activity. POST OP WEEKS 3-6 1. Lifting limited to less than 20 pounds. 2. Do not sit for longer than 30 minutes at a time. Frequently change positions. Use a sit-to stand workstation or take frequent breaks from sitting if you have returned to work. 3. Walk for 30 minutes each day. If possible, do these three or more times a day POST OP WEEKS 6+ At your 6-week appointment we will give you a physical therapy referral to focus on a core stabilization and strengthening program. You should also work on leg & buttock strengthening, hamstring & quadriceps stretching, and continue a low impact aerobic activity program such as swimming, walking, or riding a stationary bicycle. During the initial 6 weeks after your surgery, you are at the highest risk of re-injuring your spine. You should generally avoid BLTs (bending, lifting and twisting combination motions) and follow the above guidelines to reduce the chance of reinjury. You can anticipate post op appointments in our office at approximately 3 weeks and 6 weeks after your surgery. INCISION CARE: If your incision is not draining you do NOT need to cover it with a dressing. Keep your incision clean, dry and intact. In most cases, we apply skin glue, josh or sutures to the incision at the time of surgery. This will be like a crust or have the appearance of a scab and will fall off in time on its own. The stitches or josh need to be removed at 3 weeks post op appointment. You may begin to shower 3 days after surgery (th is allows the glue to mclaughlin well). However, please avoid scrubbing the incision site or peeling off any of the skin glue. This will ensure optimal healing of your incision. Also, during this time avoid soaking the incision area in water - this includes swimming pools, hot tubs or baths. No ointments, lotions or oils on the incision until your surgeon allows. Leave josh, sutures or glue in place. Neurological dysfunction that comes on suddenly can also be a sign of a stroke. Below some common symptoms of a stroke are listed: B - balance difficulty such as sudden onset walking or leaning to one side - NEW E - eye problem such as sudden double vision or trouble seeing on one side - NEW F - Facial weakness or numbness on one side - NEW A - Arm or leg weakness or numbness on one side - NEW S - Slurred speech or difficulty with word finding - NEW T - Time is BRAIN! Call 911 as soon as you recognize these symptoms Diet: Consume a regular diet rich in vegetables and lean protein such as chicken or fish. You should consume in a ratio of approximately 20% fats|40% carbohydrates|40%protein. Vegetables, sweet potatoes, brown rice or quinoa are examples of good carbohydrates. Chips, white bread, cookies and sweets/sugar are examples of bad carbohydrates. Limit your bad carbs, go wild with good carbs. "Life's Simple 7" Guidelines as per [place] [employer] These will help you reclaim your life after surgery and ferryboat helper in your recove ry, keeping in mind your restrictions. (1) Get Active. Physical activity can help people lose weight, control high blood pressure and cholesterol, feel emotionally better, and sleep better. (2) Control Cholesterol. Avoid a diet high in saturated fat, trans fat, & cholesterol. Limit whole milk & cream, ice cream, butter, egg yolks, processed meats (like sausage and hot dogs), and fatty meats. Choose healthy foods that are low in saturated fat, trans fat and cholesterol which include: Fruits and vegetables, fiber rich grain products (like whole grain pasta and brown rice), lean meat such as chicken, fish, nuts, seeds, and legumes. (3) Eat Better. Eat small portions. Shop at the grocery with a list and do not stray from it. Tips for a healthy diet include: Limit sodium intake to less than 1500mg daily, avoid prepackaged, processed, and fast foods, choose a diet rich in fruits, vegetables, and whole grain, high fiber foods, and limit saturated & cholesterol in your diet. (4) Manage Blood Pressure. If you have high blood pressure, you should have a cuff at home so that you can check your blood pressure regularly. Be sure you have a good cuff. An arm one is generally better than a wrist one. Bring the cuff to a doctor's appointment to validate that the measurements that your cuff are taking are accurate. Take your blood pressure twice daily when you are sitting down and relaxing. Record the numbers in a log and bring this log with you to your doctors' appointments. (5) Lose Weight if your BMI is above 25. A healthy BMI is between 19-25. To calculate Your BMI, you may use a Standard BMI Calculator on the NIH BMI website: <www.nhlbi.nih.gov/guidelines/obesity/BMI/bmicalc.htm>. Weigh oneself daily. If you are overweight, set a goal to lose weight. A pound a week loss if needed is a good target. (6) Reduce Blood Sugar. Limit foods and liquids with "added sugars." (Added sugars include sucrose, fructose, glucose, maltose, dextrose, high fructose corn syrup, corn syrup, concentrated fruit juice and honey). (7) Stop Smoking. If you smoke, quitting smoking is one of the best things that you can do for your health. Smoking increases your risk of heart attack, stroke, and peripheral vascular disease, which is a build-up of plaque in your arteries. Please discard all the cigarettes and lighters in your house. Have a plan for what you will do when you have the urge to smoke. Direct and second- hand smoke shortens your life as well as the lives of your family, friends and others around you. For your health and the health of those around you, please consider quitting! Proper Bending Body Mechanics: Maintain a wide stance with one foot slightly in front of the other. Keep your back straight. Bend utilizing the strength in your hips and knees. Do not bend at the waist. Maintain the lifted object at your waist-level close to your body. Avoid lifting weight that causes immediately pain or pain anywhere in the body afterwards. Smoking/Nicotine If there was ever one thing that you could do to increase your overall health, decrease your risk of cardiovascular problems by about 39% the second you make the choice, it is to STOP SMOKING. Your body's most instant gratification is the second you stop smoking. We have all heard the studies, read the articles but it is true, smoking is extremely bad for your overall health, and moreover it is detrimental to your bone health. Nicotine, IN ANY FORM, kills bone cells, prevents your body from healing fractures, and significantly prolongs healing after surgery. In spine surgery specifically, it increases your risk of not healing your bones to create a fusion and increases your risk of having a revision surgery due to this up to 60%. I know it is hard. I know it feels impossible. But there are ways. Take control of your life. We are here to help you through it. And when you are ready, ask us and we can direct you to help if you desire. Use the START Plan to Quit Smoking (please visit the HelpguV[employer].org website list ed below for more information): S = Set a quit date. Choose a date within the next 2 weeks, so you have enough time to prepare without losing your motivation to quit. If you mainly smoke at work, quit on the weekend, so you have a few days to adjust to the change. T = Tell family, friends, and co-workers that you plan to quit. Let your friends and family in on your plan to quit smoking and tell them you need their support and encouragement to stop. Look for a quit ray who wants to stop smoking as well. You can help each other get through the rough times. A = Anticipate and plan for the challenges you'll face while quitting. Most people who begin smoking again do so within the first 3 months. You can help yourself make it through by preparing ahead for common challenges, such as nicotine withdrawal and cigarette cravings. R = Remove cigarettes and other tobacco products from your home, car, and work. Throw away all your cigarettes (no emergency pack!), lighters, ashtrays, and matches. Wash your clothes and freshen up anything that smells like smoke. Shampoo your car, clean your drapes and carpet, and steam your furniture. T = Talk to your doctor about getting help to quit. Your doctor can prescribe medication to help with withdrawal and suggest other alternatives. If you can't see a doctor, you can get many products over the counter at your local pharmacy or grocery store, including the nicotine patch, nicotine lozenges, and nicotine gum. Resources for Quitting Smoking: <https://www.[place].gov/documents/[facility]/Quit_Tobacco_Resources _for_patients_313480_7.pdf> Supplementation: Take recommended dosages of Vitamin D and Calcium to help fortify your bones and help them to heal. See your health maintenance packet for dosages and recommended levels. DVT/VTE prophylaxis: You will be given compression stockings from the hospital. Wear these daily for the first two weeks after surgery. You may take them off at night. You may be prescribed a medication to help thin your blood. Take this as directed. If you are not prescribed this medication, early and frequent ambulation has been shown to be the best prophylaxis to deep vein thrombosis and sequelae related to this event. Discharge Disposition: HOME WITH HOME HEALTH SERVICES
== END 2023-03-30 16:07 | disposition home health service (06) | DRG 453 ==
LOC: EC 09:32 → 4SSUR 12:58
PROVIDERS: ADMIT Internal Medicine; ATTEND Internal Medicine
PROC: 0SG00K1 Fusion of Lumbar Vertebral Joint with Nonautologous Tissue Substitute, Posterior Approach, Posterior Column, Open Approach (ICD-10-PCS; 2023-03-25)
PROC: 0ST20ZZ Resection of Lumbar Vertebral Disc, Open Approach (ICD-10-PCS; 2023-03-25)
PROC: 00NY0ZZ Release Lumbar Spinal Cord, Open Approach (ICD-10-PCS; 2023-03-25)
PROC: 0SH208Z Insertion of Spacer into Lumbar Vertebral Disc, Open Approach (ICD-10-PCS; 2023-03-25)
PROC: 0SG00AJ Fusion of Lumbar Vertebral Joint with Interbody Fusion Device, Posterior Approach, Anterior Column, Open Approach (ICD-10-PCS; principal; 2023-03-25 09:00)
PROC: 02HV33Z Insertion of Infusion Device into Superior Vena Cava, Percutaneous Approach (ICD-10-PCS; 2023-03-30)
DX: M46.26 Osteomyelitis of vertebra, lumbar region (principal); G06.1 Intraspinal abscess and granuloma; D62 Acute posthemorrhagic anemia; L02.213 Cutaneous abscess of chest wall; L98.495 Non-pressure chronic ulcer of skin of other sites with muscle involvement without evidence of necrosis; R78.81 Bacteremia; M86.18 Other acute osteomyelitis, other site; G47.33 Obstructive sleep apnea (adult) (pediatric); K59.00 Constipation, unspecified; M46.46 Discitis, unspecified, lumbar region; M48.061 Spinal stenosis, lumbar region without neurogenic claudication; E03.9 Hypothyroidism, unspecified; B95.62 Methicillin resistant Staphylococcus aureus infection as the cause of diseases classified elsewhere; J45.909 Unspecified asthma, uncomplicated; B96.89 Other specified bacterial agents as the cause of diseases classified elsewhere; Z45.2 Encounter for adjustment and management of vascular access device; Z79.2 Long term (current) use of antibiotics; Z82.49 Family history of ischemic heart disease and other diseases of the circulatory system; Z86.14 Personal history of Methicillin resistant Staphylococcus aureus infection; Z86.718 Personal history of other venous thrombosis and embolism
CPT/HCPCS: 36410; 36415; 36573; 72100; 72131; 72141; 72157; 76937; 80048; 80053; 83605; 85025; 85027; 85610; 85652; 85730; 86140; 87040; 87070; 87075; 87077; 87186; 87205; 93005; 93308; 96361; 96374; 96375; 99285

== ENCOUNTER 2023-12-31 12:36 | Emergency (ER) | payer MEDICARE ==
--- NOTE | 2023-12-31 12:47 | ED ---
Extremity Problem HPI - General Source: patient, RN notes reviewed Mode of arrival: ambulatory Limitations: no limitations <Alma Dover - Last Filed: 12/31/23 12:46> <Zeeshan Brown - Last Filed: 12/31/23 13:51> - General Chief complaint: Extremity Problem,Nontraumatic Stated complaint: dvt Time Seen by Provider: 12/31/23 12:46 - History of Present Illness Initial comments: Quick note: Patient is a 73-year-old male presented to the ER with a chief complaint of DVT. Patient said he, ultrasound after receiving a left upper extremity ultrasound which was positive for DVT. He states that symptoms started on Sunday with swelling, redness and pain. No history of DVTs. Not currently on a blood thinner. Denies chest pain, shortness of breath or peripheral edema. (Alma Dover) This is a 73-year-old male who presents to the emergency department with a previous history of a DVT. Patient comes in today because his left arm is swollen little bit red and painful. Patient had an ultrasound as an outpatient showed a DVT and he was sent into the emergency department. Patient denies any difficulty breathing or shortness of breath or chest pain. Patient denies any palpitations. Patient denies any swelling to the legs or calf tenderness. (Zeeshan Brown) - Related Data Home Medications Medication Instructions Recorded Confirmed Pseudoephedrine [Sudafed] 30 mg PO Q4H PRN 04/21/15 03/24/23 Acetaminophen Tab [Tylenol] 1,000 mg PO Q6HR PRN 02/05/23 03/24/23 Levothyroxine Sodium [Synthroid] 88 mcg PO AC-BRKFST 02/05/23 03/24/23 Loratadine [Claritin] 10 mg PO DAILY 02/05/23 03/24/23 diphenhydrAMINE [Benadryl] 25 mg PO Q6H PRN 02/05/23 03/24/23 Previous Rx's Medication Instructions Recorded Cyclobenzaprine [Flexeril] 5 mg PO TID #90 tablet 03/29/23 DAPTOmycin [Cubicin] 600 mg IV DAILY #42 each 03/29/23 Sennosides/Docusate Sodium [Senna 1 each PO DAILY PRN #20 capsule 03/29/23 Plus 8.6-50 mg Softgel] oxyCODONE HCL/ACETAMINOPHEN 1 each PO Q4-6H PRN #56 tab 03/29/23 [Oxycodone-Acetaminophen 5-325] Apixaban [Eliquis Starter Pack 5 - 10 mg PO DIRECTED 30 Days 12/31/23 (for VTE)] #1 each Allergies Allergy/AdvReac Type Severity Reaction Status Date / Time Penicillins Allergy Rash/Hives Verified 12/31/23 12:42 Review of Systems ROS Other: All systems not noted in ROS Statement are negative. <Alma Dover - Last Filed: 12/31/23 12:46> ROS Other: All systems not noted in ROS Statement are negative. <Zeeshan Brown - Last Filed: 12/31/23 13:51> ROS Statement: Those systems with pertinent positive or pertinent negative responses have been documented in the HPI. Past Medical History Past Medical History: Asthma, Deep Vein Thrombosis (DVT), Sleep Apnea/CPAP/BIPAP, Thyroid Disorder Additional Past Medical History / Comment(s): Remote history of spinal MENIGITIS (BACTERIAL?). NO CPAP/BIPAP History of Any Multi-Drug Resistant Organisms: MRSA Date of last positivie culture/infection: 03/25/23 MDRO Source:: Back Past Surgical History: Back Surgery Additional Past Surgical History / Comment(s): Lipoma removal Past Anesthesia/Blood Transfusion Reactions: No Reported Reaction Past Psychological History: No Psychological Hx Reported Smoking Status: Former smoker Past Alcohol Use History: Rare Past Drug Use History: Marijuana - Past Family History Mother Family Medical History: AICD/Pacemaker, Osteoarthritis (OA) Father Family Medical History: Myocardial Infarction (IA) (IA at age 76) <Alma Dover - Last Filed: 12/31/23 12:46> General Exam Limitations: no limitations <Alma Dover - Last Filed: 12/31/23 12:46> <Zeeshan Brown - Last Filed: 12/31/23 13:51> - General Exam Comments Initial Comments: Visual Physical Exam Vital signs reviewed General: Well-appearing, nontoxic, no acute distress. Head: Normocephalic, atraumatic Eyes: PERRLA, EOMI ENT: Airway patent Chest: Nonlabored breathing Skin: No visual rash, normal skin tone Neuro: Alert and oriented 3 Musculoskeletal: Swelling and redness to left medial elbow. (Alma Dover) GENERAL: Patient is well-developed and well-nourished. Patient is nontoxic and well- hydrated and is in mild distress. ENT: Neck is soft and supple. No significant lymphadenopathy is noted. Oropharynx is clear. Moist mucous membranes. Neck has full range of motion without eliciting any pain. EYES: The sclera were anicteric and conjunctiva were pink and moist. Extraocular movements were intact and pupils were equal round and reactive to light. Eyelids were unremarkable. PULMONARY: Unlabored respirations. Good breath sounds bilaterally. No audible rales rhonchi or wheezing was noted. CARDIOVASCULAR: There is a regular rate and rhythm without any murmurs gallops or rubs. SKIN: Skin is clear with no lesions or rashes and otherwise unremarkable. NEUROLOGIC: Patient is alert and oriented x3. Cranial nerves II through XII are grossly intact. Motor and sensory are also intact. Normal speech, volume and content. Symmetrical smile. MUSCULOSKELETAL: Normal extremities with adequate strength and full range of motion. Left arm is swollen a little bit red along the medial aspect and slightly tender LYMPHATICS: No significant lymphadenopathy is noted PSYCHIATRIC: Normal psychiatric evaluation. (Zeeshan Brown) Course Vital Signs 12/31/23 12:39 Temperature 98 F Pulse Rate 65 Respiratory 18 Rate Blood Pressure 172/78 O2 Sat by Pulse 98 Oximetry Medical Decision Making <Alma Dover - Last Filed: 12/31/23 12:46> <Zeeshan Brown - Last Filed: 12/31/23 13:51> - Medical Decision Making I performed the quick note portion of this chart. Electronically signed by Alma Dover PA-C (Alma Dover) Was pt. sent in by a medical professional or institution ([facility], BACK ROLL LATHE OPERATOR, urgent care, hospital, or longterm...) When possible be specific @ -Patient was sent in by the primary medical care doctor Did you speak to anyone other than the patient for history (EMS, parent, family, police, friend...)? What history was obtained from this source @ -No Did you review nursing and triage notes (agree or disagree)? Why? @ -I reviewed and agree with nursing and triage notes Were old charts reviewed (outside hosp., previous admission, EMS record, old EKG, old radiological studies, urgent care reports/EKG's, longterm records)? Report findings @ -No old charts were reviewed Differential Diagnosis (chest pain, altered mental status, abdominal pain women, abdominal pain men, vaginal bleeding, weakness, fever, dyspnea, syncope, headache, dizziness, GI bleed, back pain, seizure, CVA, palpatations, mental health, musculoskeletal)? @ -Not applicable EKG interpreted by me (3pts min.). @ -As above X-rays interpreted by me (1pt min.). @ -None done CT interpreted by me (1pt min.). @ -None done U/S interpreted by me (1pt. min.). @ -None done What testing was considered but not performed or refused? (CT, X-rays, U/S, labs)? Why? @ -None What meds were considered but not given or refused? Why? @ -None Did you discuss the management of the patient with other professionals (professionals i.e. , PA, BACK ROLL LATHE OPERATOR, lab, RT, psych nurse, social work administrator, chemical applicator, teacher, commanding officer motorized squad, oil field caser)? Give summary @ -No Was smoking cessation discussed for >3mins.? @ -No Was critical care preformed (if so, how long)? @ -No Were there social determinants of health that impacted care today? How? (Homelessness, low income, unemployed, alcoholism, drug addiction, transportation, low edu. Level, literacy, decrease access to med. care, care home, rehab)? @ -No Was there de-escalation of care discussed even if they declined (Discuss DNR or withdrawal of care, Hospice)? DNR status @ -No What co-morbidities impacted this encounter? (DM, HTN, Smoking, COPD, CAD, Cancer, CVA, ARF, Chemo, Hep., AIDS, mental health diagnosis, sleep apnea, morbid obesity)? @ -None Was patient admitted / discharged? Hospital course, mention meds given and route, prescriptions, significant lab abnormalities, going to OR and other pertinent info. @ -I reviewed the outpatient ultrasound DVT in the left arm. Patient was placed Eliquis in the emergency department and sent home with a starter pack patient was informed that he needs to follow-up with hematology Undiagnosed new problem with uncertain prognosis? @ -No Drug Therapy requiring intensive monitoring for toxicity (Heparin, Nitro, Insulin, Cardizem)? @ -No Were any procedures done? @ -No Diagnosis/symptom? @ -Upper extremity DVT Acute, or Chronic, or Acute on Chronic? @ -Acute Uncomplicated (without systemic symptoms) or Complicated (systemic symptoms)? @ -Default Side effects of treatment? @ -No Exacerbation, Progression, or Severe Exacerbation? @ -No Poses a threat to life or bodily function? How? (Chest pain, [place], [place], pneumonia, PE, COPD, DKA, ARF, appy, cholecystitis, CVA, Diverticulitis, Homicidal, Suicidal, threat to staff... and all critical care pts) @ -Yes this could lead to pulmonary embolism and (Zeeshan Borwn) Disposition <Alma Dover - Last Filed: 12/31/23 12:46> Is patient prescribed a controlled substance at d/c from ED?: No Time of Disposition: 13:50 <Zeeshan Brown - Last Filed: 12/31/23 13:51> Clinical Impression: Deep vein thrombosis (DVT) of upper extremity Disposition: HOME SELF-CARE Condition: Good Instructions (If sedation given, give patient instructions): Deep Vein Thrombosis (ED) Prescriptions: Apixaban [Eliquis Starter Pack (for VTE)] 5 - 10 mg PO DIRECTED 30 Days #1 each Referrals: Arabella Gruber MD [Primary Care Provider] - 1-2 days
[2023-12-31 12:48] VITALS: RESP 18
[2023-12-31] MEDS: APIXABAN 5 MG TAB PO STA (14:00)
[2023-12-31 14:37] LABS: Basophils # (A) 0.1 k/uL (0-0.2); Basophils % (A) 1 %; Eosinophils # (A) 0.5 k/uL (0-0.7); Eosinophils % (A) 5 %; HCT 45.9 % (39.0-53.0); HGB 15.1 gm/dL (13.0-17.5); Lymphocytes # (A) 2.6 k/uL (1.0-4.8); Lymphocytes % (A) 30 %; MCH 31.9 pg (25.0-35.0); MCV 96.9 fL (80.0-100.0); Mean Platelet Volume 7.7; Monocytes # (A) 0.7 k/uL (0-1.0); Monocytes % (A) 8 %; Neutrophils # (A) 4.6 k/uL (1.3-7.7); Neutrophils % (A) 54 %; Platelet Count 247 k/uL (150-450); RBC 4.73 m/uL (4.30-5.90); RDW 12.8 % (11.5-15.5); WBC 8.5 k/uL (3.8-10.6)
[2023-12-31 14:56] LABS: ALT 18 U/L (4-49); AST 32 U/L (17-59); African American GFR (CKD) 70 (>60 ml/min/1.73 sqM); Albumin 4.2 g/dL (3.5-5.0); Alkaline Phosphatase 67 U/L (38-126); Anion Gap 9 mmol/L; Blood Urea Nitrogen 17 mg/dL (9-20); Calcium 9.2 mg/dL (8.4-10.2); Carbon Dioxide 21 mmol/L (22-30); Chloride 108 mmol/L (98-107); Glucose 99 mg/dL (74-99); Non-African American GFR(CKD) 61 (>60 ml/min/1.73 sqM); Potassium 4.2 mmol/L (3.5-5.1); Sodium 138 mmol/L (137-145); Total Bilirubin 0.5 mg/dL (0.2-1.3); Total Protein 7.4 g/dL (6.3-8.2)
[2023-12-31 15:10] VITALS: BP 168/76; PULSE 76; TEMP 98.1
[2023-12-31 15:24] LABS: INR 0.9 (<1.2)
== END 2023-12-31 15:10 | disposition home or self-care (01) ==
LOC: SUPCPDRO 12:36 → EC 12:36
DX: I82.622 Acute embolism and thrombosis of deep veins of left upper extremity (principal); Z88.0 Allergy status to penicillin; Z87.891 Personal history of nicotine dependence
CPT/HCPCS: 36415; 80053; 85025; 85610; 85730; 99283

== ENCOUNTER → 2023-12-31 | Outpatient (CLI) | payer MEDICARE ==
--- NOTE | 2023-12-31 12:38 | US ---
EXAMINATION TYPE: US venous doppler duplex UE LT DATE OF EXAM: 12/31/2023 COMPARISON: NONE CLINICAL INDICATION: Male, 73 years old with history of R22.32 SWELLING, MASS AND LUMP, LEFT UPPER LI MB; left arm pain, edema, redness SIDE PERFORMED: left Left Arm: Positive for DVT left brachial vein. Superficial thrombus noted within left basilic vein IMPRESSION: 1. Deep venous thrombosis left brachial vein 2. Superficial thrombus within the left basilic vein
== END | disposition home or self-care (01) ==
LOC: RADUSWWP 11:46
PROVIDERS: ATTEND Family Medicine
DX: I82.622 Acute embolism and thrombosis of deep veins of left upper extremity (principal); I82.612 Acute embolism and thrombosis of superficial veins of left upper extremity; R22.32 Localized swelling, mass and lump, left upper limb